=== PATIENT | male | born 1935 | race Caucasian/White ===

== ENCOUNTER → 2017-01-30 | Outpatient (CLI) | payer OTHER ==
[~2017-01-30] MED LIST: ADVIN50/60 INH; ALBUAER2 INH; AMLO-110 PO; ASPI-232 PO; ATOR-22 PO; CLOP1TAB15 PO; CRD200 PO; CYAN10005 PO; FLM4 PO; FLV1 PO; HYDR-4079 PO; IPRA1AER2 INH; ISOS60TA25 PO; ISR/30 PO; LEVA45AE NEB; MULT-506 PO; NTRGSL/4 SL; OMEP10CA2 PO; SPRIN/30 INH; THIA100T11 PO; THM100 PO; TPRSR/25 PO
--- NOTE | 2017-01-30 14:31 | DIAGNOSTIC IMAGING REPORT ---
CHEST CT WITHOUT CONTRAST CT DOSE: 248.24 mGycm HISTORY: R91.8 Lung nodule, [id number] TECHNIQUE: Multiaxial CT images of the chest were performed without contrast. COMPARISON: Chest CT 09/08/2016. FINDINGS: Severe emphysema. No pneumothorax. No pleural effusions. Stable peripheral consolidation within the right upper lobe with associated air bronchograms and traction bronchiectasis. This favors fibrotic change. There is also mild right mediastinal shift, unchanged due to the right upper lobe volume loss. Small irregular/nodular densities within the peripheral base of the right lower lobe demonstrating a waxing and waning appearance from the prior study. No change in the irregular/spiculated focal density within the left lower lobe on image 131. This measures 2.1 cm. This could also represent chronic consolidation or a neoplasm. Old, healed right-sided rib fractures. The visualized unenhanced liver and adrenal glands are unremarkable. Calcification within the spleen. No mediastinal or hilar lymphadenopathy. The heart is normal in size. IMPRESSION: 1. No change in the peripheral consolidation within the right upper lobe with associated traction bronchiectasis. There is volume loss within the right upper lobe with associated mild right mediastinal shift. Therefore, this favors fibrotic change. 2. Stable 2.1 cm irregular/spiculated density within the left lower lobe. This could represent chronic consolidation versus a neoplasm. Bronchoscopy is suggested for further evaluation. 3. Waxing and waning appearance within the small irregular/nodular densities within the peripheral base of the right lower lobe. Therefore, this favors an infectious process. Electronically signed by: Toribio Bo M.D. 01/30/2017 2:30 PM Dictated Date/Time: 01/30/2017 2:19 PM
== END | disposition home or self-care (01) ==
LOC: C.CTS 13:45
PROVIDERS: ATTEND Surgery
DX: R91.8 Other nonspecific abnormal finding of lung field (principal)

== ENCOUNTER 2017-04-08 02:12 | Observation (INO) | payer OTHER ==
[~2017-04-08] VITALS: Ht 165.1 cm; Wt 58.7 kg
[~2017-04-08 02:12] MED LIST changes: -ISOS60TA25 PO; -THIA100T11 PO
--- NOTE | 2017-04-08 02:26 | EMERGENCY ROOM VISIT NOTE ---
History Report prepared by Lexie: Diego Mclean Under the Supervision of: Dr. Alvarez Musa D.O. First contact with patient: 02:16 Stated Complaint: RESPIRATORY DIFFICULTY/CHEST TIGHTNESS History of Present Illness The patient is a 82 year old male who presents to the Emergency Room with complaints of shortness of breath that occurred 1 hour ago. His shortness of breath woke him up from sleep. At this time, he also had some chest tightness. His symptoms have lessened significantly after he received 1 Nitroglycerin, Combivent, Albuterol, DuoNeb, and Aspirin 324 mg PO en route. He denies any chest pain, cough, or fever. He is not on oxygen at home. He recently quit smoking cigarettes four months ago. Source of History: patient Onset: 1 hour ago Position: other (Respiratory System) Symptom Intensity: mild Quality: other (Shortness of breath) Timing: resolved Associated Symptoms: + SOB, No fevers, No cough, No chest pain Review of Systems See HPI for pertinent positives and negatives. A total of ten systems were reviewed and were otherwise negative. Past Medical & Surgical Medical Problems: (1) COPD (chronic obstructive pulmonary disease) (2) Coronary artery disease (3) History of atrial fibrillation (4) HLD (hyperlipidemia) (5) Hypertension (6) Tobacco abuse Surgical Problems: (1) S/P drug eluting coronary stent placement (2) Status post coronary artery stent placement Family History FH: heart disease FH: lung disease Social History Smoking Status: Former Smoker Alcohol Use: occasionally Drug Use: none Marital Status: Housing Status: lives with family Occupation Status: employed Current/Historical Medications Scheduled Amiodarone HCl (Amiodarone HCl), 100 MG PO Q2D Amlodipine (Norvasc), 5 MG PO QAM Aspirin (Aspir-81), 81 MG PO DAILY Atorvastatin (Lipitor), 20 MG PO QAM Clopidogrel (Plavix), 75 MG PO QAM Cyanocobalamin (Vitamin B-12), 1,500 MCG PO QAM Fluticasone Prop/Salmeterol (Advair Diskus 500/50 60 Dose), 1 PUFF INH BID Folic Acid (Folic Acid), 1 MG PO QAM Ipratropium-Albuterol (Combivent Respimat), 1 PUFFS INH QID Isosorbide Dinitrate (Isordil), 30 MG PO QAM Isosorbide Mononitrate Ext Rel (Imdur Ext Rel), 90 MG PO QAM Levalbuterol Tartrate (Levalbuterol Tartrate Hfa), 1.25 MG NEB q 8 hrs Metoprolol Succinate (Metoprolol Succinate ER), 25 MG PO QAM Multivitamin (Multivitamin), 1 TAB PO QAM Nitroglycerin (Nitrostat), 0.4 MG SL UD Omeprazole (Prilosec), 10 MG PO QAM Tamsulosin HCl (Tamsulosin HCl), 0.4 MG PO QAM Thiamine HCl (Vitamin B-1), 100 MG PO QAM Thiamine Hcl (Vitamin B-1), 100 MG PO QAM Tiotropium [place] (Spiriva Handihaler), 1 PUFF INH DAILY Scheduled PRN Albuterol (Ventolin), 2 PUFFS INH Q4H PRN for Shortness of Breath Hydrocodone/Acetaminophen 10MG/325MG ([place] 10MG/325MG), 1 TAB PO Q6H PRN for Pain Allergies Coded Allergies: Naproxen (Verified Allergy, Unknown, hives, 09/29/16) Physical Exam Vital Signs Date Time Temp Pulse Resp B/P (MAP) Pulse Ox O2 Delivery O2 Flow Rate FiO2 04/08/17 03:27 62 18 156/83 100 Room Air 04/08/17 03:12 65 17 100 Room Air 04/08/17 02:57 60 17 100 Room Air 04/08/17 02:42 62 17 100 04/08/17 02:27 62 18 100 04/08/17 02:20 100 Room Air 04/08/17 02:20 65 04/08/17 02:20 36.4 67 24 168/90 100 Room Air 04/08/17 02:17 168/90 04/08/17 02:15 100 Room Air Physical Exam GENERAL: Awake, alert, well-appearing, in no distress HENT: Normocephalic, atraumatic. Oropharynx unremarkable. EYES: Normal conjunctiva. Sclera non-icteric. NECK: Supple. No nuchal rigidity. FROM. No JVD. RESPIRATORY: Decreased breath sounds bilaterally. CARDIAC: Regular rate, normal rhythm. Extremities warm and well perfused. Pulses equal. ABDOMEN: Soft, non-distended. No tenderness to palpation. No rebound or guarding. No masses. RECTAL: Deferred. MUSCULOSKELETAL: Chest examination reveals no tenderness. The back is symmetrical on inspection without obvious abnormality. There is no CVA tenderness to palpation. No joint edema. LOWER EXTREMITIES: Calves are equal size bilaterally and non-tender. No edema. No discoloration. NEURO: Normal sensorium. No sensory or motor deficits noted. SKIN: No rash or jaundice noted. Medical Decision & Procedures ER Provider Diagnostic Interpretation: X-ray: Per my interpretation. CHEST 1 VIEW X-RAY: Scarring of the right upper lobe. COPD changes. Per me. Laboratory Results 04/08/17 01:46 Red Blood Count 3.97, Mean Corpuscular Volume 94.0, Mean Corpuscular Hemoglobin 33.2, Mean Corpuscular Hemoglobin Concent 35.4, Mean Platelet Volume 9.8, Neutrophils (%) (Auto) 51.9, Lymphocytes (%) (Auto) 35.9, Monocytes (%) (Auto) 8.9, Eosinophils (%) (Auto) 1.7, Basophils (%) (Auto) 0.5, Neutrophils # (Auto) 3.40, Lymphocytes # (Auto) 2.35, Monocytes # (Auto) 0.58, Eosinophils # (Auto) 0.11, Basophils # (Auto) 0.03 04/08/17 01:46 Test 04/08/17 01:46 04/08/17 04:21 White Blood Count 6.54 K/uL (4.8-10.8) Red Blood Count 3.97 M/uL (4.7-6.1) Hemoglobin 13.2 g/dL (14.0-18.0) Hematocrit 37.3 % (42-52) Mean Corpuscular Volume 94.0 fL (80-100) Mean Corpuscular Hemoglobin 33.2 pg (25-34) Mean Corpuscular Hemoglobin Concent 35.4 g/dl (32-36) Platelet Count 164 K/uL (130-400) Mean Platelet Volume 9.8 fL (7.4-10.4) Neutrophils (%) (Auto) 51.9 % Lymphocytes (%) (Auto) 35.9 % Monocytes (%) (Auto) 8.9 % Eosinophils (%) (Auto) 1.7 % Basophils (%) (Auto) 0.5 % Neutrophils # (Auto) 3.40 K/uL (1.4-6.5) Lymphocytes # (Auto) 2.35 K/uL (1.2-3.4) Monocytes # (Auto) 0.58 K/uL (0.11-0.59) Eosinophils # (Auto) 0.11 K/uL (0-0.5) Basophils # (Auto) 0.03 K/uL (0-0.2) RDW Standard Deviation 42.6 fL (36.4-46.3) RDW Coefficient of Variation 12.3 % (11.5-14.5) Immature Granulocyte % (Auto) 1.1 % Immature Granulocyte # (Auto) 0.07 K/uL (0.00-0.02) Anion Gap 6.0 mmol/L (3-11) Est Creatinine Clear Calc Drug Dose 100.8 ml/min Estimated GFR () 117.8 Estimated GFR (Non- 101.6 BUN/Creatinine Ratio 12.2 (10-20) Calcium Level 7.9 mg/dl (8.5-10.1) Total Bilirubin 0.6 mg/dl (0.2-1) Direct Bilirubin 0.2 mg/dl (0-0.2) Aspartate Amino Transf (AST/SGOT) 23 U/L (15-37) Alanine Aminotransferase (ALT/SGPT) 28 U/L (12-78) Alkaline Phosphatase 58 U/L (45-117) Total Protein 6.5 gm/dl (6.4-8.2) Albumin 3.4 gm/dl (3.4-5.0) Laboratory results reviewed by me Medications Administered Medications (Trade) Dose Ordered Sig/Emilee Route Start Time Stop Time Status Last Admin Dose Admin Methylprednisolone Sodium Succinate (Solu-Medrol IV) 125 mg NOW STAT IV 04/08/17 03:32 04/08/17 03:33 DC 04/08/17 03:43 125 MG ECG Indication: SOB/dyspnea Rate (beats per minute): 63 Rhythm: sinus rhythm Findings: left axis deviation, other (Right anterior deena Block) ED Course 0216: The patient was evaluated in room A10. A complete history and physical exam was performed. 0332: Ordered Solu-Medrol IV 125 mg IV, Aspirin 324 mg PO 0415: I reevaluated the patient. Discussed results and discharge instructions: He verbalized understanding and agreement. The patient is ready for discharge. Medical Decision Differential diagnoses include but are not limited to; COPD, CHF, pneumonia, and acute coronary syndrome. Medication Reconciliation: I attest that I have personally reviewed the patient' s current medication list. Blood pressure screening: Patient was found to have normal blood pressure on screening and does not require follow-up. Patient was given aspirin prior arrival, has taken nitroglycerin, has been given Solu-Medrol in the emergency department as well as nebulized treatments prior to arrival. Patient remained stable condition. The case was discussed with the hospitalist from [facility] for admission Consults Time Called: [phone] Consulting Physician: Dr. Emil[facility] Returned Call: [phone] They will be evaluating the patient for further management and care. Impression Primary Impression: COPD exacerbation Additional Impression: Chest pain, rule out acute myocardial infarction Scribe Attestation The scribe's documentation has been prepared under my direction and personally reviewed by me in its entirety. I confirm that the note above accurately reflects all work, treatment, procedures, and medical decision making performed by me. Departure Information Dispostion Being Evaluated By Hospitalist Referrals Reyes Pablo M.D. (PCP) Problem Qualifiers
[2017-04-08 02:34] LABS: BASO % 0.5 %; BASO ABS # 0.03 K/uL (0-0.2); COMPLETE YES; EOS % 1.7 %; HEMATOCRIT 37.3 % (42-52); IG% 1.1 %; LYMPH % 35.9 %; LYMPH ABS # 2.35 K/uL (1.2-3.4); MEAN CORPUSCULAR HEMOGLOBIN 33.2 pg (25-34); MEAN CORPUSCULAR HGB CONC 35.4 g/dl (32-36); MEAN PLATELET VOLUME 9.8 fL (7.4-10.4); MONO % 8.9 %; NEUT % 51.9 %; PLATELET COUNT 164 K/uL (130-400); RED BLOOD COUNT 3.97 M/uL (4.7-6.1); WHITE BLOOD COUNT 6.54 K/uL (4.8-10.8)
[2017-04-08 02:52] LABS: BUN/CREATININE RATIO 12.2 (10-20); CALCIUM 7.9 mg/dl (8.5-10.1); CREATININE 0.5 mg/dl (0.60-1.40); POTASSIUM 3.9 mmol/L (3.5-5.1)
[2017-04-08] MEDS ORDERED: THIA100T11 PO (03:11)
[2017-04-08] MEDS ORDERED: ASPIRIN 81 MG CHEW PO STA (03:32)
[2017-04-08] MEDS ORDERED: METHYLPREDNISOLONE 125 MG VIAL IV STA (03:32)
--- NOTE | 2017-04-08 04:21 | History and Physical ---
History & Physical Date & Time of Service: Apr 08, 2017 at 04:21 Chief Complaint: Respiratory Difficulty/Chest Tightness Primary Care Physician: Reyes Pablo M.D. History of Present Illness Source: patient this is a 82 yo Male with past medical hx of CAD , HTN /Afib presented to ED with with complain of SOB woke him up from sleep tole SL nitro with improvement of symptom at present chest pain free no complain of orthopnea , no cough no fever or chills pt was seen by Cardiology recently , Imdur dose was increased for AHMADI , anginal symptom with exertion pt has chronically occluded LAD , severely calcified coronary artery , not amenable for PTCA medical management was indicated in the ED pt was given Solu Medrol -for possible COPD exacerbation Past Medical/Surgical History Medical Problems: (1) COPD (chronic obstructive pulmonary disease) Status: Chronic (2) Coronary artery disease Status: Chronic (3) History of atrial fibrillation Status: Chronic (4) HLD (hyperlipidemia) Status: Chronic (5) Hypertension Status: Chronic (6) Tobacco abuse Status: Chronic Surgical Problems: (1) S/P drug eluting coronary stent placement Permanent Comment: 2005 Status: Chronic (2) Status post coronary artery stent placement Permanent Comment: PCI LAD Status: Chronic Family History FH: heart disease FH: lung disease Social History Smoking Status: Former Smoker Drug Use: none Marital Status: Occupational Status: employed Allergies Coded Allergies: Naproxen (Verified Allergy, Unknown, hives, 09/29/16) Home Medications Scheduled Amiodarone HCl (Amiodarone HCl), 100 MG PO Q2D Amlodipine (Norvasc), 5 MG PO QAM Aspirin (Aspir-81), 81 MG PO DAILY Atorvastatin (Lipitor), 20 MG PO QAM Clopidogrel (Plavix), 75 MG PO QAM Cyanocobalamin (Vitamin B-12), 1,500 MCG PO QAM Fluticasone Prop/Salmeterol (Advair Diskus 500/50 60 Dose), 1 PUFF INH BID Folic Acid (Folic Acid), 1 MG PO QAM Ipratropium-Albuterol (Combivent Respimat), 1 PUFFS INH QID Isosorbide Mononitrate Ext Rel (Imdur Ext Rel), 90 MG PO QAM Metoprolol Succinate (Metoprolol Succinate ER), 25 MG PO QAM Multivitamin (Multivitamin), 1 TAB PO QAM Nitroglycerin (Nitrostat), 0.4 MG SL UD Omeprazole (Prilosec), 10 MG PO QAM Tamsulosin HCl (Tamsulosin HCl), 0.4 MG PO QAM Thiamine Hcl (Vitamin B-1), 100 MG PO QAM Tiotropium [place] (Spiriva Handihaler), 1 PUFF INH DAILY Scheduled PRN Albuterol (Ventolin), 2 PUFFS INH Q4H PRN for Shortness of Breath Hydrocodone/Acetaminophen 10MG/325MG ([place] 10MG/325MG), 1 TAB PO Q6H PRN for Pain Levalbuterol Tartrate (Levalbuterol Tartrate Hfa), 1.25 MG NEB q 8 hrs PRN for SOB/Wheezing Review of Systems Constitutional: + weakness Respiratory: + shortness of breath, + dyspnea on exertion Cardiovascular: + chest pain Abdomen: No pain, No nausea, No vomiting, No diarrhea, No constipation, No GI bleeding, No problem reported Musculoskeletal: No joint pain, No muscle pain, No swelling, No calf pain, No problem reported Genitourinary - Male: No hematuria, No dysuria, No urinary frequency, No urinary urgency, No urinary hesitancy, No urinary retention, No urinary incontinence, No penile discharge, No lesions, No impotence, No problem reported Neurologic: No memory loss, No paralysis, No weakness, No numbness/tingling, No vertigo, No balance problems, No problem reported Physical Exam Vital Signs Date Time Temp Pulse Resp B/P (MAP) Pulse Ox O2 Delivery O2 Flow Rate FiO2 04/08/17 03:27 62 18 156/83 100 Room Air 04/08/17 03:12 65 17 100 Room Air 04/08/17 02:57 60 17 100 Room Air 04/08/17 02:42 62 17 100 04/08/17 02:27 62 18 100 04/08/17 02:20 100 Room Air 04/08/17 02:20 65 04/08/17 02:20 36.4 67 24 168/90 100 Room Air 04/08/17 02:17 168/90 04/08/17 02:15 100 Room Air General Appearance: no apparent distress Eyes: sclerae normal Respiratory/Chest: chest non-tender, lungs clear, normal breath sounds, no respiratory distress Cardiovascular: regular rate, rhythm, no edema, no JVD, normal peripheral pulses Abdomen/GI: non tender, soft Extremities/Musculoskelatal: normal capillary refill, no pedal edema Neurologic/Psych: alert, normal mood/affect, oriented x 3 Skin: normal color, warm/dry, no rash Diagnostics Laboratory Results Results Past 24 Hours Test 04/08/17 01:46 Range/Units White Blood Count 6.54 4.8-10.8 K/uL Red Blood Count 3.97 4.7-6.1 M/uL Hemoglobin 13.2 14.0-18.0 g/dL Hematocrit 37.3 42-52 % Mean Corpuscular Volume 94.0 80-100 fL Mean Corpuscular Hemoglobin 33.2 25-34 pg Mean Corpuscular Hemoglobin Concent 35.4 32-36 g/dl Platelet Count 164 130-400 K/uL Mean Platelet Volume 9.8 7.4-10.4 fL Neutrophils (%) (Auto) 51.9 % Lymphocytes (%) (Auto) 35.9 % Monocytes (%) (Auto) 8.9 % Eosinophils (%) (Auto) 1.7 % Basophils (%) (Auto) 0.5 % Neutrophils # (Auto) 3.40 1.4-6.5 K/uL Lymphocytes # (Auto) 2.35 1.2-3.4 K/uL Monocytes # (Auto) 0.58 0.11-0.59 K/uL Eosinophils # (Auto) 0.11 0-0.5 K/uL Basophils # (Auto) 0.03 0-0.2 K/uL RDW Standard Deviation 42.6 36.4-46.3 fL RDW Coefficient of Variation 12.3 11.5-14.5 % Immature Granulocyte % (Auto) 1.1 % Immature Granulocyte # (Auto) 0.07 0.00-0.02 K/uL Sodium Level 138 136-145 mmol/L Potassium Level 3.9 3.5-5.1 mmol/L Chloride Level 106 98-107 mmol/L Carbon Dioxide Level 26 21-32 mmol/L Anion Gap 6.0 3-11 mmol/L Blood Urea Nitrogen 6 7-18 mg/dl Creatinine 0.50 0.60-1.40 mg/dl Est Creatinine Clear Calc Drug Dose 100.8 ml/min Estimated GFR () 117.8 Estimated GFR (Non- 101.6 BUN/Creatinine Ratio 12.2 10-20 Random Glucose 65 70-99 mg/dl Calcium Level 7.9 8.5-10.1 mg/dl Total Bilirubin 0.6 0.2-1 mg/dl Direct Bilirubin 0.2 0-0.2 mg/dl Aspartate Amino Transf (AST/SGOT) 23 15-37 U/L Alanine Aminotransferase (ALT/SGPT) 28 12-78 U/L Alkaline Phosphatase 58 45-117 U/L Total Protein 6.5 6.4-8.2 gm/dl Albumin 3.4 3.4-5.0 gm/dl CXR normal Impression Assessment and Plan SOB /CHEST PAIN : need to rule out ACS monitor in Tele symptom resolved after takin SL nitro serial cardiac markers ordered ECHO in AM consider cardiac stress test if serial cardiac markers are negative and pt is symptom free HTN : BP stable cont out pt meds Hx of COPD EXACERBATION : hx of COPD with hx of tobacco use no evidence of exacerbation PRN neb tx cont INH last echo; shows severe pulm HTN repeat ECHO ordered HX OF PAROXYSMAL AFIB on Amiodarone on dual antiplatelet tx not on Coumadin HX OF CAD S/P PTCA cont out pt cardiac meds ECHO ordered chest pain /SOB could be possibly due to COPD exacerbation check serial Cardica markers HYPERLIPIDEMIA: Cont statin FULL CODE DVT PROPHYLAXIS: moderate risk Subq heparin DISPOSITION ; expected to return home when medically stable PT/OT eval prior to discharge Level of Care Telemetry Resuscitation Status FULL RESUSCITATION VTE Prophylaxis VTE Risk Assessment Done? Y/N: Yes Risk Level: Moderate Given or contraindicated: Unfractionated heparin SQ
[2017-04-08] MEDS ORDERED: ISOS60TA25 PO (04:22)
[2017-04-08] MEDS ORDERED: NITROGLYCERIN 0.4 MG SL PER TAB CHARGE SL PRN (04:30)
[2017-04-08] MEDS ORDERED: MAGNESIUM HYDROXIDE SUSP 30 ML UDC PO PRN (04:30)
[2017-04-08] MEDS ORDERED: ALBUT/IPRATROP 3MG/0.5MG NEB 3 ML VIAL INH PRN (04:30)
[2017-04-08] MEDS ORDERED: NITROGLYCERIN 0.4 MG SL PER TAB CHARGE SL SCH (04:30)
[2017-04-08] MEDS ORDERED: POLYETHYLENE (MIRALAX) 17 GM PACK PO PRN (04:30)
[2017-04-08] MEDS ORDERED: ONDANSETRON INJ 2 MG/ML 2 ML VIAL IV PRN (04:30)
[2017-04-08] MEDS ORDERED: ALUMINUM/MAGNESIUM/SIMETH (MAALOX MAX) 30 ML UDC PO PRN (04:30)
[2017-04-08] MEDS ORDERED: HYDROCODONE/ACETAMI 10/325 TAB PO PRN (04:30)
[2017-04-08] MEDS ORDERED: ALBUTEROL HFA 8 GM INHALER INH PRN (04:30)
[2017-04-08] MEDS ORDERED: ACETAMINOPHEN 325 MG TAB PO PRN (04:30)
[2017-04-08] MEDS ORDERED: ZOLPIDEM TARTRATE 5 MG TAB PO PRN (04:30)
[2017-04-08 05:15] VITALS: BP 185/86; PULSE 64; TEMP 36.5; O2SAT 94; Ht 165.1 cm; Wt 58.7 kg
[2017-04-08] MEDS ORDERED: IV FLUIDS COMPLETED PRN (05:30)
--- NOTE | 2017-04-08 06:54 | Progress Note ---
Progress Note Date of Service Apr 08, 2017. Progress Note Pt had runs of non sustained Vtch on monitor remains asymptomatic cont monitoring tech , follow electrolytes on Amiodarone already cardiology eval requested
[2017-04-08] MEDS ORDERED: PERFLUTREN LIPID MICROSPHERE (DEFINITY) IV ONE (07:35)
[2017-04-08 07:41] VITALS: BP 179/98; PULSE 82; TEMP 36.4; O2SAT 90
--- NOTE | 2017-04-08 08:20 | DIAGNOSTIC IMAGING REPORT ---
CHEST ONE VIEW PORTABLE CLINICAL HISTORY: Chest pain, shortness of breath. COMPARISON STUDY: Chest radiograph September 29, [address] January 30, 2017. FINDINGS: Peripheral consolidation within the right upper lobe with distortion and right hemithorax volume loss is unchanged. This is likely chronic. There is no pneumothorax or pleural effusion. There is no consolidation to suggest pneumonia. Cardiac size is normal. A few nodular opacities within the right lower lung are similar to prior chest CT. The left lower lobe nodule shown on that exam is not well visualized on this exam as it is partially obscured by an overlying lead. This appears unchanged. Multiple thoracic spine compression deformities are noted. IMPRESSION: 1. No significant change in appearance the chest since CT of January 30, 2017. 2. A few irregular bilateral pleural nodules which are indeterminate and a follow-up chest CT in 3 months is recommended. 3. Stable right upper lobe opacity with distortion which favors fibrotic change. Electronically signed by: Anton Andersen M.D. 04/08/2017 8:19 AM Dictated Date/Time: 04/08/2017 8:13 AM
[2017-04-08] MEDS: FLUTICASONE/SALMETEROL (ADVAIR) 500/50 INH 14 PUFF INH SCH ×2 (08:38→19:54)
[2017-04-08] MEDS: TIOTROPIUM BROMIDE 5 PUFF/90 MCG INH INH SCH (08:38)
[2017-04-08] MEDS: IPRATROPIUM BROMIDE/ALBUTEROL respimat INH INH SCH ×4 (08:39→19:56)
[2017-04-08] MEDS: TAMSULOSIN HCL 0.4 MG CAP PO SCH (08:40)
[2017-04-08] MEDS: ASPIRIN 81 MG ECTAB PO SCH (08:40)
[2017-04-08] MEDS: ISOSORBIDE MONONITRATE 30 MG TABCR PO SCH (08:41)
[2017-04-08] MEDS: ATORVASTATIN 20 MG TAB PO SCH (08:56)
[2017-04-08] MEDS: PANTOprazole SOD 40 MG TAB PO SCH (08:57)
[2017-04-08] MEDS: AMLODIPINE BESYLATE 5 MG TAB PO SCH (08:57)
[2017-04-08] MEDS: MULTIVITAMIN TAB PO SCH (08:58)
[2017-04-08] MEDS: THIAMINE HCL 100 MG TAB PO SCH (08:58)
[2017-04-08] MEDS: CLOPIDOGREL BISULFATE 75 MG TAB PO SCH (08:59)
[2017-04-08] MEDS: CYANOCOBALAMIN 500 MCG TAB (VIT B-12) PO SCH (08:59)
[2017-04-08] MEDS: METOPROLOL SUCC 25MG EXT REL TAB PO SCH (08:59)
[2017-04-08] MEDS ORDERED: AMIODARONE 200 MG TAB PO SCH (09:00)
[2017-04-08] MEDS ORDERED: ASPIRIN 81 MG ECTAB PO SCH (09:00)
--- NOTE | 2017-04-08 10:06 | Progress Note ---
Internal Med Progress Note Date of Service: Apr 08, 2017. Provider Documentation: SUBJECTIVE: Seen and examined at bedside. States chest pain resolved. Denies SOB, wheezing, cough, palpitations, dizziness. Offers no complaints. Poor historian. OBJECTIVE: Vital Signs-as noted below Physical Exam: General Appearance:Moderately built and nourished, no apparent distress Head: normocephalic, Atraumatic Eyes: normal inspection, EOMI, PERRL Neck: supple, Trachea midline Respiratory/Chest: Decreased breath sounds, CTA Cardiovascular: S1, S2, No murmur Abdomen/GI:Soft, Non tender, Bowel sounds present Extremities/Musculoskelatal:normal inspection, no edema Neurologic/Psych:AAOX3, grossly no focal neurological deficits Skin: normal color, warm Lab data as noted below. ASSESSMENT & PLAN: SOB/CHEST PAIN: R/O ACS H/O CAD S/P PTCA symptoms resolved after taking SL nitro Troponin pending Trend cardiac enzymes ECHO pending Cardiology consulted Possible stress test if elevated troponin Continue Aspirin, Plavix, Lipitor, Metoprolol, Imdur CXR:No acute changes HTN : continue home meds Monitor H/O COPD: No evidence of exacerbation PRN nebs continue home inhalers last ECHO: shows severe pulm HTN H/O P.Afib Continue Amiodarone, BB Not on Coumadin HYPERLIPIDEMIA: Continue statin Code Status: FULL CODE DVT PX: Heparin SQ DISPOSITION : Monitor in tele expected to return home when medically stable PT/OT eval Needs repeat CT chest in 3 months upon DC: to eval Pleural Nodules Vital Signs: Date Time Temp Pulse Resp B/P (MAP) Pulse Ox O2 Delivery O2 Flow Rate FiO2 04/08/17 07:41 36.4 82 20 179/98 (125) 90 04/08/17 05:15 36.5 64 18 185/86 94 Room Air 04/08/17 04:32 36.8 62 18 158/82 100 Room Air 04/08/17 04:02 71 20 158/82 97 Room Air 04/08/17 03:32 59 17 100 04/08/17 03:27 62 18 156/83 100 Room Air 04/08/17 03:12 65 17 100 Room Air 04/08/17 02:57 60 17 100 Room Air 04/08/17 02:42 62 17 100 04/08/17 02:27 62 18 100 04/08/17 02:20 100 Room Air 04/08/17 02:20 65 04/08/17 02:20 36.4 67 24 168/90 100 Room Air 04/08/17 02:17 168/90 04/08/17 02:15 100 Room Air Lab Results: Results Past 24 Hours Test 04/08/17 01:46 04/08/17 03:30 04/08/17 06:51 04/08/17 10:09 Range/Units White Blood Count 6.54 4.8-10.8 K/uL Red Blood Count 3.97 4.7-6.1 M/uL Hemoglobin 13.2 14.0-18.0 g/dL Hematocrit 37.3 42-52 % Mean Corpuscular Volume 94.0 80-100 fL Mean Corpuscular Hemoglobin 33.2 25-34 pg Mean Corpuscular Hemoglobin Concent 35.4 32-36 g/dl Platelet Count 164 130-400 K/uL Mean Platelet Volume 9.8 7.4-10.4 fL Neutrophils (%) (Auto) 51.9 % Lymphocytes (%) (Auto) 35.9 % Monocytes (%) (Auto) 8.9 % Eosinophils (%) (Auto) 1.7 % Basophils (%) (Auto) 0.5 % Neutrophils # (Auto) 3.40 1.4-6.5 K/uL Lymphocytes # (Auto) 2.35 1.2-3.4 K/uL Monocytes # (Auto) 0.58 0.11-0.59 K/uL Eosinophils # (Auto) 0.11 0-0.5 K/uL Basophils # (Auto) 0.03 0-0.2 K/uL RDW Standard Deviation 42.6 36.4-46.3 fL RDW Coefficient of Variation 12.3 11.5-14.5 % Immature Granulocyte % (Auto) 1.1 % Immature Granulocyte # (Auto) 0.07 0.00-0.02 K/uL Sodium Level 138 136-145 mmol/L Potassium Level 3.9 3.5-5.1 mmol/L Chloride Level 106 98-107 mmol/L Carbon Dioxide Level 26 21-32 mmol/L Anion Gap 6.0 3-11 mmol/L Blood Urea Nitrogen 6 7-18 mg/dl Creatinine 0.50 0.60-1.40 mg/dl Est Creatinine Clear Calc Drug Dose 100.8 ml/min Estimated GFR () 117.8 Estimated GFR (Non- 101.6 BUN/Creatinine Ratio 12.2 10-20 Random Glucose 65 70-99 mg/dl Calcium Level 7.9 8.5-10.1 mg/dl Total Bilirubin 0.6 0.2-1 mg/dl Direct Bilirubin 0.2 0-0.2 mg/dl Aspartate Amino Transf (AST/SGOT) 23 15-37 U/L Alanine Aminotransferase (ALT/SGPT) 28 12-78 U/L Alkaline Phosphatase 58 45-117 U/L Total Protein 6.5 6.4-8.2 gm/dl Albumin 3.4 3.4-5.0 gm/dl D-Dimer < 190 0-500 ug/L FEU Activated Partial Thromboplast Time 26.7 21.0-31.0 SECONDS Partial Thromboplastin Ratio 1.0
[2017-04-08 10:39] LABS: CKMB/CK RATIO 2.4 (0-3.0)
[2017-04-08 10:46] VITALS: BP 122/71; PULSE 83; TEMP 36.9; O2SAT 92
--- NOTE | 2017-04-08 11:10 | CARDIOLOGY CONSULTATION ---
DATE OF CONSULTATION: 04/08/2017 DATE OF CONSULTATION: 04/08/2017. REFERRING PHYSICIAN: Dr. Evy Cummings. REASON FOR CONSULTATION: Chest pain, nonsustained ventricular tachycardia. HISTORY OF PRESENT ILLNESS: Mr. Hedrick is an 82-year-old male with complex cardiovascular history noted below. He presented to the Emergency Department after awakening with an acute episode of shortness of breath last night. The patient states he could not breathe, denies wheezing. He took 1 sublingual nitroglycerin. He adamantly denies any associated chest discomfort. He carries a history of COPD, quit smoking 4 months ago. Notes some worsening respiratory insufficiency with hot weather. The patient was admitted through the Emergency Department with a diagnosis of COPD exacerbation. He received a dose of intravenous Solu-Medrol last night. This morning he is feeling much better. Denies cough or sputum production. The patient is followed closely by the cardiology clinic for chronic stable angina. He has a history of chronic CAD with an LAD stenosis and failed PCI in 2014. He also has a history of paroxysmal atrial fibrillation on chronic amiodarone therapy. There was concern regarding possible ventricular tachycardia. I have reviewed all telemetry overnight. There is a 4 beat atrial run, likely PAT. There is no evidence of nonsustained ventricular tachycardia. The patient appears comfortable. Imdur recently titrated to 90 mg daily by Nunu Hyatt during cardiology visit on 03/28/2017. The patient offers no other complaints at this time. REVIEW OF SYSTEMS: The pertinent positives are noted above. Comprehensive 10-system review is otherwise negative. PAST MEDICAL HISTORY: 1. Chronic coronary disease with history of PCI, CATALINO to the LAD and obtuse marginal branch vessel. 2. Failed PCI to heavily calcified LAD lesion distal to the stent in March 2015. 3. Paroxysmal atrial fibrillation on chronic amiodarone. 4. COPD. 5. Former tobacco abuse. 6. Hypertension. 7. Chronic pain. 8. Dyslipidemia. PAST SURGICAL HISTORY: As noted above. SOCIAL HISTORY: Former heavy tobacco use, quitting in November 2016. He is . Lives with family. ALLERGIES: NAPROXEN. OUTPATIENT MEDICATIONS: 1. Amiodarone 100 mg every other day. 2. Amlodipine 5 mg daily. 3. Aspirin 81 mg daily. 4. Atorvastatin 20 mg daily. 5. Plavix 75 mg daily. 6. Vitamin B 12 1500 mcg daily. 7. Advair Diskus 500/50 one puff twice daily. 8. Folic acid 1 mg daily. 9. Combivent 1 puff q.i.d. 11. Imdur 30 mg daily. 12. Toprol-XL 25 mg daily. 13. Prilosec 10 mg daily. 14. Spiriva 18 mcg daily 15. Aspirin 81 mg daily. 16. Flomax 0.4 mg daily. FAMILY HISTORY: Negative for premature CAD or sudden cardiac , however noncontributory given patient's advanced age. ECG ON ADMISSION: Sinus rhythm, right bundle branch block, left anterior vesicular block. CHEST X-RAY: Stable right upper lobe opacity with distortion which favors fibrotic change. No CHF or infiltrate. LABORATORY DATA: Troponin has not been drawn since admission. There is no point of care troponin available for reveal. Sodium 138, potassium 3.9, chloride 106, CO2 26, creatinine is 0.50. White blood cell count is 6.54, hemoglobin is 13.2, platelet count is 164. PTT 26.7. D-dimer less than 190. Telemetry demonstrates sinus rhythm, right bundle branch block. Four beat anne of paroxysmal atrial tachycardia. PHYSICAL EXAMINATION: VITAL SIGNS: Temperature is 36.4 degrees centigrade, pulse is 80 beats per minute and regular, respiratory rate 20 breaths per minute, blood pressure 179/98. SAO2 is 94% on room air. GENERAL: NAD, awake, alert and oriented x3. HEAD, EYES, EARS, NOSE, AND THROAT: His mucous membranes are moist. No scleral icterus. Conjunctivae pink. NECK: Veins are flat. No JVD or HJR. HEART: Regular with a normal S1 and S2, no significant murmur, rub or gallop. LUNGS: Demonstrate diminished breath sounds bilaterally. No rales, rhonchi or wheeze. ABDOMEN: Soft, nontender. No rebound or guarding. EXTREMITIES: Warm and dry without clubbing, cyanosis, or edema. 2+ DP pulses noted bilaterally. NEUROLOGIC EXAMINATION: Demonstrates no focal motor deficit. FINAL IMPRESSIONS: 1. An 82-year-old male admitted with acute shortness of breath. Suspect related to chronic obstructive pulmonary disease exacerbation, which has improved with intravenous Solu-Medrol. Will exclude acute coronary syndrome. 2. Chronic coronary disease, history of left anterior descending stenosis and a failed percutaneous coronary intervention 2014 and chronic stable angina managed conservatively. 3. Elevated blood pressure in part related to dose of intravenous corticosteroids. 4. Paroxysmal atrial fibrillation maintained in sinus rhythm with low dose amiodarone. 5. Bifascicular block. 6. Short anne of paroxysmal atrial tachycardia reviewed on telemetry last evening -- no evidence of nonsustained ventricular tachycardia. 7. Chronic obstructive pulmonary disease with former tobacco abuse. PLAN AND RECOMMENDATIONS: I have ordered a stat troponin. The patient has received a.m. blood pressure medications at approximately 9:00 p.m. We will monitor blood pressure this a.m. Consider addition of IMTIAZ inhibitor or ARB if necessary, however, outpatient blood pressure readings have been much lower. Continue corticosteroids, nebulizer treatments as per internal medicine. Overall, patient's exertional anginal pattern is unchanged. Will await review of resting 2D transthoracic echo and troponins. Will also follow telemetry during hospitalization. Other cardiovascular medications will be continued as previously ordered. Thank you for allowing me to take part in the care of your patient. ANNEMARIE
[2017-04-08] MEDS ORDERED: METHYLPREDNISOLONE IV 40 MG in SYRINGE 0 ML IV SCH (12:00)
[2017-04-08 12:18] LABS: INR 1.1 (0.9-1.1); PROTHROMBIN TIME (PATIENT) 11.4 SECONDS (9.0-12.0)
[2017-04-08 13:28] VITALS: PULSE 97; O2SAT 94
--- NOTE | 2017-04-08 13:41 | ECHOCARDIOGRAM REPORT ---
*NOTICE TO RECEIVING [employer] This information is strictly Confidential and protected under [place] law. [place] law prohibits you from making any further disclosure of this information unless further disclosure is expressly permitted by the written consent of the person to whom it pertains or is authorized by law. A general authorization for the release of medical or other information is not sufficient for this purpose. Hospital accepts no responsibility if the information is made available to any other person, INCLUDING THE PATIENT. Interpretation Summary * Name: ERIK STRATTON Study Date: 04/08/2017 07:11 AM BP: 185/86 mmHg * Patient Location: [facility]\S\N278\S\2 HR: 64 * : 1935 (M/d/yyyy) Gender: Male Height: 65 in * Age: 82 yrs Ethnicity: [place] Weight: 137 lb * Ordering Physician: Evy Cummings * Referring Physician: Self, Referred * Performed By: Nelda Temple RDCS * * Reason For Study: Chest pain * BSA: 1.7 m2 * The study was technically limited. * Compared to prior study, changes are noted. * -- Conclusions -- * Ejection Fraction = 60-65%. * There is mild concentric left ventricular hypertrophy. * Septal motion is consistent with conduction abnormality. * Otherwise normal wall motion. * Grade I diastolic dysfunction, (abnormal relaxation pattern). * There is mild mitral regurgitation. * Poorly visualized, moderately calcified, aortic valve with at least mild stenosis per 2D imaging. Procedure Details * A complete two-dimensional transthoracic echocardiogram was performed (2D, M-mode, Doppler and color flow Doppler). * The study was technically difficult. * The study was technically limited. * Limited views were obtained. * There were technical limitations due to patient'sbody habitus * A contrast injection of Definity was performed to improve assessment of LV function. * Contrast was injected into an intravenous site in the left arm. * One vial of Definity ultrasound contrast was diluted in normal saline to a total volume of 10 ml. A total of '2' ml of solution was administered during imaging. * Lot # [id number] of Definity utilized for procedure. * Expiration date APR 16. * The attending nurse who injected the contrast agent was John Blackwell RN. Left Ventricle * The left ventricle is normal in size. * There is mild concentric left ventricular hypertrophy. * Ejection Fraction = 60-65%. * Left ventricular systolic function is normal. * Septal motion is consistent with conduction abnormality. * Otherwise normal wall motion. Right Ventricle * The right ventricle is not well visualized. * The right ventricular systolic function is normal as assessed by tricuspid annular plane systolic excursion (TAPSE) (normal >1.5 cm). Atria * The left atrial size is normal. * Right atrial size is normal. * There is no evidence of atrial septal defect, but resolution does not allow assessment for a patent foramen ovale. Mitral Valve * The mitral valve is normal. * There is mild mitral annular calcification. * There is no mitral valve stenosis. * There is mild mitral regurgitation. * Significant mitral regurgitation is absent. Tricuspid Valve * The tricuspid valve is not well visualized. * There is no tricuspid stenosis. * Significant tricuspid regurgitation is absent. Aortic Valve * The aortic valve is moderately calcified. * The aortic valve is not well visualized. * Poorly visualized, moderately calcified, aortic valve with at least mild stenosis per 2D imaging. * There is no significant aortic regurgitation. Pulmonic Valve * The pulmonary valve is not well seen, but the Doppler examination is normal without significant regurgitation or stenosis. Great Vessels * The aortic root and proximal ascending aorta are normal sized. Pericardium/Pleural * There is no pericardial effusion. Great Vessels * Normal inferior vena cava diameter and respiratory variation suggests normal central venous pressure. Left Ventricular Diastolic Function * Grade I diastolic dysfunction, (abnormal relaxation pattern). MMode 2D Measurements and Calculations IVSd 0.91 cm LVIDd 4.6 cm LVIDs 2.9 cm LVPWd 0.92 cm IVS/LVPW 0.99 FS 36.6 % EDV(Teich) 95.5 ml ESV(Teich) 32.1 ml EF(Teich) 66.4 % EDV(cubed) 95.0 ml ESV(cubed) 24.3 ml EF(cubed) 74.5 % LV mass(C)d 138.8 grams LV mass(C)dI 82.4 grams/m\S\2 CO(Teich) 4.8 l/min CI(Teich) 2.9 l/min/m\S\2 SV(Teich) 63.4 ml SI(Teich) 37.7 ml/m\S\2 CO(cubed) 5.4 l/min CI(cubed) 3.2 l/min/m\S\2 SV(cubed) 70.8 ml SI(cubed) 42.0 ml/m\S\2 Ao root diam 3.1 cm Ao root area 7.8 cm\S\2 LA dimension 2.8 cm LA/Ao 0.87 LVOT diam 2.0 cm LVOT area 3.2 cm\S\2 LVAd ap4 21.7 cm\S\2 LVLd ap4 7.4 cm EDV(MOD-sp4) 53.7 ml LVAs ap4 10.4 cm\S\2 LVLs ap4 5.6 cm ESV(MOD-sp4) 15.8 ml EF(MOD-sp4) 70.6 % LVAd ap2 26.3 cm\S\2 LVLd ap2 7.0 cm EDV(MOD-sp2) 79.5 ml LVAs ap2 12.4 cm\S\2 LVLs ap2 6.0 cm ESV(MOD-sp2) 22.1 ml EF(MOD-sp2) 72.2 % CO(MOD-sp4) 2.9 l/min CI(MOD-sp4) 1.7 l/min/m\S\2 SV(MOD-sp4) 37.9 ml SI(MOD-sp4) 22.5 ml/m\S\2 CO(MOD-sp2) 4.4 l/min CI(MOD-sp2) 2.6 l/min/m\S\2 SV(MOD-sp2) 57.4 ml SI(MOD-sp2) 34.1 ml/m\S\2 Doppler Measurements and Calculations MV E max libia 78.1 cm/sec MV A max libia 89.2 cm/sec MV E/A 0.88 MV dec time 0.13 sec Ao V2 max 202.7 cm/sec Ao max PG 16.4 mmHg Ao max PG (full) 12.3 mmHg Ao V2 mean 132.3 cm/sec Ao mean PG 8.4 mmHg Ao V2 VTI 45.6 cm TOMEKA(V,A) 1.6 cm\S\2 TOMEKA(V,D) 1.6 cm\S\2 LV V1 max PG 4.2 mmHg LV V1 max 101.9 cm/sec SV(Ao) 355.1 ml SI(Ao) 210.8 ml/m\S\2 TR max libia 240.3 cm/sec
[2017-04-08] MEDS: HEPARIN SOD 5000 UNIT/0.5 ML CARP SQ SCH ×2 (14:51→19:56)
[2017-04-08 15:07] VITALS: BP 117/71; PULSE 85; TEMP 36.6; O2SAT 95
[2017-04-08 18:49] LABS: CKMB/CK RATIO 2.3 (0-3.0)
[2017-04-08 20:26] VITALS: BP 108/68; PULSE 78; TEMP 36.2; O2SAT 96
[2017-04-09 00:15] VITALS: BP 121/76; PULSE 66; TEMP 36.3; O2SAT 94
[2017-04-09 04:00] VITALS: BP 128/81; PULSE 64; TEMP 36.4; O2SAT 94
[2017-04-09] MEDS: HEPARIN SOD 5000 UNIT/0.5 ML CARP SQ SCH (05:49)
[2017-04-09 05:50] LABS: HEMATOCRIT 38.4 % (42-52); MEAN CORPUSCULAR HEMOGLOBIN 32.9 pg (25-34); MEAN CORPUSCULAR HGB CONC 34.6 g/dl (32-36); MEAN PLATELET VOLUME 10.1 fL (7.4-10.4); PLATELET COUNT 168 K/uL (130-400); RED BLOOD COUNT 4.04 M/uL (4.7-6.1); WHITE BLOOD COUNT 8.55 K/uL (4.8-10.8)
[2017-04-09 06:22] LABS: BUN/CREATININE RATIO 23.2 (10-20); CALCIUM 8.7 mg/dl (8.5-10.1); CREATININE 0.64 mg/dl (0.60-1.40)
[2017-04-09] MEDS: TIOTROPIUM BROMIDE 5 PUFF/90 MCG INH INH SCH (07:48)
[2017-04-09] MEDS: FLUTICASONE/SALMETEROL (ADVAIR) 500/50 INH 14 PUFF INH SCH (07:48)
[2017-04-09] MEDS: IPRATROPIUM BROMIDE/ALBUTEROL respimat INH INH SCH (07:48)
[2017-04-09] MEDS: TAMSULOSIN HCL 0.4 MG CAP PO SCH (07:49)
[2017-04-09] MEDS: PANTOprazole SOD 40 MG TAB PO SCH (07:49)
[2017-04-09] MEDS: MULTIVITAMIN TAB PO SCH (07:49)
[2017-04-09] MEDS: ASPIRIN 81 MG ECTAB PO SCH (07:50)
[2017-04-09] MEDS: AMLODIPINE BESYLATE 5 MG TAB PO SCH (07:50)
[2017-04-09] MEDS: CLOPIDOGREL BISULFATE 75 MG TAB PO SCH (07:50)
[2017-04-09] MEDS: THIAMINE HCL 100 MG TAB PO SCH (07:50)
[2017-04-09] MEDS: ISOSORBIDE MONONITRATE 30 MG TABCR PO SCH (07:50)
[2017-04-09] MEDS: ATORVASTATIN 20 MG TAB PO SCH (07:50)
[2017-04-09] MEDS: METOPROLOL SUCC 25MG EXT REL TAB PO SCH (07:50)
[2017-04-09] MEDS: CYANOCOBALAMIN 500 MCG TAB (VIT B-12) PO SCH (07:51)
[2017-04-09 08:13] VITALS: BP 155/85; PULSE 63; TEMP 36.5; O2SAT 96
--- NOTE | 2017-04-09 09:33 | Cardiology Follow-Up ---
Subjective General Date of Service: Apr 09, 2017. Pt evaluation today including: conversation w/ patient, physical exam, chart review, lab review, review of studies, review of inpatient medication list History of Present Illness The patient is a 82 year old male seen in follow up. No CP or SOB overnight. Feeling well this AM. Troponin undetectable. Echo stable. No sustained dysrhythmia on telemetry. Ambulating in halls without AHMADI or CP. 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) Hx Alcohol Use - Type And Amou: Yes (2 beers a day) Hx Substance Use - Type And Am: No Problem List Medical Problems: (1) Chest pain, rule out acute myocardial infarction Status: Acute (2) COPD exacerbation Status: Acute Review of Systems Respiratory: No cough, No sputum, No wheezing, No shortness of breath, No dyspnea at rest, No hemoptysis Cardiac: No chest pain, No orthopnea, No PND, No edema, No claudication, No palpitations Physical Exam Vital Signs Last Vital Signs Documentation Date Time Temp Pulse Resp B/P (MAP) Pulse Ox O2 Delivery O2 Flow Rate FiO2 04/09/17 08:13 36.5 63 18 155/85 (108) 96 04/09/17 04:00 Room Air Physical Exam Constitutional: General Apperance: well-nourished Level of Distress: NAD Head: normocephalic, atraumatic ENMT: normal ENT inspection Neck: supple, trachea midline Lungs: Auscultation: breath sounds normal, no wheezing, no rales/crackles, no rhonchi Cardiovascular: Heart Auscultation: RRR, normal S1, normal S2, no murmurs, no rubs Peripheral Pulses: Radial Pulse: normal on the right Abdomen: Inspection & Palpation: soft, non-distended, no tenderness, guarding & rebound Liver: non-tender Musculoskeletal: normal strength (5/5 throughout) Extremities: no cyanosis, no edema, no clubbing, no ulcers Neurologic: Gait & Station: pertinent finding (No focal motor deficit) Cranial Nerves: grossly intact Assessment and Plan Assessment and Plan IMPRESSION: 1. An 82-year-old male admitted with acute shortness of breath. - Troponin negative, no ischemic ECG changes, stable 2D echo - suspect secondary to chronic obstructive pulmonary disease exacerbation - No recurrent symptoms since admission 2. Chronic coronary disease, history of left anterior descending stenosis and a failed percutaneous coronary intervention 2014 and chronic stable angina managed conservatively. 3. Elevated blood pressure - improved - related to dose of intravenous corticosteroids. 4. Paroxysmal atrial fibrillation maintained in sinus rhythm with low dose amiodarone. 5. Bifascicular block. 6. Short anne of paroxysmal atrial tachycardia reviewed on telemetry -no evidence of nonsustained ventricular tachycardia. 7. Chronic obstructive pulmonary disease with former tobacco abuse. PLAN AND RECOMMENDATIONS: Continue conservative medical management of CAD and chronic stable angina. No further inpatient testing at this time. Will schedule outpatient cardiology hospital follow up in 1-2 weeks. Laboratory Results Last 24 Hours Test 04/08/17 10:09 04/08/17 18:16 04/09/17 05:25 Total Creatine Kinase 250 U/L 268 U/L Creatine Kinase MB 6.0 ng/ml 6.1 ng/ml Creatine Kinase MB Ratio 2.4 2.3 Troponin I < 0.015 ng/ml < 0.015 ng/ml White Blood Count 8.55 K/uL Red Blood Count 4.04 M/uL Hemoglobin 13.3 g/dL Hematocrit 38.4 % Mean Corpuscular Volume 95.0 fL Mean Corpuscular Hemoglobin 32.9 pg Mean Corpuscular Hemoglobin Concent 34.6 g/dl RDW Standard Deviation 44.7 fL RDW Coefficient of Variation 12.9 % Platelet Count 168 K/uL Mean Platelet Volume 10.1 fL Sodium Level 137 mmol/L Potassium Level 4.0 mmol/L Chloride Level 102 mmol/L Carbon Dioxide Level 26 mmol/L Anion Gap 9.0 mmol/L Blood Urea Nitrogen 15 mg/dl Creatinine 0.64 mg/dl Est Creatinine Clear Calc Drug Dose 78.7 ml/min Estimated GFR () 106.4 Estimated GFR (Non- 91.8 BUN/Creatinine Ratio 23.2 Random Glucose 100 mg/dl Calcium Level 8.7 mg/dl
--- NOTE | 2017-04-09 09:54 | Progress Note ---
Internal Med Progress Note Date of Service: Apr 09, 2017. Provider Documentation: SUBJECTIVE: Seen and examined at bedside. States doing well. Denies chest pain, SOB, wheezing, cough, palpitations, dizziness. Offers no complaints. OBJECTIVE: Vital Signs-as noted below Physical Exam: General Appearance:Moderately built and nourished, no apparent distress Head: normocephalic, Atraumatic Eyes: normal inspection, EOMI, PERRL Neck: supple, Trachea midline Respiratory/Chest: Decreased breath sounds, CTA Cardiovascular: S1, S2, No murmur Abdomen/GI:Soft, Non tender, Bowel sounds present Extremities/Musculoskelatal:normal inspection, no edema Neurologic/Psych:AAOX3, grossly no focal neurological deficits Skin: normal color, warm Lab data as noted below. ASSESSMENT & PLAN: SOB/CHEST PAIN: R/O ACS H/O CAD S/P PTCA symptoms resolved after taking SL nitro Troponin:wnl X 2 ECHO:Stable. As below Appreciate Cardiology input Continue Aspirin, Plavix, Lipitor, Metoprolol, Imdur CXR:No acute changes Continue conservative management for stable angina No plan for further cardiac testing HTN : continue home meds Monitor H/O COPD: No evidence of exacerbation PRN nebs continue home inhalers last ECHO: shows severe pulm HTN H/O P.Afib Continue Amiodarone, BB Not on Coumadin HYPERLIPIDEMIA: Continue statin Code Status: FULL CODE DVT PX: Heparin SQ DISPOSITION : Plan to discharge home today Follow up with in 1 week as advised. ('s office will call your to let you know the date of appointment) Follow up with your chief physical therapist, Nunu Hyatt on 04/13/17 at 2:30pm Get repeat CT chest in 3 months as advised to assess Pleural Nodules noted on chest x ray PROCEDURES: ECHO: * -- Conclusions -- * Ejection Fraction = 60-65%. * There is mild concentric left ventricular hypertrophy. * Septal motion is consistent with conduction abnormality. * Otherwise normal wall motion. * Grade I diastolic dysfunction, (abnormal relaxation pattern). * There is mild mitral regurgitation. * Poorly visualized, moderately calcified, aortic valve with at least mild stenosis per 2D imaging. Vital Signs: Date Time Temp Pulse Resp B/P (MAP) Pulse Ox O2 Delivery O2 Flow Rate FiO2 04/09/17 08:13 36.5 63 18 155/85 (108) 96 04/09/17 08:00 Room Air 04/09/17 04:00 Room Air 04/09/17 04:00 36.4 64 20 128/81 (97) 94 Room Air 04/09/17 00:15 36.3 66 20 121/76 (91) 94 Room Air 04/09/17 00:01 Room Air 04/08/17 20:26 36.2 78 20 108/68 (81) 96 Room Air 04/08/17 20:00 Room Air 04/08/17 16:00 Room Air 04/08/17 15:07 36.6 85 20 117/71 (86) 95 Room Air 04/08/17 13:28 97 16 94 Room Air 04/08/17 12:00 Room Air 04/08/17 10:46 36.9 83 18 122/71 (88) 92 Room Air Lab Results: Results Past 24 Hours Test 04/08/17 10:09 04/08/17 18:16 04/09/17 05:25 Range/Units Total Creatine Kinase 250 268 39-308 U/L Creatine Kinase MB 6.0 6.1 0.5-3.6 ng/ml Creatine Kinase MB Ratio 2.4 2.3 0-3.0 Troponin I < 0.015 < 0.015 0-0.045 ng/ml White Blood Count 8.55 4.8-10.8 K/uL Red Blood Count 4.04 4.7-6.1 M/uL Hemoglobin 13.3 14.0-18.0 g/dL Hematocrit 38.4 42-52 % Mean Corpuscular Volume 95.0 80-100 fL Mean Corpuscular Hemoglobin 32.9 25-34 pg Mean Corpuscular Hemoglobin Concent 34.6 32-36 g/dl RDW Standard Deviation 44.7 36.4-46.3 fL RDW Coefficient of Variation 12.9 11.5-14.5 % Platelet Count 168 130-400 K/uL Mean Platelet Volume 10.1 7.4-10.4 fL Sodium Level 137 136-145 mmol/L Potassium Level 4.0 3.5-5.1 mmol/L Chloride Level 102 98-107 mmol/L Carbon Dioxide Level 26 21-32 mmol/L Anion Gap 9.0 3-11 mmol/L Blood Urea Nitrogen 15 7-18 mg/dl Creatinine 0.64 0.60-1.40 mg/dl Est Creatinine Clear Calc Drug Dose 78.7 ml/min Estimated GFR () 106.4 Estimated GFR (Non- 91.8 BUN/Creatinine Ratio 23.2 10-20 Random Glucose 100 70-99 mg/dl Calcium Level 8.7 8.5-10.1 mg/dl
--- NOTE | 2017-04-09 10:11 | Discharge Summary ---
Discharge Summary Date of Service Apr 09, 2017. Discharge Summary Admission Date: Apr 08, 2017 at 04:18 Discharge Date: Apr 09, 2017 Discharge Disposition: Home Principal Diagnosis: Chest Pain, Likely Stable Angina Procedures: ECHO: * -- Conclusions -- * Ejection Fraction = 60-65%. * There is mild concentric left ventricular hypertrophy. * Septal motion is consistent with conduction abnormality. * Otherwise normal wall motion. * Grade I diastolic dysfunction, (abnormal relaxation pattern). * There is mild mitral regurgitation. * Poorly visualized, moderately calcified, aortic valve with at least mild stenosis per 2D imaging. CXR: 1. No significant change in appearance the chest since CT of January 30, 2017. 2. A few irregular bilateral pleural nodules which are indeterminate and a follow-up chest CT in 3 months is recommended. 3. Stable right upper lobe opacity with distortion which favors fibrotic change. Consultations: Cardiology Pending Studies/Follow-Up: Follow up with in 1 week as advised. ('s office will call your to let you know the date of appointment) Follow up with your evaporator operator, Nunu Hyatt on 04/13/17 at 2:30pm Get repeat CT chest in 3 months as advised to assess Pleural Nodules noted on chest x ray Seek immediate medical attention if your symptoms reoccur or worsen Medication Reconciliation Continued Medications: Albuterol (Ventolin) Inh 2 PUFFS INH Q4H PRN for Shortness of Breath, #18 INSTRUCTED TO USE NEEDED Amiodarone HCl (Amiodarone HCl) 200 Mg Tab 100 MG PO Q2D Amlodipine (Norvasc) 5 Mg Tab 5 MG PO QAM, TAB Aspirin (Aspir-81) 81 Mg Tab 81 MG PO DAILY Atorvastatin (Lipitor) 20 Mg Tab 20 MG PO QAM, TAB Clopidogrel (Plavix) 75 Mg Tab 75 MG PO QAM, TAB Cyanocobalamin (Vitamin B-12) 1,000 Mcg Tab 1500 MCG PO QAM, TAB Fluticasone Prop/Salmeterol (Advair Diskus 500/50 60 Dose) 1 Ea Aerp 1 PUFF INH BID, #60 Folic Acid (Folic Acid) 1 Mg Tab 1 MG PO QAM Hydrocodone/Acetaminophen 10MG/325MG ([place] 10MG/325MG) Tab 1 TAB PO Q6H PRN for Pain, #120 Ipratropium-Albuterol (Combivent Respimat) 1 Aer Aer 1 PUFFS INH QID, INH Isosorbide Mononitrate Ext Rel (Imdur Ext Rel) 60 Mg Ertab 90 MG PO QAM, TAB Levalbuterol Tartrate (Levalbuterol Tartrate Hfa) 45 Mcg/Act Aer 1.25 MG NEB q 8 hrs PRN for SOB/Wheezing Metoprolol Succinate (Metoprolol Succinate ER) 25 Mg Tabcr 25 MG PO QAM Multivitamin (Multivitamin) Tab 1 TAB PO QAM, TAB Nitroglycerin (Nitrostat) 0.4 Mg Tab 0.4 MG SL UD, #25 NEEDED FOR CHEST PAIN ; ONE TABLET UNDER THE TONGUE EVERY 5 MINUTES UP TO 3 DOSES. Omeprazole (Prilosec) 10 Mg Capcr 10 MG PO QAM, CAP Tamsulosin HCl (Tamsulosin HCl) 0.4 Mg Cap 0.4 MG PO QAM, #90 Thiamine Hcl (Vitamin B-1) 100 Mg Tab 100 MG PO QAM, TAB Tiotropium [place] (Spiriva Handihaler) 30 Puff/540 Mcg Aerp 1 PUFF INH DAILY, #30 TAKES IRREGULARLY Admission Information HPI (per Admitting provider): this is a 82 yo Male with past medical hx of CAD , HTN /Afib presented to ED with with complain of SOB woke him up from sleep tole SL nitro with improvement of symptom at present chest pain free no complain of orthopnea , no cough no fever or chills pt was seen by Cardiology recently , Imdur dose was increased for AHMADI , anginal symptom with exertion pt has chronically occluded LAD , severely calcified coronary artery , not amenable for PTCA medical management was indicated in the ED pt was given Solu Medrol -for possible COPD exacerbation Physical Exam (per Admitting): General Appearance: no apparent distress Eyes: sclerae normal Respiratory/Chest: chest non-tender, lungs clear, normal breath sounds, no respiratory distress Cardiovascular: regular rate, rhythm, no edema, no JVD, normal peripheral pulses Abdomen/GI: non tender, soft Extremities/Musculoskelatal: normal capillary refill, no pedal edema Neurologic/Psych: alert, normal mood/affect, oriented x 3 Skin: normal color, warm/dry, no rash Hospital Course SOB/CHEST PAIN: R/O ACS H/O CAD S/P PTCA symptoms resolved after taking SL nitro Troponin:wnl X 2 ECHO:Stable. As below Appreciate Cardiology input Continue Aspirin, Plavix, Lipitor, Metoprolol, Imdur CXR:No acute changes Continue conservative management for stable angina No plan for further cardiac testing HTN : continue home meds Monitor H/O COPD: No evidence of exacerbation PRN nebs continue home inhalers last ECHO: shows severe pulm HTN H/O P.Afib Continue Amiodarone, BB Not on Coumadin HYPERLIPIDEMIA: Continue statin Code Status: FULL CODE DVT PX: Heparin SQ DISPOSITION : Plan to discharge home today Follow up with in 1 week as advised. ('s office will call your to let you know the date of appointment) Follow up with your evaporator operator, Nunu Hyatt on 04/13/17 at 2:30pm Get repeat CT chest in 3 months as advised to assess Pleural Nodules noted on chest x ray PROCEDURES: ECHO: * -- Conclusions -- * Ejection Fraction = 60-65%. * There is mild concentric left ventricular hypertrophy. * Septal motion is consistent with conduction abnormality. * Otherwise normal wall motion. * Grade I diastolic dysfunction, (abnormal relaxation pattern). * There is mild mitral regurgitation. * Poorly visualized, moderately calcified, aortic valve with at least mild stenosis per 2D imaging. Total time spent on discharge = 33 MINUTES This includes examination of the patient, discharge planning, medication reconciliation, and communication with other providers. Discharge Instructions Discharge Instructions Date of Service Apr 09, 2017. Admission Reason for Admission: Chest Pain, Rule Out Acute Myocardial Infarction Discharge Discharge Diagnosis / Problem: Chest Pain, Likely Stable Angina Discharge Goals Goal(s): Decrease discomfort, Improve function Activity Recommendations Activity Limitations: resume your previous activity Exercise/Sports Limitations: as tolerated . Instructions / Follow-Up Instructions / Follow-Up Follow up with in 1 week as advised. ('s office will call your to let you know the date of appointment) Follow up with your evaporator operator, Nunu Hyatt on 04/13/17 at 2:30pm Get repeat CT chest in 3 months as advised to assess Pleural Nodules noted on chest x ray Seek immediate medical attention if your symptoms reoccur or worsen Current Hospital Diet Patient's current hospital diet: AHA Diet (Heart Healthy) Discharge Diet Recommended Diet: AHA Diet (Heart Healthy) Pending Studies Studies pending at discharge: no Medical Emergencies . Who to Call and When: Medical Emergencies: If at any time you feel your situation is an emergency, please call 911 immediately. . Non-Emergent Contact Non-Emergency issues call your: Primary Care Provider, Color Maker Formulator Call Non-Emergent contact if: you have a fever, your pain is not controlled, your pain is worsening, your pain is unusual for you, you have any medication questions . . "Provider Documentation" section prepared by Domingo Hopkins. . VTE Core Measure Inpt VTE Proph given/why not?: Unfractionated heparin SQ
[2017-04-09 10:17] VITALS: BP 155/85; PULSE 63; TEMP 36.5; O2SAT 96
[2017-04-10 11:05] LABS: POINT OF CARE PRO-BNP 262 pg/ml (0-1800); POINT OF CARE TROPONIN I < 0.030 ng/ml (0-0.045)
== END 2017-04-09 11:41 | disposition home or self-care (01) ==
LOC: EDBD 02:12 → C.EDA 02:16 → C.MED 04:18 → ENRESERV 04:34
PROVIDERS: ADMIT Hospitalist; ATTEND Internal Medicine
DX: R07.9 Chest pain, unspecified (principal); J44.9 Chronic obstructive pulmonary disease, unspecified; I25.10 Atherosclerotic heart disease of native coronary artery without angina pectoris; I48.91 Unspecified atrial fibrillation; E78.5 Hyperlipidemia, unspecified; I10 Essential (primary) hypertension; Z79.82 Long term (current) use of aspirin; Z79.02 Long term (current) use of antithrombotics/antiplatelets; Z79.899 Other long term (current) drug therapy; Z83.6 Family history of other diseases of the respiratory system; Z82.49 Family history of ischemic heart disease and other diseases of the circulatory system

== ENCOUNTER 2018-06-22 00:54 | Emergency (ER) | payer OTHER ==
[~2018-06-22] VITALS: Ht 165.1 cm; Wt 60.5 kg
[~2018-06-22 00:54] MED LIST changes: -AMLO-110 PO; +AMLO5TAB3 PO; +ISOS60TA25 PO; -ISR/30 PO; +THIA100T10 PO; -THM100 PO
[2018-06-22 01:00] VITALS: TEMP 36.9; Ht 165.1 cm; Wt 60.5 kg
[2018-06-22] MEDS ORDERED: SODIUM CHLORIDE 0.9% 1000ML 1,000 ML IV STA (01:45)
--- NOTE | 2018-06-22 01:47 | EMERGENCY ROOM VISIT NOTE ---
History Report prepared by Lexie: Sanjiv Love Under the Supervision of: Dr. Silvio Coburn M.D. First contact with patient: 01:24 Chief Complaint: SYNCOPE (NEAR SYNCOPE) Stated Complaint: NEAR SYNCOPE Nursing Triage Summary: Pt reports that he was sitting at the table eating and he felt like he was going to "pass out". Pt states, "I was eating and started hearing voices. 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 The patient states he thinks his symptoms have to do with his blood sugar level. He reports he has been drinking a large amount of sweet tea lately. The patient notes he was sitting down eating when he felt like he was going to pass out. He states he started to hear voices and faint noises. The patient reports he is no longer hearing voices, and he feels better. He notes he normally wears 2L of O2 at home. The patient denies being in any distress or having discomfort. 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 A total of 10 systems reviewed and were otherwise negative. Past Medical & Surgical Medical Problems: (1) COPD (chronic obstructive pulmonary disease) (2) Coronary artery disease (3) History of atrial fibrillation (4) HLD (hyperlipidemia) (5) Hypertension (6) Tobacco abuse Surgical Problems: (1) S/P drug eluting coronary stent placement (2) Status post coronary artery stent placement Family History FH: heart disease FH: lung disease Social History Smoking Status: Former Smoker Alcohol Use: occasionally Drug Use: none Marital Status: Housing Status: lives with family Occupation Status: employed Current/Historical Medications Scheduled Amiodarone HCl (Amiodarone HCl), 100 MG PO Q2D Aspirin (Aspir-81), 81 MG PO DAILY Atorvastatin (Lipitor), 20 MG PO QAM Clopidogrel (Plavix), 75 MG PO QAM Cyanocobalamin (Vitamin B12 100 Mcg), 100 MCG PO DAILY Folic Acid (Folic Acid), 1 MG PO QAM Ipratropium-Albuterol (Combivent Respimat), 1 PUFFS INH QID Isosorbide Mononitrate Ext Rel (Imdur Ext Rel), 60 MG PO BID Metoprolol Succinate (Metoprolol Succinate ER), 25 MG PO QAM Multivitamin (Multivitamin), 1 TAB PO QAM Nitroglycerin (Nitrostat), 0.4 MG SL UD Omeprazole (Prilosec), 10 MG PO QAM Tamsulosin HCl (Tamsulosin HCl), 0.4 MG PO QAM Tiotropium [place] (Spiriva Handihaler), 1 PUFF INH DAILY Scheduled PRN Albuterol (Ventolin), 2 PUFFS INH Q4H PRN for Shortness of Breath Hydrocodone/Acetaminophen 10MG/325MG ([place] 10MG/325MG), 1 TAB PO Q6H PRN for Pain Levalbuterol Tartrate (Levalbuterol Tartrate Hfa), 1.25 MG NEB q 8 hrs PRN for SOB/Wheezing Allergies Coded Allergies: Naproxen (Verified Allergy, Unknown, hives, 09/29/16) Physical Exam Vital Signs Date Time Temp Pulse Resp B/P (MAP) Pulse Ox O2 Delivery O2 Flow Rate FiO2 06/22/18 08:51 86 22 182/85 97 06/22/18 07:20 66 16 142/91 96 Room Air 06/22/18 05:41 78 20 156/92 94 Nasal Cannula 2.0 06/22/18 05:09 77 06/22/18 03:00 56 14 149/83 100 Nasal Cannula 2.0 06/22/18 02:38 58 18 134/66 100 Room Air 55 148/75 06/22/18 02:03 53 15 127/58 100 Nasal Cannula 2.0 06/22/18 01:10 52 06/22/18 01:00 Room Air 06/22/18 01:00 36.9 54 17 162/81 99 Nasal Cannula 2.0 Physical Exam GENERAL: Awake, alert, well-appearing, in no acute distress HENT: Normocephalic, atraumatic. Oropharynx unremarkable. EYES: Normal conjunctiva. Sclera non-icteric. NECK: Supple. No nuchal rigidity. FROM. No JVD. RESPIRATORY: Clear to auscultation. CARDIAC: Regular rate, normal rhythm. Extremities warm and well perfused. Pulses equal. ABDOMEN: Soft, non-distended. No tenderness to palpation. No rebound or guarding. No masses. RECTAL: Deferred. MUSCULOSKELETAL: Chest examination reveals no tenderness. The back is symmetrical on inspection without obvious abnormality. There is no CVA tenderness to palpation. No joint edema. LOWER EXTREMITIES: Calves are equal size bilaterally and non-tender. No edema. No discoloration. NEURO: Normal sensorium. No sensory or motor deficits noted. SKIN: No rash or jaundice noted. Medical Decision & Procedures ER Provider Diagnostic Interpretation: X-ray results as stated below per interpretation by me: Chest one view: No pneumothorax, congestion, or pneumonia. Radiology results as stated below per my review and [facility] radiologist interpretation: CT HEAD: Comparison: CT head 02/07/16. No ICH, mass effect, or edema. Involutional and chronic small vessel ischemic changes. Posterior left parietal lobe encephalomalacia suggesting chronic cortical infarct. No skull fracture. Visualized sinuses and mastoid air cells are clear. Radiologist: Jonh Martinez M.D. Study ready at 02:30 and initial results transmitted at 02:33 Laboratory Results 06/22/18 00:43 Red Blood Count 3.81, Mean Corpuscular Volume 93.2, Mean Corpuscular Hemoglobin 32.8, Mean Corpuscular Hemoglobin Concent 35.2, Mean Platelet Volume 10.2, Neutrophils (%) (Auto) 49.7, Lymphocytes (%) (Auto) 36.8, Monocytes (%) (Auto) 11.0, Eosinophils (%) (Auto) 1.2, Basophils (%) (Auto) 0.4, Neutrophils # (Auto ) 2.80, Lymphocytes # (Auto) 2.07, Monocytes # (Auto) 0.62, Eosinophils # (Auto ) 0.07, Basophils # (Auto) 0.02 06/22/18 00:43 Test 06/22/18 00:00 06/22/18 00:43 06/22/18 01:51 Urine Color YELLOW Urine Appearance CLEAR (CLEAR) Urine pH 6.5 (4.5-7.5) Urine Specific [place] 1.004 (1.000-1.030) Urine Protein NEG (NEG) Urine Glucose (UA) NEG (NEG) Urine Ketones NEG (NEG) Urine Occult Blood NEG (NEG) Urine Nitrite NEG (NEG) Urine Bilirubin NEG (NEG) Urine Urobilinogen NEG (NEG) Urine Leukocyte Esterase NEG (NEG) White Blood Count 5.63 K/uL (4.8-10.8) Red Blood Count 3.81 M/uL (4.7-6.1) Hemoglobin 12.5 g/dL (14.0-18.0) Hematocrit 35.5 % (42-52) Mean Corpuscular Volume 93.2 fL (80-100) Mean Corpuscular Hemoglobin 32.8 pg (25-34) Mean Corpuscular Hemoglobin Concent 35.2 g/dl (32-36) Platelet Count 161 K/uL (130-400) Mean Platelet Volume 10.2 fL (7.4-10.4) Neutrophils (%) (Auto) 49.7 % Lymphocytes (%) (Auto) 36.8 % Monocytes (%) (Auto) 11.0 % Eosinophils (%) (Auto) 1.2 % Basophils (%) (Auto) 0.4 % Neutrophils # (Auto) 2.80 K/uL (1.4-6.5) Lymphocytes # (Auto) 2.07 K/uL (1.2-3.4) Monocytes # (Auto) 0.62 K/uL (0.11-0.59) Eosinophils # (Auto) 0.07 K/uL (0-0.5) Basophils # (Auto) 0.02 K/uL (0-0.2) RDW Standard Deviation 42.1 fL (36.4-46.3) RDW Coefficient of Variation 12.5 % (11.5-14.5) Immature Granulocyte % (Auto) 0.9 % Immature Granulocyte # (Auto) 0.05 K/uL (0.00-0.02) Anion Gap 7.0 mmol/L (3-11) Est Creatinine Clear Calc Drug Dose 93.7 ml/min Estimated GFR () 115.1 Estimated GFR (Non- 99.3 BUN/Creatinine Ratio 7.6 (10-20) Calcium Level 8.1 mg/dl (8.5-10.1) Total Bilirubin 0.7 mg/dl (0.2-1) Direct Bilirubin 0.3 mg/dl (0-0.2) Aspartate Amino Transf (AST/SGOT) 19 U/L (15-37) Alanine Aminotransferase (ALT/SGPT) 21 U/L (12-78) Alkaline Phosphatase 62 U/L (45-117) Total Creatine Kinase 141 U/L (39-308) Creatine Kinase MB 5.6 ng/ml (0.5-3.6) Creatine Kinase MB Ratio 4.0 (0-3.0) Troponin I < 0.015 ng/ml (0-0.045) Total Protein 6.0 gm/dl (6.4-8.2) Albumin 3.2 gm/dl (3.4-5.0) Thyroid Stimulating Hormone (TSH) 1.280 uIu/ml (0.300-4.500) Bedside Glucose 88 mg/dl (70-99) Labs reviewed by ED physician. Medications Administered Medications (Trade) Dose Ordered Sig/Emilee Route Start Time Stop Time Status Last Admin Dose Admin Sodium Chloride 1,000 ml @ 999 mls/hr Q1H1M STAT IV 06/22/18 01:45 06/22/18 02:45 DC 06/22/18 02:03 999 MLS/HR ECG Per My Interpretation Indication: syncope Rate (beats per minute): 53 Rhythm: sinus bradycardia Findings: RBBB, other (Old septal infarct. No ST elevation or depression.) ED Course 0137: Past medical records reviewed. The patient was evaluated in room C06. A complete history and physical examination was performed. 0145: Ordered Sodium Chloride 1000 ml @ 999 mls/hr 0443: Upon reexamination the patient is resting. I discussed results and treatment plan with the patient. He verbalizes agreement and understanding. The patient is ready for discharge. Medical Decision Differential diagnosis: Etiologies such as metabolic, infection, hypo/hyperglycemia, electrolyte abnormalities, cardiac sources, intracerebral event, toxicologic, neurologic, as well as others were entertained. This is an 83-year-old male that presents during a period of high volume and high acuity during single provider coverage complaining of passing out while eating. In listening to the patient's story I suspect he had a vasovagal episode. He was given a normal saline bolus here. I will note the patient's EKG CBC renal profile liver profile are all normal. I gave the patient several options including being admitted to the hospital however he would wish to decline and wants to go home as he is feeling better. The patient was given food here in the emergency department. He is going to get a ride home in the morning. The patient has demonstrated no significant defect in the decision-making capacity to make choices. The encounter had a good level of communication with language the patient can easily understand. I feel trust was present and conveyed that our action/intentions were the best interest of the patient. The patient was given all relevant information and reiterated the explained risks and benefits. The patient explained the reasoning for refusing treatment clearly. The patient possesses and expresses a set of values and goals, the ability to communicate and understand, and an ability to reason and deliberate. Despite acting emphatically, attentively and with the utmost patient's the patient declined further treatment. I offered options, negotiated, and explored every reasonable choice. I must respect the patient's autonomy and that they feel that their choices are best for them despite the associated risks of leaving without completing the evaluation. The patient was informed about the findings as listed above. All questions were answered and he was pleased with the treatment. Return instructions were outlined and the patient was discharged in stable condition. Medication Reconcilliation Current Medication List: was personally reviewed by me Blood Pressure Screening Patient's blood pressure: Elevated blood pressure Blood pressure disposition: Referred to PCP Impression Primary Impression: Vasovagal episode Scribe Attestation The scribe's documentation has been prepared under my direction and personally reviewed by me in its entirety. I confirm that the note above accurately reflects all work, treatment, procedures, and medical decision making performed by me. Departure Information Dispostion Home / Self-Care Referrals Reyes Pablo M.D. (PCP) Forms HOME CARE DOCUMENTATION FORM, IMPORTANT VISIT INFORMATION Patient Instructions ED Near Syncope Vasovagal, My [facility] Additional Instructions Increase fluids next 48 hours You have been examined and treated today on an emergency basis only. This is not a substitute for, or an effort to provide, complete comprehensive medical care. It is impossible to recognize and treat all injuries or illnesses in a single emergency department visit. It is therefore important that you follow up closely with Dr Montaño. Call as soon as possible for an appointment. Thank you for your time and consideration. I look forward to speaking with you again soon. Please don't hesitate to call us if you have any questions.
[2018-06-22 01:53] LABS: BASO % 0.4 %; BASO ABS # 0.02 K/uL (0-0.2); EOS % 1.2 %; EOS ABS # 0.07 K/uL (0-0.5); HEMATOCRIT 35.5 % (42-52); HEMOGLOBIN 12.5 g/dL (14.0-18.0); IG# 0.05 K/uL (0.00-0.02); LYMPH % 36.8 %; LYMPH ABS # 2.07 K/uL (1.2-3.4); MEAN CELL VOLUME 93.2 fL (80-100); MEAN CORPUSCULAR HEMOGLOBIN 32.8 pg (25-34); MEAN CORPUSCULAR HGB CONC 35.2 g/dl (32-36); MEAN PLATELET VOLUME 10.2 fL (7.4-10.4); MONO ABS # 0.62 K/uL (0.11-0.59); NEUT % 49.7 %; PLATELET COUNT 161 K/uL (130-400); RED CELL DISTRIBUTION WIDTH CV 12.5 % (11.5-14.5); RED CELL DISTRIBUTION WIDTH SD 42.1 fL (36.4-46.3); WHITE BLOOD COUNT 5.63 K/uL (4.8-10.8)
[2018-06-22] MEDS ORDERED: CYAN100T6 PO (04:02)
[2018-06-22 04:14] LABS: ALBUMIN 3.2 gm/dl (3.4-5.0); ALKALINE PHOSPHATASE 62 U/L (45-117); ALT/SGPT 21 U/L (12-78); AST/SGOT 19 U/L (15-37); BLOOD UREA NITROGEN 4 mg/dl (7-18); CALCIUM 8.1 mg/dl (8.5-10.1); CARBON DIOXIDE 28 mmol/L (21-32); CKMB 5.6 ng/ml (0.5-3.6); CREATININE 0.52 mg/dl (0.60-1.40); GLUCOSE 85 mg/dl (70-99); POTASSIUM 4.1 mmol/L (3.5-5.1); SODIUM 127 mmol/L (136-145)
--- NOTE | 2018-06-22 07:32 | DIAGNOSTIC IMAGING REPORT ---
SINGLE VIEW CHEST CLINICAL HISTORY: Syncope. FINDINGS: An AP, portable, upright chest radiograph is compared to study dated 04/08/2017 and correlated with chest CT dated 04/05/2018.. The cardiomediastinal silhouette is unremarkable noting atherosclerotic calcification of the thoracic aorta. Enlargement of the central pulmonary arteries suggests pulmonary artery hypertension. Advanced emphysema and chronic interstitial thickening are similar to previous. Fibrotic change at the right apex is somewhat a previous. Additional foci of scarring/atelectasis are present throughout both lungs. There is no evidence of superimposed airspace consolidation or pleural effusion. Small opacities in the left lower lobe likely corresponds to groundglass lesions seen on the 04/05/[address] No pneumothorax is seen. The skeletal structures are osteopenic. The bony thorax is grossly intact. IMPRESSION: 1. Advanced emphysema and chronic parenchymal changes as above. 2. There is evidence of superimposed airspace consolidation typical for pneumonia or large pleural effusion. 3. Subtle rounded opacities at the left lung base likely corresponds to groundglass lesions seen in the 04/05/[address] These were better characterized by CT. Electronically signed by: Mike Romero M.D. 06/22/2018 7:31 AM Dictated Date/Time: 06/22/2018 7:29 AM
--- NOTE | 2018-06-22 08:35 | DIAGNOSTIC IMAGING REPORT ---
HEAD WITHOUT CONTRAST (CT) CLINICAL HISTORY: 83 years-old Male presenting with Pt c/o AMS. TECHNIQUE: Multidetector CT imaging of the head was performed without the use of intravenous contrast. IV contrast: None. A dose lowering technique was used consistent with the principles of ALARA (as low as reasonably achievable). COMPARISON: 02/07/2016. CT DOSE (mGy.cm): The estimated cumulative dose is 537.48 mGy.cm. FINDINGS: Veneer Marker topogram: Unremarkable. Proportional ventricular and sulcal prominence, likely age-related parenchymal volume loss. Periventricular and subcortical white matter hypoattenuation, nonspecific but likely indicative of chronic small vessel ischemic change. 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 No mass effect or midline shift. No hemorrhage or acute territorial infarct. No extra-axial fluid collection. Paranasal sinuses and mastoid air cells clear. Calvarium intact. IMPRESSION: 1. 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 No acute intracranial abnormality. Electronically signed by: Feliz Corey M.D. 06/22/2018 8:34 AM Dictated Date/Time: 06/22/2018 7:39 AM
[2018-06-22 08:51] VITALS: BP 182/85; PULSE 86; O2SAT 97
== END 2018-06-22 08:53 | disposition home or self-care (01) ==
LOC: C.EDC 00:54 → EDBD 00:54 → C.EDB 08:53
DX: R55 Syncope and collapse (principal); J44.9 Chronic obstructive pulmonary disease, unspecified; I25.10 Atherosclerotic heart disease of native coronary artery without angina pectoris; I10 Essential (primary) hypertension; E78.5 Hyperlipidemia, unspecified; I48.91 Unspecified atrial fibrillation; Z87.891 Personal history of nicotine dependence; Z88.6 Allergy status to analgesic agent; Z79.82 Long term (current) use of aspirin; Z79.899 Other long term (current) drug therapy

== ENCOUNTER 2018-10-20 10:22 | Observation (INO) ==
--- NOTE | 2018-10-20 10:55 | XRay Report ---
XR chest 1V portable CLINICAL HISTORY: 83 years-old Male presenting with Chest Pain. TECHNIQUE: Portable upright AP view of the chest was obtained. COMPARISON: 08/28/2018. FINDINGS: Atherosclerosis of the aortic arch. Cardiac silhouette normal in size. Architectural distortion of th e right upper lung as on prior exam. Overlying pleural thickening with multiple linear, irregular opa cities in the right upper lung periphery. This is unchanged from prior. Lungs are hyperinflated. No n ew focal opacity. No pleural effusion or pneumothorax. Degenerative changes of the thoracic spine. Up per abdomen normal. IMPRESSION: 1. 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 2. Findings suggest underlying emphysema. No superimposed infiltrate to suggest pneumonia. Electronically signed by: Feliz Corey M.D. 10/20/2018 10:54 AM
[2018-10-20 11:09] LABS: Basophils # (auto) 0.02 K/uL (0-0.2); Basophils % (auto) 0.3 %; Eosinophils # (auto) 0.08 K/uL (0-0.5); Eosinophils % (auto) 1.3 %; Hematocrit (blood only) 42.4 % (42-52); Hemoglobin 14.5 g/dL (14.0-18.0); Immature Granulocytes # (auto) 0.03 K/uL (0.00-0.02); Immature Granulocytes % (auto) 0.5 %; Lymphocytes # (auto) 1.85 K/uL (1.2-3.4); Lymphocytes % (auto) 29.4 %; Mean Corpuscular Hgb Conc 34.2 g/dL (32-36); Mean Corpuscular Volume 95.3 fL (80-100); Mean Platelet Volume 9.7 fL (7.4-10.4); Monocytes # (auto) 0.57 K/uL (0.11-0.59); Monocytes % (auto) 9.1 %; Neutrophils # (auto) 3.74 K/uL (1.4-6.5); Neutrophils % (auto) 59.4 %; Platelet Count 197 K/uL (130-400); RDW Coefficient of Variation 12.4 % (11.5-14.5); Red Blood Count 4.45 M/uL (4.7-6.1); White Blood Count 6.29 K/uL (4.8-10.8)
[2018-10-20 11:25] LABS: Alanine Aminotransferase 23 U/L (12-78); Albumin Level 3.2 gm/dl (3.4-5.0); Aspartate Aminotransferase 25 U/L (15-37); BUN Creatinine Ratio 5.5 (10-20); Blood Urea Nitrogen 3 mg/dl (7-18); Calcium 8.7 mg/dl (8.5-10.1); Carbon Dioxide 30 mmol/L (21-32); Chloride 102 mmol/L (98-107); Est GFR (Non-African American) 100.1; Glucose 78 mg/dl (70-99); Potassium 3.6 mmol/L (3.5-5.1); Sodium 138 mmol/L (136-145)
[2018-10-20 11:30] LABS: Alkaline Phosphatase 76 U/L (45-117); Bilirubin,Total 0.6 mg/dl (0.1-1); Creatine Kinase 86 U/L (39-308); Creatine Kinase MB 3.2 ng/ml (0.5-3.6); Globulin 3.1 gm/dl (2.5-4.0); Total Protein 6.4 gm/dl (6.4-8.2); Troponin I < 0.015 ng/ml (0-0.045)
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
[2018-10-20] MEDS ORDERED: LEVALBUTEROL 1.25MG/0.5ML NEB NEB PRN (16:42)
[2018-10-20] MEDS ORDERED: ACETAMINOPHEN 325 MG TAB PO PRN (16:42)
[2018-10-20] MEDS ORDERED: NITROGLYCERIN SL 0.4 MG/TAB TAB SL PRN (16:42)
[2018-10-20] MEDS ORDERED: HYDROCODONE/ACETAMINOPHEN 10/325 TAB PO PRN (16:42)
[2018-10-20] MEDS ORDERED: POLYETHYLENE (MIRALAX) 17 GM PACK PO PRN (16:42)
[2018-10-20] MEDS ORDERED: ONDANSETRON INJ 2 MG/ML 2 ML VIAL IV PRN (16:42)
[2018-10-20] MEDS ORDERED: METOPROLOL TARTRATE 1 MG/ML VIAL IV PRN (17:16)
[2018-10-20 18:17] LABS: INR 1.2 (0.9-1.1); Partial Thromboplastin Time 25.6 Seconds (21.0-31.0); Prothrombin Time 11.7 Seconds (9.0-12.0)
[2018-10-20] MEDS: IPRATROPIUM BROMIDE/ALBUTEROL respimat INH INH SCH ×2 (18:20→21:16)
[2018-10-20] MEDS ORDERED: SODIUM CHLORIDE 0.9% 1000ML 1,000 ML IV ONE (18:27)
[2018-10-20] MEDS ORDERED: METOPROLOL SUCC 25MG EXT REL TAB PO SCH (21:00)
[2018-10-20] MEDS: FLUTICASONE/SALMETEROL 250/50 (ADVAIR) 14 PUFF/1 INHALER INH SCH (21:16)
[2018-10-20] MEDS: ISOSORBIDE MONONITRATE 20 MG TAB PO SCH (21:18)
[2018-10-21 06:01] LABS: Hemoglobin 12.2 g/dL (14.0-18.0); Mean Corpuscular Hgb Conc 33.9 g/dL (32-36); Mean Corpuscular Volume 95.5 fL (80-100); Mean Platelet Volume 9.8 fL (7.4-10.4); Platelet Count 184 K/uL (130-400); RDW Coefficient of Variation 12.8 % (11.5-14.5); RDW Standard Deviation 44.2 fL (36.4-46.3); Red Blood Count 3.77 M/uL (4.7-6.1); White Blood Count 7.76 K/uL (4.8-10.8)
[2018-10-21 06:26] LABS: Calcium 8.9 mg/dl (8.5-10.1); Creatinine Clr Calc Pharmacy 78.6 ml/min; Est GFR (African American) 110.8; Est GFR (Non-African American) 95.6; Magnesium 1.7 mg/dl (1.8-2.4); Potassium 3.8 mmol/L (3.5-5.1)
[2018-10-21] MEDS: FLUTICASONE/SALMETEROL 250/50 (ADVAIR) 14 PUFF/1 INHALER INH SCH (08:30)
[2018-10-21] MEDS: IPRATROPIUM BROMIDE/ALBUTEROL respimat INH INH SCH ×2 (08:30→12:53)
[2018-10-21] MEDS: ISOSORBIDE MONONITRATE 20 MG TAB PO SCH (08:32)
[2018-10-21] MEDS ORDERED: PANTOprazole 40 MG TAB PO SCH (09:00)
[2018-10-21] MEDS ORDERED: CYANOCOBALAMIN 500 MCG TABLET (VITAMIN B-12) PO SCH (09:00)
[2018-10-21] MEDS ORDERED: ENOXAPARIN INJ 30 MG/0.3 ML SYR SQ SCH (09:00)
[2018-10-21] MEDS ORDERED: TAMSULOSIN HCL 0.4 MG CAP PO SCH (09:00)
[2018-10-21] MEDS ORDERED: ASPIRIN 81 MG ECTAB PO SCH (09:00)
[2018-10-21] MEDS ORDERED: ATORVASTATIN 20 MG TAB PO SCH (09:00)
[2018-10-21] MEDS ORDERED: MAGNESIUM SULFATE / D5W 1 GM/100 ML BAG IV ONE (09:00)
[2018-10-21] MEDS ORDERED: CLOPIDOGREL BISULFATE 75 MG TAB PO SCH (09:00)
[2018-10-21] MEDS ORDERED: METOPROLOL SUCC 25MG EXT REL TAB PO SCH (09:00)
--- NOTE | 2018-10-21 11:41 | Hospitalist Progress Note ---
Date of Service October 21, 2018 Assessment & Plan (1) Altered mental status: Syncope Likely secondary to Carbon Monoxide exposure Monitor in Telemetry for arrhythmia Carboxyhemoglobin level is 0.0 Continue Oxygen EKG: no acute changes Fall precautions PT/OT : eval done Ambulates with walker at baseline Neuro checks (2) COPD (chronic obstructive pulmonary disease): Chronic respiratory failure with Hypoxia On 2 liters of Oxygen at baseline No signs of COPD Exacerbation Continue home inhalers (3) Coronary artery disease: CAD S/P PCI to LAD & CATALINO to OM Failed PCI due to heavily calcified LAD in 2014 Follow with [facility] as outpatient Continue Aspirin, plavix, statins, Metoprolol, Imdur Denies any chest pain (4) Hypertension: Stable continue home medications (5) History of atrial fibrillation: P.afib Not on chronic anticoagulation Previously on amiodarone which was discontinued Continue Metoprolol Rate controlled Hypomagnesemia: Replaced magnesium monitor electrolytes (6) HLD (hyperlipidemia): Continue statin BPH: Continue flomax DVT Px: Lovenox SQ Disposition: Plan to discharge home today Subjective Patient is seen and examined at bedside States feeling well Offers no complaints Denies chest pain, SOB, dizziness, abd pain, nausea Evaluated by PT today Eager to get discharged Physical Exam 2 Vital Signs (Past 24 Hours): Last Vital Signs Temp 36.6 C 10/21/18 11:28 Pulse 76 10/21/18 11:28 Resp 20 10/21/18 11:28 BP 139/79 10/21/18 11:28 Pulse Ox 98 10/21/18 11:28 Physical Exam: hysical Exam: Vitals signs as noted above General Appearance:Thin, no apparent distress Head: normocephalic, Atraumatic Eyes: normal inspection, EOMI Neck: supple, Trachea midline Respiratory/Chest: Decreased breath sounds, CTA Cardiovascular: S1, S2, No murmur Abdomen/GI:Soft, Non tender, Bowel sounds present Extremities/Musculoskelatal:normal inspection, no edema Neurologic/Psych:AAOX3, grossly no focal neurological deficits Skin: normal color, warm, Dry flaky skin Results & Data Laboratory Results Short CBC 10/21/18 Range/Units 05:28 WBC 7.76 (4.8-10.8) K/uL Hgb 12.2 L (14.0-18.0) g/dL Hct 36.0 L (42-52) % Plt Count 184 (130-400) K/uL [facility] 10/21/18 05:28 Sodium 139 Potassium 3.8 Chloride 104 Carbon Dioxide 29 BUN 6 L Creatinine 0.57 L Glucose 83 Calcium 8.9 _ (1) Altered mental status Altered mental status type: unspecified Coma depth: Coma timing: Qualified Code(s): R41.82 - Altered mental status, unspecified
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
== END 2018-10-21 14:57 | disposition home or self-care (01) ==
LOC: ED 10:22 → 2N 10:22

== ENCOUNTER 2019-10-10 07:52 | Observation (INO) ==
[2019-10-10] MEDS ORDERED: ALBUT/IPRATROP 3MG/0.5MG NEB 3 ML VIAL NEB STA (08:15)
[2019-10-10] MEDS ORDERED: SODIUM CHLORIDE 0.9% 1000ML 1,000 ML IV SCH (08:15)
[2019-10-10 08:35] LABS: Basophils # (auto) 0.02 K/uL (0-0.2); Basophils % (auto) 0.3 %; Eosinophils # (auto) 0.14 K/uL (0-0.5); Eosinophils % (auto) 2.2 %; Hematocrit (blood only) 35.6 % (42-52); Hemoglobin 12.1 g/dL (14.0-18.0); Immature Granulocytes # (auto) 0.03 K/uL (0.00-0.02); Immature Granulocytes % (auto) 0.5 %; Lymphocytes # (auto) 1.39 K/uL (1.2-3.4); Lymphocytes % (auto) 22.1 %; Mean Corpuscular Hemoglobin 31.9 pg (25-34); Mean Corpuscular Volume 93.9 fL (80-100); Mean Platelet Volume 10.1 fL (7.4-10.4); Monocytes # (auto) 0.66 K/uL (0.11-0.59); Monocytes % (auto) 10.5 %; Neutrophils # (auto) 4.05 K/uL (1.4-6.5); Neutrophils % (auto) 64.4 %; Platelet Count 169 K/uL (130-400); RDW Standard Deviation 44.3 fL (36.4-46.3); Red Blood Count 3.79 M/uL (4.7-6.1); White Blood Count 6.29 K/uL (4.8-10.8)
--- NOTE | 2019-10-10 08:48 | XRay Report ---
XR chest 1V portable CLINICAL HISTORY: 84 years-old Male presenting with chest pain. TECHNIQUE: Portable upright AP view of the chest was obtained. COMPARISON: 07/02/2019. Since FINDINGS: Atherosclerosis of the aortic arch. Cardiac silhouette normal in size. Heterogeneous radiolucency of the lungs with architectural distortion and irregular bandlike opacities in the upper lungs. There is subpleural or pleural thickening at the periphery of the right upper lung with associated architectu ral distortion. Lungs are hyperinflated. No pleural effusion or pneumothorax. Osteopenia may be prese nt. Upper abdomen normal. IMPRESSION: 1. Findings suggest emphysema. No focal infiltrate to suggest pneumonia. 2. Upper lobe scarring greater on the right with persistent right pleural thickening or subpleural c onsolidation. This is on a chronic basis and corresponds to scarring/fibrosis in the upper lobes grea ter on the right. Electronically signed by: Feliz Corey M.D. 10/10/2019 8:47 AM
[2019-10-10 08:52] LABS: Alanine Aminotransferase 20 U/L (12-78); Aspartate Aminotransferase 21 U/L (15-37); BUN Creatinine Ratio 5.3 (10-20); Blood Urea Nitrogen 2 mg/dl (7-18); Calcium 9.1 mg/dl (8.5-10.1); Carbon Dioxide 32 mmol/L (21-32); Chloride 94 mmol/L (98-107); Est GFR (African American) 122.4; Est GFR (Non-African American) 105.6; Glucose 85 mg/dl (70-99); Lipase 53 U/L (73-393); Magnesium 1.1 mg/dl (1.8-2.4); Potassium 3.9 mmol/L (3.5-5.1); Sodium 132 mmol/L (136-145)
[2019-10-10 08:57] LABS: Alkaline Phosphatase 80 U/L (45-117); Bilirubin,Total 0.8 mg/dl (0.2-1); Globulin 2.9 gm/dl (2.5-4.0); NT Pro B Type Natriuretic Pept 654 pg/ml (0-1800); Total Protein 5.9 gm/dl (6.4-8.2); Troponin I < 0.015 ng/ml (0-0.045)
[2019-10-10 09:20] LABS: Influenza A virus by PCR Neg for Influ A (Neg); Influenza B virus by PCR Neg for Influ B (Neg)
[2019-10-10] MEDS: MAGNESIUM SULFATE / D5W 1 GM/100 ML BAG IV SCH ×2 (09:28→11:51)
[2019-10-10] MEDS ORDERED: ASPIRIN CHEW 324 MG PO STA (09:39)
[2019-10-10] MEDS ORDERED: NITROGLYCERIN 2% OINTMENT 30GM TUBE EXT ONE (09:39)
[2019-10-10] MEDS ORDERED: POLYETHYLENE (MIRALAX) 17 GM PACK PO PRN (11:22)
[2019-10-10] MEDS ORDERED: HYDROCODONE/ACETAMINOPHEN 7.5/325MG TAB PO PRN (11:22)
[2019-10-10] MEDS ORDERED: NITROGLYCERIN SL 0.4 MG/TAB TAB SL PRN (11:22)
[2019-10-10] MEDS ORDERED: ACETAMINOPHEN 325 MG TAB PO PRN (11:22)
--- NOTE | 2019-10-10 11:39 | History & Physical Report ---
Date of Service October 10, 2019 Assessment & Plan (1) Chest pain: (2) Coronary artery disease: -Admit to telemetry -Patient presenting from home with reports of chest pain -Seems to be atypical however history of CAD with an LAD lesion that is not amendable to intervention -Initial troponin negative, EKG without acute ST changes -Currently chest pain-free after topical nitroglycerin applied in ED -Continue cycle cardiac enzymes, check resting echo -Continue aspirin, statin, beta-jan, nitrate -Per outpatient cardiology note, nitrates have not been able to be uptitrated secondary to hypotension; noted that BP is elevated today however patient did not take morning medications -Cardiology consult, input appreciated (3) Paroxysmal atrial fibrillation: -Rate controlled on metoprolol -Not anticoagulated secondary to need for aspirin and Plavix per outpatient cardiology note (4) Hypertension: -BP elevated, likely secondary to missed doses of morning medications -Continue metoprolol and isosorbide, making adjustments as needed (5) COPD (chronic obstructive pulmonary disease): -No signs of acute exacerbation -Saturating well on chronic 2 L of oxygen -Continue home inhalers (6) DVT prophylaxis: -SQ heparin History of Present Illness Chief Complaint: Chest pain Primary Care Provider: Reyes Pablo MD 84-year-old male who presents to the ED for evaluation of chest pain. Patient reports that throughout the night, he developed a stabbing left-sided chest pain with also some right-sided soreness. Patient reports he took a sublingual nitroglycerin with some improvement in the pain however not resolution. He was unable to fall back to sleep however later in the night he got back up to go to the bathroom and the discomfort returned. Patient reports he also had associated shortness of breath and nausea. He did not take any further nitroglycerin. He came to the ED for further evaluation. Patient has history of CAD s/p stenting and failed PCI to a heavily calcified LAD in 2015. Also history of stable angina, nitrates have not been able to be uptitrated in the past secondary to hypotension. Patient reports he otherwise been feeling well recently. He denies productive cough. No fevers or chills. Reports chronic constipation and diarrhea which is unchanged from baseline. No abdominal pain, nausea, vomiting. He denies any urinary symptoms. In the ED, initial troponin is negative and EKG is unchanged. Patient received topical nitroglycerin and a full dose aspirin with resolution of pain. Magnesium is found to be 1.1 and he received IV replacement. He was also given a nebulizer treatment. Allergies Allergy/AdvReac Type Severity Reaction Status Date / Time naproxen Allergy Unknown hives Verified 07/02/19 11:31 Home Medications Home Medications Medication Instructions Recorded Confirmed Type Combivent Respimat 1 puff INHALATION QID 08/28/18 10/10/19 History albuterol sulfate [Ventolin HFA] 2 puff INHALATION Q6 PRN 08/28/18 10/10/19 History atorvastatin 20 mg PO QAM 08/28/18 10/10/19 History clopidogrel [Plavix] 75 mg PO QAM 08/28/18 10/10/19 History fluticasone propion-salmeterol 1 puff INHALATION BID 08/28/18 10/10/19 History [Advair Diskus] metoprolol succinate [Toprol XL] 25 mg PO DAILY 08/28/18 10/10/19 History multivitamin 1 tab PO QAM 08/28/18 10/10/19 History nitroglycerin [Nitrostat] 0.4 mg SUBLINGUAL UD PRN 08/28/18 10/10/19 History polyethylene glycol 3350 [Miralax] 17 g PO DAILY PRN 08/28/18 10/10/19 History tamsulosin [Flomax] 0.4 mg PO QAM 08/28/18 10/10/19 History aspirin [Aspir-81] 81 mg PO QAM 10/20/18 10/10/19 History isosorbide mononitrate 60 mg PO BID 10/20/18 10/10/19 History levalbuterol HCl 3 ml INHALATION QID PRN 10/20/18 10/10/19 History omeprazole 20 mg PO QAM 10/20/18 10/10/19 History hydrocodone-acetaminophen 1 tab PO Q6H PRN 10/10/19 10/10/19 History lubiprostone 8 mcg PO BID 10/10/19 10/10/19 History metoprolol succinate 12.5 mg PO HS 10/10/19 10/10/19 History Past Med/Surg History Medical History Bifascicular block BPH (benign prostatic hyperplasia) CAD (coronary artery disease) PCI to LAD, CATALINO to OM 2015-failed PCI to heavily calcified LAD COPD (chronic obstructive pulmonary disease) Hyperlipidemia Paroxysmal atrial fibrillation Renal artery stenosis Tobacco abuse (Inactive) Surgical History History of cholecystectomy History of coronary artery stent placement Family History Mother Diabetes Social History Preferred Language: German 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 Hopkins's addendum for physical exam Results & Data Vital Signs (Past 12 Hours) Vital Signs Pulse Pulse Resp BP Pulse Ox 10/10/19 10:40 63 22 10/10/19 10:31 74 21 161/98 H 10/10/19 10:30 66 22 10/10/19 10:20 66 22 10/10/19 10:10 68 15 10/10/19 10:00 75 21 117/105 H 10/10/19 09:50 62 20 10/10/19 09:40 72 20 10/10/19 09:31 154/82 H 10/10/19 09:30 68 21 10/10/19 09:20 62 20 10/10/19 09:10 85 22 10/10/19 09:01 72 15 99 10/10/19 09:00 70 14 150/88 H 98 10/10/19 08:50 83 19 100 10/10/19 08:40 88 88 21 97 10/10/19 08:31 86 16 99 10/10/19 08:30 79 13 148/98 H 98 10/10/19 08:24 79 17 140/94 98 10/10/19 08:20 81 17 97 10/10/19 08:10 81 22 99 10/10/19 08:03 76 19 164/103 H 99 10/10/19 07:56 82 18 164/103 H 99 Laboratory Results Short CBC 10/10/19 Range/Units 08:24 WBC 6.29 (4.8-10.8) K/uL Hgb 12.1 L (14.0-18.0) g/dL Hct 35.6 L (42-52) % Plt Count 169 (130-400) K/uL BMP 10/10/19 08:24 Sodium 132 L Potassium 3.9 Chloride 94 L Carbon Dioxide 32 BUN 2 L Creatinine 0.44 L Glucose 85 Calcium 9.1 Cardiac Enzymes 10/10/19 Range/Units 08:24 Troponin I < 0.015 (0-0.045) ng/ml Liver Function 10/10/19 Range/Units 08:24 Total Bilirubin 0.8 (0.2-1) mg/dl AST 21 (15-37) U/L ALT 20 (12-78) U/L Alkaline Phosphatase 80 (45-117) U/L Albumin 3.0 L (3.4-5.0) gm/dl Diagnostic Findings CXR IMPRESSION: 1. Findings suggest emphysema. No focal infiltrate to suggest pneumonia. 2. Upper lobe scarring greater on the right with persistent right pleural thickening or subpleural consolidation. This is on a chronic basis and c orresponds to scarring/fibrosis in the upper lobes greater on the right. Code Status & VTE Plan Code Status Patient is a full code as per my discussion with him. VTE Prophylaxis Plan VTE Prophylaxis will be ordered: Yes Supervising Physician Co-Signing Physician Notes Patient is a 89-year-old male with history of CAD S/P stent, COPD on chronic oxygen dependency, paroxysmal atrial fibrillation, hypertension and other problems presents with history of left-sided stabbing chest pain, also associated with right-sided chest soreness, nonradiating, associated with nausea, shortness of breath. Patient chest pain transiently improved with nitroglycerin. He admits to increasing his home oxygen from 2 to 3 L for control of his symptoms. He denies any cough, fever chills, pleuritic pain. Patient had known heavily calcified LAD and has failed PCI in the past. Patient's symptoms completely resolved while in ED with nitroglycerin patch. His initial troponin is negative. EKG showed normal sinus rhythm with PVCs, RBBB, left anterior fascicular block. His blood pressure is elevated while in ED. Physical Exam: Vitals signs as noted above General Appearance:Thin, no apparent distress, Elderly Head: normocephalic, Atraumatic , dry oral mucosa Eyes: normal inspection, EOMI, PERRL Neck: supple, Trachea midline Respiratory/Chest: Decreased breath sounds, CTA, No accessory muscle use Cardiovascular: S1, S2, + murmur Abdomen/GI:Soft, Non tender, Bowel sounds present Extremities/Musculoskelatal:normal inspection, no edema Neurologic/Psych:AAOX3, grossly no focal neurological deficits Skin: normal color, warm Chest Pain H/O CAD CXR: No acute changes Trend cardiac enzymes, update echo Continue aspirin, Plavix, nitrate, metoprolol, statin Consider Ranexa for angina Cardiology consulted Control blood pressure if remains elevated Supplemental oxygen as needed Hyponatremia Hypochloremia Hypomagnesemia Gentle IV fluids Received magnesium sulfate in ED I personally reviewed the record. Patient is interviewed and examined at bedside. Patient's care is coordinated with Sayra Frederick DIRECTOR OF EMAIL MARKETING. Please refer to the documentation above for details of patient's presentation and for discussion of other issues.
[2019-10-10] MEDS: TAMSULOSIN HCL 0.4 MG CAP PO SCH (12:58)
[2019-10-10] MEDS: ATORVASTATIN 20 MG TAB PO SCH (12:58)
[2019-10-10] MEDS: METOPROLOL SUCC 25MG EXT REL TAB PO SCH ×2 (12:58→20:20)
[2019-10-10] MEDS: CLOPIDOGREL BISULFATE 75 MG TAB PO SCH (12:58)
[2019-10-10] MEDS: HEPARIN SOD 5,000 UNIT/0.5 ML VIAL SQ SCH ×2 (12:58→22:11)
--- NOTE | 2019-10-10 18:18 | Cardiology Consultation ---
Date of Consultation October 10, 2019 History of Present Illness Reason for Consultation: Chest pain, coronary artery disease Requesting Physician: Dr. Hopkins Attending Physician: Domingo Hopkins MD History of Present Illness Patient is an 84-year-old male with ongoing issues which include 1. Coronary artery disease status post PCI to the LAD and CATALINO to the OM; Failed PCI to a heavily calcified LAD lesion, March 2015. Preserved LV function per last echo 03/2017 2. Chronic chest pain/dyspnea - patient poor historian, difficult to decipher true angina vs COPD/pulm etiology, vs musculoskeletal in nature by past multiple exacerbation 3. Hypertension - controlled 4. Tobacco abuse, quit in Nov 2016 5. Paroxysmal atrial fibrillation without recent exacerbation, previously on amiodarone but discontinue dued to worsening SOB. Not on anticoagulation therapy due to need for ongoing ASA/Plavix. 6. COPD, likely severe. on chronic supplemental 02 7. Right renal artery stenosis - avoid IMTIAZ/ARB 8. RBBB/Bifascicular block without symptoms of higher degree AV block Patient presents this admit having developed sharp jabbing pain in his left subcostal area and right shoulder pain. Symptoms were associated with mild nausea, no diaphoresis. Patient used nitroglycerin as in the past with minimal improvement. Symptoms gradually resolved in the ER with topical nitrates placed initial EKGs unchanged though with underlying bifascicular block. Troponins so far been negative He notes chronic pain using nitroglycerin on a as needed basis. Appetite's been only fair. Respiratory status is "okay " notes no increased sputum sputum. Has chronic dyspnea with exertion. Has been wearing oxygen as prescribed Denies fevers chills or sweats. No bleeding difficulties melena hematochezia dysuria hematuria. He lives independently with low level activities only at home Blood pressures have been elevated at times and were significantly elevated on presentation. Allergies Allergy/AdvReac Type Severity Reaction Status Date / Time naproxen Allergy Unknown hives Verified 07/02/19 11:31 Home Medications Home Medications Medication Instructions Recorded Confirmed Type Combivent Respimat 1 puff INHALATION QID 08/28/18 10/10/19 History albuterol sulfate [Ventolin HFA] 2 puff INHALATION Q6 PRN 08/28/18 10/10/19 History atorvastatin 20 mg PO QAM 08/28/18 10/10/19 History clopidogrel [Plavix] 75 mg PO QAM 08/28/18 10/10/19 History fluticasone propion-salmeterol 1 puff INHALATION BID 08/28/18 10/10/19 History [Advair Diskus] metoprolol succinate [Toprol XL] 25 mg PO DAILY 08/28/18 10/10/19 History multivitamin 1 tab PO QAM 08/28/18 10/10/19 History nitroglycerin [Nitrostat] 0.4 mg SUBLINGUAL UD PRN 08/28/18 10/10/19 History polyethylene glycol 3350 [Miralax] 17 g PO DAILY PRN 08/28/18 10/10/19 History tamsulosin [Flomax] 0.4 mg PO QAM 08/28/18 10/10/19 History aspirin [Aspir-81] 81 mg PO QAM 10/20/18 10/10/19 History isosorbide mononitrate 60 mg PO BID 10/20/18 10/10/19 History levalbuterol HCl 3 ml INHALATION QID PRN 10/20/18 10/10/19 History omeprazole 20 mg PO QAM 10/20/18 10/10/19 History hydrocodone-acetaminophen 1 tab PO Q6H PRN 10/10/19 10/10/19 History lubiprostone 8 mcg PO BID 10/10/19 10/10/19 History metoprolol succinate 12.5 mg PO HS 10/10/19 10/10/19 History Patient History Medical History Bifascicular block BPH (benign prostatic hyperplasia) CAD (coronary artery disease) PCI to LAD, CATALINO to OM 2014-failed PCI to heavily calcified LAD COPD (chronic obstructive pulmonary disease) Hyperlipidemia Paroxysmal atrial fibrillation Renal artery stenosis Tobacco abuse (Inactive) Surgical History History of cholecystectomy History of coronary artery stent placement Family History Mother Diabetes Social History Preferred Language: Irish Communication Ability: Effective 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 Beliefs That Will Affect Care: None Current Living Situation: Alone Other Information That Helps Us Care for You: No Feels Safe at Home: Yes Safety Concerns: Feels Safe At This Time Smoking Status: Former smoker Cigarettes Per Day: 30 ; Second Hand Exposure: No ; Hx Alcohol Use: Yes Alcohol type: beer Hx Substance Use: No Physical Exam Constitutional: WD/WN, vitals as above Wearing supplemental oxygen Eyes: PERRL, conjunctivae normal, anicteric sclerae ENMT: external ear and nose normal, oropharynx normal Neck: trachea midline, no thyromegaly Respiratory: no respiratory distress Auscultation: + diminished lung sounds Cardiovascular: Rate/Rhythm: regular rate and regular rhythm Heart Sounds: normal S1 and normal S2; no gallop and no murmur Palpation: normal PMI Vessels: normal carotid upstroke and radial pulses present; no JVD and no carotid bruit Extremities: no edema Gastrointestinal (Abdomen): normal bowel sounds, soft, nontender, no hepatospl enomegaly Musculoskeletal: no cyanosis or clubbing, extremities motor strength 5/5 Skin: no rashes, warm and dry Neurologic: PERRL, EOMI, accommodation nl, no face palsy, no dysarthria Psychiatric: A+Ox3, euthymic affect Results & Data Vital Signs (Past 12 Hours) Vital Signs Temp Pulse Pulse Pulse Resp BP BP 10/10/19 15:56 36.4 C L 65 18 138/69 10/10/19 11:52 36.4 C L 62 18 10/10/19 10:40 63 22 10/10/19 10:31 74 21 161/98 H 10/10/19 10:30 66 22 10/10/19 10:20 66 22 10/10/19 10:10 68 15 10/10/19 10:00 75 21 117/105 H 10/10/19 09:50 62 20 10/10/19 09:40 72 20 10/10/19 09:31 154/82 H 10/10/19 09:30 68 21 10/10/19 09:20 62 20 10/10/19 09:10 85 22 10/10/19 09:01 72 15 10/10/19 09:00 70 14 150/88 H 10/10/19 08:50 83 19 10/10/19 08:40 88 88 21 10/10/19 08:31 86 16 10/10/19 08:30 79 13 148/98 H 10/10/19 08:24 79 17 140/94 10/10/19 08:20 81 17 10/10/19 08:10 81 22 10/10/19 08:03 76 19 164/103 H 10/10/19 07:56 82 18 164/103 H BP Pulse Ox 10/10/19 15:56 99 10/10/19 11:52 166/83 H 99 10/10/19 10:40 10/10/19 10:31 10/10/19 10:30 10/10/19 10:20 10/10/19 10:10 10/10/19 10:00 10/10/19 09:50 10/10/19 09:40 10/10/19 09:31 10/10/19 09:30 10/10/19 09:20 10/10/19 09:10 10/10/19 09:01 99 10/10/19 09:00 98 10/10/19 08:50 100 10/10/19 08:40 97 10/10/19 08:31 99 10/10/19 08:30 98 10/10/19 08:24 98 10/10/19 08:20 97 10/10/19 08:10 99 10/10/19 08:03 99 10/10/19 07:56 99
[2019-10-10] MEDS ORDERED: AMLODIPINE BESYLATE 5 MG TAB PO STA (18:56)
[2019-10-10] MEDS: LEVALBUTEROL HCL 1.25 MG/3 ML NEB INH PRN (19:31)
[2019-10-10] MEDS: FLUTICASONE/SALMETEROL 250/50 (ADVAIR) 14 PUFF/1 INHALER INH SCH (20:19)
[2019-10-10] MEDS: ISOSORBIDE MONO EXTENDED REL 60 MG TABCR PO SCH (20:19)
[2019-10-10] MEDS ORDERED: LUBIPROSTONE 8 MCG PO SCH (21:00)
[2019-10-11] MEDS: HEPARIN SOD 5,000 UNIT/0.5 ML VIAL SQ SCH ×3 (05:45→21:15)
[2019-10-11] MEDS: LEVALBUTEROL HCL 1.25 MG/3 ML NEB INH PRN (06:28)
[2019-10-11 06:52] LABS: Hematocrit (blood only) 35.1 % (42-52); Hemoglobin 11.8 g/dL (14.0-18.0); Mean Corpuscular Hemoglobin 32.2 pg (25-34); Mean Corpuscular Hgb Conc 33.6 g/dL (32-36); Mean Corpuscular Volume 95.6 fL (80-100); Mean Platelet Volume 10.2 fL (7.4-10.4); Platelet Count 177 K/uL (130-400); RDW Coefficient of Variation 13.3 % (11.5-14.5); RDW Standard Deviation 46.4 fL (36.4-46.3); Red Blood Count 3.67 M/uL (4.7-6.1); White Blood Count 6.62 K/uL (4.8-10.8)
[2019-10-11 07:28] LABS: BUN Creatinine Ratio 9.6 (10-20); Calcium 8.9 mg/dl (8.5-10.1); Creatinine Clr Calc Pharmacy 100.2 ml/min; Est GFR (African American) 120.2; Est GFR (Non-African American) 103.7; Magnesium 1.9 mg/dl (1.8-2.4); Potassium 3.8 mmol/L (3.5-5.1)
[2019-10-11] MEDS: FLUTICASONE/SALMETEROL 250/50 (ADVAIR) 14 PUFF/1 INHALER INH SCH ×2 (08:30→20:00)
[2019-10-11] MEDS: ATORVASTATIN 20 MG TAB PO SCH (08:31)
[2019-10-11] MEDS: ISOSORBIDE MONO EXTENDED REL 60 MG TABCR PO SCH ×2 (08:31→20:01)
[2019-10-11] MEDS: TAMSULOSIN HCL 0.4 MG CAP PO SCH (08:31)
[2019-10-11] MEDS: MULTIVITAMIN TAB PO SCH (08:31)
[2019-10-11] MEDS: CLOPIDOGREL BISULFATE 75 MG TAB PO SCH (08:31)
[2019-10-11] MEDS: METOPROLOL SUCC 25MG EXT REL TAB PO SCH ×2 (08:31→20:01)
[2019-10-11] MEDS: AMLODIPINE BESYLATE 5 MG TAB PO SCH (08:32)
[2019-10-11] MEDS: PANTOprazole 40 MG TAB PO SCH (08:32)
[2019-10-11] MEDS: ASPIRIN 81 MG ECTAB PO SCH (08:32)
[2019-10-11] MEDS: IPRATROPIUM BROMIDE/ALBUTEROL respimat INH INH SCH ×4 (10:09→20:00)
--- NOTE | 2019-10-11 16:05 | Hospitalist Progress Note ---
Date of Service October 11, 2019 Assessment & Plan (1) Chest pain: (2) Coronary artery disease: -as per cardiology evaluation on 10/10/19: Chest pain atypical features in the setting of hypertension hypertensive urgency known underlying coronary disease. Initial enzymes not suggestive of acute injury or ischemia -Patient had right sided chest pain reported to nurse overnight. No further chest pressure noted by patient on 10/11/19 -will continue to monitor in the hospital to see if further symptoms while on telemetry, appreciate further cardiology recommendations Moderate to Severe Pulmonary Hypertension Moderate Mitral Regurgitation, Moderate Tricuspid Regurgitation Aortic Stenosis -Echocardiogram from 10/10/19 reviewed -Ejection Fraction of 60 to 65% diastolic dysfunction grade 2 with Moderate to Severe Pulmonary Hypertension; Moderate Mitral Regurgitation, Moderate Tricuspid Regurgitation; Aortic Stenosis -appreciate further cardiology recommendations (3) Paroxysmal atrial fibrillation: -Rate controlled on metoprolol -Not anticoagulated with anticoagulation medication secondary to need for aspirin and Plavix per outpatient cardiology note (4) Hypertension: -Continue metoprolol and isosorbide, making adjustments as needed -continue amlodipine 2.5 mg as newly started on this hospital admission (5) COPD (chronic obstructive pulmonary disease): -No signs of acute exacerbation -Continue home inhalers -on supplementary nasal cannula oxygen (6) DVT prophylaxis: -SQ heparin Subjective Patient had right sided chest pain reported to nurse overnight. No further chest pressure noted by patient today. on nasal cannula oxygen. no abdomen pain. no vomiting. patient is encouraged to do more ambulation as tolerated Review of Systems Review of Systems: All systems reviewed & are unremarkable except as noted in HPI & below Physical Exam Constitutional: comfortable Eyes: PERRL, conjunctivae normal, anicteric sclerae EOM intact bilaterally ENMT: external ear and nose normal, oropharynx normal Neck: normal visual inspection Respiratory: normal respiratory effort Cardiovascular: Rate/Rhythm: + bradycardic Gastrointestinal (Abdomen): normal bowel sounds, soft, nontender, no hepatosplenomegaly Musculoskeletal: Head/Neck/Chest: normocephalic and head atraumatic Neurologic: PERRL, EOMI, accommodation nl, no face palsy, no dysarthria Psychiatric: A+Ox3, euthymic affect Results & Data Vital Signs (Past 12 Hours) Vital Signs Temp Pulse Resp BP BP Pulse Ox 10/11/19 15:50 36.6 C 66 18 133/81 100 12/13/19 12:02 36.6 C 71 18 124/58 L 100 10/11/19 07:52 36.6 C 89 18 121/71 100 10/11/19 06:28 80 18 98
--- NOTE | 2019-10-11 17:38 | Cardiology Progress Note ---
Date of Service October 11, 2019 Assessment & Plan (1) Chest pain: Symptoms atypical for angina without acute evolution of enzymes to suggest ischemia. EKG is unhelpful due to underlying conduction abnormalities. Suspect hypertension contributing complaints Amlodipine added for both anginal and hypertensive control. Blood pressures well controlled patient symptoms minimized. Would not titrate beta-jan further given bifascicular borderline trifascicular heart block, underlying structural lung disease We will gradually increase activities (2) COPD exacerbation: (3) Hypertension: Subjective Patient is only vague right-sided chest discomfort. No further chest pain or stabbing pain. No dizziness or lightheadedness. Blood pressure coming under better control on current therapies. Physical Exam Constitutional: WD/WN, vitals as above Eyes: PERRL, conjunctivae normal, anicteric sclerae ENMT: external ear and nose normal, oropharynx normal Neck: trachea midline, no thyromegaly Respiratory: no respiratory distress Auscultation: + diminished lung sounds Cardiovascular: Rate/Rhythm: regular rate and regular rhythm Heart Sounds: normal S1 and normal S2; no gallop and no murmur Palpation: normal PMI Vessels: normal carotid upstroke and radial pulses present; no JVD and no carotid bruit Extremities: no edema Gastrointestinal (Abdomen): normal bowel sounds, soft, nontender, no hep atosplenomegaly Musculoskeletal: no cyanosis or clubbing, extremities motor strength 5/5 Skin: no rashes, warm and dry Neurologic: PERRL, EOMI, accommodation nl, no face palsy, no dysarthria Psychiatric: A+Ox3, euthymic affect Results & Data Vital Signs (Past 12 Hours) Vital Signs Temp Pulse Resp BP BP Pulse Ox 10/11/19 15:50 36.6 C 66 18 133/81 100 10/11/19 12:02 36.6 C 71 18 124/58 L 100 10/11/19 07:52 36.6 C 89 18 121/71 100 10/11/19 06:28 80 18 98 Laboratory Results Laboratory Results - last 24 hr 10/10/19 10/11/19 10/11/19 19:48 06:15 06:15 WBC 6.62 RBC 3.67 L Hgb 11.8 L Hct 35.1 L MCV 95.6 MCH 32.2 MCHC 33.6 RDW Std Deviation 46.4 H RDW Coeff of Barry 13.3 Plt Count 177 MPV 10.2 Sodium 137 Potassium 3.8 Chloride 100 Carbon Dioxide 32 Anion Gap 5.0 BUN 4 L Creatinine 0.46 L Est Cr Clr Drug Dosing 100.2 Est GFR ( Amer) 120.2 Est GFR (Non-Af Amer) 103.7 BUN/Creatinine Ratio 9.6 L Glucose 66 L Calcium 8.9 Magnesium 1.9 Troponin I < 0.015 (1) Chest pain Chest pain type: unspecified Qualified Code(s): R07.9 - Chest pain, unspecified
[2019-10-11] MEDS ORDERED: COUGH DROP (SUGAR FREE) LOZ 24 LOZ/1 BOX BUCCAL PRN (23:45)
[2019-10-12] MEDS: HEPARIN SOD 5,000 UNIT/0.5 ML VIAL SQ SCH (06:29)
[2019-10-12] MEDS: METOPROLOL SUCC 25MG EXT REL TAB PO SCH (07:58)
[2019-10-12] MEDS: FLUTICASONE/SALMETEROL 250/50 (ADVAIR) 14 PUFF/1 INHALER INH SCH (07:58)
[2019-10-12] MEDS: MULTIVITAMIN TAB PO SCH (07:58)
[2019-10-12] MEDS: PANTOprazole 40 MG TAB PO SCH (07:58)
[2019-10-12] MEDS: AMLODIPINE BESYLATE 5 MG TAB PO SCH (07:59)
[2019-10-12] MEDS: IPRATROPIUM BROMIDE/ALBUTEROL respimat INH INH SCH (07:59)
[2019-10-12] MEDS: ATORVASTATIN 20 MG TAB PO SCH (07:59)
[2019-10-12] MEDS: CLOPIDOGREL BISULFATE 75 MG TAB PO SCH (07:59)
[2019-10-12] MEDS: TAMSULOSIN HCL 0.4 MG CAP PO SCH (07:59)
[2019-10-12] MEDS: ASPIRIN 81 MG ECTAB PO SCH (07:59)
[2019-10-12] MEDS: ISOSORBIDE MONO EXTENDED REL 60 MG TABCR PO SCH (07:59)
--- NOTE | 2019-10-12 10:37 | Hospitalist Progress Note ---
Date of Service October 12, 2019 Assessment & Plan (1) Chest pain: -presents on 10/10/19 with history of left-sided stabbing chest pain, also associated with right-sided chest soreness, nonradiating, associated with nausea, shortness of breath. Patient chest pain transiently improved with nitroglycerin. He admits to increasing his home oxygen from 2 to 3 L for control of his symptoms. He denies any cough, fever chills, pleuritic pain. Patient had known heavily calcified LAD and has failed PCI in the past. Patient's symptoms completely resolved while in ED with nitroglycerin patch. His initial troponin is negative. EKG showed normal sinus rhythm with PVCs, RBBB, left anterior fascicular block. His blood pressure is elevated while in ED. -Chest pain atypical features in the setting of hypertension, hypertensive urgency known underlying coronary disease as per 10/11/19 cardiology evaluation; cardiology started amlodipine 2.5 mg daily -Patient had right sided chest pain reported to nurse overnight. No further chest pressure noted by patient on 10/11/19 -no further chest pains since, blood pressure better controlled by 10/12/19 and ready for hospital discharge Moderate to Severe Pulmonary Hypertension Moderate Mitral Regurgitation, Moderate Tricuspid Regurgitation Aortic Stenosis -Echocardiogram from 10/10/19 reviewed -Ejection Fraction of 60 to 65% diastolic dysfunction grade 2 with Moderate to Severe Pulmonary Hypertension; Moderate Mitral Regurgitation, Moderate Tricuspid Regurgitation; Aortic Stenosis -no acute surgical interventions as per cardiology Dr. Martin, continue medical mamagement (2) Hypertension: Hypertensive urgency on admission -Continue metoprolol and isosorbide, making adjustments as needed -continue amlodipine 2.5 mg as newly started on this hospital admission Discharge medication of amlodipine 2.5 mg daily electronically sent to [facility] [address] [place] [address] Patient should follow up with family medical doctor 10/16/2019 1:00 PM Provider Reyes Pablo MD Department Internal Medicine [facility] Patient should have blood pressure medications titrated up by family doctor as needed cardiology appointment 10/31/2019 3:00 PM Provider Nunu Hyatt PA-C Department Cardiology, [facility] (3) Coronary artery disease: -management as above (4) Paroxysmal atrial fibrillation: -Rate controlled on metoprolol -Not anticoagulated with anticoagulation medication secondary to need for aspirin and Plavix per outpatient cardiology note (5) COPD (chronic obstructive pulmonary disease): COPD (chronic obstructive pulmonary disease) without exacerbation and has dependence on chronic supplementary oxygen -No signs of acute exacerbation -Continue home inhalers -on supplementary nasal cannula oxygen (6) DVT prophylaxis: -SQ heparin Main Discharge Diagnosis: Chest pain atypical features in the setting of hypertension, hypertensive urgency known underlying coronary disease; Moderate to Severe Pulmonary Hypertension, Moderate Mitral Regurgitation, Moderate Tricuspid Regurgitation, Aortic Stenosis, COPD (chronic obstructive pulmonary disease) without exacerbation and has dependence on chronic supplementary oxygen Subjective Patient seen and examined at bedside. Patient denies chest overnight or today. Patient on chronic nasal cannula oxygen. denies acute shortness of breath. no abdominal pain. no vomiting. no dizziness. no headache Review of Systems Review of Systems: All systems reviewed & are unremarkable except as noted in HPI & below Physical Exam Constitutional: comfortable Eyes: PERRL, conjunctivae normal, anicteric sclerae EOM intact bilaterally ENMT: external ear and nose normal, oropharynx normal Neck: normal visual inspection Respiratory: normal respiratory effort Cardiovascular: Rate/Rhythm: + bradycardic Gastrointestinal (Abdomen): normal bowel sounds, soft, nontender, no hepatosplenomegaly Musculoskeletal: Head/Neck/Chest: normocephalic and head atraumatic Neurologic: PERRL, EOMI, accommodation nl, no face palsy, no dysarthria Psychiatric: A+Ox3, euthymic affect Results & Data Vital Signs (Past 12 Hours) Vital Signs Temp Pulse Resp BP BP Pulse Ox 10/12/19 07:48 36.5 C 88 22 158/67 H 97 10/12/19 03:58 36.9 C 71 20 131/69 100 10/11/19 23:21 36.5 C 75 20 143/73 H 100
--- NOTE | 2019-10-12 10:42 | Cardiology Progress Note ---
Date of Service October 12, 2019 Assessment & Plan (1) Chest pain: Symptoms atypical for angina without acute evolution of enzymes to suggest ischemia. EKG is unhelpful due to underlying conduction abnormalities. Suspect hypertension contributing complaints Amlodipine added for both anginal and hypertensive control. Blood pressures well controlled patient symptoms minimized. Would not titrate beta-jan further given bifascicular borderline trifascicular heart block, underlying structural lung disease We will gradually increase activities Patient clinically stable agree with plans for discharge to home would continue amlodipine on discharge (2) COPD exacerbation: (3) Hypertension: Subjective Patient seen and examined. Denies any complaints "feels well" No chest pains or discomfort. Blood pressure trending towards better control. Ambulatory in room without difficulty Physical Exam Constitutional: WD/WN, vitals as above Eyes: PERRL, conjunctivae normal, anicteric sclerae ENMT: external ear and nose normal, oropharynx normal Neck: trachea midline, no thyromegaly Respiratory: no respiratory distress Auscultation: + diminished lung sounds Cardiovascular: Rate/Rhythm: regular rate and regular rhythm Heart Sounds: normal S1 and normal S2; no gallop and no murmur Palpation: normal PMI Vessels: normal carotid upstroke and radial pulses present; no JVD and no carotid bruit Extremities: no edema Gastrointestinal (Abdomen): normal bowel sounds, soft, nontender, no hepatosplenomegaly Musculoskeletal: no cyanosis or clubbing, extremities motor strength 5/5 Skin: no rashes, warm and dry Neurologic: PERRL, EOMI, accommodation nl, no face palsy, no dysarthria Psychiatric: A+Ox3, euthymic affect Results & Data Vital Signs (Past 12 Hours) Vital Signs Temp Pulse Pulse Resp BP BP Pulse Ox 10/12/19 10:36 36.5 C 88 88 22 158/67 H 143/73 H 97 10/12/19 07:48 36.5 C 88 22 158/67 H 97 10/12/19 03:58 36.9 C 71 20 131/69 100 10/11/19 23:21 36.5 C 75 20 143/73 H 100 (1) Chest pain Chest pain type: unspecified Qualified Code(s): R07.9 - Chest pain, unspecified
--- NOTE | 2019-10-12 10:46 | Discharge Summary ---
Date of Service October 12, 2019 Admission HPI Per Admitting Provider 84-year-old male who presents to the ED for evaluation of chest pain. Patient reports that throughout the night, he developed a stabbing left-sided chest pain with also some right-sided soreness. Patient reports he took a sublingual nitroglycerin with some improvement in the pain however not resolution. He was unable to fall back to sleep however later in the night he got back up to go to the bathroom and the discomfort returned. Patient reports he also had associated shortness of breath and nausea. He did not take any further nitroglycerin. He came to the ED for further evaluation. Patient has history of CAD s/p stenting and failed PCI to a heavily calcified LAD in 2015. Also history of stable angina, nitrates have not been able to be uptitrated in the past secondary to hypotension. Patient reports he otherwise been feeling well recently. He denies productive cough. No fevers or chills. Reports chronic constipation and diarrhea which is unchanged from baseline. No abdominal pain, nausea, vomiting. He denies any urinary symptoms. In the ED, initial troponin is negative and EKG is unchanged. Patient received topical nitroglycerin and a full dose aspirin with resolution of pain. Magnesium is found to be 1.1 and he received IV replacement. He was also given a nebulizer treatment. Admission Exam Per Admitting Provider General Appearance:Thin, no apparent distress, Elderly Head: normocephalic, Atraumatic , dry oral mucosa Eyes: normal inspection, EOMI, PERRL Neck: supple, Trachea midline Respiratory/Chest: Decreased breath sounds, CTA, No accessory muscle use Cardiovascular: S1, S2, + murmur Abdomen/GI:Soft, Non tender, Bowel sounds present Extremities/Musculoskelatal:normal inspection, no edema Neurologic/Psych:AAOX3, grossly no focal neurological deficits Skin: normal color, warm Principal Diagnosis Chest pain atypical features in the setting of hypertension, hypertensive urgency known underlying coronary disease; Moderate to Severe Pulmonary Hypertension, Moderate Mitral Regurgitation, Moderate Tricuspid Regurgitation, Aortic Stenosis, COPD (chronic obstructive pulmonary disease) without exacerbation and has dependence on chronic supplementary oxygen Discharge Data Allergies Allergy/AdvReac Type Severity Reaction Status Date / Time naproxen Allergy Unknown hives Verified 07/02/19 11:31 Consultations 10/10/19 11:22 Consult Cardiology Routine Consult Case Management - Discharge Planning Routine Hospital Course (1) Chest pain: -presents on 10/10/19 with history of left-sided stabbing chest pain, also associated with right-sided chest soreness, nonradiating, associated with nausea, shortness of breath. Patient chest pain transiently improved with nitroglycerin. He admits to increasing his home oxygen from 2 to 3 L for control of his symptoms. He denies any cough, fever chills, pleuritic pain. Juliocesar bonds had known heavily calcified LAD and has failed PCI in the past. Patient's symptoms completely resolved while in ED with nitroglycerin patch. His initial troponin is negative. EKG showed normal sinus rhythm with PVCs, RBBB, left anterior fascicular block. His blood pressure is elevated while in ED. -Chest pain atypical features in the setting of hypertension, hypertensive urgency known underlying coronary disease as per 10/11/19 cardiology evaluation; cardiology started amlodipine 2.5 mg daily -Patient had right sided chest pain reported to nurse overnight. No further chest pressure noted by patient on 10/11/19 -no further chest pains since, blood pressure better controlled by 10/12/19 and ready for hospital discharge Moderate to Severe Pulmonary Hypertension Moderate Mitral Regurgitation, Moderate Tricuspid Regurgitation Aortic Stenosis -Echocardiogram from 10/10/19 reviewed -Ejection Fraction of 60 to 65% diastolic dysfunction grade 2 with Moderate to Severe Pulmonary Hypertension; Moderate Mitral Regurgitation, Moderate Tricuspid Regurgitation; Aortic Stenosis -no acute surgical interventions as per cardiology Dr. Martin, continue medical mamagement (2) Hypertension: Hypertensive urgency on admission -Continue metoprolol and isosorbide, making adjustments as needed -continue amlodipine 2.5 mg as newly started on this hospital admission Discharge medication of amlodipine 2.5 mg daily electronically sent to [facility] [address] [place] [address] Patient should follow up with family medical doctor 10/16/2019 1:00 PM Provider Reyes Pablo MD Department Internal Medicine [facility] Patient should have blood pressure medications titrated up by family doctor as needed cardiology appointment 10/31/2019 3:00 PM Provider Nunu Hyatt PA-C Department Cardiology, [facility] (3) Coronary artery disease: -management as above (4) Paroxysmal atrial fibrillation: -Rate controlled on metoprolol -Not anticoagulated with anticoagulation medication secondary to need for a spirin and Plavix per outpatient cardiology note (5) COPD (chronic obstructive pulmonary disease): COPD (chronic obstructive pulmonary disease) without exacerbation and has dependence on chronic supplementary oxygen -No signs of acute exacerbation -Continue home inhalers -on supplementary nasal cannula oxygen (6) DVT prophylaxis: -SQ heparin Main Discharge Diagnosis: Chest pain atypical features in the setting of hypertension, hypertensive urgency known underlying coronary disease; Moderate to Severe Pulmonary Hypertension, Moderate Mitral Regurgitation, Moderate Tricuspid Regurgitation, Aortic Stenosis, COPD (chronic obstructive pulmonary disease) without exacerbation and has dependence on chronic supplementary oxygen Total Time Total Time Spent Total Time Spent (In Minutes): 40 minutes Total Time Includes: Examination of the Patient, Discharge Planning, Medication Reconciliation and Communication With Other Providers Discharge Plan Discharge Items Patient Disposition: Home - Self-Care Reason For Visit: CHEST PAIN Discharge Diagnosis: Chest pain atypical features in the setting of hypertension, hypertensive urgency known underlying coronary disease; Moderate to Severe Pulmonary Hypertension, Moderate Mitral Regurgitation, Moderate Tricuspid Regurgitation, Aortic Stenosis, COPD (chronic obstructive pulmonary disease) without exacerbation and has dependence on chronic supplementary oxygen Condition on Discharge: Good Activity: Resume your previous activity Weightbearing: Full weightbearing Non-emergency contact: Primary Care Provider Call non-emergency contact if: you have any medication questions Follow-up/Referrals: Reyes Pablo MD [Primary Care Provider] - Diet: Heart Healthy and Low Sodium (2gm) Addtl Attending Provider Instructions: Discharge medication of amlodipine 2.5 mg daily electronically sent to [facility] [address] [place] [address] Patient should follow up with family medical doctor 10/16/2019 1:00 PM Provider Reyes Pablo MD Department Internal Medicine [facility] Patient should have blood pressure medications titrated up by family doctor as needed cardiology appointment 10/31/2019 3:00 PM Provider Nunu Hyatt PA-C Department Cardiology, [facility] Pending Studies at Discharge: No Stand-Alone Forms: [employer], Smoking Cessation Medications and DC Order Prescriptions: New amlodipine [Norvasc] 5 mg Tablet 2.5 mg PO QAM 30 Days Qty: 15 RF: 0 Continued lubiprostone 8 mcg Capsule 8 mcg PO BID RF: 0 hydrocodone-acetaminophen 7.5-325 mg tablet 1 tab PO Q6H PRN (Reason: Pain) RF: 0 metoprolol succinate 25 mg tablet extended release 24 hr 12.5 mg PO HS RF: 0 multivitamin Tablet 1 tab PO QAM RF: 0 fluticasone propion-salmeterol [Advair Diskus] 250-50 mcg/dose blister with device 1 puff Inhalation BID RF: 0 atorvastatin 20 mg tablet 20 mg PO QAM RF: 0 clopidogrel [Plavix] 75 mg tablet 75 mg PO QAM RF: 0 tamsulosin [Flomax] 0.4 mg capsule 0.4 mg PO QAM RF: 0 nitroglycerin [Nitrostat] 0.4 mg tablet, sublingual 0.4 mg Sublingual UD PRN (Reason: Chest Pain) RF: 0 metoprolol succinate [Toprol XL] 25 mg tablet extended release 24 hr 25 mg PO DAILY RF: 0 polyethylene glycol 3350 [Miralax] 17 gram/dose powder 17 g PO DAILY PRN (Reason: Constipation) RF: 0 albuterol sulfate [Ventolin HFA] 90 mcg/actuation HFA aerosol inhaler 2 puff Inhalation Q6 PRN (Reason: Shortness Of Breath Or Wheezing) RF: 0 Combivent Respimat 20-100 mcg/actuation Mist 1 puff INHALATION QID RF: 0 aspirin [Aspir-81] 81 mg Tablet,Delayed Release (Dr/Ec) 81 mg PO QAM RF: 0 omeprazole 20 mg Capsule,Delayed Release(Dr/Ec) 20 mg PO QAM RF: 0 levalbuterol HCl 1.25 mg/3 mL solution for nebulization 3 ml Inhalation QID PRN (Reason: Shortness Of Breath) RF: 0 isosorbide mononitrate 20 mg Tablet 60 mg PO BID RF: 0 Discharge Orders: Discharge Order (Routine); Ordered 10/12/19 Ordered By: Julio Burris Admission Data Admit Date/Time: 10/10/19 10:03 Attending Provider: Julio Burris Admit Provider: Domingo Hopkins Primary Care Provider: Reyes Pablo Other Providers: Jay Jacobo
--- NOTE | 2019-10-12 22:16 | Emergency Department Note ---
Entered by Salomón Olivares acting as a scribe for History of Present Illness General Chief complaint: Chest Pain Stated complaint: chest discomfort Time Seen by Provider: 10/10/19 08:01 Source: patient History of Present Illness Provider complaint: Chest pain Onset (ago): hour(s) 8 Location: chest Radiation: non-radiation Pain Consistency: + intermittent Quality: + sharp Associated symptoms: + shortness of breath; no nausea/vomiting The patient is an 84 year old male who presents to the Emergency Room with complaints of intermittent left sided chest pain that started last night around 8 hours ago. The patient states he had two episodes this morning that were short, sharp and did not radiate anywhere. After the first episode, the patient took 5 Nitro which did allow him to fall back to sleep for some time before waking up around 05:00 with another episode of pain. At this time the patient reports taking 2 Nitro. The patient adds that his blood pressure was elevated this morning. The patient also mentioned that he has right sided chest soreness that has been present for some time before the episodes he experienced this morning. The patient adds that he has a history of pneumonia on the right side. The patient also has a history of COPD so he notes that he is short of breath and has a cough at baseline and it has not changed. However the patient does have some nasal congestion and intermittent rhinorrhea. The patient also has an extensive cardiac history including 2 coronary stents and Afib. The patient reports that he had his first stent placed in [place] and the second was done here by Dr. Ingram. The patient mentioned that he has an occlusion that is currently being treated with medication. The patient adds that he wears 2L at baseline and has gotten his flu shot this year. He is unsure if he received his pneumonia shot. The patient states he has been using all of his medications as prescribed. He denies any nausea. Home Medications Home Medications Medication Instructions Recorded Confirmed Type Combivent Respimat 1 puff INHALATION QID 08/28/18 10/10/19 History albuterol sulfate [Ventolin HFA] 2 puff INHALATION Q6 PRN 08/28/18 10/10/19 History atorvastatin 20 mg PO QAM 08/28/18 10/10/19 History clopidogrel [Plavix] 75 mg PO QAM 08/28/18 10/10/19 History fluticasone propion-salmeterol 1 puff INHALATION BID 08/28/18 10/10/19 History [Advair Diskus] metoprolol succinate [Toprol XL] 25 mg PO DAILY 08/28/18 10/10/19 History multivitamin 1 tab PO QAM 08/28/18 10/10/19 History nitroglycerin [Nitrostat] 0.4 mg SUBLINGUAL UD PRN 08/28/18 10/10/19 History polyethylene glycol 3350 [Miralax] 17 g PO DAILY PRN 08/28/18 10/10/19 History tamsulosin [Flomax] 0.4 mg PO QAM 08/28/18 10/10/19 History aspirin [Aspir-81] 81 mg PO QAM 10/20/18 10/10/19 History isosorbide mononitrate 60 mg PO BID 10/20/18 10/10/19 History levalbuterol HCl 3 ml INHALATION QID PRN 10/20/18 10/10/19 History omeprazole 20 mg PO QAM 10/20/18 10/10/19 History hydrocodone-acetaminophen 1 tab PO Q6H PRN 10/10/19 10/10/19 History lubiprostone 8 mcg PO BID 10/10/19 10/10/19 History metoprolol succinate 12.5 mg PO HS 10/10/19 10/10/19 History amlodipine [Norvasc] 2.5 mg PO QAM 30 Days #15 tab 10/12/19 Rx Allergies Allergy/AdvReac Type Severity Reaction Status Date / Time naproxen Allergy Unknown hives Verified 07/02/19 11:31 Past Med/Surg History Medical History Bifascicular block BPH (benign prostatic hyperplasia) CAD (coronary artery disease) PCI to LAD, CATALINO to OM 2014-failed PCI to heavily calcified LAD COPD (chronic obstructive pulmonary disease) Hyperlipidemia Paroxysmal atrial fibrillation Renal artery stenosis Tobacco abuse (Inactive) Surgical History History of cholecystectomy History of coronary artery stent placement Family History Mother Diabetes Social History Preferred Language: Chinese Communication Ability: Effective Store Stock Associate Required: No Beliefs That Will Affect Care: None marital status: Single Current Living Situation: Alone Other Information That Helps Us Care for You: No Feels Safe at Home: Yes Safety Concerns: Feels Safe At This Time Smoking Status: Former smoker Cigarettes Per Day: 30 ; Second Hand Exposure: No ; Hx Alcohol Use: Yes Alcohol type: beer Hx Substance Use: No Review of Systems See HPI for pertinent positives & negatives. and A total of 10 systems reviewed and were otherwise negative Physical Exam Vital Signs Vital Signs - 24 hr 10/10/19 07:56 10/10/19 08:03 10/10/19 08:10 Pulse Rate 82 76 81 Pulse Rate [Apical] Pulse Rate from SpO2 Sensor 79 80 80 Pulse Rhythm Regular Pulse Strength Normal Respiratory Rate 18 19 22 Respiratory Effort / Characteristics Non-Labored Spontaneous Respiratory Depth Normal Respiratory Pattern Regular Blood Pressure 164/103 H 164/103 H Blood Pressure Mean 107 123 Blood Pressure Position Sitting Pulse Oximetry 99 99 99 Oxygen Delivery Method Nasal Cannula Oxygen Flow Rate 2 Sepsis Recent Fever Within 48 Hours No Sepsis New/Unexplained Change in Mental Status No Sepsis Action Taken by Nursing No Action Required 10/10/19 08:20 10/10/19 08:24 10/10/19 08:30 Pulse Rate 81 79 79 Pulse Rate [Apical] Pulse Rate from SpO2 Sensor 81 78 75 Pulse Rhythm Pulse Strength Respiratory Rate 17 17 13 Respiratory Effort / Characteristics Respiratory Depth Respiratory Pattern Blood Pressure 140/94 148/98 H Blood Pressure Mean 109 108 Blood Pressure Position Pulse Oximetry 97 98 98 Oxygen Delivery Method Oxygen Flow Rate Sepsis Recent Fever Within 48 Hours Sepsis New/Unexplained Change in Mental Status Sepsis Action Taken by Nursing 10/10/19 08:31 10/10/19 08:40 10/10/19 08:50 Pulse Rate 86 88 83 Pulse Rate [Apical] 88 Pulse Rate from SpO2 Sensor 84 77 81 Pulse Rhythm Pulse Strength Respiratory Rate 16 21 19 Respiratory Effort / Characteristics Spontaneous Respiratory Depth Respiratory Pattern Blood Pressure Blood Pressure Mean Blood Pressure Position Pulse Oximetry 99 97 100 Oxygen Delivery Method Nasal Cannula Oxygen Flow Rate 2 Sepsis Recent Fever Within 48 Hours Sepsis New/Unexplained Change in Mental Status Sepsis Action Taken by Nursing 10/10/19 09:00 10/10/19 09:01 10/10/19 09:10 Pulse Rate 70 72 85 Pulse Rate [Apical] Pulse Rate from SpO2 Sensor 70 65 Pulse Rhythm Pulse Strength Respiratory Rate 14 15 22 Respiratory Effort / Characteristics Respiratory Depth Respiratory Pattern Blood Pressure 150/88 H Blood Pressure Mean 99 Blood Pressure Position Pulse Oximetry 98 99 Oxygen Delivery Method Oxygen Flow Rate Sepsis Recent Fever Within 48 Hours Sepsis New/Unexplained Change in Mental Status Sepsis Action Taken by Nursing 10/10/19 09:20 10/10/19 09:30 10/10/19 09:31 Pulse Rate 62 68 Pulse Rate [Apical] Pulse Rate from SpO2 Sensor Pulse Rhythm Pulse Strength Respiratory Rate 20 21 Respiratory Effort / Characteristics Respiratory Depth Respiratory Pattern Blood Pressure 154/82 H Blood Pressure Mean 99 Blood Pressure Position Pulse Oximetry Oxygen Delivery Method Oxygen Flow Rate Sepsis Recent Fever Within 48 Hours Sepsis New/Unexplained Change in Mental Status Sepsis Action Taken by Nursing 10/10/19 09:40 10/10/19 09:50 10/10/19 10:00 Pulse Rate 72 62 75 Pulse Rate [Apical] Pulse Rate from SpO2 Sensor Pulse Rhythm Pulse Strength Respiratory Rate 20 20 21 Respiratory Effort / Characteristics Respiratory Depth Respiratory Pattern Blood Pressure 117/105 H Blood Pressure Mean 111 Blood Pressure Position Pulse Oximetry Oxygen Delivery Method Oxygen Flow Rate Sepsis Recent Fever Within 48 Hours Sepsis New/Unexplained Change in Mental Status Sepsis Action Taken by Nursing GENERAL: alert, well nourished, no distress, non-toxic but ill appearing with NC in place. EYE EXAM: normal conjunctiva, PERRL and EOM's grossly intact OROPHARYNX: no exudate, no erythema, lips, buccal mucosa, and tongue normal and mucous membranes are dry NECK: supple, no nuchal rigidity, no adenopathy, non-tender LUNGS: Decreased breath sounds bilaterally with no wheezes, rhonchi, or rales. Normal chest wall mechanics HEART: no murmurs, S1 normal and S2 normal CHEST: No reproducible chest wall tenderness. ABDOMEN: abdomen soft, non-tender, normo-active bowel sounds, no masses, no rebound or guarding. BACK: Back is symmetrical on inspection and there is no deformity, no midline tenderness, no CVA tenderness. SKIN: no rashes and no bruising UPPER EXTREMITIES: upper extremities are grossly normal. FROM, nml pulses b/l. LOWER EXTREMITIES: No pitting edema. FROM, nml pulses b/l. NEURO EXAM: Normal sensorium, cranial nerves II-XII grossly intact, normal speech, no gross weakness of arms, no gross weakness of legs. Course Course 808: Past medical records reviewed. The patient was evaluated in room B09, and a complete history and physical examination were performed. 0926: I reevaluated the patient and he has some right sided chest pain but denies any left sided pain. I also updated the patient on results and the treatment plan. He is agreeable with the plan. 0953: I spoke to Dr. Sandeep Fel[facility] about the patient's case and he agreed to accept him for further evaluation. Consultations Consultation #1: I spoke to Dr. Sandeep Cortes about the patient's case and he agreed to accept him for further evaluation. Time: 09:53 Administered Medications Discontinued Medications Albuterol (Duoneb) 3 ml NEB NOW STA Stop: 10/10/19 08:16 Last Admin: 10/10/19 08:39 Dose: 3 ml Documented by: [id number] Albuterol (Combivent Respimat) 1 puffs INH QID [facility] Stop: 11/10/19 08:59 Last Admin: 10/12/19 07:59 Dose: 1 puffs Documented by: [id number] Admin: 10/11/19 20:00 Dose: 1 puffs Documented by: [id number] Admin: 10/11/19 17:11 Dose: 1 puffs Documented by: [id number] Admin: 10/11/19 15:08 Dose: 1 puffs Documented by: [id number] Admin: 10/11/19 10:09 Dose: 1 puffs Documented by: [id number] Amlodipine Besylate (Norvasc) 2.5 mg PO [facility] Stop: 11/10/19 08:59 Last Admin: 10/12/19 07:59 Dose: 2.5 mg Documented by: [id number] Admin: 10/11/19 08:32 Dose: 2.5 mg Documented by: [id number] Amlodipine Besylate (Norvasc) 2.5 mg PO NOW STA Stop: 10/10/19 18:57 Last Admin: 10/10/19 19:15 Dose: 2.5 mg Documented by: [id number] Aspirin (Aspirin) 324 mg PO NOW STA Stop: 10/10/19 09:40 Last Admin: 10/10/19 10:26 Dose: 324 mg Documented by: [id number] Aspirin ([facility]cotrin [facility]ctab) [facility] [place] Stop: 01/12/20 08:59 Last Admin: 10/12/19 07:59 Dose: 81 mg Documented by: [id number] Admin: 10/11/19 08:32 Dose: 81 mg Documented by: [id number] Atorvastatin Calcium (Lipitor) 20 [facility] [place] Stop: 11/09/19 11:59 Last Admin: 10/12/19 07:59 Dose: 20 mg Documented by: [id number] Admin: 10/11/19 08:31 Dose: 20 mg Documented by: [id number] Admin: 10/10/19 12:58 Dose: 20 mg Documented by: [id number] Clopidogrel Bisulfate (Plavix) 75 mg PO [facility] Stop: 11/09/19 11:59 Last Admin: 10/12/19 07:59 Dose: 75 mg Documented by: [id number] Admin: 10/11/19 08:31 Dose: 75 mg Documented by: [id number] Admin: 10/10/19 12:58 Dose: 75 mg Documented by: [id number] Heparin Sodium (Porcine) (Heparin Sodium (Porcine)) 5,000 units SQ Q8 [facility] Stop: 11/09/19 13:59 Last Admin: 10/12/19 06:29 Dose: 5,000 units Documented by: [id number] Cosigned by: [id number] Admin: 10/11/19 21:15 Dose: 5,000 units Documented by: [id number] Cosigned by: [id number] Admin: 10/11/19 15:08 Dose: 5,000 units Documented by: [id number] Cosigned by: [id number] Admin: 10/11/19 05:45 Dose: 5,000 units Documented by: [id number] Cosigned by: [id number] Admin: 10/10/19 22:11 Dose: 5,000 units Documented by: [id number] Cosigned by: [id number] Admin: 10/10/19 12:58 Dose: 5,000 units Documented by: [id number] Cosigned by: [id number] Sodium Chloride (Nss 1000ml) 1,000 mls @ 125 mls/hr IV .Q8H [facility] Stop: 10/10/19 16:14 Last Infusion: 10/10/19 16:27 Dose: 0 mls/hr Documented by: [id number] Admin: 10/10/19 08:27 Dose: 125 mls/hr Documented by: [id number] Magnesium Sulfate/Dextrose (Magnesium Sulfate / D5w) 1 gm in 100 mls @ 100 mls/hr IV Q1H [facility] Stop: 10/10/19 11:14 Last Infusion: 10/10/19 13:43 Dose: 0 mls/hr Documented by: [id number] Admin: 10/10/19 11:51 Dose: 100 mls/hr Documented by: [id number] Infusion: 10/10/19 11:44 Dose: 0 mls/hr Documented by: [id number] Admin: 10/10/19 09:28 Dose: 100 mls/hr Documented by: [id number] Isosorbide Mononitrate (Imdur Extended Rel) 60 mg PO BID [facility] Stop: 11/09/19 20:59 Last Admin: 10/12/19 07:59 Dose: 60 mg Documented by: [id number] Admin: 10/11/19 20:01 Dose: 60 mg Documented by: [id number] Admin: 10/11/19 08:31 Dose: 60 mg Documented by: [id number] Admin: 10/10/19 20:19 Dose: 60 mg Documented by: [id number] Levalbuterol HCl (Xopenex 1.25mg/3ml Neb) 1.25 mg INH QIDR PRN PRN Reason: Shortness Of Breath Stop: 11/09/19 11:21 Last Admin: 10/11/19 06:28 Dose: 1.25 mg Documented by: [id number] Admin: 10/10/19 19:31 Dose: 1.25 mg Documented by: [id number] Metoprolol Succinate (Toprol Xl) 12.5 mg PO HS [facility] Stop: 11/09/19 20:59 Last Admin: 10/11/19 20:01 Dose: 12.5 mg Documented by: [id number] Admin: 10/10/19 20:20 Dose: 12.5 mg Documented by: [id number] Metoprolol Succinate (Toprol Xl) 25 mg PO DAILY [facility] Stop: 11/09/19 11:59 Last Admin: 10/12/19 07:58 Dose: 25 mg Documented by: [id number] Admin: 10/11/19 08:31 Dose: 25 mg Documented by: [id number] Admin: 10/10/19 12:58 Dose: 25 mg Documented by: [id number] Miscellaneous (Order Awaiting Action) 1 ea N/A QS [facility] Stop: 11/09/19 15:59 Last Admin: 10/12/19 08:18 Dose: Not Given Documented by: [id number] Admin: 10/11/19 23:32 Dose: Not Given Documented by: [id number] Admin: 10/11/19 17:10 Dose: Not Given Documented by: [id number] Admin: 10/11/19 08:29 Dose: Not Given Documented by: [id number] Admin: 10/10/19 23:34 Dose: Not Given Documented by: [id number] Admin: 10/10/19 15:41 Dose: Not Given Documented by: [id number] Multivitamins (Multivitamin Tab) 1 tab PO QAM [facility] Stop: 11/10/19 08:59 Last Admin: 10/12/19 07:58 Dose: 1 tab Documented by: [id number] Admin: 10/11/19 08:31 Dose: 1 tab Documented by: [id number] Nitroglycerin (Nitro-Bid 2%) 1 inch EXT NOW ONE Stop: 10/10/19 09:40 Last Admin: 10/10/19 10:25 Dose: 1 inch Documented by: [id number] Pantoprazole Sodium (Protonix) [facility] [place] Stop: 11/10/19 08:59 Last Admin: 10/12/19 07:58 Dose: 40 mg Documented by: [id number] Admin: 10/11/19 08:32 Dose: 40 mg Documented by: [id number] Fluticasone/Salmeterol (Advair Diskus 250/50) 1 puffs INH BID [facility] Stop: 11/09/19 20:59 Last Admin: 10/12/19 07:58 Dose: 1 puffs Documented by: [id number] Admin: 10/11/19 20:00 Dose: 1 puffs Documented by: [id number] Admin: 10/11/19 08:30 Dose: 1 puffs Documented by: [id number] Admin: 10/10/19 20:19 Dose: 1 puffs Documented by: [id number] Tamsulosin HCl (Flomax) 0.4 mg PO [facility] [place] Stop: 11/09/19 11:59 Last Admin: 10/12/19 07:59 Dose: 0.4 mg Documented by: [id number] Admin: 10/11/19 08:31 Dose: 0.4 mg Documented by: [id number] Admin: 10/10/19 12:58 Dose: 0.4 mg Documented by: [id number] Medical Decision Making Differential Diagnosis Differential diagnoses includes but is not limited to acute coronary syndrome, myocardial infarction, pericarditis, pulmonary embolus, aortic dissection, pneumonia, pneumothorax, musculoskeletal, shingles, esophageal. Medical Records Attestation: I reviewed the patient's medical records. Home Medications Current Medication List: was personally reviewed by me Laboratory Data Attestation: I reviewed the patient's lab results. Result diagrams: 10/11/19 06:15 10/11/19 06:15 Lab Results 10/10/19 10/10/19 10/10/19 Range/Units 08:24 08:24 08:24 WBC 6.29 (4.8-10.8) K/uL RBC 3.79 L (4.7-6.1) M/uL Hgb 12.1 L (14.0-18.0) g/dL Hct 35.6 L (42-52) % MCV 93.9 (80-100) fL MCH 31.9 (25-34) pg MCHC 34.0 (32-36) g/dL RDW Std Deviation 44.3 (36.4-46.3) fL RDW Coeff of Barry 13.0 (11.5-14.5) % Plt Count 169 (130-400) K/uL MPV 10.1 (7.4-10.4) fL Immature Gran % (Auto) 0.5 % Neut % (Auto) 64.4 % Lymph % (Auto) 22.1 % [place] % (Auto) 10.5 % Eos % (Auto) 2.2 % Baso % (Auto) 0.3 % Immature Gran # (Auto) 0.03 H (0.00-0.02) K/uL Neut # (Auto) 4.05 (1.4-6.5) K/uL Lymph # (Auto) 1.39 (1.2-3.4) K/uL [place] # (Auto) 0.66 H (0.11-0.59) K/uL Eos # (Auto) 0.14 (0-0.5) K/uL Baso # (Auto) 0.02 (0-0.2) K/uL Sodium 132 L (136-145) mmol/L Potassium 3.9 (3.5-5.1) mmol/L Chloride 94 L (98-107) mmol/L Carbon Dioxide 32 (21-32) mmol/L Anion Gap 5.0 (3-11) BUN 2 L (7-18) mg/dl Creatinine 0.44 L (0.6-1.4) mg/dl Est Cr Clr Drug Dosing Not Reportable Est GFR ( Amer) 122.4 Est GFR (Non-Af Amer) 105.6 BUN/Creatinine Ratio 5.3 L (10-20) Glucose 85 (70-99) mg/dl Calcium 9.1 (8.5-10.1) mg/dl Magnesium 1.1 L (1.8-2.4) mg/dl Total Bilirubin 0.8 (0.2-1) mg/dl AST 21 (15-37) U/L ALT 20 (12-78) U/L Alkaline Phosphatase 80 (45-117) U/L Troponin I < 0.015 (0-0.045) ng/ml NT-Pro-B Natriuret Pep 654 (0-1800) pg/ml Total Protein 5.9 L (6.4-8.2) gm/dl Albumin 3.0 L (3.4-5.0) gm/dl Globulin 2.9 (2.5-4.0) gm/dl Albumin/Globulin Ratio 1.0 (0.9-2) Lipase 53 L (73-393) U/L Influenza Type A (PCR) Neg for Influ A (Neg) Influenza Type B (PCR) Neg for Influ B (Neg) Imaging Data Radiologist's Impression: Radiology results as stated below per my review and the radiologist's interpretation: XR chest 1V portable CLINICAL HISTORY: 84 years-old Male presenting with chest pain. TECHNIQUE: Portable upright AP view of the chest was obtained. COMPARISON: 07/02/2019. Since FINDINGS: Atherosclerosis of the aortic arch. Cardiac silhouette normal in size. Heterogeneous radiolucency of the lungs with architectural distortion and irregular bandlike opacities in the upper lungs. There is subpleural or pleural thickening at the periphery of the right upper lung with associated architectural distortion. Lungs are hyperinflated. No pleural effusion or pneumothorax. Osteopenia may be present. Upper abdomen normal. IMPRESSION: 1. Findings suggest emphysema. No focal infiltrate to suggest pneumonia. 2. Upper lobe scarring greater on the right with persistent right pleural thickening or subpleural consolidation. This is on a chronic basis and corresponds to scarring/fibrosis in the upper lobes greater on the right. Electronically signed by: Feliz Corey M.D. 10/10/2019 8:47 AM ECG Data Attestation: I personally reviewed and interpreted this ECG as follows: Indication: + chest pain Rate (beats per minute): 78 Rhythm: + sinus rhythm ECG Intervals/blocks: + Normal QT and + Normal QT-c ECG [place]: + Left axis deviation ECG Findings: + PVCs and + Other (Bifascicular block) Comparison ECG Date: from (07/02/19) Change: the following changes noted (PVCs are now present) Blood Pressure Blood Pressure Findings: Elevated blood pressure Blood Pressure Disposition: further management by hospitalist MDM Narrative Pt ill appearing with prior CAD s/p stenting and known severe COPD on home oxygen. Pt's complaints are of chest pain and he feels SOB and cough and oxygen requirements are at baseline. Pt's pain improved here. I do not suspect PE. Pt given asa and upon recheck when some discomfort returned, nitro paste added EKG with changes and trop negative. Case discussed with hospitalist for evaluation. I do not suspect other occult vascular process. No evidence of acute infectious etiology. Impression & Plan Chest pain, Dependence on supplemental oxygen, Hypomagnesemia, COPD (chronic obstructive pulmonary disease) Discharge Plan Visit Data *Final* Discharge Date/Time: 10/10/19 10:50 Chief Complaint: Chest Pain Stated Complaint: chest discomfort ED Provider: Tracee Chen Discharge Problem: Chest pain, Dependence on supplemental oxygen, Hypomagnesemia, COPD (chronic obstructive pulmonary disease) Patient Disposition: Admitted As Inpatient Condition: Good Discharge Instructions Interventions: ED Discharge Assessment Last Done: 10/10/19 10:50 Discharge Problem: Chest pain Qualifiers: Chest pain type: unspecified Qualified Code(s): R07.9 - Chest pain, unspecified COPD (chronic obstructive pulmonary disease) Qualifiers: COPD type: unspecified COPD Qualified Code(s): J44.9 - Chronic obstructive pulmonary disease, unspecified The scribe's documentation has been prepared under my direction and personally reviewed by me in its entirety. I confirm that the note above accurately reflects all work, treatment, procedures, and medical decision making performed by me.
== END 2019-10-12 12:56 | disposition home or self-care (01) ==
LOC: ED 07:52 → 2S 07:52 → SUATTDRO 10:03 → 2S 10:50

== ENCOUNTER 2019-10-31 18:22 | Inpatient (IN) ==
[2019-10-31] MEDS ORDERED: SODIUM CHLORIDE 0.9% 1000ML 500 ML IV ONE (18:46)
[2019-10-31 18:54] LABS: Basophils # (auto) 0.02 K/uL (0-0.2); Basophils % (auto) 0.3 %; Eosinophils # (auto) 0.14 K/uL (0-0.5); Eosinophils % (auto) 2.1 %; Hematocrit (blood only) 34.3 % (42-52); Hemoglobin 11.9 g/dL (14.0-18.0); Immature Granulocytes # (auto) 0.07 K/uL (0.00-0.02); Lymphocytes # (auto) 1.37 K/uL (1.2-3.4); Lymphocytes % (auto) 20.3 %; Mean Corpuscular Hemoglobin 32.3 pg (25-34); Mean Corpuscular Hgb Conc 34.7 g/dL (32-36); Mean Corpuscular Volume 93.2 fL (80-100); Mean Platelet Volume 10.1 fL (7.4-10.4); Monocytes # (auto) 0.54 K/uL (0.11-0.59); Neutrophils # (auto) 4.62 K/uL (1.4-6.5); Neutrophils % (auto) 68.3 %; Platelet Count 175 K/uL (130-400); RDW Coefficient of Variation 12.9 % (11.5-14.5); RDW Standard Deviation 43.9 fL (36.4-46.3); Red Blood Count 3.68 M/uL (4.7-6.1); White Blood Count 6.76 K/uL (4.8-10.8)
[2019-10-31 19:06] LABS: INR 1.2 (0.9-1.1); Prothrombin Time 11.8 Seconds (9.0-12.0)
--- NOTE | 2019-10-31 19:11 | XRay Report ---
XR chest 1V portable CLINICAL HISTORY: weakness dyspnea COMPARISON STUDY: 10/10/2019 FINDINGS: Stable emphysematous change. Stable pleural thickening lateral aspect right pulmonary apex. No acute infiltrate. Diaphragms are smooth. IMPRESSION: Chronic change. No acute process. ACT 112: Negative or not required by law. The above report was generated using voice recognition software. It may contain grammatical, syntax or spelling errors. Electronically signed by: Silvio Pace M.D. 10/31/2019 7:09 PM
[2019-10-31 19:12] LABS: Alanine Aminotransferase 21 U/L (12-78); Aspartate Aminotransferase 25 U/L (15-37); BUN Creatinine Ratio 7.3 (10-20); Blood Urea Nitrogen 3 mg/dl (7-18); Calcium 8.7 mg/dl (8.5-10.1); Carbon Dioxide 30 mmol/L (21-32); Chloride 91 mmol/L (98-107); Creatinine Clr Calc Pharmacy 111.6 ml/min; Est GFR (African American) 124.8; Est GFR (Non-African American) 107.7; Glucose 84 mg/dl (70-99); Magnesium 1.1 mg/dl (1.8-2.4); Potassium 3.9 mmol/L (3.5-5.1); Sodium 127 mmol/L (136-145)
[2019-10-31 19:22] LABS: Albumin Globulin Ratio 0.9 (0.9-2); Alkaline Phosphatase 77 U/L (45-117); Bilirubin,Total 0.6 mg/dl (0.2-1); Globulin 3.2 gm/dl (2.5-4.0); Total Protein 6.2 gm/dl (6.4-8.2); Troponin I < 0.015 ng/ml (0-0.045)
[2019-10-31 19:42] LABS: Influenza A virus by PCR Neg for Influ A (Neg); Influenza B virus by PCR Neg for Influ B (Neg)
[2019-10-31] MEDS ORDERED: MAGNESIUM SULFATE / D5W 1 GM/100 ML BAG IV ONE (19:50)
--- NOTE | 2019-10-31 21:12 | History & Physical Report ---
Date of Service October 31, 2019 Assessment & Plan (1) Hyponatremia: Secondary to poor p.o. intake possibly from viral illness chronic respiratory failure secondary COPD/pulmonary hypertension on home O2, pulmonary status at baseline CAD status post stenting PAF as per records, patient currently NSR hypertension, currently stable Hypomagnesemia past tobacco abuse chronic anemia, hemoglobin at baseline Medical telemetry Careful correction of sodium Replace electrolytes PT OT eval DVT prophylaxis. Lovenox subcu Full code History of Present Illness Chief Complaint: High BP, generalized weakness , cough Primary Care Provider: Reyes Pablo MD Medical history significant for chronic respiratory failure secondary COPD/pulmonary hypertension on home O2, CAD status post stenting, PAFib as per records, valvular heart disease (moderate MR/TR/aortic stenosis), hypertension, hyperlipidemia, past tobacco abuse, chronic anemia (baseline hemoglobin of 11 ). Recent confinement September 2019 for chest pain attributed to uncontrolled hypertension. 3 days history of dry cough symptoms, poor appetite, generalized weakness. No chest pain, no S OB. Today, patient noted home BP was high in the 160s. Patient compliant with home meds. Patient took 1 nitro at home. Brought to ER by EMS for further evaluation. MEDICAL HISTORY: As above. SURGICAL HISTORY: Cholecystectomy. FAMILY HISTORY: Heart disease. PERSONAL AND SOCIAL HISTORY: Past tobacco abuse, admits to intake of alcoholic beverages, although denies abuse. Allergies Allergy/AdvReac Type Severity Reaction Status Date / Time naproxen Allergy Unknown hives Verified 10/31/19 20:49 Home Medications Home Medications Medication Instructions Recorded Confirmed Type Combivent Respimat 1 puff INHALATION QID 08/28/18 10/31/19 History albuterol sulfate [Ventolin HFA] 2 puff INHALATION Q6 PRN 08/28/18 10/31/19 History atorvastatin 20 mg PO QAM 08/28/18 10/31/19 History clopidogrel [Plavix] 75 mg PO QAM 08/28/18 10/31/19 History fluticasone propion-salmeterol 1 puff INHALATION BID 08/28/18 10/31/19 History [Advair Diskus] metoprolol succinate [Toprol XL] 25 mg PO QAM 08/28/18 10/31/19 History multivitamin 1 tab PO QAM 08/28/18 10/31/19 History nitroglycerin [Nitrostat] 0.4 mg SUBLINGUAL UD PRN 08/28/18 10/31/19 History polyethylene glycol 3350 [Miralax] 17 g PO DAILY PRN 08/28/18 10/31/19 History tamsulosin [Flomax] 0.4 mg PO QAM 08/28/18 10/31/19 History aspirin [Aspir-81] 81 mg PO QAM 10/20/18 10/31/19 History isosorbide mononitrate 60 mg PO BID 10/20/18 10/31/19 History levalbuterol HCl 3 ml INHALATION QID PRN 10/20/18 10/31/19 History omeprazole 20 mg PO QAM 10/20/18 10/31/19 History hydrocodone-acetaminophen 1 tab PO Q6H PRN 10/10/19 10/31/19 History lubiprostone 8 mcg PO BID 10/10/19 10/31/19 History metoprolol succinate 12.5 mg PO HS 10/10/19 10/31/19 History amlodipine [Norvasc] 2.5 mg PO QAM 30 Days #15 tab 10/12/19 10/31/19 Rx Allergy Medications 2 tab PO UD 10/31/19 History acetaminophen 1,000 mg PO UD PRN 10/31/19 10/31/19 History fluticasone propionate [Flonase 1 spray INTRANASAL QAM 10/31/19 10/31/19 History Allergy Relief] Past Med/Surg History Medical History Bifascicular block BPH (benign prostatic hyperplasia) CAD (coronary artery disease) PCI to LAD, CATALINO to OM 2014-failed PCI to heavily calcified LAD COPD (chronic obstructive pulmonary disease) (Acute) Hyperlipidemia Paroxysmal atrial fibrillation Renal artery stenosis Tobacco abuse (Inactive) Surgical History History of cholecystectomy History of coronary artery stent placement Family History Mother Diabetes Social History Preferred Language: Bruneian Communication Ability: Effective 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 Beliefs That Will Affect Care: None marital status: Single Current Living Situation: Alone Feels Safe at Home: Yes Safety Concerns: Feels Safe At This Time Smoking Status: Former smoker Cigarettes Per Day: 30 ; Second Hand Exposure: No ; Hx Alcohol Use: No Hx Substance Use: No Review of Systems Review of Systems: As per HPI, all 10 systems reviewed, all other ROS negative Physical Exam Physical Exam: GENERAL: Wane, chronically ill, slightly hard of hearing, no respiratory distress SKIN: Pallor , warm HEENT: Pale palpebral conjunctivae, no ptosis, dry buccal mucosa, nasal cannula in place NECK : Supple, no tenderness CHEST : Decreased breath sounds, no tenderness HEART : RRR, systolic murmur ABDOMEN: Soft, nontender EXTREMITIES : Minimal LE swelling, no LE tenderness, no other conspicuous deformities noted NEUROLOGIC : Coherent, slightly hard of hearing, no facial asymmetry, no other gross focality Results & Data Vital Signs (Past 12 Hours) Vital Signs Temp Pulse Resp BP Pulse Ox 10/31/19 18:44 70 20 100 10/31/19 18:42 36.5 C 71 20 139/83 97 Laboratory Results Laboratory Results WBC 6.76 K/uL (4.8-10.8) 10/31/19 18:00 RBC 3.68 M/uL (4.7-6.1) L 10/31/19 18:00 Hgb 11.9 g/dL (14.0-18.0) L 10/31/19 18:00 Hct 34.3 % (42-52) L 10/31/19 18:00 MCV 93.2 fL (80-100) 10/31/19 18:00 MCH 32.3 pg (25-34) 10/31/19 18:00 MCHC 34.7 g/dL (32-36) 10/31/19 18:00 RDW Std Deviation 43.9 fL (36.4-46.3) 10/31/19 18:00 RDW Coeff of Barry 12.9 % (11.5-14.5) 10/31/19 18:00 Plt Count 175 K/uL (130-400) 10/31/19 18:00 MPV 10.1 fL (7.4-10.4) 10/31/19 18:00 Immature Gran % (Auto) 1.0 % 10/31/19 18:00 Neut % (Auto) 68.3 % 10/31/19 18:00 Lymph % (Auto) 20.3 % 10/31/19 18:00 [place] % (Auto) 8.0 % 10/31/19 18:00 Eos % (Auto) 2.1 % 10/31/19 18:00 Baso % (Auto) 0.3 % 10/31/19 18:00 Immature Gran # (Auto) 0.07 K/uL (0.00-0.02) H 10/31/19 18:00 Neut # (Auto) 4.62 K/uL (1.4-6.5) 10/31/19 18:00 Lymph # (Auto) 1.37 K/uL (1.2-3.4) 10/31/19 18:00 [place] # (Auto) 0.54 K/uL (0.11-0.59) 10/31/19 18:00 Eos # (Auto) 0.14 K/uL (0-0.5) 10/31/19 18:00 Baso # (Auto) 0.02 K/uL (0-0.2) 10/31/19 18:00 PT 11.8 Seconds (9.0-12.0) 10/31/19 18:00 INR 1.2 (0.9-1.1) H 10/31/19 18:00 Sodium 127 mmol/L (136-145) L 10/31/19 18:00 Potassium 3.9 mmol/L (3.5-5.1) 10/31/19 18:00 Chloride 91 mmol/L (98-107) L 10/31/19 18:00 Carbon Dioxide 30 mmol/L (21-32) 10/31/19 18:00 Anion Gap 6.0 (3-11) 10/31/19 18:00 BUN 3 mg/dl (7-18) L 10/31/19 18:00 Creatinine 0.42 mg/dl (0.6-1.4) L 10/31/19 18:00 Est Cr Clr Drug Dosing 111.6 ml/min 10/31/19 18:00 Est GFR ( Amer) 124.8 10/31/19 18:00 Est GFR (Non-Af Amer) 107.7 10/31/19 18:00 BUN/Creatinine Ratio 7.3 (10-20) L 10/31/19 18:00 Glucose 84 mg/dl (70-99) 10/31/19 18:00 Osmolality 262 mOsm/kg (280-300) L 10/31/19 18:00 Calcium 8.7 mg/dl (8.5-10.1) 10/31/19 18:00 Magnesium 1.1 mg/dl (1.8-2.4) L 10/31/19 18:00 Total Bilirubin 0.6 mg/dl (0.2-1) 10/31/19 18:00 AST 25 U/L (15-37) 10/31/19 18:00 ALT 21 U/L (12-78) 10/31/19 18:00 Alkaline Phosphatase 77 U/L (45-117) 10/31/19 18:00 Troponin I < 0.015 ng/ml (0-0.045) 10/31/19 18:00 Total Protein 6.2 gm/dl (6.4-8.2) L 10/31/19 18:00 Albumin 3.0 gm/dl (3.4-5.0) L 10/31/19 18:00 Globulin 3.2 gm/dl (2.5-4.0) 10/31/19 18:00 Albumin/Globulin Ratio 0.9 (0.9-2) 10/31/19 18:00 TSH 1.490 uIu/ml (0.300-4.500) 10/31/19 18:00 Influenza Type A (PCR) Neg for Influ A (Neg) 10/31/19 19:00 Influenza Type B (PCR) Neg for Influ B (Neg) 10/31/19 19:00 Diagnostic Findings Chest x-ray : Chronic change EKG as per my interpretation :Rate 70, NSR, LAD, LAFB, RBBB, PVCs
[2019-10-31 21:50] LABS: Appearance Urine Clear (Clear); Bilirubin Urine Negative (Negative); Blood Urine Negative (Negative); Color Urine Yellow; Glucose Urine UA Negative (Negative); Ketones Urine Negative (Negative); Leukocyte Esterase Urine Negative (Negative); Nitrite Urine Negative (Negative); Protein Urine Negative (Negative); Specific Gravity Urine 1.011 (1.000-1.030); Urobilinogen Urine Negative (Negative); pH Urine 7.5 (4.5-7.5)
[2019-10-31] MEDS ORDERED: POLYETHYLENE (MIRALAX) 17 GM PACK PO PRN (22:29)
[2019-10-31] MEDS ORDERED: ALBUT/IPRATROP 3MG/0.5MG NEB 3 ML VIAL NEB PRN (22:29)
[2019-10-31] MEDS ORDERED: NITROGLYCERIN SL 0.4 MG/TAB TAB SL PRN (22:29)
[2019-10-31] MEDS ORDERED: PROMETHAZINE HCL 12.5 MG in SODIUM CHLORIDE 0.9% 50 ML IV PRN (22:29)
[2019-10-31] MEDS ORDERED: ACETAMINOPHEN 325 MG TAB PO PRN (22:29)
--- NOTE | 2019-10-31 22:35 | Emergency Department Note ---
Entered by Kerry Hogan acting as a scribe for History of Present Illness General Chief complaint: Hypertension Stated complaint: weakness Time Seen by Provider: 10/31/19 18:32 Source: patient History of Present Illness Provider complaint: Weakness Onset (ago): day(s) 1 Location: upper extremity and lower extremity Relieved By: + none Exacerbated By: + none Associated symptoms: + denies other symptoms (Loss of consciousness ), + loss of appetite and + other (Difficulty sleeping, lightheaded, rhinorrhea) The patient is a 84 year old male who presents to the Emergency Room with complaints of weakness that began yesterday. The patient states that his symptoms are not relieved nor exacerbated by anything specific. The patient reports experiencing difficulty sleeping and loss of appetite. Additionally, the patient reports experiencing rhinorrhea and feeling lightheaded and faint. The p atient denies any loss of consciousness or recent falls. The patient mentioned that his systolic blood pressure was 160 at home so he took a nitroglycerin. The patient notes that he has had similar symptoms before but they usually go away and this time they got worse. Home Medications Home Medications Medication Instructions Recorded Confirmed Type Combivent Respimat 1 puff INHALATION QID 08/28/18 10/31/19 History albuterol sulfate [Ventolin HFA] 2 puff INHALATION Q6 PRN 08/28/18 10/31/19 History atorvastatin 20 mg PO QAM 08/28/18 10/31/19 History clopidogrel [Plavix] 75 mg PO QAM 08/28/18 10/31/19 History fluticasone propion-salmeterol 1 puff INHALATION BID 08/28/18 10/31/19 History [Advair Diskus] metoprolol succinate [Toprol XL] 25 mg PO QAM 08/28/18 10/31/19 History multivitamin 1 tab PO QAM 08/28/18 10/31/19 History nitroglycerin [Nitrostat] 0.4 mg SUBLINGUAL UD PRN 08/28/18 10/31/19 History polyethylene glycol 3350 [Miralax] 17 g PO DAILY PRN 08/28/18 10/31/19 History tamsulosin [Flomax] 0.4 mg PO QAM 08/28/18 10/31/19 History aspirin [Aspir-81] 81 mg PO QAM 10/20/18 10/31/19 History isosorbide mononitrate 60 mg PO BID 10/20/18 10/31/19 History levalbuterol HCl 3 ml INHALATION QID PRN 10/20/18 10/31/19 History omeprazole 20 mg PO QAM 10/20/18 10/31/19 History hydrocodone-acetaminophen 1 tab PO Q6H PRN 10/10/19 10/31/19 History lubiprostone 8 mcg PO BID 10/10/19 10/31/19 History metoprolol succinate 12.5 mg PO HS 10/10/19 10/31/19 History amlodipine [Norvasc] 2.5 mg PO QAM 30 Days #15 tab 10/12/19 10/31/19 Rx Allergy Medications 2 tab PO UD 10/31/19 History acetaminophen 1,000 mg PO UD PRN 10/31/19 10/31/19 History fluticasone propionate [Flonase 1 spray INTRANASAL QAM 10/31/19 10/31/19 History Allergy Relief] Allergies Allergy/AdvReac Type Severity Reaction Status Date / Time naproxen Allergy Unknown hives Verified 10/31/19 20:49 Past Med/Surg History Medical History Bifascicular block BPH (benign prostatic hyperplasia) CAD (coronary artery disease) PCI to LAD, CATALINO to OM 2014-failed PCI to heavily calcified LAD COPD (chronic obstructive pulmonary disease) (Acute) Hyperlipidemia Paroxysmal atrial fibrillation Renal artery stenosis Tobacco abuse (Inactive) Surgical History History of cholecystectomy History of coronary artery stent placement Family History Mother Diabetes Social History Preferred Language: Taiwanese Communication Ability: Effective 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 and A total of 10 systems reviewed and were otherwise negative Physical Exam Vital Signs Vital Signs - 24 hr 10/31/19 18:30 10/31/19 18:42 10/31/19 18:44 Temperature 36.5 C Temperature Source Oral Pulse Rate 73 71 70 Pulse Rate [Apical] Pulse Rate from SpO2 Sensor 72 66 Respiratory Rate 17 22 20 Respiratory Effort / Characteristics Non-Labored Spontaneous Respiratory Depth Normal Blood Pressure 139/83 139/83 Blood Pressure [Right Arm] Blood Pressure Mean 93 101 Blood Pressure Mean [Right Arm] Pulse Oximetry 99 98 100 Oxygen Delivery Method Nasal Cannula Nasal Cannula Nasal Cannula Oxygen Flow Rate 3 2 3 Sepsis Recent Fever Within 48 Hours No Sepsis Action Taken by Nursing No Action Required 10/31/19 19:01 10/31/19 20:01 10/31/19 20:16 Temperature Temperature Source Pulse Rate 78 67 71 Pulse Rate [Apical] Pulse Rate from SpO2 Sensor 77 68 Respiratory Rate 17 19 23 Respiratory Effort / Characteristics Respiratory Depth Blood Pressure 140/80 136/76 117/76 Blood Pressure [Right Arm] Blood Pressure Mean 100 96 86 Blood Pressure Mean [Right Arm] Pulse Oximetry 97 100 Oxygen Delivery Method Nasal Cannula Nasal Cannula Oxygen Flow Rate 3 3 Sepsis Recent Fever Within 48 Hours Sepsis Action Taken by Nursing 10/31/19 20:42 10/31/19 21:00 10/31/19 21:01 Temperature Temperature Source Pulse Rate 58 L 58 L Pulse Rate [Apical] 70 Pulse Rate from SpO2 Sensor 62 54 L Respiratory Rate 26 H 20 20 Respiratory Effort / Characteristics Non-Labored Spontaneous Respiratory Depth Normal Blood Pressure 131/76 Blood Pressure [Right Arm] 131/76 Blood Pressure Mean 88 Blood Pressure Mean [Right Arm] 94 Pulse Oximetry 92 100 100 Oxygen Delivery Method Nasal Cannula Oxygen Flow Rate 3 Sepsis Recent Fever Within 48 Hours Sepsis Action Taken by Nursing GENERAL: Awake, alert, in no distress, fatigued on nasal cannula oxygen. HENT: Normocephalic, atraumatic. EYES: Normal conjunctiva. Sclera non-icteric. NECK: Supple. No nuchal rigidity. RESPIRATORY: Slight expiratory wheeze. Normal respiratory effort. CARDIAC: Normal rate. Irregular rhythm. Extremities warm and well perfused. GI: Soft, non-distended. No tenderness to palpation. No rebound or guarding. RECTAL: Deferred. MUSCULOSKELETAL: Atraumatic. Chest examination reveals no tenderness. LOWER EXTREMITIES: Calves are equal size bilaterally and non-tender NEURO: No sensory or motor deficits noted. No facial droop. No slurred speech. SKIN: Warm and dry. No jaundice noted. Small contusion on left forearm. Course Course 1838: Past medical records reviewed. The patient was evaluated in room C12B. A complete history and physical exam was performed. 1953: I reevaluated and discussed test results with the patient. The patient is agreeable to the plan of admission. 2034: I spoke with Dr. Quintero- Hospitalist about the patient's case and he will accept the patient for further evaluation. Administered Medications Discontinued Medications Sodium Chloride (Nss 1000ml) 500 mls @ 999 mls/hr IV .Q31M ONE Stop: 10/31/19 19:16 Last Infusion: 10/31/19 19:36 Dose: 0 mls/hr Documented by: [id number] Admin: 10/31/19 18:49 Dose: 999 mls/hr Documented by: [id number] Magnesium Sulfate/Dextrose (Magnesium Sulfate / D5w) 1 gm in 100 mls @ 100 mls/hr IV ONE ONE Stop: 10/31/19 20:49 Last Infusion: 10/31/19 21:15 Dose: 0 mls/hr Documented by: [id number] Admin: 10/31/19 20:15 Dose: 100 mls/hr Documented by: [id number] Medical Decision Making Differential Diagnosis Differential Diagnosis includes but is not limited to dehydration, stroke, anemia, hypoglycemia, hyponatremia, hypernatremia, urinary tract infection, pn eumonia, bronchitis, sepsis, gastroenteritis, additional abdominal pathology, metabolic abnormalities and infections. Medical Records Attestation: I reviewed the patient's medical records. Home Medications Current Medication List: was personally reviewed by me Laboratory Data Attestation: I reviewed the patient's lab results. Result diagrams: 10/31/19 18:00 10/31/19 18:00 Lab Results 10/31/19 10/31/19 10/31/19 Range/Units 18:00 18:00 18:00 WBC 6.76 (4.8-10.8) K/uL RBC 3.68 L (4.7-6.1) M/uL Hgb 11.9 L (14.0-18.0) g/dL Hct 34.3 L (42-52) % MCV 93.2 (80-100) fL MCH 32.3 (25-34) pg MCHC 34.7 (32-36) g/dL RDW Std Deviation 43.9 (36.4-46.3) fL RDW Coeff of Barry 12.9 (11.5-14.5) % Plt Count 175 (130-400) K/uL MPV 10.1 (7.4-10.4) fL Immature Gran % (Auto) 1.0 % Neut % (Auto) 68.3 % Lymph % (Auto) 20.3 % [place] % (Auto) 8.0 % Eos % (Auto) 2.1 % Baso % (Auto) 0.3 % Immature Gran # (Auto) 0.07 H (0.00-0.02) K/uL Neut # (Auto) 4.62 (1.4-6.5) K/uL Lymph # (Auto) 1.37 (1.2-3.4) K/uL [place] # (Auto) 0.54 (0.11-0.59) K/uL Eos # (Auto) 0.14 (0-0.5) K/uL Baso # (Auto) 0.02 (0-0.2) K/uL PT 11.8 (9.0-12.0) Seconds INR 1.2 H (0.9-1.1) Sodium 127 L (136-145) mmol/L Potassium 3.9 (3.5-5.1) mmol/L Chloride 91 L (98-107) mmol/L Carbon Dioxide 30 (21-32) mmol/L Anion Gap 6.0 (3-11) BUN 3 L (7-18) mg/dl Creatinine 0.42 L (0.6-1.4) mg/dl Est Cr Clr Drug Dosing 111.6 ml/min Est GFR ( Amer) 124.8 Est GFR (Non-Af Amer) 107.7 BUN/Creatinine Ratio 7.3 L (10-20) Glucose 84 (70-99) mg/dl Osmolality (280-300) mOsm/kg Calcium 8.7 (8.5-10.1) mg/dl Magnesium 1.1 L (1.8-2.4) mg/dl Total Bilirubin 0.6 (0.2-1) mg/dl AST 25 (15-37) U/L ALT 21 (12-78) U/L Alkaline Phosphatase 77 (45-117) U/L Troponin I < 0.015 (0-0.045) ng/ml Total Protein 6.2 L (6.4-8.2) gm/dl Albumin 3.0 L (3.4-5.0) gm/dl Globulin 3.2 (2.5-4.0) gm/dl Albumin/Globulin Ratio 0.9 (0.9-2) TSH 1.490 (0.300-4.500) uIu/ml Influenza Type A (PCR) (Neg) Influenza Type B (PCR) (Neg) 10/31/19 10/31/19 Range/Units 18:00 19:00 WBC (4.8-10.8) K/uL RBC (4.7-6.1) M/uL Hgb (14.0-18.0) g/dL Hct (42-52) % MCV (80-100) fL MCH (25-34) pg MCHC (32-36) g/dL RDW Std Deviation (36.4-46.3) fL RDW Coeff of Barry (11.5-14.5) % Plt Count (130-400) K/uL MPV (7.4-10.4) fL Immature Gran % (Auto) % Neut % (Auto) % Lymph % (Auto) % [place] % (Auto) % Eos % (Auto) % Baso % (Auto) % Immature Gran # (Auto) (0.00-0.02) K/uL Neut # (Auto) (1.4-6.5) K/uL Lymph # (Auto) (1.2-3.4) K/uL [place] # (Auto) (0.11-0.59) K/uL Eos # (Auto) (0-0.5) K/uL Baso # (Auto) (0-0.2) K/uL PT (9.0-12.0) Seconds INR (0.9-1.1) Sodium (136-145) mmol/L Potassium (3.5-5.1) mmol/L Chloride (98-107) mmol/L Carbon Dioxide (21-32) mmol/L Anion Gap (3-11) BUN (7-18) mg/dl Creatinine (0.6-1.4) mg/dl Est Cr Clr Drug Dosing ml/min Est GFR ( Amer) Est GFR (Non-Af Amer) BUN/Creatinine Ratio (10-20) Glucose (70-99) mg/dl Osmolality 262 L (280-300) mOsm/kg Calcium (8.5-10.1) mg/dl Magnesium (1.8-2.4) mg/dl Total Bilirubin (0.2-1) mg/dl AST (15-37) U/L ALT (12-78) U/L Alkaline Phosphatase (45-117) U/L Troponin I (0-0.045) ng/ml Total Protein (6.4-8.2) gm/dl Albumin (3.4-5.0) gm/dl Globulin (2.5-4.0) gm/dl Albumin/Globulin Ratio (0.9-2) TSH (0.300-4.500) uIu/ml Influenza Type A (PCR) Neg for Influ A (Neg) Influenza Type B (PCR) Neg for Influ B (Neg) Imaging Data Radiologist's Impression: Radiology results as stated below per my review and the radiologist's interpretation: XR chest 1V portable CLINICAL HISTORY: weakness dyspnea COMPARISON STUDY: 10/10/2019 FINDINGS: Stable emphysematous change. Stable pleural thickening lateral aspect right pulmonary apex. No acute infiltrate. Diaphragms are smooth. IMPRESSION: Chronic change. No acute process. ACT 112: Negative or not required by law. The above report was generated using voice recognition software. It may contain grammatical, syntax or spelling errors. Electronically signed by: Silvio Pace M.D. 10/31/2019 7:09 PM ECG Data Attestation: I personally reviewed and interpreted this ECG as follows: Indication: + weakness Rate (beats per minute): 72 Rhythm: + sinus rhythm ECG Intervals/blocks: + Right Bundle branch block ECG ST segments: no ST elevation ECG Findings: + PVCs Comparison ECG Date: from (10/12/19) Change: no significant change Blood Pressure Blood Pressure Findings: Elevated blood pressure Blood Pressure Disposition: further management by hospitalist IRAJ Narrative Patient is an 84-year-old gentleman with a past medical history including CAD, COPD, paroxysmal atrial fibrillation, HTN and hyperlipidemia presenting to the emergency department via ambulance today complaining of generalized weakness and stating that over the last several days is not been able to eat and has been having difficulty sleeping. States his blood pressure is 160 systolic earlier and took nitroglycerin for this. No symptoms of chest pain. States he feels diffusely weak and does not have an appetite. States he has not had a bowel movement in a while. Denies fever. States his breathing is at baseline. Again just nonspecific generalized weakness. Recent admission several weeks ago for chest pain but states no recurrence of this. Currently out of his amlodipine Rx at home. Patient afebrile upon arrival. Chest x-ray per radiology report with out evidence of pneumonia or pneumothorax and and reviewed with the images myself agree; some chronic emphysema changes. EKG without significant changes from previous. Basic labs are sent including troponin and electrolytes and flu swab to look for possible explanation for his generalized weakness. Benign abdomen here. No evidence of hepatitis or pancreatitis. No significant leukocytosis and stable anemia. Kidney function appears at baseline although some new mild hyponatremia is noted. Flu testing is negative. Low magnesium noted. Given his decreased intake and weakness unsure if the hypomagnesemia and hyponatremia are component of this too. Received some fluid hydration and IV ma gnesium therapy. Discussed with the patient and he felt more comfortable being monitored overnight in the hospital for further evaluation. [facility] hospitalist was contacted. Impression & Plan Weakness, Hypomagnesemia, Acute hyponatremia Discharge Plan Visit Data Chief Complaint: Hypertension Stated Complaint: weakness ED Provider: Travis Johnson Discharge Problem: Weakness, Hypomagnesemia, Acute hyponatremia Discharge Instructions Interventions: ED Discharge Assessment Last Done: 10/31/19 22:18 The poibe's documentation has been prepared under my direction and personally reviewed by me in its entirety. I confirm that the note above accurately reflects all work, treatment, procedures, and medical decision making performed by me.
[2019-11-01] MEDS: MAGNESIUM SULFATE / D5W 1 GM/100 ML BAG IV SCH ×3 (00:46→03:19)
[2019-11-01] MEDS: IPRATROPIUM BROMIDE/ALBUTEROL respimat INH INH SCH ×5 (00:51→20:31)
[2019-11-01] MEDS: METOPROLOL SUCC 25MG EXT REL TAB PO SCH ×3 (00:52→20:32)
[2019-11-01] MEDS: HYDROCODONE/ACETAMINOPHEN 7.5/325MG TAB PO PRN (00:55)
[2019-11-01] MEDS ORDERED: NSS + 20MEQ KCL 20 MEQ/1,000 ML BAG IV ONE (01:06)
[2019-11-01 07:21] LABS: Basophils # (auto) 0.02 K/uL (0-0.2); Basophils % (auto) 0.3 %; Eosinophils # (auto) 0.18 K/uL (0-0.5); Eosinophils % (auto) 2.6 %; Hematocrit (blood only) 33.4 % (42-52); Hemoglobin 11.5 g/dL (14.0-18.0); Immature Granulocytes # (auto) 0.07 K/uL (0.00-0.02); Lymphocytes # (auto) 1.32 K/uL (1.2-3.4); Lymphocytes % (auto) 19.1 %; Mean Corpuscular Hemoglobin 32.4 pg (25-34); Mean Corpuscular Hgb Conc 34.4 g/dL (32-36); Mean Corpuscular Volume 94.1 fL (80-100); Mean Platelet Volume 10.1 fL (7.4-10.4); Monocytes # (auto) 0.75 K/uL (0.11-0.59); Monocytes % (auto) 10.8 %; Neutrophils # (auto) 4.58 K/uL (1.4-6.5); Neutrophils % (auto) 66.2 %; Platelet Count 178 K/uL (130-400); RDW Coefficient of Variation 13.1 % (11.5-14.5); Red Blood Count 3.55 M/uL (4.7-6.1); White Blood Count 6.92 K/uL (4.8-10.8)
--- NOTE | 2019-11-01 07:41 | Hospitalist Progress Note ---
Date of Service November 01, 2019 Assessment & Plan (1) Hyponatremia: Improving, received 1 L of normal saline in the ED, sodium level from 127 went up to 128 -Current sodium 131 -Likely secondary to poor oral intake possibly from viral illness -We will continue to closely monitor (2) Hypomagnesemia: Magnesium level on admission 1.1 -History of hypomagnesemia during previous admission as well -Replete and monitor (3) Weakness: -Likely secondary to above -We will repeat electrolytes and will consult PT/ OT (4) COPD (chronic obstructive pulmonary disease): (5) Dependence on supplemental oxygen: Chronic respiratory failure secondary to COPD/pulmonary hypertension, on home O2 -At home uses O2 2 L/min continuously, currently seems to be at baseline -History of past tobacco use HTN -Current BP at goal -At home however patient noted systolic blood pressure to be 160, and he took 1 nitro at home -We will continue to monitor pAfib -Per records -EKG on admission, shows sinus rhythm with occasional PVCs, right bundle branch block, left anterior fascicular block, when compared to ECG from October 12, PVCs are now present and PACs are no longer present -We will continue to monitor on telemetry Anemia -Appears chronic, likely secondary to chronic disease -Hemoglobin at baseline, will continue to monitor CodeL Full code Subjective Patient is lying in bed, in no acute distress, using supplemental oxygen. Says he uses supplemental oxygen at home as well. Feels weak which was the main reason that he came to the hospital. Also reports poor appetite. Denies fevers, chills, chest pain, abdominal pain, nausea or vomiting. Review of Systems Review of Systems: All systems reviewed & are unremarkable except as noted in HPI & below Constitutional: + fatigue; no fever and no chills Respiratory: no cough and no pain on inspiration Cardiovascular: no chest pain, no dyspnea on exertion and no palpitations Gastrointestinal: no abdominal pain, no nausea and no vomiting Physical Exam Physical Exam: GENERAL: Elderly man, lying in bed, appears chronically ill, slightly hard of hearing, in no respiratory distress HEENT: Normocephalic, atraumatic, EOMI, PERRL, dry buccal mucosa, nasal cannula in place NECK : Supple, no tenderness CHEST : Decreased breath sounds, no tenderness, no wheezing or rhonchi noted HEART : RRR, systolic murmur ABDOMEN: Positive bowel sounds, soft, nontender, obese, no guarding EXTREMITIES : Minimal LE swelling, no LE tenderness SKIN: Pallor , warm NEUROLOGIC : Alert and oriented, slightly hard of hearing, no facial asymmetry, no other gross focality Results & Data Vital Signs (Past 12 Hours) Vital Signs Temp Pulse Pulse Pulse Resp BP BP 11/01/19 07:35 36.5 C 68 20 127/78 11/01/19 04:13 36.3 C L 73 73 H 144/77 H 11/01/19 00:00 69 10/31/19 23:49 36.4 C L 79 20 154/87 H 10/31/19 22:39 36.3 C L 74 16 150/83 H 10/31/19 22:18 76 20 134/76 10/31/19 22:01 71 19 135/79 10/31/19 22:00 69 19 10/31/19 21:01 58 L 20 10/31/19 21:00 58 L 20 131/76 10/31/19 20:42 70 26 H 131/76 10/31/19 20:16 71 23 117/76 10/31/19 20:01 67 19 136/76 Pulse Ox 11/01/19 07:35 100 11/01/19 04:13 97 11/01/19 00:00 10/31/19 23:49 100 10/31/19 22:39 99 10/31/19 22:18 96 10/31/19 22:01 99 10/31/19 22:00 99 10/31/19 21:01 100 10/31/19 21:00 100 10/31/19 20:42 92 10/31/19 20:16 10/31/19 20:01 100 Laboratory Results 11/01/19 11/01/19 11/01/19 Range/Units 06:48 06:48 00:29 WBC 6.92 (4.8-10.8) K/uL RBC 3.55 L (4.7-6.1) M/uL Hgb 11.5 L (14.0-18.0) g/dL Hct 33.4 L (42-52) % MCV 94.1 (80-100) fL MCH 32.4 (25-34) pg MCHC 34.4 (32-36) g/dL RDW Std Deviation 45.0 (36.4-46.3) fL RDW Coeff of Barry 13.1 (11.5-14.5) % Plt Count 178 (130-400) K/uL MPV 10.1 (7.4-10.4) fL Immature Gran % (Auto) 1.0 % Neut % (Auto) 66.2 % Lymph % (Auto) 19.1 % [place] % (Auto) 10.8 % Eos % (Auto) 2.6 % Baso % (Auto) 0.3 % Immature Gran # (Auto) 0.07 H (0.00-0.02) K/uL Neut # (Auto) 4.58 (1.4-6.5) K/uL Lymph # (Auto) 1.32 (1.2-3.4) K/uL [place] # (Auto) 0.75 H (0.11-0.59) K/uL Eos # (Auto) 0.18 (0-0.5) K/uL Baso # (Auto) 0.02 (0-0.2) K/uL PT (9.0-12.0) Seconds INR (0.9-1.1) Sodium 131 L 128 L (136-145) mmol/L Potassium 4.0 (3.5-5.1) mmol/L Chloride 94 L (98-107) mmol/L Carbon Dioxide 32 (21-32) mmol/L Anion Gap 5.0 (3-11) BUN 3 L (7-18) mg/dl Creatinine 0.40 L (0.6-1.4) mg/dl Est Cr Clr Drug Dosing 112.6 ml/min Est GFR ( Amer) 127.3 Est GFR (Non-Af Amer) 109.8 BUN/Creatinine Ratio 7.2 L (10-20) Glucose 77 (70-99) mg/dl Osmolality (280-300) mOsm/kg Calcium 8.6 (8.5-10.1) mg/dl Magnesium 2.5 H (1.8-2.4) mg/dl Total Bilirubin (0.2-1) mg/dl AST (15-37) U/L ALT (12-78) U/L Alkaline Phosphatase (45-117) U/L Troponin I (0-0.045) ng/ml Total Protein (6.4-8.2) gm/dl Albumin (3.4-5.0) gm/dl Globulin (2.5-4.0) gm/dl Albumin/Globulin Ratio (0.9-2) TSH (0.300-4.500) uIu/ml Urine Color Urine Appearance (Clear) Urine pH (4.5-7.5) Ur Specific [place] (1.000-1.030) Urine Protein (Negative) Urine Glucose (UA) (Negative) Urine Ketones (Negative) Urine Blood (Negative) Urine Nitrite (Negative) Urine Bilirubin (Negative) Urine Urobilinogen (Negative) Ur Leukocyte Esterase (Negative) Urine Osmolality (500-800) mOsm/kg Ur Random Sodium mmol/L Influenza Type A (PCR) (Neg) Influenza Type B (PCR) (Neg) 10/31/19 10/31/19 10/31/19 Range/Units 21:30 21:30 21:30 WBC (4.8-10.8) K/uL RBC (4.7-6.1) M/uL Hgb (14.0-18.0) g/dL Hct (42-52) % MCV (80-100) fL MCH (25-34) pg MCHC (32-36) g/dL RDW Std Deviation (36.4-46.3) fL RDW Coeff of Barry (11.5-14.5) % Plt Count (130-400) K/uL MPV (7.4-10.4) fL Immature Gran % (Auto) % Neut % (Auto) % Lymph % (Auto) % [place] % (Auto) % Eos % (Auto) % Baso % (Auto) % Immature Gran # (Auto) (0.00-0.02) K/uL Neut # (Auto) (1.4-6.5) K/uL Lymph # (Auto) (1.2-3.4) K/uL [place] # (Auto) (0.11-0.59) K/uL Eos # (Auto) (0-0.5) K/uL Baso # (Auto) (0-0.2) K/uL PT (9.0-12.0) Seconds INR (0.9-1.1) Sodium (136-145) mmol/L Potassium (3.5-5.1) mmol/L Chloride (98-107) mmol/L Carbon Dioxide (21-32) mmol/L Anion Gap (3-11) BUN (7-18) mg/dl Creatinine (0.6-1.4) mg/dl Est Cr Clr Drug Dosing ml/min Est GFR ( Amer) Est GFR (Non-Af Amer) BUN/Creatinine Ratio (10-20) Glucose (70-99) mg/dl Osmolality (280-300) mOsm/kg Calcium (8.5-10.1) mg/dl Magnesium (1.8-2.4) mg/dl Total Bilirubin (0.2-1) mg/dl AST (15-37) U/L ALT (12-78) U/L Alkaline Phosphatase (45-117) U/L Troponin I (0-0.045) ng/ml Total Protein (6.4-8.2) gm/dl Albumin (3.4-5.0) gm/dl Globulin (2.5-4.0) gm/dl Albumin/Globulin Ratio (0.9-2) TSH (0.300-4.500) uIu/ml Urine Color Yellow Urine Appearance Clear (Clear) Urine pH 7.5 (4.5-7.5) Ur Specific [place] 1.011 (1.000-1.030) Urine Protein Negative (Negative) Urine Glucose (UA) Negative (Negative) Urine Ketones Negative (Negative) Urine Blood Negative (Negative) Urine Nitrite Negative (Negative) Urine Bilirubin Negative (Negative) Urine Urobilinogen Negative (Negative) Ur Leukocyte Esterase Negative (Negative) Urine Osmolality 291 L (500-800) mOsm/kg Ur Random Sodium 70 mmol/L Influenza Type A (PCR) (Neg) Influenza Type B (PCR) (Neg) 10/31/19 10/31/19 10/31/19 Range/Units 19:00 18:00 18:00 WBC (4.8-10.8) K/uL RBC (4.7-6.1) M/uL Hgb (14.0-18.0) g/dL Hct (42-52) % MCV (80-100) fL MCH (25-34) pg MCHC (32-36) g/dL RDW Std Deviation (36.4-46.3) fL RDW Coeff of Barry (11.5-14.5) % Plt Count (130-400) K/uL MPV (7.4-10.4) fL Immature Gran % (Auto) % Neut % (Auto) % Lymph % (Auto) % [place] % (Auto) % Eos % (Auto) % Baso % (Auto) % Immature Gran # (Auto) (0.00-0.02) K/uL Neut # (Auto) (1.4-6.5) K/uL Lymph # (Auto) (1.2-3.4) K/uL [place] # (Auto) (0.11-0.59) K/uL Eos # (Auto) (0-0.5) K/uL Baso # (Auto) (0-0.2) K/uL PT (9.0-12.0) Seconds INR (0.9-1.1) Sodium 127 L (136-145) mmol/L Potassium 3.9 (3.5-5.1) mmol/L Chloride 91 L (98-107) mmol/L Carbon Dioxide 30 (21-32) mmol/L Anion Gap 6.0 (3-11) BUN 3 L (7-18) mg/dl Creatinine 0.42 L (0.6-1.4) mg/dl Est Cr Clr Drug Dosing 111.6 ml/min Est GFR ( Amer) 124.8 Est GFR (Non-Af Amer) 107.7 BUN/Creatinine Ratio 7.3 L (10-20) Glucose 84 (70-99) mg/dl Osmolality 262 L (280-300) mOsm/kg Calcium 8.7 (8.5-10.1) mg/dl Magnesium 1.1 L (1.8-2.4) mg/dl Total Bilirubin 0.6 (0.2-1) mg/dl AST 25 (15-37) U/L ALT 21 (12-78) U/L Alkaline Phosphatase 77 (45-117) U/L Troponin I < 0.015 (0-0.045) ng/ml Total Protein 6.2 L (6.4-8.2) gm/dl Albumin 3.0 L (3.4-5.0) gm/dl Globulin 3.2 (2.5-4.0) gm/dl Albumin/Globulin Ratio 0.9 (0.9-2) TSH 1.490 (0.300-4.500) uIu/ml Urine Color Urine Appearance (Clear) Urine pH (4.5-7.5) Ur Specific [place] (1.000-1.030) Urine Protein (Negative) Urine Glucose (UA) (Negative) Urine Ketones (Negative) Urine Blood (Negative) Urine Nitrite (Negative) Urine Bilirubin (Negative) Urine Urobilinogen (Negative) Ur Leukocyte Esterase (Negative) Urine Osmolality (500-800) mOsm/kg Ur Random Sodium mmol/L Influenza Type A (PCR) Neg for Influ A (Neg) Influenza Type B (PCR) Neg for Influ B (Neg) 10/31/19 10/31/19 Range/Units 18:00 18:00 WBC 6.76 (4.8-10.8) K/uL RBC 3.68 L (4.7-6.1) M/uL Hgb 11.9 L (14.0-18.0) g/dL Hct 34.3 L (42-52) % MCV 93.2 (80-100) fL MCH 32.3 (25-34) pg MCHC 34.7 (32-36) g/dL RDW Std Deviation 43.9 (36.4-46.3) fL RDW Coeff of Barry 12.9 (11.5-14.5) % Plt Count 175 (130-400) K/uL MPV 10.1 (7.4-10.4) fL Immature Gran % (Auto) 1.0 % Neut % (Auto) 68.3 % Lymph % (Auto) 20.3 % [place] % (Auto) 8.0 % Eos % (Auto) 2.1 % Baso % (Auto) 0.3 % Immature Gran # (Auto) 0.07 H (0.00-0.02) K/uL Neut # (Auto) 4.62 (1.4-6.5) K/uL Lymph # (Auto) 1.37 (1.2-3.4) K/uL [place] # (Auto) 0.54 (0.11-0.59) K/uL Eos # (Auto) 0.14 (0-0.5) K/uL Baso # (Auto) 0.02 (0-0.2) K/uL PT 11.8 (9.0-12.0) Seconds INR 1.2 H (0.9-1.1) Sodium (136-145) mmol/L Potassium (3.5-5.1) mmol/L Chloride (98-107) mmol/L Carbon Dioxide (21-32) mmol/L Anion Gap (3-11) BUN (7-18) mg/dl Creatinine (0.6-1.4) mg/dl Est Cr Clr Drug Dosing ml/min Est GFR ( Amer) Est GFR (Non-Af Amer) BUN/Creatinine Ratio (10-20) Glucose (70-99) mg/dl Osmolality (280-300) mOsm/kg Calcium (8.5-10.1) mg/dl Magnesium (1.8-2.4) mg/dl Total Bilirubin (0.2-1) mg/dl AST (15-37) U/L ALT (12-78) U/L Alkaline Phosphatase (45-117) U/L Troponin I (0-0.045) ng/ml Total Protein (6.4-8.2) gm/dl Albumin (3.4-5.0) gm/dl Globulin (2.5-4.0) gm/dl Albumin/Globulin Ratio (0.9-2) TSH (0.300-4.500) uIu/ml Urine Color Urine Appearance (Clear) Urine pH (4.5-7.5) Ur Specific [place] (1.000-1.030) Urine Protein (Negative) Urine Glucose (UA) (Negative) Urine Ketones (Negative) Urine Blood (Negative) Urine Nitrite (Negative) Urine Bilirubin (Negative) Urine Urobilinogen (Negative) Ur Leukocyte Esterase (Negative) Urine Osmolality (500-800) mOsm/kg Ur Random Sodium mmol/L Influenza Type A (PCR) (Neg) Influenza Type B (PCR) (Neg) Medications Administered Current Inpatient Medications Acetaminophen (Tylenol) 650 mg PO Q4H PRN PRN Reason: Pain or Fever Stop: 11/30/19 22:28 Hydrocodone Bitart/Acetaminophen ([place] 7.5/325mg) 1 tab PO Q6H PRN PRN Reason: Pain Stop: 11/14/19 22:28 Last Admin: 11/01/19 00:55 Dose: 1 tab Documented by: Albuterol (Combivent Respimat) 1 puffs INH QID ESAU Stop: 11/30/19 22:28 Last Admin: 11/01/19 07:55 Dose: 1 puffs Documented by: Albuterol (Duoneb) 3 ml NEB Q2H PRN PRN Reason: Wheezing Stop: 11/30/19 22:28 Amlodipine Besylate (Norvasc) 2.5 mg PO [facility] Stop: 12/01/19 08:59 Last Admin: 11/01/19 07:52 Dose: 2.5 mg Documented by: Aspirin (Ecotrin Ectab) 81 mg PO [facility] Stop: 12/01/19 08:59 Last Admin: 11/01/19 07:51 Dose: 81 mg Documented by: Atorvastatin Calcium (Lipitor) 20 mg PO [facility] Stop: 12/01/19 08:59 Last Admin: 11/01/19 07:54 Dose: 20 mg Documented by: Clopidogrel Bisulfate (Plavix) 75 mg PO [facility] Stop: 12/01/19 08:59 Last Admin: 11/01/19 07:52 Dose: 75 mg Documented by: Enoxaparin Sodium (Lovenox) 30 mg SQ [facility] Stop: 12/01/19 08:59 Last Admin: 11/01/19 07:55 Dose: 30 mg Documented by: Promethazine HCl 12.5 mg/ (Sodium Chloride) 50.5 mls @ 202 mls/hr IV Q6H PRN PRN Reason: Nausea And Vomiting Stop: 11/30/19 22:28 Potassium Chloride/Sodium Chloride (Normal Saline W/20 Meq Kcl) 20 meq in 1,000 mls @ 40 mls/hr IV .Q24H ONE Stop: 11/02/19 01:05 Last Admin: 11/01/19 02:08 Dose: 40 mls/hr Documented by: Isosorbide Mononitrate (Imdur Extended Rel) 60 mg PO BID [facility] Stop: 12/01/19 08:59 Last Admin: 11/01/19 07:54 Dose: 60 mg Documented by: Lubiprostone (Amitiza) 8 mcg PO BID [facility] Stop: 12/01/19 08:59 Last Admin: 11/01/19 07:54 Dose: 8 mcg Documented by: Metoprolol Succinate (Toprol Xl) 12.5 mg PO [facility] Stop: 11/30/19 22:28 Last Admin: 11/01/19 00:52 Dose: 12.5 mg Documented by: Metoprolol [facility]ccinate ([facility] Xl) [facility] Stop: 12/01/19 08:59 Last Admin: 11/01/19 07:51 Dose: 25 mg Documented by: Multivitamins (Multivitamin Tab) 1 [facility] Stop: 12/01/19 08:59 Last Admin: 11/01/19 07:51 Dose: 1 tab Documented by: Nitroglycerin (Nitrostat) 0.4 mg SL UD PRN PRN Reason: Chest Pain Stop: 11/30/19 22:28 Pantoprazole Sodium (Protonix) [facility] Stop: 12/01/19 08:59 Last Admin: 11/01/19 07:54 Dose: 40 mg Documented by: Polyethylene Glycol (Miralax Powder Packet) 17 gm PO DAILY PRN PRN Reason: Constipation Stop: 11/30/19 22:28 Fluticasone/Salmeterol (Advair Diskus 250/50) 1 puffs INH BID [facility] Stop: 12/01/19 08:59 Last Admin: 11/01/19 07:55 Dose: 1 puffs Documented by: Tamsulosin HCl (Flomax) 0.4 mg PO QAM [facility] Stop: 12/01/19 08:59 Last Admin: 11/01/19 07:51 Dose: 0.4 mg Documented by: (1) COPD (chronic obstructive pulmonary disease) COPD type: unspecified COPD Qualified Code(s): J44.9 - Chronic obstructive pulmonary disease, unspecified
[2019-11-01] MEDS: MULTIVITAMIN TAB PO SCH (07:51)
[2019-11-01] MEDS: TAMSULOSIN HCL 0.4 MG CAP PO SCH (07:51)
[2019-11-01] MEDS: ASPIRIN 81 MG ECTAB PO SCH (07:51)
[2019-11-01] MEDS: AMLODIPINE BESYLATE 5 MG TAB PO SCH (07:52)
[2019-11-01] MEDS: CLOPIDOGREL BISULFATE 75 MG TAB PO SCH (07:52)
[2019-11-01] MEDS: ATORVASTATIN 20 MG TAB PO SCH (07:54)
[2019-11-01] MEDS: LUBIPROSTONE 8 MCG CAP PO SCH ×3 (07:54→20:38)
[2019-11-01] MEDS: PANTOprazole 40 MG TAB PO SCH (07:54)
[2019-11-01] MEDS: ISOSORBIDE MONO EXTENDED REL 60 MG TABCR PO SCH ×2 (07:54→20:32)
[2019-11-01] MEDS: FLUTICASONE/SALMETEROL 250/50 (ADVAIR) 14 PUFF/1 INHALER INH SCH ×2 (07:55→20:30)
[2019-11-01 07:59] LABS: BUN Creatinine Ratio 7.2 (10-20); Calcium 8.6 mg/dl (8.5-10.1); Creatinine Clr Calc Pharmacy 112.6 ml/min; Est GFR (African American) 127.3; Est GFR (Non-African American) 109.8; Magnesium 2.5 mg/dl (1.8-2.4)
[2019-11-01] MEDS ORDERED: ENOXAPARIN INJ 30 MG/0.3 ML SYR SQ SCH (09:00)
[2019-11-01 14:27] LABS: BUN Creatinine Ratio 8.6 (10-20); Calcium 8.4 mg/dl (8.5-10.1); Creatinine Clr Calc Pharmacy 102.4 ml/min; Est GFR (African American) 122.4; Est GFR (Non-African American) 105.6; Potassium 3.9 mmol/L (3.5-5.1)
[2019-11-02] MEDS: HYDROCODONE/ACETAMINOPHEN 7.5/325MG TAB PO PRN ×2 (01:11→14:43)
[2019-11-02 05:54] LABS: Hematocrit (blood only) 32.9 % (42-52); Hemoglobin 10.8 g/dL (14.0-18.0); Mean Corpuscular Hemoglobin 31.8 pg (25-34); Mean Corpuscular Hgb Conc 32.8 g/dL (32-36); Mean Corpuscular Volume 96.8 fL (80-100); Mean Platelet Volume 9.9 fL (7.4-10.4); Platelet Count 169 K/uL (130-400); RDW Coefficient of Variation 13.4 % (11.5-14.5); RDW Standard Deviation 47.2 fL (36.4-46.3); White Blood Count 6.23 K/uL (4.8-10.8)
[2019-11-02 06:29] LABS: BUN Creatinine Ratio 17.5 (10-20); Calcium 8.3 mg/dl (8.5-10.1); Creatinine Clr Calc Pharmacy 102.4 ml/min; Est GFR (African American) 122.4; Est GFR (Non-African American) 105.6; Potassium 4.1 mmol/L (3.5-5.1)
--- NOTE | 2019-11-02 07:25 | Electrocardiogram Report ---
Test Reason : Blood Pressure : / mmHG Vent. Rate : 072 BPM Atrial Rate : 072 BPM P-R Int : 160 ms QRS Dur : 138 ms QT Int : 428 ms P-R-T Axes : 080 -78 055 degrees QTc Int : 468 ms Sinus rhythm with occasional Premature ventricular complexes Right bundle branch block Left anterior fascicular block Bifascicular block Abnormal ECG When compared with ECG of 12-OCT-2019 06:49, Premature ventricular complexes are now Present Premature supraventricular complexes are no longer Present Confirmed by Delgado Thurman ([id number]) on 11/02/2019 7:25:08 AM Referred By: REFERRED SELF Confirmed By:Carlos Thurman
--- NOTE | 2019-11-02 08:02 | Hospitalist Progress Note ---
Date of Service November 02, 2019 Results & Data Vital Signs (Past 12 Hours) Vital Signs Temp Pulse Pulse Resp BP Pulse Ox 11/02/19 07:23 74 11/02/19 03:26 36.3 C L 75 19 129/73 99 11/01/19 23:31 79 11/01/19 23:18 36.8 C 68 20 131/74 100 Laboratory Results 11/02/19 11/02/19 11/01/19 Range/Units 05:27 05:27 13:54 WBC 6.23 (4.8-10.8) K/uL RBC 3.40 L (4.7-6.1) M/uL Hgb 10.8 L (14.0-18.0) g/dL Hct 32.9 L (42-52) % MCV 96.8 (80-100) fL MCH 31.8 (25-34) pg MCHC 32.8 (32-36) g/dL RDW Std Deviation 47.2 H (36.4-46.3) fL RDW Coeff of Barry 13.4 (11.5-14.5) % Plt Count 169 (130-400) K/uL MPV 9.9 (7.4-10.4) fL Sodium 133 L 132 L (136-145) mmol/L Potassium 4.1 3.9 (3.5-5.1) mmol/L Chloride 97 L 97 L (98-107) mmol/L Carbon Dioxide 33 H 31 (21-32) mmol/L Anion Gap 3.0 4.0 (3-11) BUN 8 4 L (7-18) mg/dl Creatinine 0.44 L 0.44 L (0.6-1.4) mg/dl Est Cr Clr Drug Dosing 102.4 102.4 ml/min Est GFR ( Amer) 122.4 122.4 Est GFR (Non-Af Amer) 105.6 105.6 BUN/Creatinine Ratio 17.5 8.6 L (10-20) Glucose 69 L 112 H (70-99) mg/dl Calcium 8.3 L 8.4 L (8.5-10.1) mg/dl Magnesium (1.8-2.4) mg/dl 11/01/19 Range/Units 06:48 WBC (4.8-10.8) K/uL RBC (4.7-6.1) M/uL Hgb (14.0-18.0) g/dL Hct (42-52) % MCV (80-100) fL MCH (25-34) pg MCHC (32-36) g/dL RDW Std Deviation (36.4-46.3) fL RDW Coeff of [place] (11.5-14.5) % Plt Count (130-400) K/uL MPV (7.4-10.4) fL Sodium 131 L (136-145) mmol/L Potassium 4.0 (3.5-5.1) mmol/L Chloride 94 L (98-107) mmol/L Carbon Dioxide 32 (21-32) mmol/L Anion Gap 5.0 (3-11) BUN 3 L (7-18) mg/dl Creatinine 0.40 L (0.6-1.4) mg/dl Est Cr Clr Drug Dosing 112.6 ml/min Est GFR ( Amer) 127.3 Est GFR (Non-Af Amer) 109.8 BUN/Creatinine Ratio 7.2 L (10-20) Glucose 77 (70-99) mg/dl Calcium 8.6 (8.5-10.1) mg/dl Magnesium 2.5 H (1.8-2.4) mg/dl Diagnostic Findings CXR 10/31/2019 FINDINGS: Stable emphysematous change. Stable pleural thickening lateral aspect right pulmonary apex. No acute infiltrate. Diaphragms are smooth. IMPRESSION: Chronic change. No acute process. Medications Administered Current Inpatient Medications Acetaminophen (Tylenol) 650 mg PO Q4H PRN PRN Reason: Pain or Fever Stop: 11/30/19 22:28 Hydrocodone Bitart/Acetaminophen ([place] 7.5/325mg) 1 tab PO Q6H PRN PRN Reason: Pain Stop: 11/14/19 22:28 Last Admin: 11/02/19 01:11 Dose: 1 tab Documented by: Albuterol (Combivent Respimat) 1 puffs INH QID [facility] Stop: 11/30/19 22:28 Last Admin: 11/01/19 20:31 Dose: 1 puffs Documented by: Albuterol (Duoneb) 3 ml NEB Q2H PRN PRN Reason: Wheezing Stop: 11/30/19 22:28 Amlodipine Besylate (Norvasc) 2.5 mg PO [facility] Stop: 12/01/19 08:59 Last Admin: 11/01/19 07:52 Dose: 2.5 mg Documented by: Aspirin (Ecotrin Ectab) 81 mg PO [facility] Stop: 12/01/19 08:59 Last Admin: 11/01/19 07:51 Dose: 81 mg Documented by: Atorvastatin Calcium (Lipitor) 20 mg PO [facility] Stop: 12/01/19 08:59 Last Admin: 11/01/19 07:54 Dose: 20 mg Documented by: Clopidogrel Bisulfate (Plavix) 75 mg PO [facility] Stop: 12/01/19 08:59 Last Admin: 11/01/19 07:52 Dose: 75 mg Documented by: Enoxaparin Sodium (Lovenox) 40 mg SQ DAILY [facility] Stop: 12/02/19 08:59 Promethazine HCl 12.5 mg/ (Sodium Chloride) 50.5 mls @ 202 mls/hr IV Q6H PRN PRN Reason: Nausea And Vomiting Stop: 11/30/19 22:28 Isosorbide Mononitrate (Imdur Extended Rel) 60 mg PO BID [facility] Stop: 12/01/19 08:59 Last Admin: 11/01/19 20:32 Dose: 60 mg Documented by: Lubiprostone (Amitiza) 8 mcg PO BID [facility] Stop: 12/01/19 08:59 Last Admin: 11/01/19 20:38 Dose: Not Given Documented by: Metoprolol Succinate (Toprol Xl) 12.5 mg PO [facility] Stop: 11/30/19 22:28 Last Admin: 11/01/19 20:32 Dose: 12.5 mg Documented by: Metoprolol Succinate (Toprol Xl) 25 mg PO [facility] Stop: 12/01/19 08:59 Last Admin: 11/01/19 07:51 Dose: 25 mg Documented by: Multivitamins (Multivitamin Tab) 1 tab PO [facility] Stop: 12/01/19 08:59 Last Admin: 11/01/19 07:51 Dose: 1 tab Documented by: Nitroglycerin (Nitrostat) 0.4 mg SL UD PRN PRN Reason: Chest Pain Stop: 11/30/19 22:28 Pantoprazole Sodium (Protonix) 40 mg PO [facility] Stop: 12/01/19 08:59 Last Admin: 11/01/19 07:54 Dose: 40 mg Documented by: Polyethylene Glycol (Miralax Powder Packet) 17 gm PO DAILY PRN PRN Reason: Constipation Stop: 11/30/19 22:28 Fluticasone/Salmeterol (Advair Diskus 250/50) 1 puffs INH BID [facility] Stop: 12/01/19 08:59 Last Admin: 11/01/19 20:30 Dose: 1 puffs Documented by: Tamsulosin HCl (Flomax) 0.4 mg PO QAM [facility] Stop: 12/01/19 08:59 Last Admin: 11/01/19 07:51 Dose: 0.4 mg Documented by:
[2019-11-02] MEDS: MULTIVITAMIN TAB PO SCH (08:32)
[2019-11-02] MEDS: PANTOprazole 40 MG TAB PO SCH (08:32)
[2019-11-02] MEDS: FLUTICASONE/SALMETEROL 250/50 (ADVAIR) 14 PUFF/1 INHALER INH SCH (08:32)
[2019-11-02] MEDS: IPRATROPIUM BROMIDE/ALBUTEROL respimat INH INH SCH ×3 (08:32→17:19)
[2019-11-02] MEDS: LUBIPROSTONE 8 MCG CAP PO SCH ×2 (08:32→08:42)
[2019-11-02] MEDS: ASPIRIN 81 MG ECTAB PO SCH (08:33)
[2019-11-02] MEDS: TAMSULOSIN HCL 0.4 MG CAP PO SCH (08:33)
[2019-11-02] MEDS: AMLODIPINE BESYLATE 5 MG TAB PO SCH (08:33)
[2019-11-02] MEDS: CLOPIDOGREL BISULFATE 75 MG TAB PO SCH (08:33)
[2019-11-02] MEDS: ATORVASTATIN 20 MG TAB PO SCH (08:33)
[2019-11-02] MEDS: ISOSORBIDE MONO EXTENDED REL 60 MG TABCR PO SCH (08:34)
[2019-11-02] MEDS: METOPROLOL SUCC 25MG EXT REL TAB PO SCH (08:34)
[2019-11-02] MEDS ORDERED: ENOXAPARIN INJ 40 MG/0.4 ML SYR SQ SCH (09:00)
--- NOTE | 2019-11-02 16:29 | Discharge Summary ---
Date of Service November 02, 2019 Admission HPI Per Admitting Provider Medical history significant for chronic respiratory failure secondary COPD/pulmonary hypertension on home O2, CAD status post stenting, PAFib as per records, valvular heart disease (moderate MR/TR/aortic stenosis), hypertension, hyperlipidemia, past tobacco abuse, chronic anemia (baseline hemoglobin of 11 ). Recent confinement September 2019 for chest pain attributed to uncontrolled hypertension. 3 days history of dry cough symptoms, poor appetite, generalized weakness. No chest pain, no S OB. Today, patient noted home BP was high in the 160s. Patient compliant with home meds. Patient took 1 nitro at home. Brought to ER by EMS for further evaluation. MEDICAL HISTORY: As above. SURGICAL HISTORY: Cholecystectomy. FAMILY HISTORY: Heart disease. PERSONAL AND SOCIAL HISTORY: Past tobacco abuse, admits to intake of alcoholic beverages, although denies abuse. Discharge Data Allergies Allergy/AdvReac Type Severity Reaction Status Date / Time naproxen Allergy Unknown hives Verified 10/31/19 20:49 Consultations 10/31/19 19:52 ED Decision to Admit Stat 10/31/19 22:29 Consult Case Management - Discharge Planning Routine Discharge Plan Discharge Items Patient Disposition: Home - Home Health Services Reason For Visit: HYPONATREMIA Discharge Diagnosis: Hyponatremia, hypomagnesemia, dehydration Activity: Resume your previous activity Activity Comment: as tolerated, pace yourself, ask for help as needed Non-emergency contact: Primary Care Provider Call non-emergency contact if: you have any medication questions and your symptoms worsen Follow-up/Referrals: Reyes Pablo MD [Primary Care Provider] - Diet: Heart Healthy Addtl Attending Provider Instructions: Follow-up with your primary care provider within 1 week. You should have your blood work checked for electrolytes. Also make sure to follow-up with your tail board man as already scheduled. Discuss your blood pressure medications with your tail board man. Make sure to continue to drink plenty of fluids and have a good heart-healthy diet. Recommend to continue to work with physical therapist through your home health agency. Pending Studies at Discharge: No Stand-Alone Forms: My [employer], Smoking Cessation Medications and DC Order Prescriptions: Continued lubiprostone 8 mcg Capsule 8 mcg PO BID RF: 0 hydrocodone-acetaminophen 7.5-325 mg tablet 1 tab PO Q6H PRN (Reason: Pain) RF: 0 metoprolol succinate 25 mg tablet extended release 24 hr 12.5 mg PO HS RF: 0 amlodipine [Norvasc] 5 mg Tablet 2.5 mg PO QAM 30 Days Qty: 15 RF: 0 multivitamin Tablet 1 tab PO QAM RF: 0 fluticasone propion-salmeterol [Advair Diskus] 250-50 mcg/dose blister with device 1 puff Inhalation BID RF: 0 atorvastatin 20 mg tablet 20 mg PO QAM RF: 0 clopidogrel [Plavix] 75 mg tablet 75 mg PO QAM RF: 0 tamsulosin [Flomax] 0.4 mg capsule 0.4 mg PO QAM RF: 0 nitroglycerin [Nitrostat] 0.4 mg tablet, sublingual 0.4 mg Sublingual UD PRN (Reason: Chest Pain) RF: 0 metoprolol succinate [Toprol XL] 25 mg tablet extended release 24 hr 25 mg PO QAM RF: 0 polyethylene glycol 3350 [Miralax] 17 gram/dose powder 17 g PO DAILY PRN (Reason: Constipation) RF: 0 albuterol sulfate [Ventolin HFA] 90 mcg/actuation HFA aerosol inhaler 2 puff Inhalation Q6 PRN (Reason: Shortness Of Breath Or Wheezing) RF: 0 Combivent Respimat 20-100 mcg/actuation Mist 1 puff INHALATION QID RF: 0 aspirin [Aspir-81] 81 mg Tablet,Delayed Release (Dr/Ec) 81 mg PO QAM RF: 0 omeprazole 20 mg Capsule,Delayed Release(Dr/Ec) 20 mg PO QAM RF: 0 levalbuterol HCl 1.25 mg/3 mL solution for nebulization 3 ml Inhalation QID PRN (Reason: Shortness Of Breath) RF: 0 isosorbide mononitrate 20 mg Tablet 60 mg PO BID RF: 0 Allergy Medications 2 tab PO UD RF: 0 acetaminophen 500 mg Tablet 1,000 mg PO UD PRN (Reason: Pain) RF: 0 fluticasone propionate [Flonase Allergy Relief] 50 mcg/actuation [place],Suspension 1 spray INTRANASAL QAM RF: 0 Discharge Orders: Discharge Order (Routine); Ordered 11/02/19 Ordered By: Ubaldo Capone Admission Data Admit Date/Time: 10/31/19 21:18 Attending Provider: Ubaldo Capone Admit Provider: Jem Quintero Care Provider: Reyes Pablo Other Providers: Jem Quintero
== END 2019-11-02 18:00 | disposition home health service (06) | DRG 641 ==
LOC: ED 18:22 → 2N 21:18

== ENCOUNTER 2019-12-02 02:07 | Inpatient (IN) ==
[2019-12-02] MEDS ORDERED: ALBUT/IPRATROP 3MG/0.5MG NEB 3 ML VIAL NEB STA (02:22)
[2019-12-02] MEDS ORDERED: MAGNESIUM SULFATE / D5W 1 GM/100 ML BAG IV ONE ×2 (02:24→03:43)
[2019-12-02 02:35] LABS: Basophils # (auto) 0.02 K/uL (0-0.2); Basophils % (auto) 0.2 %; Eosinophils # (auto) 0.23 K/uL (0-0.5); Eosinophils % (auto) 2.8 %; Hematocrit (blood only) 34.4 % (42-52); Hemoglobin 11.7 g/dL (14.0-18.0); Immature Granulocytes # (auto) 0.07 K/uL (0.00-0.02); Immature Granulocytes % (auto) 0.9 %; Lymphocytes # (auto) 1.37 K/uL (1.2-3.4); Lymphocytes % (auto) 16.7 %; Mean Corpuscular Hemoglobin 32.1 pg (25-34); Mean Corpuscular Volume 94.5 fL (80-100); Mean Platelet Volume 9.7 fL (7.4-10.4); Monocytes # (auto) 0.63 K/uL (0.11-0.59); Monocytes % (auto) 7.7 %; Neutrophils # (auto) 5.86 K/uL (1.4-6.5); Neutrophils % (auto) 71.7 %; Platelet Count 179 K/uL (130-400); RDW Coefficient of Variation 12.5 % (11.5-14.5); Red Blood Count 3.64 M/uL (4.7-6.1); White Blood Count 8.18 K/uL (4.8-10.8)
--- NOTE | 2019-12-02 02:37 | Emergency Department Note ---
History of Present Illness General Chief complaint: Shortness of Breath/Dyspnea Stated complaint: Breathing difficulty Time Seen by Provider: 12/02/19 02:09 Source: patient and EMS Mode of arrival: EMS Limitations: no limitations History of Present Illness Provider complaint: Shortness of breath Onset (ago): day(s) 2 Location: chest Radiation: non-radiation Severity: moderate and similar to prior episodes Current Pain Intensity: 0 Exacerbated By: + movement Associated symptoms: + shortness of breath and + weakness Treatments prior to arrival: other (Inhaler) This is an 84-year-old male with a history of COPD and coronary artery disease brought in by EMS after worsening shortness of breath this evening. Patient wears 3 L via nasal cannula at home chronically, and has home inhalers and nebulizer treatments. Patient states no history of congestive heart failure, he does see cardiology locally due to a known "blocked vessel". Patient denies any recent fevers or chills, no worsening cough or change in sputum. Denies nausea, vomiting, change in bowel movements. Patient states he is intermittently constipated, however when he uses a laxative he develops overt diarrhea. Patient denies any lower extremity edema. Patient denies any recent change in his medications or recent sick contacts. Home Medications Home Medications Medication Instructions Recorded Confirmed Type Combivent Respimat 1 puff INHALATION QID 08/28/18 12/02/19 History albuterol sulfate [Ventolin HFA] 2 puff INHALATION Q6 PRN 08/28/18 12/02/19 History atorvastatin 20 mg PO QAM 08/28/18 12/02/19 History clopidogrel [Plavix] 75 mg PO QAM 08/28/18 12/02/19 History fluticasone propion-salmeterol 1 puff INHALATION BID 08/28/18 12/02/19 History [Advair Diskus] metoprolol succinate [Toprol XL] 25 mg PO QAM 08/28/18 12/02/19 History multivitamin 1 tab PO QAM 08/28/18 12/02/19 History nitroglycerin [Nitrostat] 0.4 mg SUBLINGUAL UD PRN 08/28/18 12/02/19 History polyethylene glycol 3350 [Miralax] 17 g PO DAILY PRN 08/28/18 12/02/19 History tamsulosin [Flomax] 0.4 mg PO QAM 08/28/18 12/02/19 History aspirin [Aspir-81] 81 mg PO QAM 10/20/18 12/02/19 History isosorbide mononitrate 60 mg PO BID 10/20/18 12/02/19 History levalbuterol HCl 3 ml INHALATION QID PRN 10/20/18 12/02/19 History omeprazole 20 mg PO QAM 10/20/18 12/02/19 History hydrocodone-acetaminophen 1 tab PO Q6H PRN 10/10/19 12/02/19 History lubiprostone 8 mcg PO BID 10/10/19 12/02/19 History metoprolol succinate 12.5 mg PO HS 10/10/19 12/02/19 History Allergy Medications 2 tab PO UD 10/31/19 12/02/19 History acetaminophen 1,000 mg PO UD PRN 10/31/19 12/02/19 History fluticasone propionate [Flonase 1 spray INTRANASAL QAM 10/31/19 12/02/19 History Allergy Relief] Allergies Allergy/AdvReac Type Severity Reaction Status Date / Time naproxen Allergy Unknown hives Verified 12/02/19 02:22 Past Med/Surg History Medical History Bifascicular block BPH (benign prostatic hyperplasia) CAD (coronary artery disease) PCI to LAD, CATALINO to OM 2014-failed PCI to heavily calcified LAD COPD (chronic obstructive pulmonary disease) (Acute) Hyperlipidemia Paroxysmal atrial fibrillation Renal artery stenosis Tobacco abuse (Inactive) Surgical History History of cholecystectomy History of coronary artery stent placement Social History Preferred Language: Azeri Communication Ability: 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 and A total of 10 systems reviewed and were otherwise negative Physical Exam Vital Signs Vital Signs - 24 hr 12/02/19 02:12 12/02/19 02:19 12/02/19 02:44 Temperature 36.5 C Temperature Source Oral Pulse Rate 86 79 Pulse Rate [Finger] 78 Pulse Rhythm Regular Regular Pulse Rhythm [Finger] Regular Pulse Strength Normal Pulse Strength [Finger] Normal Respiratory Rate 21 18 19 Respiratory Effort / Characteristics Non-Labored Spontaneous Non-Labored Spontaneous Respiratory Depth Normal Normal Respiratory Pattern Regular Regular Blood Pressure 126/75 Blood Pressure [Right Arm] 116/68 Blood Pressure Mean 92 Blood Pressure Mean [Right Arm] 84 Blood Pressure Position Lying Blood Pressure Position [Right Arm] Lying Pulse Oximetry 100 100 100 Oxygen Delivery Method Nasal Cannula Nasal Cannula Nasal Cannula Oxygen Flow Rate 3 3 3.5 Sepsis Recent Fever Within 48 Hours No Sepsis New/Unexplained Change in Mental Status No Sepsis Action Taken by Nursing No Action Required 12/02/19 02:54 12/02/19 03:41 12/02/19 04:15 Temperature Temperature Source Pulse Rate Pulse Rate [Finger] 72 75 71 Pulse Rhythm Pulse Rhythm [Finger] Irregular Regular Pulse Strength Pulse Strength [Finger] Normal Normal Respiratory Rate 20 22 20 Respiratory Effort / Characteristics Non-Labored Non-Labored Spontaneous Non-Labored Spontaneous Respiratory Depth Normal Normal Respiratory Pattern Regular Regular Blood Pressure Blood Pressure [Right Arm] 133/68 134/78 Blood Pressure Mean Blood Pressure Mean [Right Arm] 89 96 Blood Pressure Position Blood Pressure Position [Right Arm] Lying Lying Pulse Oximetry 100 100 100 Oxygen Delivery Method Nasal Cannula Room Air Nasal Cannula Oxygen Flow Rate 3 3 Sepsis Recent Fever Within 48 Hours Sepsis New/Unexplained Change in Mental Status Sepsis Action Taken by Nursing 12/02/19 05:02 Temperature Temperature Source Pulse Rate Pulse Rate [Finger] 69 Pulse Rhythm Pulse Rhythm [Finger] Irregular Pulse Strength Pulse Strength [Finger] Normal Respiratory Rate 20 Respiratory Effort / Characteristics Non-Labored Spontaneous Respiratory Depth Normal Respiratory Pattern Regular Blood Pressure Blood Pressure [Right Arm] 140/77 Blood Pressure Mean Blood Pressure Mean [Right Arm] 98 Blood Pressure Position Blood Pressure Position [Right Arm] Lying Pulse Oximetry 100 Oxygen Delivery Method Nasal Cannula Oxygen Flow Rate 3 Sepsis Recent Fever Within 48 Hours Sepsis New/Unexplained Change in Mental Status Sepsis Action Taken by Nursing GENERAL: alert, uncomfortable appearing, well nourished, no distress, non-toxic EYE EXAM: normal conjunctiva, PERRL and EOM's grossly intact OROPHARYNX: no exudate, no erythema, lips, buccal mucosa, and tongue normal and mucous membranes are moist NECK: supple, no nuchal rigidity, no adenopathy, non-tender LUNGS: Clear to auscultation. Normal chest wall mechanics, no rales or rhonchi, scattered expiratory wheezing noted, decreased breath sounds. No retractions, mild pursed lip breathing, slightly increased work of breathing. HEART: no murmurs, S1 normal and S2 normal ABDOMEN: abdomen soft, non-tender, normo-active bowel sounds, no masses, no rebound or guarding. BACK: Back is symmetrical on inspection and there is no deformity, no midline tenderness, no CVA tenderness. SKIN: no rashes and no bruising UPPER EXTREMITIES: upper extremities are grossly normal. FROM, nml pulses b/l. LOWER EXTREMITIES: No pitting edema. FROM, nml pulses b/l. NEURO EXAM: Normal sensorium, cranial nerves II-XII grossly intact, normal speech, no gross weakness of arms, no gross weakness of legs. Gross sensation intact. Course Course 0345: Patient updated on results. States his breathing does seem slightly improved after additional nebulizer treatment. 0411: [facility] when they called back I was in with a critical patient and could not receive the call. They did come down and evaluate the patient in the emergency room. Administered Medications Hydrocodone Bitart/Acetaminophen (Beaver 7.5/325mg) 1 tab PO Q6H PRN PRN Reason: Pain Stop: 12/16/19 05:28 Last Admin: 12/02/19 20:40 Dose: 1 tab Documented by: [id number] Admin: 12/02/19 05:57 Dose: 1 tab Documented by: [id number] Albuterol (Combivent Respimat) 1 puffs INH QID ESAU Stop: 01/01/20 08:59 Last Admin: 12/03/19 20:02 Dose: 1 puffs Documented by: [id number] Admin: 12/03/19 17:24 Dose: 1 puffs Documented by: [id number] Admin: 12/03/19 13:08 Dose: 1 puffs Documented by: [id number] Admin: 12/03/19 09:22 Dose: 1 puffs Documented by: [id number] Admin: 12/02/19 20:35 Dose: 1 puffs Documented by: [id number] Admin: 12/02/19 17:53 Dose: 1 puffs Documented by: [id number] Admin: 12/02/19 13:26 Dose: 1 puffs Documented by: [id number] Admin: 12/02/19 08:33 Dose: 1 puffs Documented by: [id number] Aspirin (Ecotrin Ectab) 81 mg PO [facility] Stop: 01/01/20 08:59 Last Admin: 12/03/19 09:22 Dose: 81 mg Documented by: [id number] Admin: 12/02/19 08:33 Dose: 81 mg Documented by: [id number] Atorvastatin Calcium (Lipitor) 20 mg PO [facility] Stop: 01/01/20 08:59 Last Admin: 12/03/19 09:22 Dose: 20 mg Documented by: [id number] Admin: 12/02/19 08:34 Dose: 20 mg Documented by: [id number] Clopidogrel Bisulfate (Plavix) 75 mg PO [facility] Stop: 01/01/20 08:59 Last Admin: 12/03/19 09:23 Dose: 75 mg Documented by: [id number] Admin: 12/02/19 08:34 Dose: 75 mg Documented by: [id number] Enoxaparin Sodium (Lovenox) 30 mg SQ [facility] Stop: 01/01/20 08:59 Last Admin: 12/03/19 09:22 Dose: 30 mg Documented by: [id number] Admin: 12/02/19 10:33 Dose: 30 mg Documented by: [id number] Fluticasone Propionate (Flonase) 1 sprays NA [facility] Stop: 01/01/20 08:59 Last Admin: 12/03/19 09:22 Dose: 1 sprays Documented by: [id number] Admin: 12/02/19 08:33 Dose: 1 sprays Documented by: [id number] Fluticasone/Vilanterol (Breo Ellipta 200/25 Mcg Inh) 1 puffs INH DAILY ON LICENSE OF [facility] Stop: 01/01/20 08:59 Last Admin: 12/03/19 09:22 Dose: 1 puffs Documented by: [id number] Admin: 12/02/19 08:29 Dose: 1 puffs Documented by: [id number] Ipratropium [place] (Atrovent 0.02% 0.5mg/2.5ml) 0.5 mg INH Q6R ESAU Stop: 01/01/20 06:59 Last Admin: 12/03/19 19:05 Dose: 0.5 mg Documented by: [id number] Admin: 12/03/19 13:15 Dose: 0.5 mg Documented by: [id number] Admin: 12/03/19 06:59 Dose: 0.5 mg Documented by: [id number] Admin: 12/03/19 01:01 Dose: 0.5 mg Documented by: [id number] Admin: 12/02/19 19:25 Dose: 0.5 mg Documented by: [id number] Admin: 12/02/19 13:18 Dose: 0.5 mg Documented by: [id number] Admin: 12/02/19 07:15 Dose: 0.5 mg Documented by: [id number] Isosorbide Mononitrate (Imdur Extended Rel) 60 mg PO BID ESAU Stop: 01/01/20 08:59 Last Admin: 12/03/19 20:00 Dose: 60 mg Documented by: [id number] Admin: 12/03/19 09:22 Dose: 60 mg Documented by: [id number] Admin: 12/02/19 20:36 Dose: 60 mg Documented by: [id number] Admin: 12/02/19 08:34 Dose: 60 mg Documented by: [id number] Levalbuterol HCl (Xopenex 1.25mg/0.5ml Neb) 1.25 mg INH Q6R ON LICENSE OF [facility] Stop: 01/01/20 06:59 Last Admin: 12/03/19 19:05 Dose: 1.25 mg Documented by: [id number] Admin: 12/03/19 13:15 Dose: 1.25 mg Documented by: [id number] Admin: 12/03/19 06:59 Dose: 1.25 mg Documented by: [id number] Admin: 12/03/19 01:01 Dose: 1.25 mg Documented by: [id number] Admin: 12/02/19 19:25 Dose: 1.25 mg Documented by: [id number] Admin: 12/02/19 13:17 Dose: 1.25 mg Documented by: [id number] Admin: 12/02/19 07:15 Dose: 1.25 mg Documented by: [id number] Menthol (Nice) 1 jai BUCCAL PRN PRN PRN Reason: Sore Throat Stop: 01/01/20 11:34 Last Admin: 12/02/19 13:04 Dose: 1 jai Documented by: [id number] Metoprolol Succinate (Toprol Xl) 12.5 mg PO [facility] Stop: 01/01/20 20:59 Last Admin: 12/03/19 20:01 Dose: 12.5 mg Documented by: [id number] Admin: 12/02/19 20:36 Dose: 12.5 mg Documented by: [id number] Metoprolol Succinate (Toprol Xl) 25 mg PO [facility] Stop: 01/01/20 08:59 Last Admin: 12/03/19 09:23 Dose: 25 mg Documented by: [id number] Admin: 12/02/19 08:34 Dose: 25 mg Documented by: [id number] Multivitamins (Multivitamin Tab) 1 tab PO [facility] Stop: 01/01/20 08:59 Last Admin: 12/03/19 09:23 Dose: 1 tab Documented by: [id number] Admin: 12/02/19 08:34 Dose: 1 tab Documented by: [id number] Pantoprazole Sodium (Protonix) 40 mg PO [facility] Stop: 01/01/20 08:59 Last Admin: 12/03/19 09:23 Dose: 40 mg Documented by: [id number] Admin: 12/02/19 08:34 Dose: 40 mg Documented by: [id number] Tamsulosin HCl (Flomax) 0.4 mg PO [facility] Stop: 01/01/20 08:59 Last Admin: 12/03/19 09:22 Dose: 0.4 mg Documented by: [id number] Admin: 12/02/19 08:33 Dose: 0.4 mg Documented by: [id number] Discontinued Medications Albuterol (Duoneb) 3 ml NEB NOW STA Stop: 12/02/19 02:23 Last Admin: 12/02/19 02:53 Dose: 3 ml Documented by: [id number] Magnesium Sulfate/Dextrose (Magnesium Sulfate / D5w) 1 gm in 100 mls @ 100 mls/hr IV ONE ONE Stop: 12/02/19 03:23 Last Infusion: 12/02/19 03:43 Dose: 0 mls/hr Documented by: [id number] Admin: 12/02/19 02:41 Dose: 100 mls/hr Documented by: [id number] Magnesium Sulfate/Dextrose (Magnesium Sulfate / D5w) 1 gm in 100 mls @ 100 mls/hr IV ONE ONE Stop: 12/02/19 04:42 Last Infusion: 12/02/19 05:03 Dose: 0 mls/hr Documented by: [id number] Admin: 12/02/19 03:47 Dose: 100 mls/hr Documented by: [id number] Sodium Chloride (Nss) 500 mls @ 500 mls/hr IV .Q1H ONE Stop: 12/02/19 05:07 Last Infusion: 12/02/19 05:56 Dose: 0 mls/hr Documented by: [id number] Admin: 12/02/19 04:39 Dose: 500 mls/hr Documented by: [id number] Magnesium Sulfate/Dextrose (Magnesium Sulfate / D5w) 1 gm in 100 mls @ 100 mls/hr IV Q1H ESAU Stop: 12/02/19 08:28 Last Infusion: 12/02/19 10:29 Dose: 0 mls/hr Documented by: [id number] Admin: 12/02/19 08:27 Dose: 100 mls/hr Documented by: [id number] Infusion: 12/02/19 08:12 Dose: 100 mls/hr Documented by: [id number] Admin: 12/02/19 07:12 Dose: 100 mls/hr Documented by: [id number] Infusion: 12/02/19 07:12 Dose: 100 mls/hr Documented by: [id number] Admin: 12/02/19 06:19 Dose: 100 mls/hr Documented by: [id number] Sodium Chloride (Nss) 500 mls @ 80 mls/hr IV .[id number] ONE Stop: 12/02/19 19:29 Last Infusion: 12/02/19 20:03 Dose: 0 mls/hr Documented by: [id number] Admin: 12/02/19 13:23 Dose: 80 mls/hr Documented by: [id number] Sodium Chloride (Nss 1000ml) 1,000 mls @ 80 mls/hr IV .[id number] ONE Stop: 12/03/19 14:55 Last Infusion: 12/03/19 18:48 Dose: 0 mls/hr Documented by: [id number] Infusion: 12/03/19 11:00 Dose: 80 mls/hr Documented by: [id number] Admin: 12/03/19 02:43 Dose: 50 mls/hr Documented by: [id number] Methylprednisolone (Solumedrol) 60 mg IV NOW STA Stop: 12/02/19 03:54 Last Admin: 12/02/19 04:14 Dose: 60 mg Documented by: [id number] Miscellaneous (Order Awaiting Action) 1 ea N/A QS ESAU Stop: 01/01/20 07:59 Last Admin: 12/02/19 08:29 Dose: Not Given Documented by: [id number] Medical Decision Making Differential Diagnosis Differential diagnoses includes but is not limited to pneumonia, bronchitis, COPD/Asthma exacerbation, pneumothorax, pulmonary embolism, congestive heart failure, acute coronary syndrome Medical Records Attestation: I reviewed the patient's medical records. Home Medications Current Medication List: was personally reviewed by me Laboratory Data Attestation: I reviewed the patient's lab results. Result diagrams: 12/03/19 05:28 12/03/19 15:06 Lab Results 12/02/19 12/02/19 12/02/19 Range/Units 02:25 02:25 02:25 WBC 8.18 (4.8-10.8) K/uL RBC 3.64 L (4.7-6.1) M/uL Hgb 11.7 L (14.0-18.0) g/dL POC Hgb (14.0-18.0) g/dl Hct 34.4 L (42-52) % POC Hct (42-52) % MCV 94.5 (80-100) fL MCH 32.1 (25-34) pg MCHC 34.0 (32-36) g/dL RDW Std Deviation 43.0 (36.4-46.3) fL RDW Coeff of Barry 12.5 (11.5-14.5) % Plt Count 179 (130-400) K/uL MPV 9.7 (7.4-10.4) fL Immature Gran % (Auto) 0.9 % Neut % (Auto) 71.7 % Lymph % (Auto) 16.7 % Garden % (Auto) 7.7 % Eos % (Auto) 2.8 % Baso % (Auto) 0.2 % Immature Gran # (Auto) 0.07 H (0.00-0.02) K/uL Neut # (Auto) 5.86 (1.4-6.5) K/uL Lymph # (Auto) 1.37 (1.2-3.4) K/uL Garden # (Auto) 0.63 H (0.11-0.59) K/uL Eos # (Auto) 0.23 (0-0.5) K/uL Baso # (Auto) 0.02 (0-0.2) K/uL APTT 25.8 (21.0-31.0) Seconds PTT Ratio 1.0 D-Dimer 290 (0-500) ug/L FEU Specimen Type POC pH (7.35-7.45) POC pCO2 (35-46) mmHg POC pO2 (80-95) mmHg POC HCO3 (19-24) camron/L POC Total CO2 (24-31) mmol/L POC Base Excess (-9-1.8) camron/L POC O2 Saturation POC Sodium (135-144) mmol/L Sodium 128 L (136-145) mmol/L POC Potassium (3.3-5.0) mmol/L Potassium 4.5 (3.5-5.1) mmol/L Chloride 86 L (98-107) mmol/L Carbon Dioxide 37 H (21-32) mmol/L Anion Gap 5.0 (3-11) BUN 4 L (7-18) mg/dl Creatinine 0.38 L (0.6-1.4) mg/dl Est Cr Clr Drug Dosing 123.5 ml/min Est GFR ( Amer) 130.0 Est GFR (Non-Af Amer) 112.2 BUN/Creatinine Ratio 10.1 (10-20) Glucose 88 (70-99) mg/dl Osmolality (280-300) mOsm/kg Calcium 8.6 (8.5-10.1) mg/dl Magnesium 1.0 L (1.8-2.4) mg/dl Total Bilirubin 0.5 (0.2-1) mg/dl AST 34 (15-37) U/L ALT 26 (12-78) U/L Alkaline Phosphatase 88 (45-117) U/L Troponin I < 0.015 (0-0.045) ng/ml NT-Pro-B Natriuret Pep 234 (0-1800) pg/ml Total Protein 6.0 L (6.4-8.2) gm/dl Albumin 2.8 L (3.4-5.0) gm/dl Globulin 3.2 (2.5-4.0) gm/dl Albumin/Globulin Ratio 0.9 (0.9-2) Lipase 84 (73-393) U/L Urine Color Urine Appearance (Clear) Urine pH (4.5-7.5) Ur Specific [place] (1.000-1.030) Urine Protein (Negative) Urine Glucose (UA) (Negative) Urine Ketones (Negative) Urine Blood (Negative) Urine Nitrite (Negative) Urine Bilirubin (Negative) Urine Urobilinogen (Negative) Ur Leukocyte Esterase (Negative) 12/02/19 12/02/19 12/02/19 Range/Units 02:25 02:45 04:20 WBC (4.8-10.8) K/uL RBC (4.7-6.1) M/uL Hgb (14.0-18.0) g/dL POC Hgb 11.9 L (14.0-18.0) g/dl Hct (42-52) % POC Hct 35 L (42-52) % MCV (80-100) fL MCH (25-34) pg MCHC (32-36) g/dL RDW Std Deviation (36.4-46.3) fL RDW Coeff of Barry (11.5-14.5) % Plt Count (130-400) K/uL MPV (7.4-10.4) fL Immature Gran % (Auto) % Neut % (Auto) % Lymph % (Auto) % Garden % (Auto) % Eos % (Auto) % Baso % (Auto) % Immature Gran # (Auto) (0.00-0.02) K/uL Neut # (Auto) (1.4-6.5) K/uL Lymph # (Auto) (1.2-3.4) K/uL Garden # (Auto) (0.11-0.59) K/uL Eos # (Auto) (0-0.5) K/uL Baso # (Auto) (0-0.2) K/uL APTT (21.0-31.0) Seconds PTT Ratio D-Dimer (0-500) ug/L FEU Specimen Type Arterial POC pH 7.37 (7.35-7.45) POC pCO2 66 H (35-46) mmHg POC pO2 119 H (80-95) mmHg POC HCO3 38 H (19-24) camron/L POC Total CO2 40 H (24-31) mmol/L POC Base Excess 12.0 H (-9-1.8) camron/L POC O2 Saturation 98 POC Sodium 125 L (135-144) mmol/L Sodium (136-145) mmol/L POC Potassium 4.2 (3.3-5.0) mmol/L Potassium (3.5-5.1) mmol/L Chloride (98-107) mmol/L Carbon Dioxide (21-32) mmol/L Anion Gap (3-11) BUN (7-18) mg/dl Creatinine (0.6-1.4) mg/dl Est Cr Clr Drug Dosing ml/min Est GFR ( Amer) Est GFR (Non-Af Amer) BUN/Creatinine Ratio (10-20) Glucose (70-99) mg/dl Osmolality 262 L (280-300) mOsm/kg Calcium (8.5-10.1) mg/dl Magnesium (1.8-2.4) mg/dl Total Bilirubin (0.2-1) mg/dl AST (15-37) U/L ALT (12-78) U/L Alkaline Phosphatase (45-117) U/L Troponin I (0-0.045) ng/ml NT-Pro-B Natriuret Pep (0-1800) pg/ml Total Protein (6.4-8.2) gm/dl Albumin (3.4-5.0) gm/dl Globulin (2.5-4.0) gm/dl Albumin/Globulin Ratio (0.9-2) Lipase (73-393) U/L Urine Color Yellow Urine Appearance Clear (Clear) Urine pH 7.5 (4.5-7.5) Ur Specific [place] 1.009 (1.000-1.030) Urine Protein Negative (Negative) Urine Glucose (UA) Negative (Negative) Urine Ketones Negative (Negative) Urine Blood Negative (Negative) Urine Nitrite Negative (Negative) Urine Bilirubin Negative (Negative) Urine Urobilinogen Negative (Negative) Ur Leukocyte Esterase Negative (Negative) Imaging Data Attestation: I personally reviewed and interpreted this imaging study as follows: My Impression: X-ray: I interpreted the following studies. Chest: A single view study of the chest was reviewed and was negative for cardiomegaly, focal infiltrate, effusion, pulmonary edema, or wide mediastinum. ECG Data Attestation: I personally reviewed and interpreted this ECG as follows: Indication: + SOB/dyspnea Rate (beats per minute): 76 Rhythm: + normal sinus ECG Intervals/blocks: + Right Bundle branch block ECG [place]: + Left axis deviation ECG Findings: + Other (changes related to BBB) Blood Pressure Blood Pressure Findings: Elevated blood pressure Blood Pressure Disposition: further management by hospitalist MDM Narrative Pt here with dyspnea and hx of copd and CAD. Pt already on home oxygen and nebs. Pt reported no improvement with nebs at home and need to increased oxygen. Pt with increased WOB on arrival, this did improve with additional nebs. CXR didn't show acute pulm edema, effusion or infiltrate. VS otw stable. Afebrile. Pt given solumedrol and IV magnesium. Pt found to be severely hypomagnesemic. Given hx of CAD and COPD, and low Mag, case discussed with the hospitalist for additional inpatient mgmt. Given lack of fever and leukocytosis, deferred antibiotics to admitting team as I felt occult bacterial infection contributing to COPD less likely. Pt made aware of all results and was in agreement with plan. Elevated CO2 noted, however normal pH, likely chronically elevated in COPD patient. I do not suspect PE, tamponade, ACS, dissection, pneumothorax. Impression & Plan Acute dyspnea, Hypomagnesemia, Asthma exacerbation in COPD Discharge Plan Visit Data *Final* Discharge Date/Time: 12/02/19 04:57 Chief Complaint: Shortness of Breath/Dyspnea Stated Complaint: Breathing difficulty ED Provider: Tracee Chen Discharge Problem: Acute dyspnea, Hypomagnesemia, Asthma exacerbation in COPD Patient Disposition: Admitted As Inpatient Discharge Instructions Interventions: ED Discharge Assessment Last Done: 12/02/19 04:57
[2019-12-02 03:02] LABS: Alanine Aminotransferase 26 U/L (12-78); Albumin Globulin Ratio 0.9 (0.9-2); Albumin Level 2.8 gm/dl (3.4-5.0); Alkaline Phosphatase 88 U/L (45-117); Aspartate Aminotransferase 34 U/L (15-37); BUN Creatinine Ratio 10.1 (10-20); Bilirubin,Total 0.5 mg/dl (0.2-1); Blood Urea Nitrogen 4 mg/dl (7-18); Calcium 8.6 mg/dl (8.5-10.1); Carbon Dioxide 37 mmol/L (21-32); Chloride 86 mmol/L (98-107); Creatinine Clr Calc Pharmacy 123.5 ml/min; Est GFR (Non-African American) 112.2; Globulin 3.2 gm/dl (2.5-4.0); Glucose 88 mg/dl (70-99); Lipase 84 U/L (73-393); NT Pro B Type Natriuretic Pept 234 pg/ml (0-1800); Potassium 4.5 mmol/L (3.5-5.1); Sodium 128 mmol/L (136-145); Troponin I < 0.015 ng/ml (0-0.045)
[2019-12-02] MEDS ORDERED: methylPREDNISolone 125 MG/2 ML VIAL IV STA (03:53)
[2019-12-02] MEDS ORDERED: SODIUM CHLORIDE 0.9% 500 ML IV ONE ×2 (04:08→13:15)
--- NOTE | 2019-12-02 04:35 | History & Physical Report ---
Date of Service December 02, 2019 Assessment & Plan (1) Hyponatremia: Recurrent episode Details leading to ER visit similar to last month Secondary to poor p.o. intake secondary to malaise from possibly viral illness rule out flu chronic respiratory failure secondary COPD/pulmonary hypertension on home O2, pulmonary status at baseline No exacerbation of lung disease as per patient account. Patient denies unusual cough, S OB symptoms. CAD status post stenting PAF as per records, patient currently NSR hypertension, currently stable Hypomagnesemia chronic anemia, hemoglobin at baseline Past tobacco abuse ? Functional disability Medical telemetry Careful correction of sodium Flu swab Replace electrolytes PT OT eval DVT prophylaxis. Lovenox subcu Full code History of Present Illness Chief Complaint: Weakness, S OB Primary Care Provider: Reyes Pablo MD History obtained from patient and records. Medical history significant for chronic respiratory failure secondary COPD/pulmonary hypertension on home O2, CAD status post stenting, PAFib as per records, valvular heart disease (moderate MR/TR/aortic stenosis), hypertension, hyperlipidemia, past tobacco abuse, chronic anemia (baseline hemoglobin of 11 ). Recent confinement last month for hyponatremia, dehydration. Patient had generalized weakness the last 3 days, shortness of breath somewhat worse than usual. Transient right-sided chest pain. No unusual cough symptoms. No known sick contacts. Poor appetite. Patient brought to the ER. Patient given Solu-Medrol and neb treatment for possible COPD exacerbation. MEDICAL HISTORY: As above. SURGICAL HISTORY: Cholecystectomy. FAMILY HISTORY: Heart disease. PERSONAL AND SOCIAL HISTORY: Past tobacco abuse, admits to intake of alcoholic beverages, although denies abuse. Allergies Allergy/AdvReac Type Severity Reaction Status Date / Time naproxen Allergy Unknown hives Verified 12/02/19 02:22 Home Medications Home Medications Medication Instructions Recorded Confirmed Type Combivent Respimat 1 puff INHALATION QID 08/28/18 12/02/19 History albuterol sulfate [Ventolin HFA] 2 puff INHALATION Q6 PRN 08/28/18 12/02/19 History atorvastatin 20 mg PO QAM 08/28/18 12/02/19 History clopidogrel [Plavix] 75 mg PO QAM 08/28/18 12/02/19 History fluticasone propion-salmeterol 1 puff INHALATION BID 08/28/18 12/02/19 History [Advair Diskus] metoprolol succinate [Toprol XL] 25 mg PO QAM 08/28/18 12/02/19 History multivitamin 1 tab PO QAM 08/28/18 12/02/19 History nitroglycerin [Nitrostat] 0.4 mg SUBLINGUAL UD PRN 08/28/18 12/02/19 History polyethylene glycol 3350 [Miralax] 17 g PO DAILY PRN 08/28/18 12/02/19 History tamsulosin [Flomax] 0.4 mg PO QAM 08/28/18 12/02/19 History aspirin [Aspir-81] 81 mg PO QAM 10/20/18 12/02/19 History isosorbide mononitrate 60 mg PO BID 10/20/18 12/02/19 History levalbuterol HCl 3 ml INHALATION QID PRN 10/20/18 12/02/19 History omeprazole 20 mg PO QAM 10/20/18 12/02/19 History hydrocodone-acetaminophen 1 tab PO Q6H PRN 10/10/19 12/02/19 History lubiprostone 8 mcg PO BID 10/10/19 12/02/19 History metoprolol succinate 12.5 mg PO HS 10/10/19 12/02/19 History Allergy Medications 2 tab PO UD 10/31/19 12/02/19 History acetaminophen 1,000 mg PO UD PRN 10/31/19 12/02/19 History fluticasone propionate [Flonase 1 spray INTRANASAL QAM 10/31/19 12/02/19 History Allergy Relief] Past Med/Surg History Medical History Bifascicular block BPH (benign prostatic hyperplasia) CAD (coronary artery disease) PCI to LAD, CATALINO to OM 2014-failed PCI to heavily calcified LAD COPD (chronic obstructive pulmonary disease) (Acute) Hyperlipidemia Paroxysmal atrial fibrillation Renal artery stenosis Tobacco abuse (Inactive) Surgical History History of cholecystectomy History of coronary artery stent placement Social History Preferred Language: Guatemalan Communication Ability: Effective 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 Machine Required: No Beliefs That Will Affect Care: None marital status: Single Current Living Situation: Alone Other Information That Helps Us Care for You: No Feels Safe at Home: Yes Safety Concerns: Feels Safe At This Time Smoking Status: Former smoker Tobacco Type: cigarettes ; Cigarettes Per Day: 30 ; Do You Dip or Chew Tobacco: No ; Second Hand Exposure: No ; Tobacco Cessation Education Requested by Patient: No Hx Alcohol Use: No Hx Substance Use: No Review of Systems Review of Systems: As per HPI, all 10 systems reviewed, all other ROS negative Physical Exam Physical Exam: GENERAL: Wane, chronically ill, slightly hard of hearing, covered in blankets, no respiratory distress, unkempt SKIN: Pallor , warm HEENT: Pale palpebral conjunctivae, no ptosis, dry buccal mucosa, nasal cannula in place NECK : Supple, no tenderness CHEST : Decreased breath sounds, no tenderness HEART : RRR, systolic murmur ABDOMEN: Soft, nontender EXTREMITIES : Minimal LE swelling, no LE tenderness, no other conspicuous deformities noted NEUROLOGIC : Coherent, slightly hard of hearing, no facial asymmetry, no other gross focality Results & Data Vital Signs (Past 12 Hours) Vital Signs Temp Pulse Pulse Resp BP BP Pulse Ox 12/02/19 04:15 71 20 134/78 100 12/02/19 03:41 75 22 133/68 100 12/02/19 02:54 72 20 100 12/02/19 02:44 78 19 116/68 100 12/02/19 02:19 79 18 100 12/02/19 02:12 36.5 C 86 21 126/75 100 Laboratory Results Laboratory Results WBC 8.18 K/uL (4.8-10.8) 12/02/19 02:25 RBC 3.64 M/uL (4.7-6.1) L 12/02/19 02:25 Hgb 11.7 g/dL (14.0-18.0) L 12/02/19 02:25 Hct 34.4 % (42-52) L 12/02/19 02:25 MCV 94.5 fL (80-100) 12/02/19 02:25 MCH 32.1 pg (25-34) 12/02/19 02:25 MCHC 34.0 g/dL (32-36) 12/02/19 02:25 RDW Std Deviation 43.0 fL (36.4-46.3) 12/02/19 02:25 RDW Coeff of Barry 12.5 % (11.5-14.5) 12/02/19 02:25 Plt Count 179 K/uL (130-400) 12/02/19 02:25 MPV 9.7 fL (7.4-10.4) 12/02/19 02:25 Immature Gran % (Auto) 0.9 % 12/02/19 02:25 Neut % (Auto) 71.7 % 12/02/19 02:25 Lymph % (Auto) 16.7 % 12/02/19 02:25 [place] % (Auto) 7.7 % 12/02/19 02:25 Eos % (Auto) 2.8 % 12/02/19 02:25 Baso % (Auto) 0.2 % 12/02/19 02:25 Immature Gran # (Auto) 0.07 K/uL (0.00-0.02) H 12/02/19 02:25 Neut # (Auto) 5.86 K/uL (1.4-6.5) 12/02/19 02:25 Lymph # (Auto) 1.37 K/uL (1.2-3.4) 12/02/19 02:25 [place] # (Auto) 0.63 K/uL (0.11-0.59) H 12/02/19 02:25 Eos # (Auto) 0.23 K/uL (0-0.5) 12/02/19 02:25 Baso # (Auto) 0.02 K/uL (0-0.2) 12/02/19 02:25 Sodium 128 mmol/L (136-145) L 12/02/19 02:25 Potassium 4.5 mmol/L (3.5-5.1) 12/02/19 02:25 Chloride 86 mmol/L (98-107) L 12/02/19 02:25 Carbon Dioxide 37 mmol/L (21-32) H 12/02/19 02:25 Anion Gap 5.0 (3-11) 12/02/19 02:25 BUN 4 mg/dl (7-18) L 12/02/19 02:25 Creatinine 0.38 mg/dl (0.6-1.4) L 12/02/19 02:25 Est Cr Clr Drug Dosing 123.5 ml/min 12/02/19 02:25 Est GFR ( Amer) 130.0 12/02/19 02:25 Est GFR (Non-Af Amer) 112.2 12/02/19 02:25 BUN/Creatinine Ratio 10.1 (10-20) 12/02/19 02:25 Glucose 88 mg/dl (70-99) 12/02/19 02:25 Calcium 8.6 mg/dl (8.5-10.1) 12/02/19 02:25 Magnesium 1.0 mg/dl (1.8-2.4) L 12/02/19 02:25 Total Bilirubin 0.5 mg/dl (0.2-1) 12/02/19 02:25 AST 34 U/L (15-37) 12/02/19 02:25 ALT 26 U/L (12-78) 12/02/19 02:25 Alkaline Phosphatase 88 U/L (45-117) 12/02/19 02:25 Troponin I < 0.015 ng/ml (0-0.045) 12/02/19 02:25 NT-Pro-B Natriuret Pep 234 pg/ml (0-1800) 12/02/19 02:25 Total Protein 6.0 gm/dl (6.4-8.2) L 12/02/19 02:25 Albumin 2.8 gm/dl (3.4-5.0) L 12/02/19 02:25 Globulin 3.2 gm/dl (2.5-4.0) 12/02/19 02:25 Albumin/Globulin Ratio 0.9 (0.9-2) 12/02/19 02:25 Lipase 84 U/L (73-393) 12/02/19 02:25 Diagnostic Findings Chest x-ray as per my interpretation COPD EKG as per my interpretation : Rate 75, NSR, LAD, LAFB, RBBB, PVCs
[2019-12-02] MEDS ORDERED: ACETAMINOPHEN 325 MG TAB PO PRN (05:29)
[2019-12-02] MEDS ORDERED: POLYETHYLENE (MIRALAX) 17 GM PACK PO PRN (05:29)
[2019-12-02] MEDS ORDERED: PROMETHAZINE HCL 12.5 MG in SODIUM CHLORIDE 0.9% 50 ML IV PRN (05:29)
[2019-12-02] MEDS ORDERED: ALBUT/IPRATROP 3MG/0.5MG NEB 3 ML VIAL NEB PRN (05:29)
[2019-12-02 05:45] LABS: D Dimer 290 ug/L FEU (0-500); Partial Thromboplastin Time 25.8 Seconds (21.0-31.0)
[2019-12-02 05:51] LABS: Influenza A virus by PCR Neg for Influ A (Neg); Influenza B virus by PCR Neg for Influ B (Neg)
[2019-12-02] MEDS: HYDROCODONE/ACETAMINOPHEN 7.5/325MG TAB PO PRN ×2 (05:57→20:40)
[2019-12-02] MEDS ORDERED: PNEUMOCOCCAL POLYSACCHARIDES 25 MCG/0.5 ML VIAL/SYR IM ONE (06:09)
[2019-12-02] MEDS ORDERED: PNEUMOCOCCAL ADMINISTRATION CHARGE ONE (06:09)
[2019-12-02] MEDS: MAGNESIUM SULFATE / D5W 1 GM/100 ML BAG IV SCH ×3 (06:19→08:27)
[2019-12-02 06:44] LABS: Appearance Urine Clear (Clear); Bilirubin Urine Negative (Negative); Blood Urine Negative (Negative); Color Urine Yellow; Glucose Urine UA Negative (Negative); Ketones Urine Negative (Negative); Leukocyte Esterase Urine Negative (Negative); Nitrite Urine Negative (Negative); Protein Urine Negative (Negative); Specific Gravity Urine 1.009 (1.000-1.030); Urobilinogen Urine Negative (Negative); pH Urine 7.5 (4.5-7.5)
[2019-12-02] MEDS ORDERED: XOPENEX/ATROVENT 1.25mg/0.5MG NEB COMBO NEB SCH (07:00)
--- NOTE | 2019-12-02 07:12 | XRay Report ---
SINGLE VIEW CHEST CLINICAL HISTORY: Dyspnea. FINDINGS: An AP, portable, upright chest radiograph is compared to study dated 10/31/2019 and correlate d with chest CT dated 05/08/2019. The examination is degraded by portable technique and patient rotati on. The cardiomediastinal silhouette is unremarkable noting atherosclerotic calcification and uncoi ling of the thoracic aorta. Advanced emphysema and fibrotic change in the right upper lobe are simila r to previous. Volume loss in the right lung is unchanged. There is no evidence of superimposed airsp tahira consolidation or large pleural effusion. No pneumothorax is seen. The skeletal structures are ost eopenic. The bony thorax is grossly intact. IMPRESSION: Advanced emphysema and chronic parenchymal changes as above. No acute cardiopulmonary abn ormality is identified. ACT 112: Negative or not required by law. Electronically signed by: Mike Romero M.D. 12/02/2019 7:11 AM
[2019-12-02] MEDS ORDERED: INFLUENZA Vaccine HIGH DOSE 65+yrs 0.5 mL Syr IM ONE (07:15)
[2019-12-02] MEDS: IPRATROPIUM BROMIDE NEB SOLN 0.02% 2.5 ML VIAL INH SCH ×3 (07:15→19:25)
[2019-12-02] MEDS: LEVALBUTEROL 1.25MG/0.5ML NEB INH SCH ×3 (07:15→19:25)
[2019-12-02] MEDS: FLUTICASONE/VILANTEROL 200/25MCG 14 PUFFS/INHALER INH SCH (08:29)
[2019-12-02] MEDS: FLUTICASONE PROPIONATE NA SPR 16 GM BTL SCH (08:33)
[2019-12-02] MEDS: IPRATROPIUM BROMIDE/ALBUTEROL respimat INH INH SCH ×4 (08:33→20:35)
[2019-12-02] MEDS: ASPIRIN 81 MG ECTAB PO SCH (08:33)
[2019-12-02] MEDS: TAMSULOSIN HCL 0.4 MG CAP PO SCH (08:33)
[2019-12-02] MEDS: ATORVASTATIN 20 MG TAB PO SCH (08:34)
[2019-12-02] MEDS: ISOSORBIDE MONO EXTENDED REL 60 MG TABCR PO SCH ×2 (08:34→20:36)
[2019-12-02] MEDS: MULTIVITAMIN TAB PO SCH (08:34)
[2019-12-02] MEDS: METOPROLOL SUCC 25MG EXT REL TAB PO SCH ×2 (08:34→20:36)
[2019-12-02] MEDS: CLOPIDOGREL BISULFATE 75 MG TAB PO SCH (08:34)
[2019-12-02] MEDS: PANTOprazole 40 MG TAB PO SCH (08:34)
[2019-12-02] MEDS ORDERED: IPRATROPIUM BROMIDE/ALBUTEROL respimat INH INH SCH (09:00)
[2019-12-02] MEDS: ENOXAPARIN INJ 30 MG/0.3 ML SYR SQ SCH (10:33)
[2019-12-02 11:17] LABS: iSTAT Arterial Blood Gas pH 7.37 (7.35-7.45); iSTAT Hematocrit 35 % (42-52); iSTAT Hemoglobin 11.9 g/dl (14.0-18.0); iSTAT Potassium 4.2 mmol/L (3.3-5.0); iSTAT Sodium 125 mmol/L (135-144)
[2019-12-02 11:19] LABS: iSTAT Arterial Blood Gas HCO3 38 meg/L (19-24); iSTAT Arterial Blood Gas pCO2 66 mmHg (35-46); iSTAT Arterial Blood Gas pO2 119 mmHg (80-95); iSTAT Carbon Dioxide 40 mmol/L (24-31)
[2019-12-02 11:20] LABS: iSTAT Sample Type Arterial
[2019-12-02] MEDS ORDERED: COUGH DROP (SUGAR FREE) LOZ 24 LOZ/1 BOX BUCCAL PRN (11:35)
--- NOTE | 2019-12-02 12:45 | Electrocardiogram Report ---
Test Reason : Blood Pressure : / mmHG Vent. Rate : 076 BPM Atrial Rate : 076 BPM P-R Int : 158 ms QRS Dur : 130 ms QT Int : 382 ms P-R-T Axes : 092 -83 053 degrees QTc Int : 429 ms Poor data quality, interpretation may be adversely affected Sinus rhythm with Premature atrial complexes Right bundle branch block Left anterior fascicular block Bifascicular block Abnormal ECG When compared with ECG of 31-OCT-2019 18:36, Premature ventricular complexes are no longer Present Premature atrial complexes are now Present Confirmed by Malik Abdalla ([id number]) on 12/02/2019 12:45:01 PM Referred By: REFERRED SELF Confirmed By:Malik Abdalla
[2019-12-02 22:23] LABS: Calcium 8.4 mg/dl (8.5-10.1); Creatinine Clr Calc Pharmacy 86.6 ml/min; Est GFR (African American) 112.5; Est GFR (Non-African American) 97.1; Potassium 4.2 mmol/L (3.5-5.1)
[2019-12-03] MEDS: IPRATROPIUM BROMIDE NEB SOLN 0.02% 2.5 ML VIAL INH SCH ×4 (01:01→19:05)
[2019-12-03] MEDS: LEVALBUTEROL 1.25MG/0.5ML NEB INH SCH ×4 (01:01→19:05)
[2019-12-03] MEDS ORDERED: SODIUM CHLORIDE 0.9% 1000ML 1,000 ML IV ONE (02:26)
[2019-12-03 06:27] LABS: Eosinophils # (auto) 0.01 K/uL (0-0.5); Eosinophils % (auto) 0.2 %; Hematocrit (blood only) 32.9 % (42-52); Hemoglobin 10.9 g/dL (14.0-18.0); Immature Granulocytes # (auto) 0.03 K/uL (0.00-0.02); Immature Granulocytes % (auto) 0.5 %; Lymphocytes # (auto) 0.88 K/uL (1.2-3.4); Lymphocytes % (auto) 13.2 %; Mean Corpuscular Hgb Conc 33.1 g/dL (32-36); Mean Corpuscular Volume 96.5 fL (80-100); Mean Platelet Volume 10.1 fL (7.4-10.4); Monocytes # (auto) 0.76 K/uL (0.11-0.59); Monocytes % (auto) 11.4 %; Neutrophils # (auto) 4.98 K/uL (1.4-6.5); Neutrophils % (auto) 74.7 %; Nucleated RBC # (auto) 0.08 K/uL (0-0); Nucleated RBC % (auto) 1.2 %; Platelet Count 201 K/uL (130-400); RDW Coefficient of Variation 12.9 % (11.5-14.5); Red Blood Count 3.41 M/uL (4.7-6.1); White Blood Count 6.66 K/uL (4.8-10.8)
[2019-12-03 06:55] LABS: BUN Creatinine Ratio 14.4 (10-20); Calcium 8.6 mg/dl (8.5-10.1); Creatinine Clr Calc Pharmacy 121.2 ml/min; Est GFR (African American) 128.6; Magnesium 2.1 mg/dl (1.8-2.4); Potassium 4.5 mmol/L (3.5-5.1)
--- NOTE | 2019-12-03 07:17 | Hospitalist Progress Note ---
Date of Service December 03, 2019 Assessment & Plan (1) Hyponatremia: Recurrent episode Details leading to ER visit similar to last month - likely hypovolemic secondary to poor p.o. intake secondary to malaise from possibly viral illness/ rule out flu (Flu swab) - serum osm 262 (hypo-osmolar), urine osm 131 and urine sodium 22 - received 500 cc of NS in the ED w/ mild improvement of Na level, repeated another 500 cc of NS yesterday w/ mild improvement of Na level, will provide additional NS (gentle hydration), encourage PO intake - monitor Na level closely, q6 hrs Hypomagnesemia - severe hypomagnesemia, on admission Mg level of 1.0 - recurrent problem, likely secondary to above (poor PO intake) -replete and monitor -consider dietitian eval -consider Mag supplement on discharge Chronic respiratory failure secondary COPD/pulmonary hypertension on home O2, pulmonary status at baseline No exacerbation of lung disease as per patient account. Patient denies unusual cough, S OB symptoms. CAD status post stenting, cont. home medications PAF as per records, patient currently NSR -telemetry Hypertension, currently stable BP at goal, cont. to monitor Chronic anemia, hemoglobin at baseline PT OT eval DVT prophylaxis. Lovenox subcu Full code Subjective Pt is sitting up in the bed. Says he has an appointment with PCP this and he really wants to make it. Says he feels better and that he is trying to eat better. Pt presented w/ recurrent severe hypomagnesemia and hyponatremia. Discussed nutrition consult. Denies fever, chills, chest pain, abd. pain, nausea or vomiting. Review of Systems Review of Systems: All systems reviewed & are unremarkable except as noted in HPI & below Constitutional: + fatigue; no fever and no chills Respiratory: + dyspnea (improved); no cough and no pain on inspiration Cardiovascular: no chest pain and no palpitations Gastrointestinal: no abdominal pain, no nausea and no vomiting Physical Exam Physical Exam: GENERAL: elderly male chronically ill, slightly hard of hearing, in NAD, on NC HEENT: NC/AT, EOMI, PERRL NECK : Supple, no tenderness CHEST : barrel chest, mild expiratory wheezes appreciated on auscultation anteriorly, Decreased breath sounds HEART : RRR, systolic murmur ABDOMEN: + bowel sounds,abdomen soft, nontender, mildly distended SKIN: warm, dry, well perfused EXTREMITIES : Minimal LE swelling, no LE tenderness,moves extremities spontaneously NEUROLOGIC : alert and oriented, slightly hard of hearing, no facial asymmetry,speech fluent, moves extremities spontaneously Results & Data ([facility]) Vital Signs (Past 12 Hours) Vital Signs Temp Pulse Pulse Resp BP BP Pulse Ox 12/03/19 07:12 67 12/03/19 07:00 51 L 17 95 12/03/19 04:50 75 12/03/19 04:28 36.7 C 70 16 128/70 100 12/03/19 01:02 77 18 98 12/02/19 23:17 36.7 C 76 18 132/78 99 12/02/19 20:06 36.4 C L 75 20 113/68 98 12/02/19 19:25 76 18 98 Laboratory Results 12/03/19 12/03/19 12/02/19 Range/Units 05:28 05:28 Unknown WBC 6.66 (4.8-10.8) K/uL RBC 3.41 L (4.7-6.1) M/uL Hgb 10.9 L (14.0-18.0) g/dL POC Hgb (14.0-18.0) g/dl Hct 32.9 L (42-52) % POC Hct (42-52) % MCV 96.5 (80-100) fL MCH 32.0 (25-34) pg MCHC 33.1 (32-36) g/dL RDW Std Deviation 45.0 (36.4-46.3) fL RDW Coeff of Barry 12.9 (11.5-14.5) % Plt Count 201 (130-400) K/uL MPV 10.1 (7.4-10.4) fL Immature Gran % (Auto) 0.5 % Neut % (Auto) 74.7 % Lymph % (Auto) 13.2 % [place] % (Auto) 11.4 % Eos % (Auto) 0.2 % Baso % (Auto) 0.0 % Immature Gran # (Auto) 0.03 H (0.00-0.02) K/uL Neut # (Auto) 4.98 (1.4-6.5) K/uL Lymph # (Auto) 0.88 L (1.2-3.4) K/uL [place] # (Auto) 0.76 H (0.11-0.59) K/uL Eos # (Auto) 0.01 (0-0.5) K/uL Baso # (Auto) 0.00 (0-0.2) K/uL Absolute Nucleated RBC 0.08 H (0-0) K/uL Nucleated RBC % (auto) 1.2 % Specimen Type POC pH (7.35-7.45) POC pCO2 (35-46) mmHg POC pO2 (80-95) mmHg POC HCO3 (19-24) camron/L POC Total CO2 (24-31) mmol/L POC Base Excess (-9-1.8) camron/L POC O2 Saturation POC Sodium (135-144) mmol/L Sodium 129 L (136-145) mmol/L POC Potassium (3.3-5.0) mmol/L Potassium 4.5 (3.5-5.1) mmol/L Chloride 91 L (98-107) mmol/L Carbon Dioxide 37 H (21-32) mmol/L Anion Gap 1.0 L (3-11) BUN 6 L (7-18) mg/dl Creatinine 0.39 L (0.6-1.4) mg/dl Est Cr Clr Drug Dosing 121.2 ml/min Est GFR ( Amer) 128.6 Est GFR (Non-Af Amer) 111.0 BUN/Creatinine Ratio 14.4 (10-20) Glucose 90 (70-99) mg/dl Fasting Glucose (70-99) mg/dl Osmolality (280-300) mOsm/kg Calcium 8.6 (8.5-10.1) mg/dl Magnesium 2.1 (1.8-2.4) mg/dl Urine Osmolality (500-800) mOsm/kg Ur Random Sodium 22 mmol/L 12/02/19 12/02/19 12/02/19 Range/Units Unknown 21:43 16:03 WBC (4.8-10.8) K/uL RBC (4.7-6.1) M/uL Hgb (14.0-18.0) g/dL POC Hgb (14.0-18.0) g/dl Hct (42-52) % POC Hct (42-52) % MCV (80-100) fL MCH (25-34) pg MCHC (32-36) g/dL RDW Std Deviation (36.4-46.3) fL RDW Coeff of Barry (11.5-14.5) % Plt Count (130-400) K/uL MPV (7.4-10.4) fL Immature Gran % (Auto) % Neut % (Auto) % Lymph % (Auto) % [place] % (Auto) % Eos % (Auto) % Baso % (Auto) % Immature Gran # (Auto) (0.00-0.02) K/uL Neut # (Auto) (1.4-6.5) K/uL Lymph # (Auto) (1.2-3.4) K/uL [place] # (Auto) (0.11-0.59) K/uL Eos # (Auto) (0-0.5) K/uL Baso # (Auto) (0-0.2) K/uL Absolute Nucleated RBC (0-0) K/uL Nucleated RBC % (auto) % Specimen Type POC pH (7.35-7.45) POC pCO2 (35-46) mmHg POC pO2 (80-95) mmHg POC HCO3 (19-24) camron/L POC Total CO2 (24-31) mmol/L POC Base Excess (-9-1.8) camron/L POC O2 Saturation POC Sodium (135-144) mmol/L Sodium 128 L 129 L (136-145) mmol/L POC Potassium (3.3-5.0) mmol/L Potassium 4.2 (3.5-5.1) mmol/L Chloride 91 L (98-107) mmol/L Carbon Dioxide 34 H (21-32) mmol/L Anion Gap 3.0 (3-11) BUN 5 L (7-18) mg/dl Creatinine 0.54 L (0.6-1.4) mg/dl Est Cr Clr Drug Dosing 86.6 ml/min Est GFR ( Amer) 112.5 Est GFR (Non-Af Amer) 97.1 BUN/Creatinine Ratio (10-20) Glucose (70-99) mg/dl Fasting Glucose 134 H (70-99) mg/dl Osmolality (280-300) mOsm/kg Calcium 8.4 L (8.5-10.1) mg/dl Magnesium 2.0 (1.8-2.4) mg/dl Urine Osmolality 131 L (500-800) mOsm/kg Ur Random Sodium mmol/L 12/02/19 12/02/19 12/02/19 Range/Units 10:02 02:45 02:25 WBC (4.8-10.8) K/uL RBC (4.7-6.1) M/uL Hgb (14.0-18.0) g/dL POC Hgb 11.9 L (14.0-18.0) g/dl Hct (42-52) % POC Hct 35 L (42-52) % MCV (80-100) fL MCH (25-34) pg MCHC (32-36) g/dL RDW Std Deviation (36.4-46.3) fL RDW Coeff of Barry (11.5-14.5) % Plt Count (130-400) K/uL MPV (7.4-10.4) fL Immature Gran % (Auto) % Neut % (Auto) % Lymph % (Auto) % [place] % (Auto) % Eos % (Auto) % Baso % (Auto) % Immature Gran # (Auto) (0.00-0.02) K/uL Neut # (Auto) (1.4-6.5) K/uL Lymph # (Auto) (1.2-3.4) K/uL [place] # (Auto) (0.11-0.59) K/uL Eos # (Auto) (0-0.5) K/uL Baso # (Auto) (0-0.2) K/uL Absolute Nucleated RBC (0-0) K/uL Nucleated RBC % (auto) % Specimen Type Arterial POC pH 7.37 (7.35-7.45) POC pCO2 66 H (35-46) mmHg POC pO2 119 H (80-95) mmHg POC HCO3 38 H (19-24) camron/L POC Total CO2 40 H (24-31) mmol/L POC Base Excess 12.0 H (-9-1.8) camron/L POC O2 Saturation 98 POC Sodium 125 L (135-144) mmol/L Sodium 127 L (136-145) mmol/L POC Potassium 4.2 (3.3-5.0) mmol/L Potassium (3.5-5.1) mmol/L Chloride (98-107) mmol/L Carbon Dioxide (21-32) mmol/L Anion Gap (3-11) BUN (7-18) mg/dl Creatinine (0.6-1.4) mg/dl Est Cr Clr Drug Dosing ml/min Est GFR ( Amer) Est GFR (Non-Af Amer) BUN/Creatinine Ratio (10-20) Glucose (70-99) mg/dl Fasting Glucose (70-99) mg/dl Osmolality 262 L (280-300) mOsm/kg Calcium (8.5-10.1) mg/dl Magnesium (1.8-2.4) mg/dl Urine Osmolality (500-800) mOsm/kg Ur Random Sodium mmol/L Medications Administered Current Inpatient Medications Acetaminophen (Tylenol) 650 mg PO Q4H PRN PRN Reason: Pain or Fever Stop: 01/01/20 05:28 Hydrocodone Bitart/Acetaminophen ([place] 7.5/325mg) 1 tab PO Q6H PRN PRN Reason: Pain Stop: 12/16/19 05:28 Last Admin: 12/02/19 20:40 Dose: 1 tab Documented by: Albuterol (Combivent Respimat) 1 puffs INH QID [facility] Stop: 01/01/20 08:59 Last Admin: 12/02/19 20:35 Dose: 1 puffs Documented by: Albuterol (Duoneb) 3 ml NEB Q2H PRN PRN Reason: Wheezing Stop: 01/01/20 05:28 Aspirin (Ecotrin Ectab) 81 mg PO [facility] Stop: 01/01/20 08:59 Last Admin: 12/02/19 08:33 Dose: 81 mg Documented by: Atorvastatin Calcium (Lipitor) 20 mg PO [facility] Stop: 01/01/20 08:59 Last Admin: 12/02/19 08:34 Dose: 20 mg Documented by: Clopidogrel Bisulfate (Plavix) 75 mg PO [facility] Stop: 01/01/20 08:59 Last Admin: 12/02/19 08:34 Dose: 75 mg Documented by: Enoxaparin Sodium (Lovenox) 30 mg SQ [facility] Stop: 01/01/20 08:59 Last Admin: 12/02/19 10:33 Dose: 30 mg Documented by: Fluticasone Propionate (Flonase) 1 sprays NA [facility] Stop: 01/01/20 08:59 Last Admin: 12/02/19 08:33 Dose: 1 sprays Documented by: Fluticasone/Vilanterol (Breo Ellipta 200/25 Mcg Inh) 1 puffs INH DAILY [facility] Stop: 01/01/20 08:59 Last Admin: 12/02/19 08:29 Dose: 1 puffs Documented by: Promethazine HCl 12.5 mg/ (Sodium Chloride) 50.5 mls @ 202 mls/hr IV Q6H PRN PRN Reason: Nausea And Vomiting Stop: 01/01/20 05:28 Sodium Chloride (Nss 1000ml) 1,000 mls @ 50 mls/hr IV .Q20H ONE Stop: 12/03/19 22:25 Last Admin: 12/03/19 02:43 Dose: 50 mls/hr Documented by: Ipratropium [place] (Atrovent 0.02% 0.5mg/2.5ml) 0.5 mg INH Q6R [facility] Stop: 01/01/20 06:59 Last Admin: 12/03/19 06:59 Dose: 0.5 mg Documented by: Isosorbide Mononitrate (Imdur Extended Rel) 60 mg PO BID [facility] Stop: 01/01/20 08:59 Last Admin: 12/02/19 20:36 Dose: 60 mg Documented by: Levalbuterol HCl (Xopenex 1.25mg/0.5ml Neb) 1.25 mg INH Q6R [facility] Stop: 01/01/20 06:59 Last Admin: 12/03/19 06:59 Dose: 1.25 mg Documented by: Menthol (Nice) 1 jai BUCCAL PRN PRN PRN Reason: Sore Throat Stop: 01/01/20 11:34 Last Admin: 12/02/19 13:04 Dose: 1 jai Documented by: Metoprolol Succinate (Toprol Xl) 12.5 mg PO HS [facility] Stop: 01/01/20 20:59 Last Admin: 12/02/19 20:36 Dose: 12.5 mg Documented by: Metoprolol Succinate (Toprol Xl) 25 mg PO QAM [facility] Stop: 01/01/20 08:59 Last Admin: 12/02/19 08:34 Dose: 25 mg Documented by: Multivitamins (Multivitamin Tab) 1 tab PO QAM [facility] Stop: 01/01/20 08:59 Last Admin: 12/02/19 08:34 Dose: 1 tab Documented by: Pantoprazole Sodium (Protonix) [facility] [place] [place] Stop: 01/01/20 08:59 Last Admin: 12/02/19 08:34 Dose: 40 mg Documented by: Polyethylene Glycol (Miralax Powder Packet) 17 gm PO DAILY PRN PRN Reason: Constipation Stop: 01/01/20 05:28 Tamsulosin HCl (Flomax) 0.4 mg PO [facility] Stop: 01/01/20 08:59 Last Admin: 12/02/19 08:33 Dose: 0.4 mg Documented by:
[2019-12-03] MEDS: FLUTICASONE PROPIONATE NA SPR 16 GM BTL SCH (09:22)
[2019-12-03] MEDS: ASPIRIN 81 MG ECTAB PO SCH (09:22)
[2019-12-03] MEDS: ATORVASTATIN 20 MG TAB PO SCH (09:22)
[2019-12-03] MEDS: FLUTICASONE/VILANTEROL 200/25MCG 14 PUFFS/INHALER INH SCH (09:22)
[2019-12-03] MEDS: TAMSULOSIN HCL 0.4 MG CAP PO SCH (09:22)
[2019-12-03] MEDS: ISOSORBIDE MONO EXTENDED REL 60 MG TABCR PO SCH ×2 (09:22→20:00)
[2019-12-03] MEDS: IPRATROPIUM BROMIDE/ALBUTEROL respimat INH INH SCH ×4 (09:22→20:02)
[2019-12-03] MEDS: ENOXAPARIN INJ 30 MG/0.3 ML SYR SQ SCH (09:22)
[2019-12-03] MEDS: MULTIVITAMIN TAB PO SCH (09:23)
[2019-12-03] MEDS: PANTOprazole 40 MG TAB PO SCH (09:23)
[2019-12-03] MEDS: METOPROLOL SUCC 25MG EXT REL TAB PO SCH ×2 (09:23→20:01)
[2019-12-03] MEDS: CLOPIDOGREL BISULFATE 75 MG TAB PO SCH (09:23)
[2019-12-03 15:39] LABS: Calcium 8.3 mg/dl (8.5-10.1); Creatinine Clr Calc Pharmacy 96.5 ml/min; Est GFR (African American) 117.1; Est GFR (Non-African American) 101.1; Potassium 4.1 mmol/L (3.5-5.1)
[2019-12-04] MEDS: IPRATROPIUM BROMIDE NEB SOLN 0.02% 2.5 ML VIAL INH SCH ×4 (01:16→19:15)
[2019-12-04] MEDS: LEVALBUTEROL 1.25MG/0.5ML NEB INH SCH ×4 (01:16→19:15)
[2019-12-04 05:40] LABS: Basophils # (auto) 0.02 K/uL (0-0.2); Basophils % (auto) 0.2 %; Eosinophils # (auto) 0.28 K/uL (0-0.5); Eosinophils % (auto) 3.5 %; Hematocrit (blood only) 30.9 % (42-52); Hemoglobin 10.4 g/dL (14.0-18.0); Immature Granulocytes # (auto) 0.06 K/uL (0.00-0.02); Immature Granulocytes % (auto) 0.7 %; Lymphocytes # (auto) 1.17 K/uL (1.2-3.4); Lymphocytes % (auto) 14.4 %; Mean Corpuscular Hemoglobin 32.6 pg (25-34); Mean Corpuscular Hgb Conc 33.7 g/dL (32-36); Mean Corpuscular Volume 96.9 fL (80-100); Mean Platelet Volume 9.4 fL (7.4-10.4); Monocytes # (auto) 0.81 K/uL (0.11-0.59); Neutrophils # (auto) 5.76 K/uL (1.4-6.5); Neutrophils % (auto) 71.2 %; Platelet Count 185 K/uL (130-400); RDW Standard Deviation 45.9 fL (36.4-46.3); Red Blood Count 3.19 M/uL (4.7-6.1)
[2019-12-04 06:19] LABS: Calcium 8.5 mg/dl (8.5-10.1); Creatinine Clr Calc Pharmacy 121.2 ml/min; Est GFR (African American) 128.6; Magnesium 1.7 mg/dl (1.8-2.4); Potassium 4.2 mmol/L (3.5-5.1)
--- NOTE | 2019-12-04 10:00 | Hospitalist Progress Note ---
Date of Service December 04, 2019 Assessment & Plan (1) Hyponatremia: Recurrent episode Details leading to ER visit similar to last month - likely hypovolemic secondary to poor p.o. intake secondary to malaise from possibly viral illness/flu swab negative - serum osm 262 (hypo-osmolar), urine osm 131 and urine sodium 22 - received 1000 cc of NS - monitor Na level closely, q6 hrs Low Anion Gap - SPEP, UPEP, r/o Multiple Myeloma Hypomagnesemia - severe hypomagnesemia, on admission Mg level of 1.0 - recurrent problem, likely secondary to above (poor PO intake) -replete and monitor -consider Mag supplement on discharge Chronic respiratory failure secondary COPD/pulmonary hypertension on home O2, pulmonary status at baseline No exacerbation of lung disease as per patient account. Patient denies unusual cough, S OB symptoms. CAD status post stenting, cont. home medications PAF as per records, patient currently NSR -telemetry Hypertension, currently stable BP at goal, cont. to monitor Chronic anemia, hemoglobin at baseline PT OT eval DVT prophylaxis. Lovenox subcu Full code Labs checked ROS-No Headache, No Visual Changes, No Nausea, No Vomiting, No Fever, No Chills, No Neck Pain or Stiffness, No Chest Pain, No Palpitations, No SOB, No AHMADI, No Cough, No Sputum, No Wheezing, No Abdominal Pain, No Diarrhea, No Hematemesis, No Hemoptysis, No Unexpected Weight Loss, No Flank pain, No Melena, No Hematochezia, No Frequency, No Urgency, No Burning, No Hematuria, No Rashes, No Diaphoresis. Appetite is Normal Physical Exam Gen-AAO x 3, NAD, Afebrile, Weak Head-NCAT, EOMI, PERRLA, Anicteric Sclera, No Posterior Pharyngeal Erythema Neck-Supple, No JVD, No Thyromegaly, No Masses, No LAD, No Bruits Lungs-No Rales, No Rhonchi, + Wheezing, No Crepitus Chest-No S4, +S1, +S2, No S3, No Murmurs, No Rubs, No Gallops, No Ectopy Abdomen-Soft, Bowel Sounds Present, Non Tender, Non Distended, No Hepatomegaly, No Splenomegaly, No Palpable Masses, No Rebound, No Rigidity, No Guarding Musculoskeletal-Full Range of Motion Bilaterally, No CVAT Extremities-No Cyanosis, No Clubbing, No Edema Nuero-Cranial Nerves II-XII grossly intact, Motor WNL, DTRs WNL, Strength WNL, Non Focal Psych-Normal Mood Results & Data ([facility]) Vital Signs (Past 12 Hours) Vital Signs Temp Pulse Pulse Resp BP BP Pulse Ox 12/04/19 07:19 36.8 C 70 20 159/88 H 92 12/04/19 07:01 78 16 99 12/04/19 03:11 36.7 C 81 18 144/83 H 100 12/04/19 01:18 77 18 96 12/03/19 23:59 36.5 C 82 18 134/78 96 12/03/19 22:20 83
[2019-12-04] MEDS: ISOSORBIDE MONO EXTENDED REL 60 MG TABCR PO SCH ×2 (10:33→20:12)
[2019-12-04] MEDS: ENOXAPARIN INJ 30 MG/0.3 ML SYR SQ SCH (10:33)
[2019-12-04] MEDS: IPRATROPIUM BROMIDE/ALBUTEROL respimat INH INH SCH ×4 (10:33→20:12)
[2019-12-04] MEDS: FLUTICASONE PROPIONATE NA SPR 16 GM BTL SCH (10:34)
[2019-12-04] MEDS: ATORVASTATIN 20 MG TAB PO SCH (10:35)
[2019-12-04] MEDS: FLUTICASONE/VILANTEROL 200/25MCG 14 PUFFS/INHALER INH SCH (10:35)
[2019-12-04] MEDS: METOPROLOL SUCC 25MG EXT REL TAB PO SCH ×2 (10:36→20:11)
[2019-12-04] MEDS: CLOPIDOGREL BISULFATE 75 MG TAB PO SCH (10:36)
[2019-12-04] MEDS: MULTIVITAMIN TAB PO SCH (10:36)
[2019-12-04] MEDS: TAMSULOSIN HCL 0.4 MG CAP PO SCH (10:37)
[2019-12-04] MEDS: PANTOprazole 40 MG TAB PO SCH (10:37)
[2019-12-04] MEDS: ASPIRIN 81 MG ECTAB PO SCH (10:38)
[2019-12-04] MEDS: HYDROCODONE/ACETAMINOPHEN 7.5/325MG TAB PO PRN (19:25)
[2019-12-05] MEDS: LEVALBUTEROL 1.25MG/0.5ML NEB INH SCH ×4 (00:51→19:35)
[2019-12-05] MEDS: IPRATROPIUM BROMIDE NEB SOLN 0.02% 2.5 ML VIAL INH SCH ×4 (00:51→19:35)
[2019-12-05 06:55] LABS: Hematocrit (blood only) 33.5 % (42-52); Mean Corpuscular Hemoglobin 32.5 pg (25-34); Mean Corpuscular Hgb Conc 32.8 g/dL (32-36); Mean Corpuscular Volume 99.1 fL (80-100); Mean Platelet Volume 9.7 fL (7.4-10.4); Platelet Count 172 K/uL (130-400); RDW Coefficient of Variation 13.2 % (11.5-14.5); RDW Standard Deviation 47.5 fL (36.4-46.3); Red Blood Count 3.38 M/uL (4.7-6.1)
[2019-12-05 07:33] LABS: BUN Creatinine Ratio 20.6 (10-20); Creatinine Clr Calc Pharmacy 141.1 ml/min; Est GFR (African American) 136.1; Est GFR (Non-African American) 117.4
[2019-12-05] MEDS: ENOXAPARIN INJ 30 MG/0.3 ML SYR SQ SCH (08:13)
[2019-12-05] MEDS: FLUTICASONE/VILANTEROL 200/25MCG 14 PUFFS/INHALER INH SCH (08:15)
[2019-12-05] MEDS: FLUTICASONE PROPIONATE NA SPR 16 GM BTL SCH (08:15)
[2019-12-05] MEDS: MULTIVITAMIN TAB PO SCH (08:16)
[2019-12-05] MEDS: IPRATROPIUM BROMIDE/ALBUTEROL respimat INH INH SCH (08:16)
[2019-12-05] MEDS: METOPROLOL SUCC 25MG EXT REL TAB PO SCH ×2 (08:16→21:27)
[2019-12-05] MEDS: ATORVASTATIN 20 MG TAB PO SCH (08:16)
[2019-12-05] MEDS: CLOPIDOGREL BISULFATE 75 MG TAB PO SCH (08:16)
[2019-12-05] MEDS: ISOSORBIDE MONO EXTENDED REL 60 MG TABCR PO SCH ×2 (08:17→21:27)
[2019-12-05] MEDS: ASPIRIN 81 MG ECTAB PO SCH (08:17)
[2019-12-05] MEDS: PANTOprazole 40 MG TAB PO SCH (08:17)
[2019-12-05] MEDS: TAMSULOSIN HCL 0.4 MG CAP PO SCH (08:17)
[2019-12-05] MEDS ORDERED: LORazepam 0.25 MG/0.5 ML VIAL IV PRN (11:59)
--- NOTE | 2019-12-05 14:36 | Hospitalist Progress Note ---
Date of Service December 05, 2019 Assessment & Plan (1) Hyponatremia: Recurrent episode Details leading to ER visit similar to last month - likely hypovolemic secondary to poor p.o. intake secondary to malaise from possibly viral illness/flu swab negative - serum osm 262 (hypo-osmolar), urine osm 131 and urine sodium 22 - received 1000 cc of NS - monitor Na - Renal eval Low Anion Gap - SPEP, UPEP, r/o Multiple Myeloma-Pending, Fluid restriction, Renal eval Hypomagnesemia - severe hypomagnesemia, on admission Mg level of 1.0 - recurrent problem, likely secondary to above (poor PO intake) - replete and monitor - consider Mag supplement on discharge Chronic respiratory failure secondary COPD/pulmonary hypertension on home O2, pulmonary status at baseline No exacerbation of lung disease as per patient account. Patient denies unusual cough, SOB symptoms. CAD status post stenting, cont. home medications PAF as per records, patient currently NSR -telemetry Hypertension, currently stable BP at goal, cont. to monitor Chronic anemia PT/OT DVT prophylaxis. Lovenox subcu Full code Labs checked DC home c Family when cleared ROS-No Headache, No Visual Changes, No Nausea, No Vomiting, No Fever, No Chills, No Neck Pain or Stiffness, No Chest Pain, No Palpitations, No SOB, No AHMADI, No Cough, No Sputum, No Wheezing, No Abdominal Pain, No Diarrhea, No Hematemesis, No Hemoptysis, No Unexpected Weight Loss, No Flank pain, No Melena, No Hematochezia, No Frequency, No Urgency, No Burning, No Hematuria, No Rashes, No Diaphoresis. Appetite is Normal Physical Exam Gen-AAO x 3, NAD, Afebrile, Weak Head-NCAT, EOMI, PERRLA, Anicteric Sclera, No Posterior Pharyngeal Erythema Neck-Supple, No JVD, No Thyromegaly, No Masses, No LAD, No Bruits Lungs-No Rales, No Rhonchi, + Wheezing, No Crepitus Chest-No S4, +S1, +S2, No S3, No Murmurs, No Rubs, No Gallops, No Ectopy Abdomen-Soft, Bowel Sounds Present, Non Tender, Non Distended, No Hepatomegaly, No Splenomegaly, No Palpable Masses, No Rebound, No Rigidity, No Guarding Musculoskeletal-Full Range of Motion Bilaterally, No CVAT Extremities-No Cyanosis, No Clubbing, No Edema Nuero-Cranial Nerves II-XII grossly intact, Motor WNL, DTRs WNL, Strength WNL, Non Focal Psych-Normal Mood Results & Data ([facility]) Vital Signs (Past 12 Hours) Vital Signs Temp Pulse Pulse Resp BP BP Pulse Ox 12/05/19 13:01 78 18 97 12/05/19 11:16 36.4 C L 82 18 137/76 98 12/05/19 07:49 36.5 C 73 18 120/76 98 12/05/19 07:10 73 18 98 12/05/19 07:03 73 12/05/19 04:20 73 18 98 12/05/19 03:50 36.4 C L 82 28 H 171/82 H 97 12/05/19 03:39 86 26 H 97
[2019-12-05] MEDS ORDERED: bisacodyL 5 MG TABEC PO ONE ×2 (14:42→15:51)
[2019-12-05] MEDS: HYDROCODONE/ACETAMINOPHEN 7.5/325MG TAB PO PRN (16:53)
--- NOTE | 2019-12-05 17:36 | Nephrology Consultation ---
Date of Consultation December 05, 2019 Assessment & Plan (1) Chronic hyponatremia: Difficult to interpret urine studies retrospectively since I do not know the clinical context in which they were drawn. Presenting urine studies at least this admission not particularly consistent with volume depletion. Chronic hyponatremia which can be from chronic structural lung disease: That may be the likeliest cause here. Given his chronic hyponatremia, do not believe that a sodium of 127, his lowest value of this admission, would cause generalized weakness severe enough to cause hospital admission. It certainly could complicate weakness however from other causes. -With a.m. labs will repeat serum osmolality, bASIC metabolic panel. Will obtain urine studies this evening Maintain eukalemia -Would for now observe and try to avoid salt tablets, Lasix, fluid restriction if possible; when he is not receiving IV fluids, fluid intake generally less than 750 mL recorded. -he is taking boost q meal since admission - this should continue at d/c Present on Admission?: Yes History of Present Illness Reason for Consultation: Recurrent hyponatremia Requesting Physician: Dr. Law Attending Physician: Julio Law, History of Present Illness 84-year-old male whom I am asked to evaluate for above after he was admitted here on December 02 for recurrent hyponatremia w/ presenting serum sodium 128. Since admission, serum sodium has ranged from 1 28-1 33, in the 1 33-1 32 range since December 03. No current IV fluid resuscitation. No Lasix, fluid restriction, salt tabs. Past medical history remarkable for chronic respiratory failure secondary to COPD and pulmonary hypertension on home O2 chronically, coronary artery disease status post stenting, valvular heart disease, hypertension, hyperlipidemia, former tobacco abuse, chronic anemia, chronic hypomagnesemia. Magnesium 1.7-2.1 range since arrival. On presentation, hyponatremia attributed again to presumptive dehydration in the setting of flulike illness and poor p.o. intake. patient was admitted here last month for hypovolemic hyponatremia: Presenting sodium 132, improved to 137 by next day with hydration. No nephrology consult during that admission. Last outpatient labs are from September 2018 normal sodium here however May and July same year with sodium in the 1 27-1 31 range. Allergies Allergy/AdvReac Type Severity Reaction Status Date / Time naproxen Allergy Unknown hives Verified 12/02/19 02:22 Home Medications Home Medications Medication Instructions Recorded Confirmed Type Combivent Respimat 1 puff INHALATION QID 08/28/18 12/02/19 History albuterol sulfate [Ventolin HFA] 2 puff INHALATION Q6 PRN 08/28/18 12/02/19 History atorvastatin 20 mg PO QAM 08/28/18 12/02/19 History clopidogrel [Plavix] 75 mg PO QAM 08/28/18 12/02/19 History fluticasone propion-salmeterol 1 puff INHALATION BID 08/28/18 12/02/19 History [Advair Diskus] metoprolol succinate [Toprol XL] 25 mg PO QAM 08/28/18 12/02/19 History multivitamin 1 tab PO QAM 08/28/18 12/02/19 History nitroglycerin [Nitrostat] 0.4 mg SUBLINGUAL UD PRN 08/28/18 12/02/19 History polyethylene glycol 3350 [Miralax] 17 g PO DAILY PRN 08/28/18 12/02/19 History tamsulosin [Flomax] 0.4 mg PO QAM 08/28/18 12/02/19 History aspirin [Aspir-81] 81 mg PO QAM 10/20/18 12/02/19 History isosorbide mononitrate 60 mg PO BID 10/20/18 12/02/19 History levalbuterol HCl 3 ml INHALATION QID PRN 10/20/18 12/02/19 History omeprazole 20 mg PO QAM 10/20/18 12/02/19 History hydrocodone-acetaminophen 1 tab PO Q6H PRN 10/10/19 12/02/19 History lubiprostone 8 mcg PO BID 10/10/19 12/02/19 History metoprolol succinate 12.5 mg PO HS 10/10/19 12/02/19 History Allergy Medications 2 tab PO UD 10/31/19 12/02/19 History acetaminophen 1,000 mg PO UD PRN 10/31/19 12/02/19 History fluticasone propionate [Flonase 1 spray INTRANASAL QAM 10/31/19 12/02/19 History Allergy Relief] Patient History Medical History (Updated 12/05/19 @ 17:43 by Ileana Marquez MD, PhD) Bifascicular block BPH (benign prostatic hyperplasia) CAD (coronary artery disease) PCI to LAD, CATALINO to OM 2015-failed PCI to heavily calcified LAD Chronic hyponatremia COPD (chronic obstructive pulmonary disease) (Acute) Hyperlipidemia Paroxysmal atrial fibrillation Renal artery stenosis Tobacco abuse (Inactive) Surgical History History of cholecystectomy History of coronary artery stent placement Family History Mother Diabetes Social History Preferred Language: Kazakh Communication Ability: Effective Comber Tender Required: No Beliefs That Will Affect Care: None marital status: Single Current Living Situation: Alone Other Information That Helps Us Care for You: No Feels Safe at Home: Yes Safety Concerns: Feels Safe At This Time Smoking Status: Former smoker Tobacco Type: cigarettes ; Cigarettes Per Day: 30 ; Do You Dip or Chew Tobacco: No ; Second Hand Exposure: No ; Tobacco Cessation Education Requested by Patient: No Hx Alcohol Use: No Hx Substance Use: No Review of Systems 2 Review of Systems: All systems reviewed & are unremarkable except as noted in HPI & below Constitutional: + fatigue, + weakness and + anorexia Respiratory: thinks his breathing is a bit worse than baseline Cardiovascular: no chest pain and no edema Genitourinary: no dysuria and no difficulty urinating Physical Exam Constitutional: well developed, well nourished, + cachectic and + frail a ppearing; no acute distress (on 02nc) Eyes: EOM intact bilaterally ENMT: Ears: no external ear abnormality Nose: no external nose abnormality Mouth: + dry oral mucous membranes [place] Neck: no nuchal rigidity Respiratory: + labored breathing and + paradoxical thoraco-abdominal movement; + not able to speak in complete sentence Auscultation: lungs clear to auscultation bilaterally and + diminished lung sounds Cardiovascular: RRR, no murmur, no edema (heart sounds distant) Gastrointestinal (Abdomen): Inspection/Auscultation: normal bowel sounds Percussion/Palpation: abdomen soft; abdomen nontender Musculoskeletal: Extremities: strength 5/5 throughout Skin: no rashes, warm and dry Neurologic: galvez, fluent though limited speech, no tremor Psychiatric: Orientation: alert, oriented to person and oriented to place Affect: + flat affect Results & Data Vital Signs (Past 12 Hours) Vital Signs Temp Pulse Pulse Resp BP Pulse Ox 12/05/19 15:29 36.3 C L 74 18 131/70 99 12/05/19 15:00 78 12/05/19 13:01 78 18 97 12/05/19 11:16 36.4 C L 82 18 137/76 98 12/05/19 07:49 36.5 C 73 18 120/76 98 12/05/19 07:10 73 18 98 12/05/19 07:03 73 Laboratory Results 12/05/19 06:41 12/05/19 06:41 Urine osmolality October 31 291 urine sodium 70, serum Osmo 262 Urine osmolality December 02 131 and urine sodium 22, serum osmolality is 262 Diagnostic Findings Chest x-ray December 02: Advanced emphysema and chronic parenchymal changes. No acute cardiopulmonary abnormality. CT chest April 2019 Thyroid: Imaged portions of the thyroid gland are normal in size and attenuation. Thoracic aorta: There is atherosclerotic calcification of the thoracic aorta, which is normal in caliber and demonstrates standard 3-vessel arch anatomy. Heart: The heart is normal in size and without pericardial effusion. The coronary arteries are densely calcified. Lungs and pleural spaces: Advanced exam is change is similar to previous. Scarring/fibrosis and volume loss in the right upper lobe is unchanged in the back to 2015. There is mild elevation of the right hemidiaphragm. Mild diffuse peribronchial thickening is observed. No airspace consolidation is seen typical for pneumonia and there is no pleural effusion. The trachea is clear. Scarlike densities in the left lower lobe and lingula are similar to prior studies and measure 2.1 cm and 0.8 cm as seen on image #120. Left lower lobe nodular densities seen on 04/05/2018 have resolved and were likely on an inflammatory basis. No new pulmonary lesion is seen. Mediastinum: There is moderate shift of mediastinum. There are scattered subcentimeter mediastinal lymph nodes. These are not pathologically enlarged by size criteria. Alia: Not well assessed without IV contrast. Axillae: There is no axillary lymphadenopathy. Upper abdomen: A 1.4 cm cyst is seen in the upper pole of the right kidney. Capsular calcification of the spleen is similar to previous. Skeletal structures: The skeletal structures are osteopenic. Numerous compression deformities are seen throughout the thoracic spine. No lytic or blastic bony lesions are seen. IMPRESSION: 1. Advanced emphysema. 2. Scarring/fibrosis in the right upper lobe and scarlike densities in the left lung are similar in appearance to prior studies. 3. New left lower lobe opacities identified on 04/05/2018 have resolved and were likely on an infectious/inflammatory basis. 4. No airspace consolidation or pleural effusion is identified. 5. Given advanced emphysema and history of pulmonary lesions this patient may be a candidate for low-dose CT lung cancer screening. 6. Additional findings as above.
[2019-12-06] MEDS: IPRATROPIUM BROMIDE NEB SOLN 0.02% 2.5 ML VIAL INH SCH ×3 (00:40→13:33)
[2019-12-06] MEDS: LEVALBUTEROL 1.25MG/0.5ML NEB INH SCH ×3 (00:40→13:33)
[2019-12-06 05:53] LABS: Hematocrit (blood only) 31.9 % (42-52); Hemoglobin 10.5 g/dL (14.0-18.0); Mean Corpuscular Hemoglobin 32.3 pg (25-34); Mean Corpuscular Hgb Conc 32.9 g/dL (32-36); Mean Corpuscular Volume 98.2 fL (80-100); Mean Platelet Volume 9.6 fL (7.4-10.4); Platelet Count 190 K/uL (130-400); RDW Standard Deviation 46.3 fL (36.4-46.3); Red Blood Count 3.25 M/uL (4.7-6.1); White Blood Count 7.36 K/uL (4.8-10.8)
[2019-12-06] MEDS ORDERED: ALBUTEROL HFA 8 GM INHALER INH PRN (06:15)
[2019-12-06 06:31] LABS: BUN Creatinine Ratio 28.5 (10-20); Creatinine Clr Calc Pharmacy 171.3 ml/min; Est GFR (African American) 147.4; Est GFR (Non-African American) 127.2; Potassium 3.8 mmol/L (3.5-5.1)
[2019-12-06] MEDS: FLUTICASONE/VILANTEROL 200/25MCG 14 PUFFS/INHALER INH SCH (08:26)
[2019-12-06] MEDS: ASPIRIN 81 MG ECTAB PO SCH (08:29)
[2019-12-06] MEDS: MULTIVITAMIN TAB PO SCH (08:30)
[2019-12-06] MEDS: TAMSULOSIN HCL 0.4 MG CAP PO SCH (08:30)
[2019-12-06] MEDS: PANTOprazole 40 MG TAB PO SCH (08:30)
[2019-12-06] MEDS: FLUTICASONE PROPIONATE NA SPR 16 GM BTL SCH (08:30)
[2019-12-06] MEDS: ENOXAPARIN INJ 30 MG/0.3 ML SYR SQ SCH (08:31)
[2019-12-06] MEDS: METOPROLOL SUCC 25MG EXT REL TAB PO SCH (08:31)
[2019-12-06] MEDS: CLOPIDOGREL BISULFATE 75 MG TAB PO SCH (08:31)
[2019-12-06] MEDS: ATORVASTATIN 20 MG TAB PO SCH (08:31)
[2019-12-06] MEDS: ISOSORBIDE MONO EXTENDED REL 60 MG TABCR PO SCH (08:32)
--- NOTE | 2019-12-06 09:38 | Hospitalist Progress Note ---
Date of Service December 06, 2019 Assessment & Plan (1) Hyponatremia: Recurrent episode Details leading to ER visit similar to last month - Na 135 today - Renal eval done, COPD component of Low Na, Nutrition Low Anion Gap - SPEP, UPEP, r/o Multiple Myeloma-Pending, Fluid restriction, Renal on case Hypomagnesemia - severe hypomagnesemia, on admission Mg level of 1.0 - recurrent problem, likely secondary to above (poor PO intake) - replete and monitor - Mag supplement on discharge Chronic respiratory failure secondary COPD/pulmonary hypertension on home O2, pulmonary status at baseline No exacerbation of lung disease as per patient account. Patient denies unusual cough, SOB symptoms. CAD status post stenting, cont. home medications PAF as per records, patient currently NSR Hypertension, currently stable Chronic anemia PT/OT DVT prophylaxis. Lovenox subcu Full code Labs checked DC home c Family when cleared, Mon or Thursday 12/07 or 12/08 ROS-No Headache, No Visual Changes, No Nausea, No Vomiting, No Fever, No Chills, No Neck Pain or Stiffness, No Chest Pain, No Palpitations, No SOB, No AHMADI, No Cough, No Sputum, No Wheezing, No Abdominal Pain, No Diarrhea, No Hematemesis, No Hemoptysis, No Unexpected Weight Loss, No Flank pain, No Melena, No Hematochezia, No Frequency, No Urgency, No Burning, No Hematuria, No Rashes, No Diaphoresis. Appetite is Normal Physical Exam Gen-AAO x 3, NAD, Afebrile, Weak Head-NCAT, EOMI, PERRLA, Anicteric Sclera, No Posterior Pharyngeal Erythema Neck-Supple, No JVD, No Thyromegaly, No Masses, No LAD, No Bruits Lungs-No Rales, No Rhonchi, + Wheezing, No Crepitus Chest-No S4, +S1, +S2, No S3, No Murmurs, No Rubs, No Gallops, No Ectopy Abdomen-Soft, Bowel Sounds Present, Non Tender, Non Distended, No Hepatomegaly, No Splenomegaly, No Palpable Masses, No Rebound, No Rigidity, No Guarding Musculoskeletal-Full Range of Motion Bilaterally, No CVAT Extremities-No Cyanosis, No Clubbing, No Edema Nuero-Cranial Nerves II-XII grossly intact, Motor WNL, DTRs WNL, Strength WNL, Non Focal Psych-Normal Mood Results & Data ([facility]) Vital Signs (Past 12 Hours) Vital Signs Temp Pulse Pulse Resp BP BP Pulse Ox 12/06/19 07:15 36.4 C L 78 20 150/86 H 97 12/06/19 05:40 79 16 99 12/06/19 02:40 36.5 C 81 22 136/82 100 12/06/19 00:40 76 20 97 12/06/19 00:11 80 12/05/19 22:24 36.4 C L 79 18 111/64 99
[2019-12-06 11:24] LABS: Creatinine Ur 63 mg/dL (20-320); Protein, Urine Random 8 mg/dL (5-25); Ur Protein/Creat Ratio mg/g 127 mg/g creat (22-128); Urine Abnormal Protein Band 1 DNR mg/dL (NONE DETECTED); Urine Abnormal Protein Band 2 DNR mg/dL (NONE DETECTED); Urine Abnormal Protein Band 3 DNR mg/dL (NONE DETECTED); Urine Protein/Creatinine Ratio 0.127 (0.022-0.128)
--- NOTE | 2019-12-06 13:37 | Nephrology Progress Note ---
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 Given his chronic hyponatremia, do not believe that a sodium of 127, his lowest value of this admission, would cause generalized weakness severe enough to cause hospital admission. It certainly could complicate weakness however from other causes. While in-house commend daily basic metabolic panel and maintaining potassium at about 4 -Would for now observe and try to avoid salt tablets, Lasix, fluid restriction if possible; when he is not receiving IV fluids, fluid intake generally less than 750 mL recorded; he does not need IV fluids to treat hyponatremia in the setting; they will in fact complicate matters -Discharge recommendations which I have updated in the discharge summary: Recommend Boost Breeze or Ensure Clear or similar dietary supplement bid w/ meals at discharge; recommend monthly basic metabolic panel x3 months which nephrology will order; if sodium consistently less than 130 on said labs, recommend evaluation in CKD clinic We will sign off; please call if questions Subjective No events overnight. Linsey with poor appetite but tolerating protein shakes to a degree. Denies worsening of chronic dyspnea; denies uncontrolled pain; denies nausea vomiting. No edema Review of Systems Review of Systems: All systems reviewed & are unremarkable except as noted in HPI & below Physical Exam Constitutional: well developed, well nourished, + cachectic and + frail appearing; no acute distress (on 02nc; tired) Eyes: EOM intact bilaterally ENMT: Ears: no external ear abnormality Nose: no external nose abnormality Mouth: + dry oral mucous membranes Neck: no nuchal rigidity Respiratory: + labored breathing and + paradoxical thoraco-abdominal movement; + not able to speak in complete sentence Auscultation: lungs clear to auscultation bilaterally and + diminished lung sounds Cardiovascular: RRR, no murmur, no edema (heart sounds distant) Gastrointestinal (Abdomen): Inspection/Auscultation: normal bowel sounds Percussion/Palpation: abdomen soft; abdomen nontender Musculoskeletal: Extremities: strength 5/5 throughout Skin: no rashes, warm and dry Neurologic: Moves all extremities, no tremor, hoarse speech which can be challenging to understand at times, unchanged from prior Psychiatric: Orientation: alert, oriented to person and oriented to place Affect: + flat affect Results & Data Vital Signs (Past 12 Hours) Vital Signs Temp Pulse Resp BP BP Pulse Ox 12/06/19 12:09 36.6 C 83 18 134/70 100 12/06/19 07:15 36.4 C L 78 20 150/86 H 97 12/06/19 05:40 79 16 99 12/06/19 02:40 36.5 C 81 22 136/82 100 Laboratory Results 12/06/19 05:29 12/06/19 05:29
[2019-12-06 13:39] LABS: Albumin 2.8 g/dL (3.8-4.8); Alpha 1 Globulin 0.3 g/dL (0.2-0.3); Alpha 2 Globulin 0.7 g/dL (0.5-0.9); Beta-1-Globulin 0.2 g/dL (0.4-0.6); Beta-2-Globulin 0.2 g/dL (0.2-0.5); Gamma Globulin 0.8 g/dL (0.8-1.7); Monoclonal Protein Band 1 0.5 g/dL (NONE DETECTED); Monoclonal Protein Band 2 DNR g/dL (NONE DETECTED); Monoclonal Protein Band 3 DNR g/dL (NONE DETECTED)
--- NOTE | 2019-12-06 13:40 | Discharge Summary ---
Date of Service December 06, 2019 Admission HPI Per Admitting Provider History obtained from patient and records. Medical history significant for chronic respiratory failure secondary COPD/pulmonary hypertension on home O2, CAD status post stenting, PAFib as per records, valvular heart disease (moderate MR/TR/aortic stenosis), hypertension, hyperlipidemia, past tobacco abuse, chronic anemia (baseline hemoglobin of 11 ). Recent confinement last month for hyponatremia, dehydration. Patient had generalized weakness 3 days [employer], shortness of breath somewhat worse than usual. Transient right-sided chest pain. No unusual cough symptoms. No known sick contacts. Poor appetite. Patient brought to the ER. Patient given Solu-Medrol and neb treatment for possible COPD exacerbation. MEDICAL HISTORY: As above. SURGICAL HISTORY: Cholecystectomy. FAMILY HISTORY: Heart disease. PERSONAL AND SOCIAL HISTORY: Past tobacco abuse, admits to intake of alcoholic beverages, although denies abuse. Admission Exam Per Admitting Provider GENERAL: Wane, chronically ill, slightly hard of hearing, covered in blankets, no respiratory distress, unkempt SKIN: Pallor , warm HEENT: Pale palpebral conjunctivae, no ptosis, dry buccal mucosa, nasal cannula in place NECK : Supple, no tenderness CHEST : Decreased breath sounds, no tenderness HEART : RRR, systolic murmur ABDOMEN: Soft, nontender EXTREMITIES : Minimal LE swelling, no LE tenderness, no other conspicuous deformities noted NEUROLOGIC : Coherent, slightly hard of hearing, no facial asymmetry, no other gross focality Principal Diagnosis Hyponatremia: Low Anion Gap Hypomagnesemia Chronic respiratory failure secondary COPD/pulmonary hypertension on home O2, pulmonary status at baseline CAD status post stenting, cont. home medications PAF as per records, patient currently NSR Hypertension, currently stable Chronic anemia Discharge Exam Physical Exam Gen-AAO x 3, NAD, Afebrile, weak, but maximized Head-NCAT, EOMI, PERRLA, Anicteric Sclera, No Posterior Pharyngeal Erythema Neck-Supple, No JVD, No Thyromegaly, No Masses, No LAD, No Bruits Lungs-Clear to Auscultation Bilaterally, No Rales, No Rhonchi, No Wheezing, No Crepitus Chest-No S4, +S1, +S2, No S3, No Murmurs, No Rubs, No Gallops, No Ectopy Abdomen-Soft, Bowel Sounds Present, Non Tender, Non Distended, No Hepatomegaly, No Splenomegaly, No Palpable Masses, No Rebound, No Rigidity, No Guarding Musculoskeletal-Full Range of Motion Bilaterally, No CVAT Extremities-No Cyanosis, No Clubbing, No Edema Nuero-Cranial Nerves II-XII grossly intact, Motor WNL, DTRs WNL, Strength WNL, Non Focal Psych-Normal Mood Discharge Data Allergies Allergy/AdvReac Type Severity Reaction Status Date / Time naproxen Allergy Unknown hives Verified 12/02/19 02:22 Consultations 12/02/19 05:29 Consult Case Management - Discharge Planning Routine 12/05/19 14:42 Consult Nephrology Routine Current Diagnoses Hypo-osmolality and hyponatremia (12/02/19) Allergies naproxen Allergy (Unknown, Verified 12/02/19 02:22) hives Height/Weight/Isolation Height 5 ft 9 in Weight 60 kg Chemistry 12/05/19 12/06/19 06:41 05:29 Sodium 133 L 135 L Potassium 4.0 3.8 Chloride 94 L 94 L Carbon Dioxide 37 H 39 H Anion Gap 2.0 L 2.0 L BUN 7 8 Creatinine 0.34 L 0.28 L Glucose 78 90 Hospital Course (1) Hyponatremia: Recurrent episode Details leading to ER visit similar to last month - Na 135 today - Renal eval done, COPD component of Low Na, Nutrition Low Anion Gap - SPEP, UPEP, r/o Multiple Myeloma-Pending, Fluid restriction, Renal on case, f/u in the office c Dr Marquez Hypomagnesemia - severe hypomagnesemia, on admission Mg level of 1.0 - recurrent problem, likely secondary to above (poor PO intake) - replete and monitor - Mag supplement on discharge Chronic respiratory failure secondary COPD/pulmonary hypertension on home O2, pulmonary status at baseline No exacerbation of lung disease as per patient account. Patient denies unusual cough, SOB symptoms. CAD status post stenting, cont. home medications PAF as per records, patient currently NSR Hypertension, currently stable Chronic anemia DC home c Family today Total Time Total Time Spent Total Time Spent (In Minutes): 45 mins Total Time Includes: Examination of the Patient, Discharge Planning, Medication Reconciliation and Communication With Other Providers Discharge Plan Discharge Items Patient Disposition: Home - Self-Care Reason For Visit: HYPONATREMIA Discharge Diagnosis: Hyponatremia: Low Anion Gap Hypomagnesemia Chronic respiratory failure secondary COPD/pulmonary hypertension on home O2, pulmonary status at baseline CAD status post stenting, cont. home medications PAF as per records, patient currently NSR Hypertension, currently stable Chronic anemia Condition on Discharge: Fair Activity: Resume your previous activity Lifting: None Bathing: No limitations Exercise/Sports: None Exercise Comment: ad bebe Driving/Machine Use: None Weightbearing: Full weightbearing Non-emergency contact: Primary Care Provider and Research Environmental Engineer Call non-emergency contact if: you have any medication questions Follow-up/Referrals: Reyes Pablo MD [Primary Care Provider] - 12/11/19 3:00 pm (made appt with Jeniffer at call center on 12/05/2019 @ 1723. jr) Ileana Marquez MD, PhD [Physician] - (2-3 weeks) Dietitian Info: Boost or Ensure 3 times per day between meals Diet: Low Sodium (2gm) Fluids: 1200ml (5 cups) Addtl Attending Provider Instructions: Meat Chicken Fish and vegetables Addtl Senior Mechanical Estimator Provider Instructions: -Recommend Boost Breeze or Ensure Clear twice daily with meals at discharge -recommend monthly basic metabolic panel x 3 months which nephrology will order -If serum sodium consistently less than 130 on said labs, recommend evaluation in nephrology clinic Pending Studies at Discharge: No Stand-Alone Forms: My [id number], Smoking Cessation Medications and DC Order Prescriptions: Continued lubiprostone 8 mcg Capsule 8 mcg PO BID RF: 0 hydrocodone-acetaminophen 7.5-325 mg tablet 1 tab PO Q6H PRN (Reason: Pain) RF: 0 metoprolol succinate 25 mg tablet extended release 24 hr 12.5 mg PO HS RF: 0 multivitamin Tablet 1 tab PO QAM RF: 0 fluticasone propion-salmeterol [Advair Diskus] 250-50 mcg/dose blister with device 1 puff Inhalation BID RF: 0 atorvastatin 20 mg tablet 20 mg PO QAM RF: 0 clopidogrel [Plavix] 75 mg tablet 75 mg PO QAM RF: 0 tamsulosin [Flomax] 0.4 mg capsule 0.4 mg PO QAM RF: 0 nitroglycerin [Nitrostat] 0.4 mg tablet, sublingual 0.4 mg Sublingual UD PRN (Reason: Chest Pain) RF: 0 metoprolol succinate [Toprol XL] 25 mg tablet extended release 24 hr 25 mg PO QAM RF: 0 polyethylene glycol 3350 [Miralax] 17 gram/dose powder 17 g PO DAILY PRN (Reason: Constipation) RF: 0 albuterol sulfate [Ventolin HFA] 90 mcg/actuation HFA aerosol inhaler 2 puff Inhalation Q6 PRN (Reason: Shortness Of Breath Or Wheezing) RF: 0 Combivent Respimat 20-100 mcg/actuation Mist 1 puff INHALATION QID RF: 0 aspirin [Aspir-81] 81 mg Tablet,Delayed Release (Dr/Ec) 81 mg PO QAM RF: 0 omeprazole 20 mg Capsule,Delayed Release(Dr/Ec) 20 mg PO QAM RF: 0 levalbuterol HCl 1.25 mg/3 mL solution for nebulization 3 ml Inhalation QID PRN (Reason: Shortness Of Breath) RF: 0 isosorbide mononitrate 20 mg Tablet 60 mg PO BID RF: 0 acetaminophen 500 mg Tablet 1,000 mg PO UD PRN (Reason: Pain) RF: 0 fluticasone propionate [Flonase Allergy Relief] 50 mcg/actuation [place],Suspension 1 spray INTRANASAL QAM RF: 0 Discontinued Allergy Medications 2 tab PO UD RF: 0 Discharge Orders: Discharge Order (Routine); Ordered 12/06/19 Ordered By: Julio Law Admission Data Admit Date/Time: 12/02/19 04:38 Attending Provider: Julio Law Admit Provider: Jem Quintero Primary Care Provider: Reyes Pablo Other Providers: Ileana Marquez
[2019-12-09 06:54] LABS: Albumin 2.7 g/dL (3.8-4.8); Alpha 1 Globulin 0.3 g/dL (0.2-0.3); Alpha 2 Globulin 0.7 g/dL (0.5-0.9); Beta-1-Globulin 0.2 g/dL (0.4-0.6); Beta-2-Globulin 0.2 g/dL (0.2-0.5); Gamma Globulin 0.8 g/dL (0.8-1.7); Monoclonal Protein Band 1 0.5 g/dL (NONE DETECTED); Monoclonal Protein Band 2 DNR g/dL (NONE DETECTED); Monoclonal Protein Band 3 DNR g/dL (NONE DETECTED)
== END 2019-12-06 17:31 | disposition home or self-care (01) | DRG 641 ==
LOC: ED 02:07 → SUATTDRO 04:38 → 2N 04:38

== ENCOUNTER 2020-01-07 10:36 | Inpatient (IN) ==
[2020-01-07] MEDS ORDERED: ALBUT/IPRATROP 3MG/0.5MG NEB 3 ML VIAL INH STA (10:55)
[2020-01-07] MEDS ORDERED: methylPREDNISolone 125 MG/2 ML VIAL IV STA (10:55)
[2020-01-07] MEDS ORDERED: MAGNESIUM SULFATE / D5W 1 GM/100 ML BAG IV ONE ×2 (10:55→15:45)
[2020-01-07 11:12] LABS: Basophils # (auto) 0.02 K/uL (0-0.2); Basophils % (auto) 0.3 %; Eosinophils % (auto) 1.5 %; Hematocrit (blood only) 33.6 % (42-52); Hemoglobin 10.6 g/dL (14.0-18.0); Immature Granulocytes % (auto) 1.5 %; Lymphocytes # (auto) 1.48 K/uL (1.2-3.4); Lymphocytes % (auto) 21.8 %; Mean Corpuscular Hgb Conc 31.5 g/dL (32-36); Mean Corpuscular Volume 101.5 fL (80-100); Mean Platelet Volume 10.9 fL (7.4-10.4); Monocytes % (auto) 7.4 %; Neutrophils # (auto) 4.58 K/uL (1.4-6.5); Neutrophils % (auto) 67.5 %; Platelet Count 178 K/uL (130-400); RDW Coefficient of Variation 13.8 % (11.5-14.5); RDW Standard Deviation 50.6 fL (36.4-46.3); Red Blood Count 3.31 M/uL (4.7-6.1); White Blood Count 6.78 K/uL (4.8-10.8)
--- NOTE | 2020-01-07 11:21 | XRay Report ---
XR chest 1V portable CLINICAL HISTORY: Dyspnea dyspnea COMPARISON STUDY: 12/02/2019 FINDINGS: Unchanged pleural thickening and parenchymal scarring of the right upper lung. Components o f emphysematous change persists. There is slight increase in parenchymal markings of the right lung base. Left lung remains clear. IMPRESSION: 1. Potential early infiltrative process right lung base. 2. Chronic emphysematous/pleural and parenchymal scarring right apex. ACT 112: Negative or not required by law. The above report was generated using voice recognition software. It may contain grammatical, syntax or spelling errors. Electronically signed by: Silvio Pace M.D. 01/07/2020 11:20 AM
[2020-01-07 11:25] LABS: INR 1.2 (0.9-1.1); Partial Thromboplastin Ratio 0.9; Partial Thromboplastin Time 26.1 Seconds (21.0-31.0); Prothrombin Time 12.6 Seconds (9.0-12.0)
[2020-01-07 11:26] LABS: Base Excess VBG 9.5 mEq/L; HCO3 VBG 37 mmol/L; PCO2 VBG 64 mmHg (38-50); PO2 VBG 33 mmHg; pH VBG 7.37 (7.36-7.41)
[2020-01-07 11:28] LABS: Alanine Aminotransferase 30 U/L (12-78); Albumin Level 2.8 gm/dl (3.4-5.0); Aspartate Aminotransferase 28 U/L (15-37); BUN Creatinine Ratio 20.7 (10-20); Blood Urea Nitrogen 11 mg/dl (7-18); Carbon Dioxide 34 mmol/L (21-32); Chloride 100 mmol/L (98-107); Est GFR (African American) 114.3; Est GFR (Non-African American) 98.6; Glucose 82 mg/dl (70-99); Potassium 3.5 mmol/L (3.5-5.1); Sodium 139 mmol/L (136-145)
[2020-01-07 11:57] LABS: Oxygen Saturation VBG < 60.0 %
[2020-01-07 12:00] LABS: Alkaline Phosphatase 69 U/L (45-117); Bilirubin,Total 0.5 mg/dl (0.2-1); Globulin 2.8 gm/dl (2.5-4.0); NT Pro B Type Natriuretic Pept 1635 pg/ml (0-1800); Total Protein 5.6 gm/dl (6.4-8.2); Troponin I < 0.015 ng/ml (0-0.045)
[2020-01-07 12:06] LABS: Influenza A virus by PCR Neg for Influ A (Neg); Influenza B virus by PCR Neg for Influ B (Neg)
[2020-01-07] MEDS ORDERED: CALCIUM CARBONATE 500 MG CHEWABLE TAB PO STA (12:10)
[2020-01-07] MEDS ORDERED: SODIUM CHLORIDE 0.9% 1000ML 500 ML IV ONE (12:17)
[2020-01-07] MEDS ORDERED: METOPROLOL TARTRATE 1 MG/ML VIAL IV STA (13:00)
--- NOTE | 2020-01-07 13:07 | Emergency Department Note ---
Entered by Bryan Verdugo acting as a scribe for History of Present Illness General Chief complaint: Respiratory Distress Stated complaint: breathing diff. Time Seen by Provider: 01/07/20 10:42 Source: patient Limitations: no limitations History of Present Illness Onset (ago): hour(s) (last night) Location: chest Pain Consistency: + constant Relieved By: + none Exacerbated By: + none Associated symptoms: + cough The patient is a 84 year-old white male w/ PMHx chronic hyponatremia, hypomagnesemia, CAD, COPD, HTN who presents to the ED w/ CC of SOB beginning last night. The patient states nothing makes his SOB better or worse. He states he has an intermittent cough. He notes he does not smoke. EMS states the patient wears 2 L oxygen at all times. Home Medications Home Medications Medication Instructions Recorded Confirmed Type Combivent Respimat 1 puff INHALATION QID 08/28/18 01/07/20 History albuterol sulfate [Ventolin HFA] 2 puff INHALATION Q6 PRN 08/28/18 01/07/20 History atorvastatin 20 mg PO QAM 08/28/18 01/07/20 History clopidogrel [Plavix] 75 mg PO QAM 08/28/18 01/07/20 History fluticasone propion-salmeterol 1 puff INHALATION BID 08/28/18 01/07/20 History [Advair Diskus] metoprolol succinate [Toprol XL] 25 mg PO QAM 08/28/18 01/07/20 History multivitamin 1 tab PO QAM 08/28/18 01/07/20 History nitroglycerin [Nitrostat] 0.4 mg SUBLINGUAL UD PRN 08/28/18 01/07/20 History polyethylene glycol 3350 [Miralax] 17 g PO DAILY PRN 08/28/18 01/07/20 History tamsulosin [Flomax] 0.4 mg PO QAM 08/28/18 01/07/20 History aspirin [Aspir-81] 81 mg PO QAM 10/20/18 01/07/20 History isosorbide mononitrate 60 mg PO BID 10/20/18 01/07/20 History omeprazole 20 mg PO QAM 10/20/18 01/07/20 History hydrocodone-acetaminophen 1 tab PO Q6H PRN 10/10/19 01/07/20 History metoprolol succinate 12.5 mg PO HS 10/10/19 01/07/20 History fluticasone propionate [Flonase 1 spray INTRANASAL QAM 10/31/19 01/07/20 History Allergy Relief] amlodipine 2.5 mg PO QAM 01/07/20 01/07/20 History trazodone 50 mg PO HS 01/07/20 01/07/20 History Allergies Allergy/AdvReac Type Severity Reaction Status Date / Time naproxen Allergy Unknown hives Verified 01/07/20 11:16 Past Med/Surg History Medical History Bifascicular block BPH (benign prostatic hyperplasia) CAD (coronary artery disease) PCI to LAD, CATALINO to OM 2014-failed PCI to heavily calcified LAD Chronic hyponatremia COPD (chronic obstructive pulmonary disease) (Acute) Hyperlipidemia Paroxysmal atrial fibrillation Renal artery stenosis Tobacco abuse (Inactive) Surgical History History of cholecystectomy History of coronary artery stent placement Family History Mother Diabetes Social History Preferred Language: Malawian Communication Ability: Effective Information Security Risk Analyst Required: No Beliefs That Will Affect Care: None marital status: Single Current Living Situation: Alone Other Information That Helps Us Care for You: No Feels Safe at Home: Yes Safety Concerns: Feels Safe At This Time Smoking Status: Never smoker Tobacco Type: cigarettes ; Cigarettes Per Day: 30 ; Second Hand Exposure: No ; Hx Alcohol Use: No Hx Substance Use: No Review of Systems See HPI for pertinent positives & negatives. and A total of 10 systems reviewed and were otherwise negative Physical Exam Vital Signs Vital Signs - 24 hr 01/07/20 10:45 01/07/20 11:30 01/07/20 12:31 Temperature 36.5 C Temperature Source Oral Pulse Rate 126 H Pulse Rate [Apical] 110 H 164 H Respiratory Rate 24 22 16 Respiratory Effort / Characteristics Non-Labored Spontaneous Blood Pressure 117/78 Blood Pressure [Right Arm] 107/60 Blood Pressure Mean 91 Blood Pressure Mean [Right Arm] 75 Pulse Oximetry 97 95 Oxygen Delivery Method Oxymask Oxymask Oxymask Oxygen Flow Rate 3 4 Fraction of Inspired Oxygen 2 SaO2/FiO2 Ratio 4750 Sepsis Recent Fever Within 48 Hours No Sepsis Action Taken by Nursing No Action Required GENERAL: Mildly ill in appearance. Moderate distress. EYE EXAM: Normal conjunctiva. PERRL, no anisocoria and EOM's grossly intact w/o pain. OROPHARYNX: Dry mucus membranes. Edentulous. NECK: Supple, no nuchal rigidity, no adenopathy, non-tender. no signs of meni ngismus. LUNGS: Clear to auscultation. Normal chest wall mechanics. Wheezes throughout. Shallow breathing. HEART: NSR, no MRG. ABDOMEN: Abdomen soft, non-tender, normo-active bowel sounds, no masses, no rebound or guarding. BACK: No CVA TTP. SKIN: Small areas of bruising over lower abdomen w/o pain or bleeding. Skin peeling over chest and lower extremities. Blanching and non confluent macular rash. No blisters or bullae. UPPER EXTREMITIES: Upper extremities are grossly normal. LOWER EXTREMITIES: No calf pain. 1-2+ pedal edema bilaterally. NEURO EXAM: A&O x3, cranial nerves II-XII grossly intact, normal speech, moves all 4 extremities on command w/o issue. Generalized weakness in all 4 ex tremities. No focal deficit. Course Course 1048: The patient was evaluated in room B7, and a complete history and physical examination were performed. 1125: The patient is 97% on 3 L oxygen. We will continue to titrate the patient down. 1142: I looked at the patient's cardiology consult from Dr. Martin. The patient is not on anticoagulation therapy because he is on aspirin/Plavix. He was taken off amiodarone because of worsening SOB. 1216: I discussed the patient's case with Dr. Chen [facility] Hospitalist. He will evaluate the patient for further management. Administered Medications Discontinued Medications Albuterol (Duoneb) 12 ml INH ONE STA Stop: 01/07/20 10:56 Last Admin: 01/07/20 11:26 Dose: 12 ml Documented by: [id number] Magnesium Sulfate/Dextrose (Magnesium Sulfate / D5w) 1 gm in 100 mls @ 100 mls/hr IV ONE ONE Stop: 01/07/20 11:54 Last Infusion: 01/07/20 12:29 Dose: 0 mls/hr Documented by: [id number] Admin: 01/07/20 11:21 Dose: 100 mls/hr Documented by: [id number] Sodium Chloride (Nss 1000ml) 500 mls @ 999 mls/hr IV .Q31M ONE Stop: 01/07/20 12:47 Last Infusion: 01/07/20 12:57 Dose: 0 mls/hr Documented by: [id number] Admin: 01/07/20 12:23 Dose: 999 mls/hr Documented by: [id number] Methylprednisolone (Solumedrol) 60 mg IV NOW STA Stop: 01/07/20 10:56 Last Admin: 01/07/20 11:51 Dose: Not Given Documented by: [id number] Medical Decision Making Differential Diagnosis Differential diagnoses includes but is not limited to pneumonia, bronchitis, COPD/Asthma exacerbation, pneumothorax, pulmonary embolism, congestive heart failure, acute coronary syndrome Medical Records Attestation: I reviewed the patient's medical records. Home Medications Current Medication List: was personally reviewed by me Laboratory Data Attestation: I reviewed the patient's lab results. Result diagrams: 01/07/20 10:40 01/07/20 10:40 Lab Results 01/07/20 01/07/20 01/07/20 Range/Units 10:40 10:40 10:40 WBC 6.78 (4.8-10.8) K/uL RBC 3.31 L (4.7-6.1) M/uL Hgb 10.6 L (14.0-18.0) g/dL Hct 33.6 L (42-52) % MCV 101.5 H (80-100) fL MCH 32.0 (25-34) pg MCHC 31.5 L (32-36) g/dL RDW Std Deviation 50.6 H (36.4-46.3) fL RDW Coeff of Barry 13.8 (11.5-14.5) % Plt Count 178 (130-400) K/uL MPV 10.9 H (7.4-10.4) fL Immature Gran % (Auto) 1.5 % Neut % (Auto) 67.5 % Lymph % (Auto) 21.8 % [place] % (Auto) 7.4 % Eos % (Auto) 1.5 % Baso % (Auto) 0.3 % Immature Gran # (Auto) 0.10 H (0.00-0.02) K/uL Neut # (Auto) 4.58 (1.4-6.5) K/uL Lymph # (Auto) 1.48 (1.2-3.4) K/uL [place] # (Auto) 0.50 (0.11-0.59) K/uL Eos # (Auto) 0.10 (0-0.5) K/uL Baso # (Auto) 0.02 (0-0.2) K/uL PT 12.6 H (9.0-12.0) Seconds INR 1.2 H (0.9-1.1) APTT 26.1 (21.0-31.0) Seconds PTT Ratio 0.9 VBG pH (7.36-7.41) VBG pCO2 (38-50) mmHg VBG pO2 mmHg VBG HCO3 mmol/L VBG O2 Saturation % VBG Base Excess mEq/L Barometric Pressure mm/Hg Sodium 139 (136-145) mmol/L Potassium 3.5 (3.5-5.1) mmol/L Chloride 100 (98-107) mmol/L Carbon Dioxide 34 H (21-32) mmol/L Anion Gap 5.0 (3-11) BUN 11 (7-18) mg/dl Creatinine 0.52 L (0.6-1.4) mg/dl Est Cr Clr Drug Dosing Not Reportable Est GFR ( Amer) 114.3 Est GFR (Non-Af Amer) 98.6 BUN/Creatinine Ratio 20.7 H (10-20) Glucose 82 (70-99) mg/dl Calcium 8.0 L (8.5-10.1) mg/dl Magnesium 1.0 L (1.8-2.4) mg/dl Total Bilirubin 0.5 (0.2-1) mg/dl AST 28 (15-37) U/L ALT 30 (12-78) U/L Alkaline Phosphatase 69 (45-117) U/L Troponin I < 0.015 (0-0.045) ng/ml NT-Pro-B Natriuret Pep 1635 (0-1800) pg/ml Total Protein 5.6 L (6.4-8.2) gm/dl Albumin 2.8 L (3.4-5.0) gm/dl Globulin 2.8 (2.5-4.0) gm/dl Albumin/Globulin Ratio 1.0 (0.9-2) Influenza Type A (PCR) (Neg) Influenza Type B (PCR) (Neg) 01/07/20 01/07/20 Range/Units 11:11 11:20 WBC (4.8-10.8) K/uL RBC (4.7-6.1) M/uL Hgb (14.0-18.0) g/dL Hct (42-52) % MCV (80-100) fL MCH (25-34) pg MCHC (32-36) g/dL RDW Std Deviation (36.4-46.3) fL RDW Coeff of Barry (11.5-14.5) % Plt Count (130-400) K/uL MPV (7.4-10.4) fL Immature Gran % (Auto) % Neut % (Auto) % Lymph % (Auto) % [place] % (Auto) % Eos % (Auto) % Baso % (Auto) % Immature Gran # (Auto) (0.00-0.02) K/uL Neut # (Auto) (1.4-6.5) K/uL Lymph # (Auto) (1.2-3.4) K/uL [place] # (Auto) (0.11-0.59) K/uL Eos # (Auto) (0-0.5) K/uL Baso # (Auto) (0-0.2) K/uL PT (9.0-12.0) Seconds INR (0.9-1.1) APTT (21.0-31.0) Seconds PTT Ratio VBG pH 7.37 (7.36-7.41) VBG pCO2 64 H (38-50) mmHg VBG pO2 33 mmHg VBG HCO3 37 mmol/L VBG O2 Saturation < 60.0 % VBG Base Excess 9.5 mEq/L Barometric Pressure 731.5 mm/Hg Sodium (136-145) mmol/L Potassium (3.5-5.1) mmol/L Chloride (98-107) mmol/L Carbon Dioxide (21-32) mmol/L Anion Gap (3-11) BUN (7-18) mg/dl Creatinine (0.6-1.4) mg/dl Est Cr Clr Drug Dosing Est GFR ( Amer) Est GFR (Non-Af Amer) BUN/Creatinine Ratio (10-20) Glucose (70-99) mg/dl Calcium (8.5-10.1) mg/dl Magnesium (1.8-2.4) mg/dl Total Bilirubin (0.2-1) mg/dl AST (15-37) U/L ALT (12-78) U/L Alkaline Phosphatase (45-117) U/L Troponin I (0-0.045) ng/ml NT-Pro-B Natriuret Pep (0-1800) pg/ml Total Protein (6.4-8.2) gm/dl Albumin (3.4-5.0) gm/dl Globulin (2.5-4.0) gm/dl Albumin/Globulin Ratio (0.9-2) Influenza Type A (PCR) Neg for Influ A (Neg) Influenza Type B (PCR) Neg for Influ B (Neg) Imaging Data Radiologist's Impression: Radiology results as stated below per my review and the radiologist's interpretation: XR chest 1V portable CLINICAL HISTORY: Dyspnea dyspnea COMPARISON STUDY: 12/02/2019 FINDINGS: Unchanged pleural thickening and parenchymal scarring of the right upper lung. Components of emphysematous change persists. There is slight increase in parenchymal markings of the right lung base. Left lung remains clear. IMPRESSION: 1. Potential early infiltrative process right lung base. 2. Chronic emphysematous/pleural and parenchymal scarring right apex. ACT 112: Negative or not required by law. The above report was generated using voice recognition software. It may contain grammatical, syntax or spelling errors. Electronically signed by: Silvio Pace M.D. 01/07/2020 11:20 AM ECG Data Attestation: I personally reviewed and interpreted this ECG as follows: Indication: + SOB/dyspnea Rate (beats per minute): 115 Rhythm: + atrial fibrillation (with RVR) ECG Intervals/blocks: + Right Bundle branch block ECG [place]: + Left axis deviation ECG ST segments: no ST depression and no ST elevation ECG Findings: + Other (Wide QRS) Comparison ECG Date: from (12/02/19) Change: the following changes noted (rate and rhythm has changed) Blood Pressure Blood Pressure Findings: Elevated blood pressure Blood Pressure Disposition: further management by hospitalist IRAJ Narrative The patient is a 84 year-old white male w/ PMHx chronic hyponatremia, hypomagnesemia, CAD, COPD, HTN who presents to the ED w/ CC of SOB beginning last night. Continuous Cardiac Monitoring: An order was placed for continuous cardiac monitoring. The monitor shows a rate of 110 with atrial fibrillation rhythm. Patient was seen and evaluated the bedside. There was notable concern for confusion as well as respiratory problems. The patient does live by himself. The patient does have A. fib with RVR. The patient does have issues with paroxysmal A. fib. I did review a cardiology consult note which stated the patient had been on amiodarone but was discontinued due to shortness of breath. The patient is currently on dual antiplatelet therapy so no additional anticoagulation at this time per previous cardiology note. The patient was initially on an oxygen mask. The patient was down titrated. The patient does have chronic CO2 retention but a relatively normal VBG. Patient I believe is somewhat dry as additional fluids were given after he was given neb treatments and magnesium. The patient did receive steroids and nebs in route. I did speak the on-call hospitalist who agreed to further evaluate treat the patient. Patient was admitted to the medicine service. Antibiotics deferred at this time given the patient has not had a productive cough with a normal white count and currently no change in oxygen requirement as he has returned to his baseline oxygen use. Impression & Plan COPD exacerbation, Paroxysmal A-fib, Hypomagnesemia, Anemia, Hypocalcemia, SOB (shortness of breath) Discharge Plan Visit Data Chief Complaint: Respiratory Distress Stated Complaint: breathing diff. ED Provider: Kennedy Ornelas Discharge Problem: COPD exacerbation, Paroxysmal A-fib, Hypomagnesemia, Anemia, Hypocalcemia, SOB (shortness of breath) Patient Disposition: Being Evaluated by Hospitalist Forms Stand Alone Forms: My [facility] Prescriptions Prescriptions: No Action hydrocodone-acetaminophen 7.5-325 mg tablet 1 tab PO Q6H PRN (Reason: Pain) RF: 0 metoprolol succinate 25 mg tablet extended release 24 hr 12.5 mg PO HS RF: 0 multivitamin Tablet 1 tab PO QAM RF: 0 fluticasone propion-salmeterol [Advair Diskus] 250-50 mcg/dose blister with device 1 puff Inhalation BID RF: 0 atorvastatin 20 mg tablet 20 mg PO QAM RF: 0 clopidogrel [Plavix] 75 mg tablet 75 mg PO QAM RF: 0 tamsulosin [Flomax] 0.4 mg capsule 0.4 mg PO QAM RF: 0 nitroglycerin [Nitrostat] 0.4 mg tablet, sublingual 0.4 mg Sublingual UD PRN (Reason: Chest Pain) RF: 0 metoprolol succinate [Toprol XL] 25 mg tablet extended release 24 hr 25 mg PO QAM RF: 0 polyethylene glycol 3350 [Miralax] 17 gram/dose powder 17 g PO DAILY PRN (Reason: Constipation) RF: 0 albuterol sulfate [Ventolin HFA] 90 mcg/actuation HFA aerosol inhaler 2 puff Inhalation Q6 PRN (Reason: Shortness Of Breath Or Wheezing) RF: 0 Combivent Respimat 20-100 mcg/actuation Mist 1 puff INHALATION QID RF: 0 aspirin [Aspir-81] 81 mg Tablet,Delayed Release (Dr/Ec) 81 mg PO QAM RF: 0 omeprazole 20 mg Capsule,Delayed Release(Dr/Ec) 20 mg PO QAM RF: 0 isosorbide mononitrate 20 mg Tablet 60 mg PO BID RF: 0 fluticasone propionate [Flonase Allergy Relief] 50 mcg/actuation [place],Suspension 1 spray INTRANASAL QAM RF: 0 trazodone 50 mg tablet 50 mg PO HS RF: 0 amlodipine 5 mg tablet 2.5 mg PO QAM RF: 0 Referrals Referrals: Reyes Pablo MD [Primary Care Provider] - Discharge Problem: Anemia Qualifiers: Anemia type: unspecified type Qualified Code(s): D64.9 - Anemia, unspecified The scribe's documentation has been prepared under my direction and personally reviewed by me in its entirety. I confirm that the note above accurately reflects all work, treatment, procedures, and medical decision making performed by me.
--- NOTE | 2020-01-07 13:21 | History & Physical Report ---
Date of Service January 07, 2020 Assessment & Plan (1) COPD exacerbation: Has COPD on home oxygen 2 L continuously Noted to have increasing shortness of breath with wheezing and cough Noted to have developing right lower lobe infiltrate Will start IV doxycycline and ceftriaxone Nebulized bronchodilator, steroid and oxygen (2) Atrial fibrillation with RVR: History of paroxysmal atrial fibrillation Not on any anticoagulation as per instructional interventionist and has been on aspirin and Plavix for CAD Rate is controlled with beta-jan as an outpatient We will continue current medications If the rate is not controlled we can add digoxin He was on amiodarone before but that was taken off due to increasing pulmonary symptoms (3) Electrolyte imbalance: Has had electrolyte imbalance before especially with chronic hyponatremia Noted to have hypomagnesemia, hypocalcemia and hypokalemia We will replace and monitor Will check phosphate level (4) Weakness: Has been almost bedbound Requires help with ADLs Lives alone with home health nurse helping (5) CAD (coronary artery disease): CAD with history of PCI in LAD and CATALINO to OS Has not been complaining any chest pain Has A. fib with RVR We will continue current medications (6) Hypertension: BP is controlled (7) HLD (hyperlipidemia): Continue statin DVT prophylaxis Subcu heparin CODE STATUS Discussed with the patient Full code as per prior records We will need to talk to POA Try to call his sister but did not get any reply History of Present Illness Chief Complaint: Increasing shortness of breath with palpitation Primary Care Provider: Reyes Pablo MD He is an 84-year-old male with significant past medical history including COPD on 2 L oxygen at home, CAD, PAF, hypertension , hyperlipidemia and poor functional capacity was brought in from home with increasing shortness of breath for the last few days. He has cough without any productive phlegm and he denies any fever and/or chills. He has wheezing and requiring more oxygen in the emergency room to maintain saturation. He denies any chest pain but did complain of palpitation. Denies any abdominal pain nausea and/or vomiting and denies any increasing swelling of the legs. He has generalized weakness and he requires help with ADLs. He was noted to have A. fib with RVR in the emergency room, chest x-ray did show possible developing right lower lobe infiltration without any increase in white count and no fever and chills. He was given nebulized bronchodilator, steroid and antibiotic and will be admitted to telemetry unit for continuation of care. Allergies Allergy/AdvReac Type Severity Reaction Status Date / Time naproxen Allergy Unknown hives Verified 01/07/20 11:16 Home Medications Home Medications Medication Instructions Recorded Confirmed Type Combivent Respimat 1 puff INHALATION QID 08/28/18 01/07/20 History albuterol sulfate [Ventolin HFA] 2 puff INHALATION Q6 PRN 08/28/18 01/07/20 History atorvastatin 20 mg PO QAM 08/28/18 01/07/20 History clopidogrel [Plavix] 75 mg PO QAM 08/28/18 01/07/20 History fluticasone propion-salmeterol 1 puff INHALATION BID 08/28/18 01/07/20 History [Advair Diskus] metoprolol succinate [Toprol XL] 25 mg PO QAM 08/28/18 01/07/20 History multivitamin 1 tab PO QAM 08/28/18 01/07/20 History nitroglycerin [Nitrostat] 0.4 mg SUBLINGUAL UD PRN 08/28/18 01/07/20 History polyethylene glycol 3350 [Miralax] 17 g PO DAILY PRN 08/28/18 01/07/20 History tamsulosin [Flomax] 0.4 mg PO QAM 08/28/18 01/07/20 History aspirin [Aspir-81] 81 mg PO QAM 10/20/18 01/07/20 History isosorbide mononitrate 60 mg PO BID 10/20/18 01/07/20 History omeprazole 20 mg PO QAM 10/20/18 01/07/20 History hydrocodone-acetaminophen 1 tab PO Q6H PRN 10/10/19 01/07/20 History metoprolol succinate 12.5 mg PO HS 10/10/19 01/07/20 History fluticasone propionate [Flonase 1 spray INTRANASAL QAM 10/31/19 01/07/20 History Allergy Relief] amlodipine 2.5 mg PO QAM 01/07/20 01/07/20 History trazodone 50 mg PO HS 01/07/20 01/07/20 History Past Med/Surg History Medical History Bifascicular block BPH (benign prostatic hyperplasia) CAD (coronary artery disease) PCI to LAD, CATALINO to OM 2015-failed PCI to heavily calcified LAD Chronic hyponatremia COPD (chronic obstructive pulmonary disease) (Acute) Hyperlipidemia Paroxysmal atrial fibrillation Renal artery stenosis Tobacco abuse (Inactive) Surgical History History of cholecystectomy History of coronary artery stent placement Family History Mother Diabetes Social History Preferred Language: Welsh Communication Ability: Effective Supervisor Cabinetmaker Required: No Beliefs That Will Affect Care: None marital status: Single Current Living Situation: Alone Other Information That Helps Us Care for You: No Feels Safe at Home: Yes Safety Concerns: Feels Safe At This Time Smoking Status: Never smoker Tobacco Type: cigarettes ; Cigarettes Per Day: 30 ; Second Hand Exposure: No ; Hx Alcohol Use: No Hx Substance Use: No Review of Systems Review of Systems: All systems reviewed & are unremarkable except as noted in HPI & below Physical Exam Physical Exam: Lying in bed with moderate shortness of breath and wheezing Constitutional: + acute distress (Shortness of breath and palpitation), + ill appearing and + thin Eyes: PERRL, conjunctivae normal, anicteric sclerae ENMT: external ear and nose normal, oropharynx normal Neck: trachea midline, no thyromegaly Respiratory: + respiratory distress (Moderate shortness of breath at rest ) and + uses accessory muscles Auscultation: + diminished lung sounds, + crackles (At the bases more on the right) and + wheezes (Mild wheezing all over) Cardiovascular: Rate/Rhythm: + tachycardic; + abnormal rate and + abnormal rhythm Heart Sounds: no murmur Extremities: + edema (Bilateral leg edema +1) Gastrointestinal (Abdomen): Inspection/Auscultation: abdomen normal to inspection and normal bowel sounds Percussion/Palpation: abdomen soft; abdomen nontender Musculoskeletal: No acute arthritis in any joint Skin: Has dry skin with scales especially in the extremities Neurologic: Alert and awake. Generally weak and lethargic. Grossly no focal weakness. Lymphatic: no cervical or axillary lymphadenopathy Results & Data Vital Signs (Past 12 Hours) Vital Signs Temp Pulse Pulse Resp BP BP Pulse Ox 01/07/20 12:31 164 H 16 107/60 95 01/07/20 11:30 110 H 22 01/07/20 10:45 36.5 C 126 H 24 117/78 97 Laboratory Results Short CBC 01/07/20 Range/Units 10:40 WBC 6.78 (4.8-10.8) K/uL Hgb 10.6 L (14.0-18.0) g/dL Hct 33.6 L (42-52) % Plt Count 178 (130-400) K/uL BMP 01/07/20 10:40 Sodium 139 Potassium 3.5 Chloride 100 Carbon Dioxide 34 H BUN 11 Creatinine 0.52 L Glucose 82 Calcium 8.0 L Cardiac Enzymes 01/07/20 Range/Units 10:40 Troponin I < 0.015 (0-0.045) ng/ml Liver Function 01/07/20 Range/Units 10:40 Total Bilirubin 0.5 (0.2-1) mg/dl AST 28 (15-37) U/L ALT 30 (12-78) U/L Alkaline Phosphatase 69 (45-117) U/L Albumin 2.8 L (3.4-5.0) gm/dl Medications Administered Current Inpatient Medications Heparin Sodium (Porcine) (Heparin Sodium (Porcine)) 5,000 units SQ Q12 ESAU Stop: 02/06/20 20:59 Potassium Chloride (K Nick / Wtr) 10 meq in 100 mls @ 100 mls/hr IV Q1H STA Stop: 01/07/20 13:48 Metoprolol Tartrate (Lopressor) 2.5 mg IV NOW STA Stop: 01/07/20 13:01 Code Status & VTE Plan VTE Prophylaxis Plan VTE Prophylaxis will be ordered: Yes
[2020-01-07] MEDS ORDERED: METOPROLOL TARTRATE 1 MG/ML VIAL IV ONE (13:25)
[2020-01-07] MEDS ORDERED: POLYETHYLENE (MIRALAX) 17 GM PACK PO PRN (14:56)
[2020-01-07] MEDS ORDERED: ALBUTEROL HFA 8 GM INHALER INH PRN (14:56)
[2020-01-07] MEDS ORDERED: NITROGLYCERIN SL 0.4 MG/TAB TAB SL PRN (14:56)
[2020-01-07] MEDS ORDERED: METOPROLOL TARTRATE 1 MG/ML VIAL IV PRN (15:12)
[2020-01-07] MEDS: cefTRIAXone SODIUM 2,000 MG in DEXTROSE 5% 50 ML IV SCH (15:27)
[2020-01-07] MEDS: methylPREDNISolone 40 MG in SYRINGE 0 ML IV SCH ×2 (15:27→21:06)
--- NOTE | 2020-01-07 15:29 | Electrocardiogram Report ---
Test Reason : Blood Pressure : / mmHG Vent. Rate : 115 BPM Atrial Rate : 141 BPM P-R Int : 000 ms QRS Dur : 130 ms QT Int : 348 ms P-R-T Axes : 000 -76 054 degrees QTc Int : 481 ms Atrial fibrillation with rapid ventricular response Left axis deviation Right bundle branch block Abnormal ECG When compared with ECG of 07-JAN-2020 10:48, (unconfirmed) No significant change was found Confirmed by Eloy Padron ([id number]) on 01/07/2020 3:28:47 PM Referred By: ER Confirmed By:Eloy Padron
[2020-01-07] MEDS: POTASSIUM CHLORIDE / WTR 10 MEQ/100 ML PLCT IV SCH ×2 (16:14→17:25)
[2020-01-07] MEDS ORDERED: DIGOXIN 125 MCG in SYRINGE 9.5 ML IV ONE ×2 (16:30→21:30)
[2020-01-07] MEDS: IPRATROPIUM BROMIDE/ALBUTEROL respimat INH INH SCH ×2 (16:46→20:01)
[2020-01-07] MEDS: FLUTICASONE/VILANTEROL 100/25MCG 14 PUFFS/INHALER INH SCH (16:47)
[2020-01-07] MEDS: ASPIRIN 81 MG ECTAB PO SCH (17:05)
[2020-01-07] MEDS: CLOPIDOGREL BISULFATE 75 MG TAB PO SCH (17:05)
[2020-01-07] MEDS: HEPARIN SOD 5,000 UNIT/0.5 ML VIAL SQ SCH (20:02)
[2020-01-07] MEDS: ISOSORBIDE MONO EXTENDED REL 60 MG TABCR PO SCH (20:02)
[2020-01-07] MEDS: METOPROLOL SUCC 25MG EXT REL TAB PO SCH (20:03)
[2020-01-07] MEDS: DOXYCYCLINE HYCLATE 100 MG in DEXTROSE 5% 100 ML IV SCH (20:09)
[2020-01-07] MEDS: TRAZODONE HCL 50 MG TAB PO SCH (20:09)
[2020-01-07] MEDS ORDERED: SODIUM CHLORIDE 0.9% 500 ML IV SCH (21:15)
[2020-01-07] MEDS ORDERED: POTASSIUM CHLORIDE 20 MEQ/15 ML UDC PO STA (21:16)
[2020-01-08] MEDS ORDERED: SODIUM CHLORIDE 0.9% 1000ML 1,000 ML IV SCH (00:45)
[2020-01-08] MEDS ORDERED: XOPENEX/ATROVENT 0.63mg/0.5MG NEB COMBO NEB PRN (01:27)
[2020-01-08] MEDS: LEVALBUTEROL HCL 0.63 MG/3 ML NEB NEB PRN (01:37)
[2020-01-08] MEDS ORDERED: MoRPHine SULFATE 2 MG/ML CARP IV STA (02:03)
[2020-01-08] MEDS ORDERED: MoRPHine SULFATE 4 MG/ML 1 ML CARP\\VIAL IV STA (02:08)
[2020-01-08] MEDS: methylPREDNISolone 40 MG in SYRINGE 0 ML IV SCH ×3 (06:01→20:44)
[2020-01-08 08:06] LABS: Hemoglobin 10.2 g/dL (14.0-18.0); Immature Granulocytes # (auto) 0.05 K/uL (0.00-0.02); Lymphocytes # (auto) 0.42 K/uL (1.2-3.4); Lymphocytes % (auto) 8.4 %; Mean Corpuscular Hemoglobin 32.2 pg (25-34); Mean Corpuscular Hgb Conc 31.9 g/dL (32-36); Mean Corpuscular Volume 100.9 fL (80-100); Mean Platelet Volume 10.4 fL (7.4-10.4); Monocytes # (auto) 0.29 K/uL (0.11-0.59); Monocytes % (auto) 5.8 %; Neutrophils # (auto) 4.22 K/uL (1.4-6.5); Neutrophils % (auto) 84.8 %; Platelet Count 173 K/uL (130-400); RDW Coefficient of Variation 13.9 % (11.5-14.5); RDW Standard Deviation 50.4 fL (36.4-46.3); Red Blood Count 3.17 M/uL (4.7-6.1); White Blood Count 4.98 K/uL (4.8-10.8)
[2020-01-08] MEDS: IPRATROPIUM BROMIDE/ALBUTEROL respimat INH INH SCH ×4 (08:09→20:44)
[2020-01-08] MEDS: FLUTICASONE/VILANTEROL 100/25MCG 14 PUFFS/INHALER INH SCH (08:09)
[2020-01-08] MEDS: ASPIRIN 81 MG ECTAB PO SCH (08:10)
[2020-01-08] MEDS: CLOPIDOGREL BISULFATE 75 MG TAB PO SCH (08:10)
[2020-01-08] MEDS: FLUTICASONE PROPIONATE NA SPR 16 GM BTL SCH (08:11)
[2020-01-08] MEDS: ISOSORBIDE MONO EXTENDED REL 60 MG TABCR PO SCH ×2 (08:11→20:44)
[2020-01-08] MEDS: AMLODIPINE BESYLATE 5 MG TAB PO SCH (08:11)
[2020-01-08] MEDS: ATORVASTATIN 20 MG TAB PO SCH (08:11)
[2020-01-08] MEDS: TAMSULOSIN HCL 0.4 MG CAP PO SCH (08:11)
[2020-01-08] MEDS: PANTOprazole 40 MG TAB PO SCH (08:12)
[2020-01-08] MEDS: MULTIVITAMIN TAB PO SCH (08:12)
[2020-01-08] MEDS: METOPROLOL SUCC 25MG EXT REL TAB PO SCH ×2 (08:12→20:45)
[2020-01-08] MEDS: DOXYCYCLINE HYCLATE 100 MG in DEXTROSE 5% 100 ML IV SCH ×2 (08:29→20:45)
[2020-01-08] MEDS: HEPARIN SOD 5,000 UNIT/0.5 ML VIAL SQ SCH ×2 (08:30→20:44)
[2020-01-08 08:42] LABS: BUN Creatinine Ratio 25.3 (10-20); Calcium 8.2 mg/dl (8.5-10.1); Creatinine Clr Calc Pharmacy 85.8 ml/min; Est GFR (Non-African American) 92.4; Magnesium 1.5 mg/dl (1.8-2.4); Phosphorus 3.2 mg/dl (2.5-4.9); Potassium 4.8 mmol/L (3.5-5.1)
[2020-01-08] MEDS: MAGNESIUM SULFATE / D5W 1 GM/100 ML BAG IV SCH ×3 (10:47→13:02)
[2020-01-08] MEDS: cefTRIAXone SODIUM 2,000 MG in DEXTROSE 5% 50 ML IV SCH (16:13)
--- NOTE | 2020-01-08 19:36 | Hospitalist Progress Note ---
Date of Service January 08, 2020 Assessment & Plan (1) COPD exacerbation: Chronically on 2 L oxygen therapy and is at his baseline. Very poor air movement on auscultation. Continue antibiotics for right lung pneumonia seen on x-ray. Continue steroids, oxygen supplementation and nebulized bronchodilators. (2) Pneumonia: Continue Rocephin and doxycycline. Patient is improved today. (3) Paroxysmal A-fib: Known history of paroxysmal atrial fibrillation not on any anticoagulation per his human services program specialist. He remains on aspirin and Plavix for CAD with a history of stent. Rate controlled with beta-jan. Continue current medications. Of note he was on amiodarone in the past but taken off due to increasing pulmonary symptoms. (4) Electrolyte imbalance: hypomagnesemia persists. Replace and repeat in am. (5) Weakness: Has been almost bedbound Requires help with ADLs Lives alone with home health nurse helping PT/OT and will discuss his plan with niece who is main fishing vessel deckhand. (6) CAD (coronary artery disease): CAD with history of PCI. Appears stable, continue current medical management including baby aspirin, Toprol-XL 25 mg every morning, 12.5 mg nightly, Lipitor, Plavix. Continue Imdur for presumed chronic stable angina although has not reported any chest pain. (7) Hypertension: At goal continue current medications. (8) Anemia: Will review records for baseline. Currently not in need of a blood transfusion and no active bleeding ongoing. (9) DVT prophylaxis: Heparin DNR/DNI Dispo-telemetry monitoring to continue for now. Pending PT/OT assessments. Aziza Berg DO [facility] Hospitalist Admission and Anticipated Discharge Date Admission Date: January 07, 2020 Anticipated date of discharge: 01/12/20 Subjective 84-year-old man admitted for shortness of breath. He is somewhat agitated with my examining him and asking questions today. He reports his niece is very involved in his care. He has some lower extremity swelling which he reports he was not aware of. He does report some improvement in breathing since admission overall review of systems is limited but negative. Review of Systems Review of Systems: All systems reviewed & are unremarkable except as noted in Subjective Physical Exam Physical Exam: CONSTITUTIONAL: WNWD, vitals as above, generally well- appearing EYES: normal conjunctivae, no scleral icterus ENT: external ear and nose normal, MMM RESPIRATORY: Very decreased breath sounds posteriorly but appears clear to auscultation bilaterally without crackles or rales or wheezes. Normal respiratory effort. Air movement is more evident on the anterior lung [place] and is clear. CARDIOVASCULAR: irregular rate and rhythm, S1 and 2 heard, 2+ peripheral edema GASTROINTESTINAL: soft, nontender, nondistended MUSCULOSKELETAL: moves all extremities equally, able to sit up in bed in dependently SKIN: warm and dry NEUROLOGIC: CN 2-12 grossly intact, normal cognition, no gross focal deficits. PSYCHIATRIC: alert and cooperative with exam. Somewhat agitated with examination and questioning. Results & Data ([facility]) Vital Signs (Past 12 Hours) Vital Signs Temp Pulse Pulse Resp BP Pulse Ox Pulse Ox 01/08/20 19:24 36.4 C L 73 20 91/59 L 95 01/08/20 17:22 101 H 01/08/20 17:06 96 01/08/20 16:23 94 01/08/20 15:06 94 01/08/20 15:05 36.4 C L 92 H 20 109/76 92 01/08/20 11:24 36.8 C 104 H 28 H 115/81 93 01/08/20 08:07 95 01/08/20 07:43 102 H Laboratory Results Short CBC 01/08/20 Range/Units 07:49 WBC 4.98 (4.8-10.8) K/uL Hgb 10.2 L (14.0-18.0) g/dL Hct 32.0 L (42-52) % Plt Count 173 (130-400) K/uL BMP 01/08/20 07:49 Sodium 138 Potassium 4.8 D Chloride 101 Carbon Dioxide 33 H BUN 15 Creatinine 0.61 Glucose 108 H Calcium 8.2 L Medications Administered Current Inpatient Medications Albuterol (Combivent Respimat) 1 puffs INH QID ESAU Stop: 02/06/20 15:44 Last Admin: 01/08/20 16:15 Dose: 1 puffs Documented by: Albuterol (Ventolin Hfa) 2 puffs INH Q6 PRN PRN Reason: Shortness Of Breath Or Wheezing Stop: 02/06/20 14:55 Amlodipine Besylate (Norvasc) 2.5 mg PO QAM ESAU Stop: 02/07/20 08:59 Last Admin: 01/08/20 08:11 Dose: 2.5 mg Documented by: Aspirin (Ecotrin Ectab) 81 mg PO [facility] Stop: 02/06/20 15:59 Last Admin: 01/08/20 08:10 Dose: 81 mg Documented by: Atorvastatin Calcium (Lipitor) [facility] Stop: 02/07/20 08:59 Last Admin: 01/08/20 08:11 Dose: 20 mg Documented by: Clopidogrel Bisulfate (Plavix) 75 mg PO [facility] Stop: 02/06/20 15:59 Last Admin: 01/08/20 08:10 Dose: 75 mg Documented by: Fluticasone Propionate (Flonase) 1 sprays NA [facility] Stop: 02/07/20 08:59 Last Admin: 01/08/20 08:11 Dose: 1 sprays Documented by: Fluticasone/Vilanterol (Breo Ellipta 100/25 Mcg Inh) 1 puffs INH DAILY [facility]; Protocol Stop: 02/06/20 15:59 Last Admin: 01/08/20 08:09 Dose: 1 puffs Documented by: Heparin Sodium (Porcine) (Heparin Sodium (Porcine)) 5,000 units SQ Q12 [facility] Stop: 02/06/20 20:59 Last Admin: 01/08/20 08:30 Dose: 5,000 units Documented by: Ceftriaxone Sodium 2,000 mg/ (Dextrose) 70 mls @ 100 mls/hr IV Q24H [facility]; Protocol Stop: 01/14/20 15:59 Last Infusion: 01/08/20 17:00 Dose: Infused Documented by: Doxycycline Hyclate 100 mg/ (Dextrose) 110 mls @ 50 mls/hr IV BID [facility] Stop: 01/14/20 20:59 Last Infusion: 01/08/20 10:47 Dose: Infused Documented by: Methylprednisolone 40 mg/ (Syringe) 0.64 mls @ 1.5 mls/min IV Q8 [facility] Stop: 02/06/20 14:59 Last Admin: 01/08/20 13:04 Dose: 1.5 mls/min Documented by: Ipratropium [place] (Atrovent 0.02% 0.5mg/2.5ml) 0.5 mg INH Q4H PRN PRN Reason: sob/wheezing Stop: 02/07/20 01:29 Isosorbide Mononitrate (Imdur Extended Rel) 60 mg PO BID [facility] Stop: 02/06/20 20:59 Last Admin: 01/08/20 08:11 Dose: 60 mg Documented by: Levalbuterol HCl (Xopenex 0.63 Mg/3 Ml Neb) 0.63 mg NEB Q4H PRN PRN Reason: sob/wheezing Stop: 02/07/20 01:29 Last Admin: 01/08/20 01:37 Dose: 0.63 mg Documented by: Metoprolol Succinate (Toprol Xl) 25 mg PO [facility] Stop: 02/07/20 08:59 Last Admin: 01/08/20 08:12 Dose: 25 mg Documented by: Metoprolol Succinate (Toprol Xl) 12.5 mg PO [facility] Stop: 02/06/20 20:59 Last Admin: 01/07/20 20:03 Dose: 12.5 mg Documented by: Metoprolol Tartrate (Lopressor) 5 mg IV Q6 PRN PRN Reason: Tachycardia Stop: 02/06/20 17:59 Multivitamins (Multivitamin Tab) 1 tab PO [facility] Stop: 02/07/20 08:59 Last Admin: 01/08/20 08:12 Dose: 1 tab Documented by: Nitroglycerin (Nitrostat) 0.4 mg SL UD PRN PRN Reason: Chest Pain Stop: 02/06/20 14:55 Pantoprazole Sodium (Protonix) 40 mg PO [facility] Stop: 02/07/20 08:59 Last Admin: 01/08/20 08:12 Dose: 40 mg Documented by: Polyethylene Glycol (Miralax Powder Packet) 17 gm PO DAILY PRN PRN Reason: Constipation Stop: 02/06/20 14:55 Tamsulosin HCl (Flomax) 0.4 mg PO [facility] Stop: 02/07/20 08:59 Last Admin: 01/08/20 08:11 Dose: 0.4 mg Documented by: Trazodone HCl (Desyrel) 50 mg PO [facility] Stop: 02/06/20 20:59 Last Admin: 01/07/20 20:09 Dose: 50 mg Documented by:
[2020-01-08] MEDS: TRAZODONE HCL 50 MG TAB PO SCH (20:44)
[2020-01-09] MEDS: methylPREDNISolone 40 MG in SYRINGE 0 ML IV SCH ×3 (06:02→22:00)
[2020-01-09] MEDS: TAMSULOSIN HCL 0.4 MG CAP PO SCH (08:23)
[2020-01-09] MEDS: PANTOprazole 40 MG TAB PO SCH (08:23)
[2020-01-09] MEDS: METOPROLOL SUCC 25MG EXT REL TAB PO SCH ×2 (08:23→22:01)
[2020-01-09] MEDS: MULTIVITAMIN TAB PO SCH (08:23)
[2020-01-09] MEDS: ASPIRIN 81 MG ECTAB PO SCH (08:23)
[2020-01-09] MEDS: ATORVASTATIN 20 MG TAB PO SCH (08:23)
[2020-01-09] MEDS: ISOSORBIDE MONO EXTENDED REL 60 MG TABCR PO SCH ×2 (08:23→22:00)
[2020-01-09] MEDS: CLOPIDOGREL BISULFATE 75 MG TAB PO SCH (08:24)
[2020-01-09] MEDS: HEPARIN SOD 5,000 UNIT/0.5 ML VIAL SQ SCH ×2 (08:24→22:00)
[2020-01-09] MEDS: AMLODIPINE BESYLATE 5 MG TAB PO SCH (08:24)
[2020-01-09] MEDS: FLUTICASONE PROPIONATE NA SPR 16 GM BTL SCH (08:25)
[2020-01-09] MEDS: FLUTICASONE/VILANTEROL 100/25MCG 14 PUFFS/INHALER INH SCH (08:25)
[2020-01-09] MEDS: IPRATROPIUM BROMIDE/ALBUTEROL respimat INH INH SCH ×4 (08:25→22:00)
[2020-01-09] MEDS: DOXYCYCLINE HYCLATE 100 MG in DEXTROSE 5% 100 ML IV SCH ×2 (08:30→22:04)
[2020-01-09 09:27] LABS: Hematocrit (blood only) 33.4 % (42-52); Hemoglobin 10.6 g/dL (14.0-18.0); Mean Corpuscular Hemoglobin 32.3 pg (25-34); Mean Corpuscular Hgb Conc 31.7 g/dL (32-36); Mean Corpuscular Volume 101.8 fL (80-100); Mean Platelet Volume 10.3 fL (7.4-10.4); Nucleated RBC # (auto) 0.03 K/uL (0-0); Nucleated RBC % (auto) 0.4 %; Platelet Count 179 K/uL (130-400); RDW Standard Deviation 51.6 fL (36.4-46.3); Red Blood Count 3.28 M/uL (4.7-6.1); White Blood Count 8.94 K/uL (4.8-10.8)
[2020-01-09 10:04] LABS: BUN Creatinine Ratio 31.8 (10-20); Calcium 8.4 mg/dl (8.5-10.1); Creatinine Clr Calc Pharmacy 84.1 ml/min; Est GFR (Non-African American) 92.4; Magnesium 2.2 mg/dl (1.8-2.4); Potassium 4.4 mmol/L (3.5-5.1)
[2020-01-09] MEDS: cefTRIAXone SODIUM 2,000 MG in DEXTROSE 5% 50 ML IV SCH (15:24)
--- NOTE | 2020-01-09 16:53 | Hospitalist Progress Note ---
Date of Service January 09, 2020 Assessment & Plan (1) COPD exacerbation: Chronically on 2 L oxygen therapy. Very poor air movement on auscultation. Continue antibiotics for possible developing right lung pneumonia seen on x- ray. Continue steroids, oxygen supplementation and nebulized bronchodilators. (2) Pneumonia: Continue Rocephin and doxycycline. Patient is improved today. No blood cultures to monitor. (3) Electrolyte imbalance: hypomagnesemia is resolved. (4) Paroxysmal A-fib: Known history of paroxysmal atrial fibrillation not on any anticoagulation per his wet end supervisor. He remains on aspirin and Plavix for CAD with a history of stent. Rate controlled with beta-jan. Continue current medications. Of note he was on amiodarone in the past but taken off due to increasing pulmonary symptoms. (5) Weakness: significant change in functional status. Plan to reach out to family to discuss mcc plan moving forward. PT/OT consulted. (6) CAD (coronary artery disease): CAD with history of PCI. Appears stable, continue current medical management including baby aspirin, Toprol-XL 25 mg every morning, 12.5 mg nightly, Lipitor, Plavix. Continue Imdur for presumed chronic stable angina although has not reported any chest pain. (7) Hypertension: At goal continue current medications. (8) Anemia: Around his baseline. No indication for transfusion at this time. Cont monitoring. (9) DVT prophylaxis: Heparin DNR/DNI Dispo-telemetry monitoring to continue for now. Pending PT/OT assessments. Aziza Berg DO [facility] Hospitalist Admission and Anticipated Discharge Date Admission Date: January 07, 2020 Anticipated date of discharge: 01/12/20 Subjective Doing well, denies SOB, chest pain or other issues today. Afebrile overnight. Wants to go home. Review of Systems Review of Systems: All systems reviewed & are unremarkable except as noted in Subjective Physical Exam Physical Exam: CONSTITUTIONAL: WNWD, vitals as above, generally well- appearing EYES: normal conjunctivae, no scleral icterus ENT: external ear and nose normal, MMM RESPIRATORY: Very decreased breath sounds posteriorly, no apparent wheezing. Normal respiratory effort. Supplemental oxygen in place. CARDIOVASCULAR: irregular rate and rhythm, S1 and 2 heard, 2+ peripheral edema GASTROINTESTINAL: soft, nontender, nondistended MUSCULOSKELETAL: moves all extremities equally, able to sit up in bed independently SKIN: warm and dry NEUROLOGIC: CN 2-12 grossly intact, normal cognition, no gross focal deficits. PSYCHIATRIC: alert and cooperative with exam. Results & Data ([facility]) Vital Signs (Past 12 Hours) Vital Signs Temp Pulse Pulse Resp BP BP Pulse Ox 01/09/20 16:00 92 H 01/09/20 15:48 36.5 C 76 16 130/79 97 01/09/20 11:27 36.7 C 81 22 117/65 99 01/09/20 08:00 36.4 C L 92 H 87 22 116/77 95 01/09/20 05:50 36.3 C L 88 18 125/84 97 Laboratory Results Short CBC 01/09/20 Range/Units 09:13 WBC 8.94 (4.8-10.8) K/uL Hgb 10.6 L (14.0-18.0) g/dL Hct 33.4 L (42-52) % Plt Count 179 (130-400) K/uL BMP 01/09/20 09:13 Sodium 136 Potassium 4.4 Chloride 100 Carbon Dioxide 34 H BUN 20 H Creatinine 0.61 Glucose 177 H Calcium 8.4 L Medications Administered Current Inpatient Medications Albuterol (Combivent Respimat) 1 puffs INH QID [facility] Stop: 02/06/20 15:44 Last Admin: 01/09/20 22:00 Dose: 1 puffs Documented by: Albuterol (Ventolin Hfa) 2 puffs INH Q6 PRN PRN Reason: Shortness Of Breath Or Wheezing Stop: 02/06/20 14:55 Amlodipine Besylate (Norvasc) 2.5 mg PO [facility] Stop: 02/07/20 08:59 Last Admin: 01/09/20 08:24 Dose: 2.5 mg Documented by: Aspirin (Ecotrin Ectab) 81 mg PO [facility] Stop: 02/06/20 15:59 Last Admin: 01/09/20 08:23 Dose: 81 mg Documented by: Atorvastatin Calcium ([facility]itor) [facility] Stop: 02/07/20 08:59 Last Admin: 01/09/20 08:23 Dose: 20 mg Documented by: Clopidogrel [facility]ate (Plavix) [facility] Stop: 02/06/20 15:59 Last Admin: 01/09/20 08:24 Dose: 75 mg Documented by: Fluticasone Propionate (Flonase) 1 sprays NA QAM [facility] Stop: 02/07/20 08:59 Last Admin: 01/09/20 08:25 Dose: 1 sprays Documented by: Fluticasone/Vilanterol (Breo Ellipta 100/25 Mcg Inh) 1 puffs INH DAILY [facility]; Protocol Stop: 02/06/20 15:59 Last Admin: 01/09/20 08:25 Dose: 1 puffs Documented by: Heparin Sodium (Porcine) (Heparin Sodium (Porcine)) 5,000 units SQ Q12 E[facility] Stop: 02/06/20 20:59 Last Admin: 01/09/20 22:00 Dose: 5,000 units Documented by: Ceftriaxone Sodium 2,000 mg/ (Dextrose) 70 mls @ 100 mls/hr IV Q24H [facility]; Protocol Stop: 01/14/20 15:59 Last Infusion: 01/09/20 16:06 Dose: Infused Documented by: Doxycycline Hyclate 100 mg/ (Dextrose) 110 mls @ 50 mls/hr IV BID [facility] Stop: 01/14/20 20:59 Last Admin: 01/09/20 22:04 Dose: 50 mls/hr Documented by: Methylprednisolone 40 mg/ (Syringe) 0.64 mls @ 1.5 mls/min IV Q8 [facility] Stop: 02/06/20 14:59 Last Admin: 01/09/20 22:00 Dose: 1.5 mls/min Documented by: Ipratropium [place] (Atrovent 0.02% 0.5mg/2.5ml) 0.5 mg INH Q4H PRN PRN Reason: sob/wheezing Stop: 02/07/20 01:29 Last Admin: 01/09/20 18:18 Dose: 0.5 mg Documented by: Isosorbide Mononitrate (Imdur Extended Rel) 60 mg PO BID [facility] Stop: 02/06/20 20:59 Last Admin: 01/09/20 22:00 Dose: 60 mg Documented by: Levalbuterol HCl (Xopenex 0.63 Mg/3 Ml Neb) 0.63 mg NEB Q4H PRN PRN Reason: sob/wheezing Stop: 02/07/20 01:29 Last Admin: 01/09/20 18:18 Dose: 0.63 mg Documented by: Metoprolol Succinate (Toprol Xl) 25 mg PO [facility] Stop: 02/07/20 08:59 Last Admin: 01/09/20 08:23 Dose: 25 mg Documented by: Metoprolol Succinate (Toprol Xl) 12.5 mg PO [facility] Stop: 02/06/20 20:59 Last Admin: 01/09/20 22:01 Dose: 12.5 mg Documented by: Multivitamins (Multivitamin Tab) 1 tab PO [facility] Stop: 02/07/20 08:59 Last Admin: 01/09/20 08:23 Dose: 1 tab Documented by: Nitroglycerin (Nitrostat) 0.4 mg SL UD PRN PRN Reason: Chest Pain Stop: 02/06/20 14:55 Pantoprazole Sodium (Protonix) 40 mg PO [facility] Stop: 02/07/20 08:59 Last Admin: 01/09/20 08:23 Dose: 40 mg Documented by: Polyethylene Glycol (Miralax Powder Packet) 17 gm PO DAILY PRN PRN Reason: Constipation Stop: 02/06/20 14:55 Tamsulosin HCl (Flomax) 0.4 mg PO [facility] Stop: 02/07/20 08:59 Last Admin: 01/09/20 08:23 Dose: 0.4 mg Documented by: Trazodone HCl (Desyrel) 50 mg PO [facility] Stop: 02/06/20 20:59 Last Admin: 01/09/20 22:04 Dose: 50 mg Documented by:
[2020-01-09] MEDS: IPRATROPIUM BROMIDE NEB SOLN 0.02% 2.5 ML VIAL INH PRN ×2 (18:18→22:57)
[2020-01-09] MEDS: LEVALBUTEROL HCL 0.63 MG/3 ML NEB NEB PRN ×2 (18:18→22:57)
[2020-01-09] MEDS: TRAZODONE HCL 50 MG TAB PO SCH (22:04)
[2020-01-10] MEDS: methylPREDNISolone 40 MG in SYRINGE 0 ML IV SCH (05:55)
[2020-01-10 07:07] LABS: Hematocrit (blood only) 34.4 % (42-52); Hemoglobin 10.8 g/dL (14.0-18.0); Mean Corpuscular Hgb Conc 31.4 g/dL (32-36); Mean Corpuscular Volume 101.8 fL (80-100); Mean Platelet Volume 10.6 fL (7.4-10.4); Platelet Count 167 K/uL (130-400); RDW Coefficient of Variation 13.9 % (11.5-14.5); RDW Standard Deviation 51.1 fL (36.4-46.3); Red Blood Count 3.38 M/uL (4.7-6.1); White Blood Count 7.77 K/uL (4.8-10.8)
[2020-01-10 07:42] LABS: BUN Creatinine Ratio 41.3 (10-20); Calcium 8.6 mg/dl (8.5-10.1); Creatinine Clr Calc Pharmacy 121.7 ml/min; Est GFR (African American) 123.6; Est GFR (Non-African American) 106.6; Potassium 4.6 mmol/L (3.5-5.1)
--- NOTE | 2020-01-10 08:26 | Pulmonary Consultation ---
Date of Consultation January 10, 2020 Assessment & Plan (1) COPD exacerbation: Patient appears to be chronically hypercapnic and severely compromised from a respiratory standpoint. His performance status is extremely poor. He is not a great historian. Ideally, he should be on a noninvasive mode of ventilation such as a trilogy ventilator when sleeping. However, given his comorbidities and his slow decline, I do think that a more palliative approach may be appropriate in this patient. I am consulting our palliative care colleagues for further discussion of palliation of symptoms and hospice. In the meantime, I do not think it would be unreasonable to switch his home inhalers to you Yupeli which is a long-acting muscarinic antagonist from his Combivent. At this point, I am uncertain how he is able to coordinate inhalers and how effectively he uses them. I think we could switch his Solu-Medrol over to 40 mg prednisone for 5 days. Procalcitonin has been ordered and is pending. Procalcitonin is negative, would recommend discontinuing the ceftriaxone and continuing the doxycycline for 5 days. Pulmonary will sign off. Please call with questions. Thank you for the consult. Follow-up in the outpatient clinic. (2) SOB (shortness of breath): (3) CAD (coronary artery disease): (4) Dependence on supplemental oxygen: History of Present Illness Reason for Consultation: COPD exacerbation Requesting Physician: Dr. Berg Attending Physician: Aziza Berg, History of Present Illness 84-year-old male with a past medical history of severe COPD on chronic home oxygen, coronary artery disease, hypertension, hyperlipidemia, who presents to the hospital due to shortness of breath. Patient is a very poor historian and very dyspneic when speaking. He apparently was admitted to the hospital in A. fib RVR. Chest x-ray showed a very mild infiltrate in the right lower lobe. He was started on antibiotics and methylprednisone 40 mg every 6. Currently saturating around 88% on 3-1/2 L of nasal cannula. He has been seen by Dr. Holm and Louie Barrios previously. I am unable to fully actual values from his prior PFTs but the interpretations are all read as being severe obstruction. Patient denies any chest pain currently. No cough currently. He notes that he is very short of breath at all times. He seems agitated that people do not give him time to think or respond to questions. Prior ABG on 12/02/2019 demonstrated compensated hypercapnic respiratory failure with a pH of 7.37, PCO2 of 66 and PO2 of 119. VBG performed this hospital admission was 7.37/60 . Allergies Allergy/AdvReac Type Severity Reaction Status Date / Time naproxen Allergy Unknown hives Verified 01/07/20 11:16 Home Medications Home Medications Medication Instructions Recorded Confirmed Type Combivent Respimat 1 puff INHALATION QID 08/28/18 01/07/20 History albuterol sulfate [Ventolin HFA] 2 puff INHALATION Q6 PRN 08/28/18 01/07/20 History atorvastatin 20 mg PO QAM 08/28/18 01/07/20 History clopidogrel [Plavix] 75 mg PO QAM 08/28/18 01/07/20 History fluticasone propion-salmeterol 1 puff INHALATION BID 08/28/18 01/07/20 History [Advair Diskus] metoprolol succinate [Toprol XL] 25 mg PO QAM 08/28/18 01/07/20 History multivitamin 1 tab PO QAM 08/28/18 01/07/20 History nitroglycerin [Nitrostat] 0.4 mg SUBLINGUAL UD PRN 08/28/18 01/07/20 History polyethylene glycol 3350 [Miralax] 17 g PO DAILY PRN 08/28/18 01/07/20 History tamsulosin [Flomax] 0.4 mg PO QAM 08/28/18 01/07/20 History aspirin [Aspir-81] 81 mg PO QAM 10/20/18 01/07/20 History isosorbide mononitrate 60 mg PO BID 10/20/18 01/07/20 History omeprazole 20 mg PO QAM 10/20/18 01/07/20 History hydrocodone-acetaminophen 1 tab PO Q6H PRN 10/10/19 01/07/20 History metoprolol succinate 12.5 mg PO HS 10/10/19 01/07/20 History fluticasone propionate [Flonase 1 spray INTRANASAL QAM 10/31/19 01/07/20 History Allergy Relief] amlodipine 2.5 mg PO QAM 01/07/20 01/07/20 History trazodone 50 mg PO HS 01/07/20 01/07/20 History Patient History Medical History Bifascicular block BPH (benign prostatic hyperplasia) CAD (coronary artery disease) PCI to LAD, CATALINO to OM 2015-failed PCI to heavily calcified LAD Chronic hyponatremia COPD (chronic obstructive pulmonary disease) (Acute) Hyperlipidemia Paroxysmal atrial fibrillation Renal artery stenosis Tobacco abuse (Inactive) Surgical History History of cholecystectomy History of coronary artery stent placement Family History Mother Diabetes Social History Preferred Language: Ukrainian Communication Ability: Effective Cooper Apprentice Required: No Beliefs That Will Affect Care: None marital status: Single Current Living Situation: Alone Other Information That Helps Us Care for You: No Feels Safe at Home: Yes Safety Concerns: Feels Safe At This Time Smoking Status: Never smoker Tobacco Type: cigarettes ; Cigarettes Per Day: 30 ; Second Hand Exposure: No ; Hx Alcohol Use: No Hx Substance Use: No Review of Systems Review of Systems: All systems reviewed & are unremarkable except as noted in HPI & below Physical Exam Constitutional: Patient laying in bed on nasal cannula. Appears dyspneic at rest. No other significant distress. Eating his breakfast. Eyes: PERRL, conjunctivae normal, anicteric sclerae ENMT: external ear and nose normal, oropharynx normal Neck: normal visual inspection Respiratory: Diminished bilaterally. Tachypneic. Cardiovascular: RRR, no murmur, no edema Gastrointestinal (Abdomen): normal bowel sounds, soft, nontender, no hepatosplenomegaly Musculoskeletal: no cyanosis or clubbing, extremities motor strength 5/5 Neurologic: PERRL, EOMI, accommodation nl, no face palsy, no dysarthria Psychiatric: A+Ox3, euthymic affect Results & Data ([facility]) Vital Signs (Past 12 Hours) Vital Signs Temp Pulse Pulse Resp BP Pulse Ox 01/10/20 07:00 97.7 F 74 22 133/66 99 01/10/20 04:48 97.3 F L 83 20 109/66 99 01/09/20 23:50 97.3 F L 85 20 106/70 98 01/09/20 23:00 94 H 01/09/20 22:57 81 20 100 PFTs, chest imaging and labs reviewed PG Care Time/CCT Total # of Minutes Spent Total Time Spent with Patient: Total time spent is greater than 50% in coordination of care (as documented) at patient's floor/unit and/or counseling patient: Coding Level of Care Code 38185 Initial Inpt Care Lvl 3 Diagnoses COPD exacerbation J44.1 SOB (shortness of breath) R06.02 CAD (coronary artery disease) I25.10 Dependence on supplemental oxygen Z99.81
[2020-01-10] MEDS: IPRATROPIUM BROMIDE NEB SOLN 0.02% 2.5 ML VIAL INH PRN (08:50)
[2020-01-10] MEDS: LEVALBUTEROL HCL 0.63 MG/3 ML NEB NEB PRN (08:50)
[2020-01-10] MEDS ORDERED: COUGH DROP (SUGAR FREE) LOZ 24 LOZ/1 BOX BUCCAL ONE (08:51)
[2020-01-10] MEDS: ISOSORBIDE MONO EXTENDED REL 60 MG TABCR PO SCH ×2 (09:30→20:43)
[2020-01-10] MEDS: TAMSULOSIN HCL 0.4 MG CAP PO SCH (09:30)
[2020-01-10] MEDS: ATORVASTATIN 20 MG TAB PO SCH (09:30)
[2020-01-10] MEDS: MULTIVITAMIN TAB PO SCH (09:30)
[2020-01-10] MEDS: PANTOprazole 40 MG TAB PO SCH (09:30)
[2020-01-10] MEDS: FLUTICASONE/VILANTEROL 100/25MCG 14 PUFFS/INHALER INH SCH (09:30)
[2020-01-10] MEDS: METOPROLOL SUCC 25MG EXT REL TAB PO SCH ×2 (09:30→20:43)
[2020-01-10] MEDS: CLOPIDOGREL BISULFATE 75 MG TAB PO SCH (09:30)
[2020-01-10] MEDS: AMLODIPINE BESYLATE 5 MG TAB PO SCH (09:31)
[2020-01-10] MEDS: ASPIRIN 81 MG ECTAB PO SCH (09:31)
[2020-01-10] MEDS: FLUTICASONE PROPIONATE NA SPR 16 GM BTL SCH (09:31)
[2020-01-10] MEDS: IPRATROPIUM BROMIDE/ALBUTEROL respimat INH INH SCH ×4 (09:31→20:43)
[2020-01-10] MEDS: HEPARIN SOD 5,000 UNIT/0.5 ML VIAL SQ SCH ×2 (09:32→20:44)
[2020-01-10] MEDS: DOXYCYCLINE HYCLATE 100 MG in DEXTROSE 5% 100 ML IV SCH (09:44)
[2020-01-10] MEDS: predniSONE 20 MG TAB PO SCH (12:59)
--- NOTE | 2020-01-10 16:16 | Hospitalist Progress Note ---
Date of Service January 10, 2020 Assessment & Plan (1) COPD exacerbation: Chronically on 2 L oxygen therapy at home, now on 3-4 LPM. Very poor air movement on auscultation. Seen by pulm, ordered procalcitonin which was negative. Pneumonia diagnosis questionable and patient not fevering or il appearing, just winded. Stopping Rocephin and cont doxy for COPD exacerbation. Solumedrol switched to prednisone to be continued for 5 days. Cont oxygen supplementation and nebulized bronchodilators. (2) Pneumonia: Diagnosis is less clear. With negative procalcitonin and some improvement clinically today, will stop Rocephin as above. 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 He remains on aspirin and Plavix for CAD with a history of stent. Rate controlled with beta-jan. Continue current medications. Of note he was on amiodarone in the past but taken off due to increasing pulmonary symptoms. (4) Weakness: Lives alone with a significant decline is physical abilities over the past month. Last month in the hospital PT notes reported he was ambulating independently with a walker. Niece (main gerentological physiotherapist) confirms a significant decline. I spoke with her by phone this evening and she is in agreement that he need to go to a facility as a transition to home. She is currently working with O to obtain a waiver to get him an increased amount of services in the home. He does have MOWs but is too weak to even cook the food at home prior to coming into the hospital, she states. PT/OT with likely transition to SNF. (5) CAD (coronary artery disease): CAD with history of PCI. Appears stable, continue current medical management including baby aspirin, Toprol-XL 25 mg every morning, 12.5 mg nightly, Lipitor, Plavix. Continue Imdur for presumed chronic stable angina although has not reported any chest pain. (6) Hypertension: At goal continue current medications. (7) Anemia: around baseline from recent hospitalization. Likely multifactorial including frequent blood draws and worsening comorbidities with overall decline in health. No transfusion needed at this time. Cont monitoring. (8) DVT prophylaxis: Heparin DNR/DNI Dispo-telemetry monitoring to continue for now. Plan for SNF at time of discharge. Palliative consulted by pulm which is appropriate to help identify more clearly the patient's overall wishes moving forward. He is not a good historian and appears to have very poor insight into his disease process. Aziza Berg DO [facility] Hospitalist Admission and Anticipated Discharge Date Admission Date: January 07, 2020 Anticipated date of discharge: 01/14/20 Subjective Feels OK today per his report. Denies SOB or chest pain. Eating well. Wants to go home. Seems upset again today about some tension in his family or "in the air." Review of Systems Review of Systems: All systems reviewed & are unremarkable except as noted in Subjective Physical Exam Physical Exam: CONSTITUTIONAL: WNWD, vitals as above, generally well- appearing EYES: normal conjunctivae, no scleral icterus ENT: external ear and nose normal, MMM RESPIRATORY: Very decreased breath sounds posteriorly but appears clear to auscultation bilaterally without crackles or rales or wheezes. Normal respiratory effort. Supplemental oxygen in place. CARDIOVASCULAR: irregular rate and rhythm, S1 and 2 heard, 2+ peripheral edema GASTROINTESTINAL: soft, nontender, nondistended MUSCULOSKELETAL: moves all extremities equally, able to sit up in bed independently SKIN: warm and dry NEUROLOGIC: CN 2-12 grossly intact, normal cognition, no gross focal deficits. PSYCHIATRIC: alert and cooperative with exam. Results & Data ([facility]) Vital Signs (Past 12 Hours) Vital Signs Temp Pulse Resp BP Pulse Ox 01/10/20 15:49 36.5 C 53 L 26 H 114/78 98 01/10/20 11:00 36.6 C 96 H 22 121/83 99 01/10/20 08:50 80 18 88 L 01/10/20 07:00 36.5 C 74 22 133/66 99 01/10/20 04:48 36.3 C L 83 20 109/66 99 Laboratory Results Short CBC 01/10/20 Range/Units 06:34 WBC 7.77 (4.8-10.8) K/uL Hgb 10.8 L (14.0-18.0) g/dL Hct 34.4 L (42-52) % Plt Count 167 (130-400) K/uL BMP 01/10/20 06:34 Sodium 139 Potassium 4.6 Chloride 103 Carbon Dioxide 34 H BUN 18 Creatinine 0.43 L Glucose 107 H Calcium 8.6 Medications Administered Current Inpatient Medications Albuterol (Combivent Respimat) 1 puffs INH QID [facility] Stop: 02/06/20 15:44 Last Admin: 01/10/20 12:59 Dose: 1 puffs Documented by: Albuterol (Ventolin Hfa) 2 puffs INH Q6 PRN PRN Reason: Shortness Of Breath Or Wheezing Stop: 02/06/20 14:55 Amlodipine Besylate (Norvasc) [facility] Stop: 02/07/20 08:59 Last Admin: 01/10/20 09:31 Dose: 2.5 mg Documented by: Aspirin (Ecotrin Ectab) 81 mg PO [facility] Stop: 02/06/20 15:59 Last Admin: 01/10/20 09:31 Dose: 81 mg Documented by: Atorvastatin Calcium (Lipitor) 20 [facility] Stop: 02/07/20 08:59 Last Admin: 01/10/20 09:30 Dose: 20 mg Documented by: Clopidogrel Bisulfate (Plavix) 75 mg PO [facility] Stop: 02/06/20 15:59 Last Admin: 01/10/20 09:30 Dose: 75 mg Documented by: Doxycycline Hyclate (Vibramycin) 100 mg PO BID [facility] Stop: 01/14/20 20:59 Fluticasone Propionate (Flonase) 1 sprays NA [facility] Stop: 02/07/20 08:59 Last Admin: 01/10/20 09:31 Dose: 1 sprays Documented by: Fluticasone/Vilanterol (Breo Ellipta 100/25 Mcg Inh) 1 puffs INH DAILY [facility]; Protocol Stop: 02/06/20 15:59 Last Admin: 01/10/20 09:30 Dose: 1 puffs Documented by: Heparin Sodium (Porcine) (Heparin Sodium (Porcine)) 5,000 units SQ Q12 [facility] Stop: 02/06/20 20:59 Last Admin: 01/10/20 09:32 Dose: 5,000 units Documented by: Ipratropium [place] (Atrovent 0.02% 0.5mg/2.5ml) 0.5 mg INH Q4H PRN PRN Reason: sob/wheezing Stop: 02/07/20 01:29 Last Admin: 01/10/20 08:50 Dose: 0.5 mg Documented by: Isosorbide Mononitrate (Imdur Extended Rel) 60 mg PO BID [facility] Stop: 02/06/20 20:59 Last Admin: 01/10/20 09:30 Dose: 60 mg Documented by: Levalbuterol HCl (Xopenex 0.63 Mg/3 Ml Neb) 0.63 mg NEB Q4H PRN PRN Reason: sob/wheezing Stop: 02/07/20 01:29 Last Admin: 01/10/20 08:50 Dose: 0.63 mg Documented by: Metoprolol Succinate (Toprol Xl) 25 mg [facility] Stop: 02/07/20 08:59 Last Admin: 01/10/20 09:30 Dose: 25 mg Documented by: Metoprolol Succinate (Toprol Xl) 12.5 mg PO [facility] Stop: 02/06/20 20:59 Last Admin: 01/09/20 22:01 Dose: 12.5 mg Documented by: Multivitamins (Multivitamin Tab) 1 tab PO [facility] Stop: 02/07/20 08:59 Last Admin: 01/10/20 09:30 Dose: 1 tab Documented by: Nitroglycerin (Nitrostat) 0.4 mg SL UD PRN PRN Reason: Chest Pain Stop: 02/06/20 14:55 Pantoprazole Sodium (Protonix) 40 mg PO [facility] Stop: 02/07/20 08:59 Last Admin: 01/10/20 09:30 Dose: 40 mg Documented by: Polyethylene Glycol (Miralax Powder Packet) 17 gm PO DAILY PRN PRN Reason: Constipation Stop: 02/06/20 14:55 Prednisone (Prednisone) 40 mg PO DAILY [facility] Stop: 02/09/20 09:29 Last Admin: 01/10/20 12:59 Dose: 40 mg Documented by: Tamsulosin HCl (Flomax) 0.4 mg [facility] Stop: 02/07/20 08:59 Last Admin: 01/10/20 09:30 Dose: 0.4 mg Documented by: Trazodone HCl (Desyrel) 50 mg PO [facility] Stop: 02/06/20 20:59 Last Admin: 01/09/20 22:04 Dose: 50 mg Documented by:
[2020-01-10] MEDS: DOXYCYCLINE HYCLATE 100 MG CAP PO SCH (20:44)
[2020-01-10] MEDS: TRAZODONE HCL 50 MG TAB PO SCH (20:50)
[2020-01-11] MEDS: LEVALBUTEROL HCL 0.63 MG/3 ML NEB NEB PRN ×2 (05:41→20:43)
[2020-01-11] MEDS: IPRATROPIUM BROMIDE NEB SOLN 0.02% 2.5 ML VIAL INH PRN ×2 (05:41→20:42)
[2020-01-11] MEDS: FLUTICASONE/VILANTEROL 100/25MCG 14 PUFFS/INHALER INH SCH (08:11)
[2020-01-11] MEDS: IPRATROPIUM BROMIDE/ALBUTEROL respimat INH INH SCH ×4 (08:11→21:32)
[2020-01-11] MEDS: METOPROLOL SUCC 25MG EXT REL TAB PO SCH ×2 (08:12→21:32)
[2020-01-11] MEDS: DOXYCYCLINE HYCLATE 100 MG CAP PO SCH ×2 (08:12→21:34)
[2020-01-11] MEDS: ASPIRIN 81 MG ECTAB PO SCH (08:12)
[2020-01-11] MEDS: ISOSORBIDE MONO EXTENDED REL 60 MG TABCR PO SCH ×2 (08:12→21:33)
[2020-01-11] MEDS: HEPARIN SOD 5,000 UNIT/0.5 ML VIAL SQ SCH ×2 (08:12→21:33)
[2020-01-11] MEDS: ATORVASTATIN 20 MG TAB PO SCH (08:12)
[2020-01-11] MEDS: predniSONE 20 MG TAB PO SCH (08:12)
[2020-01-11] MEDS: CLOPIDOGREL BISULFATE 75 MG TAB PO SCH (08:13)
[2020-01-11] MEDS: TAMSULOSIN HCL 0.4 MG CAP PO SCH (08:13)
[2020-01-11] MEDS: AMLODIPINE BESYLATE 5 MG TAB PO SCH (08:13)
[2020-01-11] MEDS: MULTIVITAMIN TAB PO SCH (08:13)
[2020-01-11] MEDS: PANTOprazole 40 MG TAB PO SCH (08:13)
[2020-01-11] MEDS: FLUTICASONE PROPIONATE NA SPR 16 GM BTL SCH (08:13)
--- NOTE | 2020-01-11 14:24 | Hospitalist Progress Note ---
Date of Service January 11, 2020 Assessment & Plan (1) COPD exacerbation: Chronically on 2 L oxygen therapy. Very poor air movement on auscultation. Procalcitonin was negative so rocephin was stopped. Appreciate pulm recommendations there. Cont doxycycline for COPD exacerbation. Continue cortney roids, oxygen supplementation and nebulized bronchodilators. (2) Pneumonia: Doubt pneumonia as a casue of symptoms. Rocephin was stopped. Cont with treatment for COPD exacerbation. 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 He remains on aspirin and Plavix for CAD with a history of stent. Rate controlled with beta-jan. Continue current medications. Of note he was on amiodarone in the past but taken off due to increasing pulmonary symptoms. (4) Weakness: significant change in functional status. Family and patient both understanding of likely need to go to SNF as a transition home. PT/OT consulted. (5) CAD (coronary artery disease): CAD with history of PCI. Appears stable, continue current medical management including baby aspirin, Toprol-XL 25 mg every morning, 12.5 mg nightly, Lipitor, Plavix. Continue Imdur for presumed chronic stable angina although has not reported any chest pain. (6) Hypertension: At goal continue current medications. (7) Anemia: Around his baseline. No indication for transfusion at this time. Cont monitoring. (8) DVT prophylaxis: Heparin DNR/DNI Dispo-telemetry monitoring to continue for now. Plan for SNF at time of discharge. Palliative input appreciated. Aziza Berg DO [facility] Hospitalist Admission and Anticipated Discharge Date Admission Date: January 07, 2020 Anticipated date of discharge: 01/14/20 Subjective Was told by nurse that he was confused but on my assessment he is clear and oriented. We had a chat about "rehab" and what he is most concerned about is that someone will push him physically past his abilities. However, he is open to this as a possibility after we disucssed the reasoning behind sending him to a facility was to support ADLs. He otherwise denies symptoms and remains stable clinically, still requiring higher amounts on oxygen than his baseline (now on 4L, home was 2L) Review of Systems Review of Systems: All systems reviewed & are unremarkable except as noted in Subjective Physical Exam Physical Exam: CONSTITUTIONAL: WNWD, vitals as above, generally well- appearing EYES: normal conjunctivae, no scleral icterus ENT: external ear and nose normal, MMM RESPIRATORY: Very decreased breath sounds posteriorly, no apparent wheezing. Normal respiratory effort. Supplemental oxygen in place. CARDIOVASCULAR: irregular rate and rhythm, S1 and 2 heard, 1+ peripheral edema GASTROINTESTINAL: soft, nontender, nondistended MUSCULOSKELETAL: moves all extremities equally, able to sit up in bed independently SKIN: warm and dry NEUROLOGIC: CN 2-12 grossly intact, normal cognition, no gross focal deficits. PSYCHIATRIC: alert and cooperative with exam. Results & Data ([facility]) Vital Signs (Past 12 Hours) Vital Signs Temp Pulse Resp BP BP Pulse Ox 01/11/20 10:20 36.4 C L 89 20 116/80 99 01/11/20 07:00 36.4 C L 83 18 107/68 100 01/11/20 05:41 84 16 93 01/11/20 04:39 36.5 C 86 24 104/73 96 Medications Administered Current Inpatient Medications Albuterol (Combivent Respimat) 1 puffs INH QID [facility] Stop: 02/06/20 15:44 Last Admin: 01/11/20 13:22 Dose: 1 puffs Documented by: Albuterol (Ventolin Hfa) 2 puffs INH Q6 PRN PRN Reason: Shortness Of Breath Or Wheezing Stop: 02/06/20 14:55 Amlodipine [facility] ([facility]asc) [facility] Stop: 02/07/20 08:59 Last Admin: 01/11/20 08:13 Dose: 2.5 mg Documented by: Aspirin (Ecotrin Ectab) [facility] Stop: 02/06/20 15:59 Last Admin: 01/11/20 08:12 Dose: 81 mg Documented by: Atorvastatin Calcium (Lipitor) 20 mg PO QAM [facility] Stop: 02/07/20 08:59 Last Admin: 01/11/20 08:12 Dose: 20 mg Documented by: Clopidogrel Bisulfate (Plavix) 75 mg PO QAM [facility] Stop: 02/06/20 15:59 Last Admin: 01/11/20 08:13 Dose: 75 mg Documented by: Doxycycline Hyclate (Vibramycin) 100 mg PO BID [facility] Stop: 01/14/20 20:59 Last Admin: 01/11/20 08:12 Dose: 100 mg Documented by: Fluticasone Propionate (Flonase) 1 sprays NA QAM [facility] Stop: 02/07/20 08:59 Last Admin: 01/11/20 08:13 Dose: 1 sprays Documented by: Fluticasone/Vilanterol (Breo Ellipta 100/25 Mcg Inh) 1 puffs INH DAILY [facility]; Protocol Stop: 02/06/20 15:59 Last Admin: 01/11/20 08:11 Dose: 1 puffs Documented by: Heparin Sodium (Porcine) (Heparin Sodium (Porcine)) 5,000 units SQ Q12 [facility] Stop: 02/06/20 20:59 Last Admin: 01/11/20 08:12 Dose: 5,000 units Documented by: Ipratropium [place] (Atrovent 0.02% 0.5mg/2.5ml) 0.5 mg INH Q4H PRN PRN Reason: sob/wheezing Stop: 02/07/20 01:29 Last Admin: 01/11/20 05:41 Dose: 0.5 mg Documented by: Isosorbide Mononitrate (Imdur Extended Rel) 60 mg PO BID [facility] Stop: 02/06/20 20:59 Last Admin: 01/11/20 08:12 Dose: 60 mg Documented by: Levalbuterol HCl (Xopenex 0.63 Mg/3 Ml Neb) 0.63 mg NEB Q4H PRN PRN Reason: sob/wheezing Stop: 02/07/20 01:29 Last Admin: 01/11/20 05:41 Dose: 0.63 mg Documented by: Metoprolol Succinate (Toprol Xl) [facility] Stop: 02/07/20 08:59 Last Admin: 01/11/20 08:12 Dose: 25 mg Documented by: Metoprolol Succinate (Toprol Xl) 12.5 mg PO HS [facility] Stop: 02/06/20 20:59 Last Admin: 01/10/20 20:43 Dose: 12.5 mg Documented by: Multivitamins (Multivitamin Tab) [facility] Stop: 02/07/20 08:59 Last Admin: 01/11/20 08:13 Dose: 1 tab Documented by: Nitroglycerin (Nitrostat) 0.4 mg SL UD PRN PRN Reason: Chest Pain Stop: 02/06/20 14:55 Pantoprazole Sodium (Protonix) 40 mg PO QAM [facility] Stop: 02/07/20 08:59 Last Admin: 01/11/20 08:13 Dose: 40 mg Documented by: Polyethylene Glycol (Miralax Powder Packet) 17 gm PO DAILY PRN PRN Reason: Constipation Stop: 02/06/20 14:55 Prednisone (Prednisone) 40 mg PO DAILY [facility] Stop: 02/09/20 09:29 Last Admin: 01/11/20 08:12 Dose: 40 mg Documented by: Tamsulosin HCl (Flomax) 0.4 mg PO QAM [facility] Stop: 02/07/20 08:59 Last Admin: 01/11/20 08:13 Dose: 0.4 mg Documented by: Trazodone HCl (Desyrel) [address] [facility] Stop: 02/06/20 20:59 Last Admin: 01/10/20 20:50 Dose: 50 mg Documented by:
[2020-01-11] MEDS: TRAZODONE HCL 50 MG TAB PO SCH (21:38)
[2020-01-12] MEDS: LEVALBUTEROL HCL 0.63 MG/3 ML NEB NEB PRN ×2 (05:46→21:19)
[2020-01-12] MEDS: IPRATROPIUM BROMIDE NEB SOLN 0.02% 2.5 ML VIAL INH PRN ×2 (05:48→21:19)
[2020-01-12 05:58] LABS: Hematocrit (blood only) 35.8 % (42-52); Hemoglobin 11.1 g/dL (14.0-18.0); Mean Corpuscular Hemoglobin 32.1 pg (25-34); Mean Corpuscular Volume 103.5 fL (80-100); Mean Platelet Volume 10.4 fL (7.4-10.4); Platelet Count 152 K/uL (130-400); RDW Standard Deviation 51.7 fL (36.4-46.3); Red Blood Count 3.46 M/uL (4.7-6.1); White Blood Count 8.97 K/uL (4.8-10.8)
[2020-01-12 06:26] LABS: BUN Creatinine Ratio 56.1 (10-20); Calcium 8.6 mg/dl (8.5-10.1); Creatinine Clr Calc Pharmacy 125.5 ml/min; Est GFR (Non-African American) 108.7; Potassium 4.3 mmol/L (3.5-5.1)
[2020-01-12] MEDS: DOXYCYCLINE HYCLATE 100 MG CAP PO SCH ×2 (10:17→22:10)
[2020-01-12] MEDS: PANTOprazole 40 MG TAB PO SCH (10:17)
[2020-01-12] MEDS: TAMSULOSIN HCL 0.4 MG CAP PO SCH (10:17)
[2020-01-12] MEDS: IPRATROPIUM BROMIDE/ALBUTEROL respimat INH INH SCH ×4 (10:17→22:09)
[2020-01-12] MEDS: CLOPIDOGREL BISULFATE 75 MG TAB PO SCH (10:17)
[2020-01-12] MEDS: ASPIRIN 81 MG ECTAB PO SCH (10:18)
[2020-01-12] MEDS: predniSONE 20 MG TAB PO SCH (10:18)
[2020-01-12] MEDS: METOPROLOL SUCC 25MG EXT REL TAB PO SCH ×2 (10:18→22:10)
[2020-01-12] MEDS: MULTIVITAMIN TAB PO SCH (10:18)
[2020-01-12] MEDS: ISOSORBIDE MONO EXTENDED REL 60 MG TABCR PO SCH ×2 (10:18→22:10)
[2020-01-12] MEDS: AMLODIPINE BESYLATE 5 MG TAB PO SCH (10:18)
[2020-01-12] MEDS: HEPARIN SOD 5,000 UNIT/0.5 ML VIAL SQ SCH ×2 (10:19→22:11)
[2020-01-12] MEDS: ATORVASTATIN 20 MG TAB PO SCH (10:19)
[2020-01-12] MEDS: FLUTICASONE/VILANTEROL 100/25MCG 14 PUFFS/INHALER INH SCH (10:19)
[2020-01-12] MEDS: FLUTICASONE PROPIONATE NA SPR 16 GM BTL SCH (10:19)
--- NOTE | 2020-01-12 17:49 | Hospitalist Progress Note ---
Date of Service January 12, 2020 Assessment & Plan (1) COPD exacerbation: Chronically on 2 L oxygen therapy, now requiring 4L. Very poor air movement on auscultation. Procalcitonin was negative so rocephin was stopped. Appreciate pulm recommendations there. Cont doxycycline for COPD exacerbation. Continue steroids, oxygen supplementation and nebulized bronchodilators. 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 He remains on aspirin and Plavix for CAD with a history of stent. Rate controlled with beta-jan. Continue current medications. Of note he was on amiodarone in the past but taken off due to increasing pulmonary symptoms. (3) Weakness: significant change in functional status from last month. Improved from . Family and patient both understanding of likely need to go to SNF as a transition home. PT/OT consulted. (4) CAD (coronary artery disease): CAD with history of PCI. Appears stable, continue current medical management including baby aspirin, Toprol-XL 25 mg every morning, 12.5 mg nightly, Lipitor, Plavix. Continue Imdur for presumed chronic stable angina although has not reported any chest pain. (5) Hypertension: At goal continue current medications. (6) Anemia: Around his baseline. No indication for transfusion at this time. Cont monitoring. (7) DVT prophylaxis: Heparin DNR/DNI Dispo-telemetry monitoring to continue for now with increased oxygen requirement--may be a new baseline for him as he has been here for several days. ? Plan for SNF at time of discharge. Palliative input appreciated. Caridad is his niece and the person making medical decisions for him. Aziza Berg [facility] and Anticipated Discharge Date Admission Date: January 07, 2020 Anticipated date of discharge: 01/14/20 Subjective Doing well today Again no reports of SOB although he is still very deconditioned physically and he is on 4L NC Eating well and open to going to SNF but reiterates to me that he doesn't want excessive rehab efforts to be pushed onto him because he is afraid of what he cannot do. I reassured him that everyone's goal was different and the reason to go to a SNF now would be to have help wtih ADLs...the rehab was an afterthought, although it is still important. Review of Systems Review of Systems: All systems reviewed & are unremarkable except as noted in Subjective Physical Exam Physical Exam: CONSTITUTIONAL: WNWD, vitals as above, generally well-appeari ng EYES: normal conjunctivae, no scleral icterus ENT: external ear and nose normal, MMM RESPIRATORY: decreased breath sounds posteriorly, no apparent wheezing. Normal respiratory effort. Supplemental oxygen in place. CARDIOVASCULAR: irregular rate and rhythm, S1 and 2 heard, no peripheral edema GASTROINTESTINAL: soft, nontender, nondistended MUSCULOSKELETAL: moves all extremities equally, able to sit up in bed independently SKIN: warm and dry NEUROLOGIC: CN 2-12 grossly intact, normal cognition, no gross focal deficits. PSYCHIATRIC: alert and cooperative with exam. Results & Data ([facility]) Vital Signs (Past 12 Hours) Vital Signs Temp Pulse Pulse Resp BP BP Pulse Ox 01/12/20 15:08 36.7 C 88 18 124/80 100 01/12/20 14:08 99 01/12/20 11:43 36.6 C 95 H 28 H 114/80 97 01/12/20 08:00 109 H 01/12/20 07:18 36.6 C 80 22 115/81 100 Laboratory Results Short CBC 01/12/20 Range/Units 05:42 WBC 8.97 (4.8-10.8) K/uL Hgb 11.1 L (14.0-18.0) g/dL Hct 35.8 L (42-52) % Plt Count 152 (130-400) K/uL BMP 01/12/20 05:42 Sodium 142 Potassium 4.3 Chloride 104 Carbon Dioxide 37 H BUN 23 H Creatinine 0.41 L Glucose 81 Calcium 8.6 Medications Administered Current Inpatient Medications Albuterol (Combivent Respimat) 1 puffs INH QID [facility] Stop: 02/06/20 15:44 Last Admin: 01/12/20 17:32 Dose: 1 puffs Documented by: Albuterol (Ventolin Hfa) 2 puffs INH Q6 PRN PRN Reason: Shortness Of Breath Or Wheezing Stop: 02/06/20 14:55 Amlodipine Besylate (Norvasc) 2.[address] [facility] Stop: 02/07/20 08:59 Last Admin: 01/12/20 10:18 Dose: 2.5 mg Documented by: Aspirin (Ecotrin Ectab) [address] [facility] Stop: 02/06/20 15:59 Last Admin: 01/12/20 10:18 Dose: 81 mg Documented by: Atorvastatin Calcium (Lipitor) [address] [facility] Stop: 02/07/20 08:59 Last Admin: 01/12/20 10:19 Dose: 20 mg Documented by: Clopidogrel Bisulfate (Plavix) [address] [facility] Stop: 02/06/20 15:59 Last Admin: 01/12/20 10:17 Dose: 75 mg Documented by: Doxycycline Hyclate (Vibramycin) 100 mg PO BID [facility] Stop: 01/14/20 20:59 Last Admin: 01/12/20 10:17 Dose: 100 mg Documented by: Fluticasone Propionate (Flonase) [address] [facility] Stop: 02/07/20 08:59 Last Admin: 01/12/20 10:19 Dose: 1 sprays Documented by: Fluticasone/Vilanterol (Breo Ellipta 100/25 Mcg Inh) 1 puffs INH DAILY [facility]; Protocol Stop: 02/06/20 15:59 Last Admin: 01/12/20 10:19 Dose: 1 puffs Documented by: Heparin Sodium (Porcine) (Heparin Sodium (Porcine)) 5,000 units SQ Q12 [facility] Stop: 02/06/20 20:59 Last Admin: 01/12/20 10:19 Dose: 5,000 units Documented by: Ipratropium [place]oy (Atrovent 0.02% 0.5mg/2.5ml) 0.5 mg INH Q4H PRN PRN Reason: sob/wheezing Stop: 02/07/20 01:29 Last Admin: 01/12/20 05:48 Dose: 0.5 mg Documented by: Isosorbide Mononitrate (Imdur Extended Rel) 60 mg PO BID [facility] Stop: 02/06/20 20:59 Last Admin: 01/12/20 10:18 Dose: 60 mg Documented by: Levalbuterol HCl (Xopenex 0.63 Mg/3 Ml Neb) 0.63 mg NEB Q4H PRN PRN Reason: sob/wheezing Stop: 02/07/20 01:29 Last Admin: 01/12/20 05:46 Dose: 0.63 mg Documented by: Metoprolol Succinate (Toprol Xl) [address] [facility] Stop: 02/07/20 08:59 Last Admin: 01/12/20 10:18 Dose: 25 mg Documented by: Metoprolol Succinate (Toprol Xl) 12.5 mg PO [facility] Stop: 02/06/20 20:59 Last Admin: 01/11/20 21:32 Dose: 12.5 mg Documented by: Multivitamins ([facility]itamin Tab) [facility] Stop: 02/07/20 08:59 Last Admin: 01/12/20 10:18 Dose: 1 tab Documented by: Nitroglycerin (Nitrostat) 0.4 mg SL UD PRN PRN Reason: Chest Pain Stop: 02/06/20 14:55 Pantoprazole Sodium (Protonix) [address] [facility] Stop: 02/07/20 08:59 Last Admin: 01/12/20 10:17 Dose: 40 mg Documented by: Polyethylene Glycol (Miralax Powder Packet) 17 gm PO DAILY PRN PRN Reason: Constipation Stop: 02/06/20 14:55 Prednisone (Prednisone) 40 mg PO DAILY [facility] Stop: 02/09/20 09:29 Last Admin: 01/12/20 10:18 Dose: 40 mg Documented by: Tamsulosin HCl (Flomax) 0.[address] [facility] Stop: 02/07/20 08:59 Last Admin: 01/12/20 10:17 Dose: 0.4 mg Documented by: Trazodone HCl (Desyrel) 50 mg PO [facility] Stop: 02/06/20 20:59 Last Admin: 01/11/20 21:38 Dose: 50 mg Documented by:
[2020-01-12] MEDS: TRAZODONE HCL 50 MG TAB PO SCH (22:09)
[2020-01-13] MEDS: LEVALBUTEROL HCL 0.63 MG/3 ML NEB NEB PRN (01:14)
[2020-01-13] MEDS: IPRATROPIUM BROMIDE NEB SOLN 0.02% 2.5 ML VIAL INH PRN (01:14)
[2020-01-13] MEDS: ACETAMINOPHEN 325 MG TAB PO PRN (06:16)
[2020-01-13] MEDS: FLUTICASONE/VILANTEROL 100/25MCG 14 PUFFS/INHALER INH SCH (08:49)
[2020-01-13] MEDS: IPRATROPIUM BROMIDE/ALBUTEROL respimat INH INH SCH ×4 (08:49→21:06)
[2020-01-13] MEDS: DOXYCYCLINE HYCLATE 100 MG CAP PO SCH ×2 (08:51→21:07)
[2020-01-13] MEDS: AMLODIPINE BESYLATE 5 MG TAB PO SCH (08:51)
[2020-01-13] MEDS: PANTOprazole 40 MG TAB PO SCH (08:51)
[2020-01-13] MEDS: ISOSORBIDE MONO EXTENDED REL 60 MG TABCR PO SCH ×2 (08:52→21:09)
[2020-01-13] MEDS: CLOPIDOGREL BISULFATE 75 MG TAB PO SCH (08:52)
[2020-01-13] MEDS: ASPIRIN 81 MG ECTAB PO SCH (08:52)
[2020-01-13] MEDS: MULTIVITAMIN TAB PO SCH (08:52)
[2020-01-13] MEDS: predniSONE 20 MG TAB PO SCH (08:52)
[2020-01-13] MEDS: ATORVASTATIN 20 MG TAB PO SCH (08:52)
[2020-01-13] MEDS: TAMSULOSIN HCL 0.4 MG CAP PO SCH (08:52)
[2020-01-13] MEDS: HEPARIN SOD 5,000 UNIT/0.5 ML VIAL SQ SCH ×2 (08:52→21:08)
[2020-01-13] MEDS: FLUTICASONE PROPIONATE NA SPR 16 GM BTL SCH (08:52)
[2020-01-13] MEDS: METOPROLOL SUCC 25MG EXT REL TAB PO SCH ×2 (08:52→21:09)
--- NOTE | 2020-01-13 11:11 | Palliative Care Consultation ---
Date of Consultation January 13, 2020 Assessment & Plan (1) Goals of care, counseling/discussion: -84 year old male patient with PMH COPD on 2 L oxygen at home, CAD, PAF, hypertension, hyperlipidemia and other, with increasing shortness of breath. He was found to have a developing right lower lobe infiltrate on CXR, but no elevated WBC, fever, or other signs of infection. He was started on abx empirically, but they were since discontinued as no signs of infectious process. Patient was also noted to be in afib with rvr on admission. Director Of Environmental Services was consulted-- they feel this is an exacerbation due to advancing/end-stage COPD. Patient should ideally be on a cpap or trilogy machine at home, but patient declines this. Patient has also been having increased weakness at home where he lives alone in an apartment. Per family, he is unsafe to be home alone at this point. Given patient's advanced illness and poor functional status, palliative care is consulted to discuss goals of care. -met with patient in room 233. He is awake, alert and oriented x4. However, he is a poor historian mostly because he gets so angry during conversation. Patient is frustrated about being in the hospital, he states that he has "told the same story to 10 different people and no one is doing anything." -I attempted to discuss his advancing illness, goals of care, etc. Patient said he just wants to be out of the hospital and told me to discuss everything with his niece Caridad. Patient states that Caridad is his POA and can make any and all decisions on his behalf. -I called Caridad today ([phone]), and spoke at length. Caridad is fully aware of her uncle's condition and the fact that he has worsening/end-stage COPD. She states that she was here over the weekend and had some difficult conversations with patient. -In regards to discharge planning: patient and niece aware that he needs 24/7 care and plan to transition him to SNF. He will likely go under his skilled benefit initially, then transition to long-term care. -We discussed goals of care. Caridad states that she and patient discussed this weekend about eventually transitioning to comfort measures and even hospice care in the future. She states that for now, we will continue current care and see how patient does. They would also like to see how he does at SNF. We talked about transitioning to hospice care once he is there, and when it would be appropriate to do so. She verbalizes understanding. -Plan to continue current treatment plan. Prognosis is guarded to poor. Plan for SNF placement-- clinical case manager aware and will call Caridad today to make referrals. -Please contact us with any further palliative care needs. We will follow p eripherally. (2) Pneumonia: (3) Atrial fibrillation with RVR: (4) COPD exacerbation: Supervising Physician Co-Signing Physician Notes Chart reviewed, patient seen and examined Collaborated with BRIAN Washington No family at bedside during exam PE: No acute distress, patient comfortable on O2 at 4 L HEENT: EOMI Respirations: Unlabored, diminished at bases CV: Regular rate, no edema Abdomen: Not distended Agree with above note, assessment and plan as per BRIAN Washington-we will continue to follow and assist family with medical decision making. History of Present Illness Attending Physician: Mikael Chen MD History of Present Illness This 84 year old male patient with PMH COPD on 2 L oxygen at home, CAD, PAF, hypertension, hyperlipidemia and other, with increasing shortness of breath. He was found to have a developing right lower lobe infiltrate on CXR, but no elevated WBC, fever, or other signs of infection. He was started on abx empirically, but they were since discontinued as no signs of infectious process. Patient was also noted to be in afib with rvr on admission. Director Of Environmental Services was consulted-- they feel this is an exacerbation due to advancing/end-stage COPD. Patient should ideally be on a cpap or trilogy machine at home, but patient declines this. Patient has also been having increased weakness at home where he lives alone in an apartment. Per family, he is unsafe to be home alone at this point. Given patient's advanced illness and poor functional status, palliative care is consulted to discuss goals of care. Thank you kindly for this consult. Palliative care team will follow as needed. Allergies Allergy/AdvReac Type Severity Reaction Status Date / Time naproxen Allergy Unknown hives Verified 01/07/20 11:16 Home Medications Home Medications Medication Instructions Recorded Confirmed Type Combivent Respimat 1 puff INHALATION QID 08/28/18 01/07/20 History albuterol sulfate [Ventolin HFA] 2 puff INHALATION Q6 PRN 08/28/18 01/07/20 History atorvastatin 20 mg PO QAM 08/28/18 01/07/20 History clopidogrel [Plavix] 75 mg PO QAM 08/28/18 01/07/20 History fluticasone propion-salmeterol 1 puff INHALATION BID 08/28/18 01/07/20 History [Advair Diskus] metoprolol succinate [Toprol XL] 25 mg PO QAM 08/28/18 01/07/20 History multivitamin 1 tab PO QAM 08/28/18 01/07/20 History nitroglycerin [Nitrostat] 0.4 mg SUBLINGUAL UD PRN 08/28/18 01/07/20 History polyethylene glycol 3350 [Miralax] 17 g PO DAILY PRN 08/28/18 01/07/20 History tamsulosin [Flomax] 0.4 mg PO QAM 08/28/18 01/07/20 History aspirin [Aspir-81] 81 mg PO QAM 10/20/18 01/07/20 History isosorbide mononitrate 60 mg PO BID 10/20/18 01/07/20 History omeprazole 20 mg PO QAM 10/20/18 01/07/20 History hydrocodone-acetaminophen 1 tab PO Q6H PRN 10/10/19 01/07/20 History metoprolol succinate 12.5 mg PO HS 10/10/19 01/07/20 History fluticasone propionate [Flonase 1 spray INTRANASAL QAM 10/31/19 01/07/20 History Allergy Relief] amlodipine 2.5 mg PO QAM 01/07/20 01/07/20 History trazodone 50 mg PO HS 01/07/20 01/07/20 History Patient History Medical History Bifascicular block BPH (benign prostatic hyperplasia) CAD (coronary artery disease) PCI to LAD, CATALINO to OM 2014-failed PCI to heavily calcified LAD Chronic hyponatremia COPD (chronic obstructive pulmonary disease) (Acute) Hyperlipidemia Paroxysmal atrial fibrillation Renal artery stenosis Tobacco abuse (Inactive) Surgical History History of cholecystectomy History of coronary artery stent placement Family History Mother Diabetes Social History Preferred Language: Greenlandic Communication Ability: Effective 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 Beliefs That Will Affect Care: None marital status: Single Current Living Situation: Alone Other Information That Helps Us Care for You: No Feels Safe at Home: Yes Safety Concerns: Feels Safe At This Time Smoking Status: Never smoker Tobacco Type: cigarettes ; Cigarettes Per Day: 30 ; Second Hand Exposure: No ; Hx Alcohol Use: No Hx Substance Use: No Review of Systems Review of Systems: +SOB no pain further ROS not obtained due to patient's irritation Physical Exam Constitutional: + thin and + frail appearing; no acute distress ENMT: external ear and nose normal, oropharynx normal Respiratory: + labored breathing and + tachypneic Auscultation: + diminished lung sounds Cardiovascular: Rate/Rhythm: + tachycardic Extremities: no edema Neurologic: moves all extremities and awake; not confused Psychiatric: Orientation: alert and oriented x 3 Affect: + irritable affect and + angry affect Results & Data Vital Signs (Past 12 Hours) Vital Signs Temp Pulse Pulse Resp BP Pulse Ox 01/13/20 07:34 115 H 01/13/20 07:08 36.5 C 78 20 116/79 99 01/13/20 03:44 36.7 C 89 18 120/76 100 01/13/20 01:14 74 16 100 01/13/20 00:00 113 H 01/12/20 23:29 36.7 C 87 18 123/86 99 PG Care Time/CCT Total # of Minutes Spent Total Time Spent with Patient: Total time spent is greater than 50% in coordination of care (as documented) at patient's floor/unit and/or counseling patient: 50 minutes. Coding Level of Care Code 33201 Inpt Consult Level 2 Diagnoses Goals of care, counseling/discussion Z71.89 Pneumonia J18.9 Atrial fibrillation with RVR I48.91 COPD exacerbation J44.1 Time Spent (min) 50
--- NOTE | 2020-01-13 15:27 | Hospitalist Progress Note ---
Date of Service January 13, 2020 Assessment & Plan (1) COPD exacerbation: Chronically on 2 L oxygen therapy, now requiring 4L on admission. Very poor air movement on auscultation. Rocephin was started but that has been discontinued Appreciate pulm recommendations there. Cont doxycycline for COPD exacerbation. Continue steroids, oxygen supplementation and nebulized bronchodilators. 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 He remains on aspirin and Plavix for CAD with a history of stent. Rate controlled with beta-jan. Continue current medications. Of note he was on amiodarone in the past but taken off due to increasing pulmonary symptoms. Medically stable (3) Weakness: Significant change in functional status from last month. Family and patient both understanding of likely need to go to SNF as a transition home. PT/OT consulted. Agreed to go to SNF and awaiting placement (4) CAD (coronary artery disease): CAD with history of PCI. Appears stable, continue current medical management including baby aspirin, Toprol-XL 25 mg every morning, 12.5 mg nightly, Lipitor, Plavix. Continue Imdur for presumed chronic stable angina although has not reported any chest pain. (5) Hypertension: At goal continue current medications. (6) Anemia: Around his baseline. No indication for transfusion at this time. Cont monitoring. (7) DVT prophylaxis: Heparin DNR/DNI Dispo-telemetry monitoring to continue for now with increased oxygen requirement--may be a new baseline for him as he has been here for several days. ? Plan for SNF at time of discharge. Palliative input appreciated. Caridad is his niece and the person making medical decisions for him. Admission and Anticipated Discharge Date Admission Date: January 07, 2020 Anticipated date of discharge: 01/14/20 Subjective The patient is seen and examined by me in the telemetry unit He has been feeling a lot better today He is minimally short of breath at rest and denies any other symptoms He is ready to be discharged from the hospital Review of Systems Review of Systems: All systems reviewed and are unremarkable except as noted below Respiratory: + cough and + dyspnea (Minimal at rest) Physical Exam Physical Exam: In bed comfortably Constitutional: + acute distress (Minimal shortness of breath at rest), + ill appearing and + thin Eyes: PERRL, conjunctivae normal, anicteric sclerae ENMT: external ear and nose normal, oropharynx normal Neck: trachea midline, no thyromegaly Respiratory: normal respiratory effort, lungs clear to auscultation Cardiovascular: Rate/Rhythm: regular rate and regular rhythm Heart Sounds: no murmur Gastrointestinal (Abdomen): Inspection/Auscultation: abdomen normal to inspection and normal bowel sounds Percussion/Palpation: abdomen soft; abdomen nontender Musculoskeletal: No acute arthritis in any joints Lymphatic: no cervical or axillary lymphadenopathy Results & Data ([facility]) Vital Signs (Past 12 Hours) Vital Signs Temp Pulse Pulse Resp BP Pulse Ox 01/13/20 11:03 36.5 C 88 22 112/66 100 01/13/20 07:34 115 H 01/13/20 07:08 36.5 C 78 20 116/79 99 01/13/20 03:44 36.7 C 89 18 120/76 100 Medications Administered Current Inpatient Medications Acetaminophen (Tylenol) 650 mg PO Q6H PRN PRN Reason: Fever Stop: 02/12/20 06:06 Last Admin: 01/13/20 06:16 Dose: 650 mg Documented by: Albuterol (Combivent Respimat) 1 puffs INH QID [facility] Stop: 02/06/20 15:44 Last Admin: 01/13/20 12:02 Dose: 1 puffs Documented by: Albuterol (Ventolin Hfa) 2 puffs INH Q6 PRN PRN Reason: Shortness Of Breath Or Wheezing Stop: 02/06/20 14:55 Amlodipine Besylate (Norvasc) 2.5 mg PO [facility] Stop: 02/07/20 08:59 Last Admin: 01/13/20 08:51 Dose: 2.5 mg Documented by: Aspirin (Ecotrin Ectab) 81 mg PO [facility] Stop: 02/06/20 15:59 Last Admin: 01/13/20 08:52 Dose: 81 mg Documented by: [facility]vastatin Cal[facility] ([facility]) [facility]: 02/07/20 08:59 Last Admin: 01/13/20 08:52 Dose: 20 mg Documented by: Clopidogrel Bisulfate (Plavix) 75 mg PO [facility] Stop: 02/06/20 15:59 Last Admin: 01/13/20 08:52 Dose: 75 mg Documented by: Doxycycline Hyclate (Vibramycin) 100 mg PO BID [facility] Stop: 01/14/20 20:59 Last Admin: 01/13/20 08:51 Dose: 100 mg Documented by: Fluticasone Propionate (Flonase) 1 sprays NA QAM [facility] Stop: 02/07/20 08:59 Last Admin: 01/13/20 08:52 Dose: 1 sprays Documented by: Fluticasone/Vilanterol (Breo Ellipta 100/25 Mcg Inh) 1 puffs INH DAILY [facility]; Protocol Stop: 02/06/20 15:59 Last Admin: 01/13/20 08:49 Dose: 1 puffs Documented by: Heparin Sodium (Porcine) (Heparin Sodium (Porcine)) 5,000 units SQ Q12 [facility] Stop: 02/06/20 20:59 Last Admin: 01/13/20 08:52 Dose: 5,000 units Documented by: Ipratropium [place]co (Atrovent 0.02% 0.5mg/2.5ml) 0.5 mg INH Q4H PRN PRN Reason: sob/wheezing Stop: 02/07/20 01:29 Last Admin: 01/13/20 01:14 Dose: 0.5 mg Documented by: Isosorbide Mononitrate (Imdur Extended Rel) 60 mg PO BID [facility] Stop: 02/06/20 20:59 Last Admin: 01/13/20 08:52 Dose: 60 mg Documented by: Levalbuterol HCl (Xopenex 0.63 Mg/3 Ml Neb) 0.63 mg NEB Q4H PRN PRN Reason: sob/wheezing Stop: 02/07/20 01:29 Last Admin: 01/13/20 01:14 Dose: 0.63 mg Documented by: Metoprolol Succinate (Toprol Xl) [facility] [place] 02/07/20 08:59 Last Admin: 01/13/20 08:52 Dose: 25 mg Documented by: Metoprolol Succinate (Toprol Xl) 12.5 mg PO [facility] Stop: 02/06/20 20:59 Last Admin: 01/12/20 22:10 Dose: 12.5 mg Documented by: Multivitamins (Multivitamin Tab) 1 [facility] [place]: 02/07/20 08:59 Last Admin: 01/13/20 08:52 Dose: 1 tab Documented by: Nitroglycerin (Nitrostat) 0.4 mg SL UD PRN PRN Reason: Chest Pain Stop: 02/06/20 14:55 Pantoprazole Sodium (Protonix) 40 mg PO QAM [facility] Stop: 02/07/20 08:59 Last Admin: 01/13/20 08:51 Dose: 40 mg Documented by: Polyethylene Glycol (Miralax Powder Packet) 17 gm PO DAILY PRN PRN Reason: Constipation Stop: 02/06/20 14:55 Prednisone (Prednisone) 40 mg PO DAILY [facility] Stop: 02/09/20 09:29 Last Admin: 01/13/20 08:52 Dose: 40 mg Documented by: Tamsulosin HCl (Flomax) 0.4 mg [facility] [place]: 02/07/20 08:59 Last Admin: 01/13/20 08:52 Dose: 0.4 mg Documented by: Trazodone HCl (Desyrel) 50 mg PO [facility] Stop: 02/06/20 20:59 Last Admin: 01/12/20 22:09 Dose: 50 mg Documented by:
[2020-01-13] MEDS: TRAZODONE HCL 50 MG TAB PO SCH (21:14)
[2020-01-14] MEDS: IPRATROPIUM BROMIDE NEB SOLN 0.02% 2.5 ML VIAL INH PRN ×2 (03:10→13:51)
[2020-01-14] MEDS: LEVALBUTEROL HCL 0.63 MG/3 ML NEB NEB PRN ×2 (03:10→13:51)
[2020-01-14] MEDS: ACETAMINOPHEN 325 MG TAB PO PRN ×2 (03:27→21:01)
[2020-01-14 07:22] LABS: Eosinophils # (auto) 0.03 K/uL (0-0.5); Eosinophils % (auto) 0.3 %; Hematocrit (blood only) 37.3 % (42-52); Hemoglobin 11.5 g/dL (14.0-18.0); Immature Granulocytes # (auto) 0.08 K/uL (0.00-0.02); Immature Granulocytes % (auto) 0.8 %; Lymphocytes # (auto) 0.69 K/uL (1.2-3.4); Lymphocytes % (auto) 6.6 %; Mean Corpuscular Hemoglobin 32.2 pg (25-34); Mean Corpuscular Hgb Conc 30.8 g/dL (32-36); Mean Corpuscular Volume 104.5 fL (80-100); Mean Platelet Volume 10.9 fL (7.4-10.4); Monocytes # (auto) 0.73 K/uL (0.11-0.59); Monocytes % (auto) 6.9 %; Neutrophils # (auto) 8.99 K/uL (1.4-6.5); Neutrophils % (auto) 85.4 %; Nucleated RBC # (auto) 0.05 K/uL (0-0); Nucleated RBC % (auto) 0.5 %; Platelet Count 158 K/uL (130-400); RDW Coefficient of Variation 13.7 % (11.5-14.5); Red Blood Count 3.57 M/uL (4.7-6.1); White Blood Count 10.52 K/uL (4.8-10.8)
[2020-01-14 07:54] LABS: BUN Creatinine Ratio 35.9 (10-20); Calcium 8.8 mg/dl (8.5-10.1); Creatinine Clr Calc Pharmacy 93.4 ml/min; Est GFR (African American) 111.7; Est GFR (Non-African American) 96.4; Magnesium 1.9 mg/dl (1.8-2.4); Potassium 3.7 mmol/L (3.5-5.1)
[2020-01-14 07:55] LABS: Phosphorus 2.8 mg/dl (2.5-4.9)
[2020-01-14] MEDS: FLUTICASONE/VILANTEROL 100/25MCG 14 PUFFS/INHALER INH SCH (08:10)
[2020-01-14] MEDS: IPRATROPIUM BROMIDE/ALBUTEROL respimat INH INH SCH ×4 (08:11→20:49)
[2020-01-14] MEDS: ATORVASTATIN 20 MG TAB PO SCH (08:13)
[2020-01-14] MEDS: predniSONE 20 MG TAB PO SCH (08:13)
[2020-01-14] MEDS: METOPROLOL SUCC 25MG EXT REL TAB PO SCH ×2 (08:13→20:50)
[2020-01-14] MEDS: CLOPIDOGREL BISULFATE 75 MG TAB PO SCH (08:13)
[2020-01-14] MEDS: PANTOprazole 40 MG TAB PO SCH (08:14)
[2020-01-14] MEDS: TAMSULOSIN HCL 0.4 MG CAP PO SCH (08:14)
[2020-01-14] MEDS: ISOSORBIDE MONO EXTENDED REL 60 MG TABCR PO SCH ×2 (08:14→20:50)
[2020-01-14] MEDS: MULTIVITAMIN TAB PO SCH (08:14)
[2020-01-14] MEDS: DOXYCYCLINE HYCLATE 100 MG CAP PO SCH (08:14)
[2020-01-14] MEDS: ASPIRIN 81 MG ECTAB PO SCH (08:14)
[2020-01-14] MEDS: FLUTICASONE PROPIONATE NA SPR 16 GM BTL SCH (08:15)
[2020-01-14] MEDS: HEPARIN SOD 5,000 UNIT/0.5 ML VIAL SQ SCH ×2 (08:16→20:50)
--- NOTE | 2020-01-14 13:38 | Hospitalist Progress Note ---
Date of Service January 14, 2020 Assessment & Plan (1) COPD exacerbation: Chronically on 2 L oxygen therapy, now requiring 4L on admission. Very poor air movement on auscultation. Rocephin was started but that has been discontinued Appreciate pulm recommendations there. Cont doxycycline for COPD exacerbation. Continue steroids, oxygen supplementation and nebulized bronchodilators. Clinically a lot better Remains stable to be discharged to a facility Palliative care consultation Appreciate input and recommendation Family is agreeable to the recommendation Likely transfer to hospice care and/or comfort care from SNF (2) Paroxysmal A-fib: Known history of paroxysmal atrial fibrillation not on any anticoagulation per his intake specialist. He remains on aspirin and Plavix for CAD with a history of stent. Rate controlled with beta-jan. Continue current medications. Of note he was on amiodarone in the past but taken off due to increasing pulmonary symptoms. Rate remained controlled and denies any significant symptoms (3) Weakness: Significant change in functional status from last month. Family and patient both understanding of likely need to go to SNF as a transition home. PT/OT consulted. Agreed to go to SNF and awaiting placement (4) CAD (coronary artery disease): CAD with history of PCI. Appears stable, continue current medical management including baby aspirin, Toprol-XL 25 mg every morning, 12.5 mg nightly, Lipitor, Plavix. Continue Imdur for presumed chronic stable angina although has not reported any chest pain. (5) Hypertension: At goal continue current medications. (6) Anemia: Around his baseline. No indication for transfusion at this time. Cont monitoring. (7) DVT prophylaxis: Heparin DNR/DNI Dispo-telemetry monitoring to continue for now with increased oxygen requirement--may be a new baseline for him as he has been here for several days. ? Plan for SNF at time of discharge. Palliative input appreciated. Caridad is his niece and the person making medical decisions for him. Medically stable to be discharged to a facility Admission and Anticipated Discharge Date Admission Date: January 07, 2020 Anticipated date of discharge: 01/14/20 Subjective The patient is seen and examined by me in the telemetry unit He has been feeling a lot better today He is minimally short of breath at rest and denies any other symptoms He is ready to be discharged from the hospital 01/14/2020 The patient was seen and examined in telemetry unit Remains stable without any significant symptoms Denies any pain Review of Systems Review of Systems: All systems reviewed and are unremarkable except as noted below Respiratory: + cough and + dyspnea (Minimal at rest) Physical Exam Physical Exam: Lying in bed comfortably Constitutional: + acute distress (Minimal shortness of breath at rest), + ill appearing and + thin Eyes: PERRL, conjunctivae normal, anicteric sclerae ENMT: external ear and nose normal, oropharynx normal Neck: trachea midline, no thyromegaly Respiratory: + respiratory distress (Moderate shortness of breath at rest ) and + uses accessory muscles Auscultation: + diminished lung sounds, + crackles (At the bases more on the right) and + wheezes (Mild wheezing all over) Cardiovascular: Rate/Rhythm: regular rate, regular rhythm and + tachycardic Heart Sounds: no murmur Extremities: + edema (Bilateral leg edema +1) Gastrointestinal (Abdomen): Inspection/Auscultation: abdomen normal to ins pection and normal bowel sounds Percussion/Palpation: abdomen soft; abdomen nontender Musculoskeletal: No acute arthritis in any joint Lymphatic: no cervical or axillary lymphadenopathy Results & Data ([facility]) Vital Signs (Past 12 Hours) Vital Signs Temp Pulse Resp BP Pulse Ox 01/14/20 11:39 36.4 C L 76 18 122/83 99 01/14/20 07:54 36.3 C L 98 H 17 118/79 99 01/14/20 03:13 92 H 18 95 01/14/20 02:57 36.3 C L 84 20 121/85 98 Laboratory Results Short CBC 01/14/20 Range/Units 07:01 WBC 10.52 (4.8-10.8) K/uL Hgb 11.5 L (14.0-18.0) g/dL Hct 37.3 L (42-52) % Plt Count 158 (130-400) K/uL BMP 01/14/20 07:01 Sodium 140 Potassium 3.7 Chloride 100 Carbon Dioxide 40 H BUN 20 H Creatinine 0.55 L Glucose 83 Calcium 8.8 Medications Administered Current Inpatient Medications Acetaminophen (Tylenol) 650 mg PO Q6H PRN PRN Reason: Fever Stop: 02/12/20 06:06 Last Admin: 01/14/20 03:27 Dose: 650 mg Documented by: Albuterol (Combivent Respimat) 1 puffs INH QID [facility] Stop: 02/06/20 15:44 Last Admin: 01/14/20 08:11 Dose: 1 puffs Documented by: Albuterol (Ventolin Hfa) 2 puffs INH Q6 PRN PRN Reason: Shortness Of Breath Or Wheezing Stop: 02/06/20 14:55 Amlodipine Besylate (Norvasc) 2.5 mg PO [facility] Stop: 02/07/20 08:59 Last Admin: 01/13/20 08:51 Dose: 2.5 mg Documented by: Aspirin (Ecotrin Ectab) 81 mg PO [facility] Stop: 02/06/20 15:59 Last Admin: 01/14/20 08:14 Dose: 81 mg Documented by: Atorvastatin Calcium (Lipitor) 20 mg PO [facility] Stop: 02/07/20 08:59 Last Admin: 01/14/20 08:13 Dose: 20 mg Documented by: Clopidogrel Bisulfate (Plavix) 75 mg PO [facility] Stop: 02/06/20 15:59 Last Admin: 01/14/20 08:13 Dose: 75 mg Documented by: Doxycycline Hyclate (Vibramycin) 100 mg PO BID [facility] Stop: 01/14/20 20:59 Last Admin: 01/14/20 08:14 Dose: 100 mg Documented by: Fluticasone Propionate (Flonase) [facility] [facility] [place]: 02/07/20 08:59 Last Admin: 01/14/20 08:15 Dose: 1 sprays Documented by: Fluticasone/Vilanterol (Breo Ellipta 100/25 Mcg Inh) 1 puffs INH DAILY [facility]; Protocol Stop: 02/06/20 15:59 Last Admin: 01/14/20 08:10 Dose: 1 puffs Documented by: Heparin Sodium (Porcine) (Heparin Sodium (Porcine)) 5,000 units SQ Q12 [facility] Stop: 02/06/20 20:59 Last Admin: 01/14/20 08:16 Dose: 5,000 units Documented by: Ipratropium [place] (Atrovent 0.02% 0.5mg/2.5ml) 0.5 mg INH Q4H PRN PRN Reason: sob/wheezing Stop: 02/07/20 01:29 Last Admin: 01/14/20 03:10 Dose: 0.5 mg Documented by: Isosorbide Mononitrate (Imdur Extended Rel) 60 mg PO BID [facility] Stop: 02/06/20 20:59 Last Admin: 01/14/20 08:14 Dose: 60 mg Documented by: Levalbuterol HCl (Xopenex 0.63 Mg/3 Ml Neb) 0.63 mg NEB Q4H PRN PRN Reason: sob/wheezing Stop: 02/07/20 01:29 Last Admin: 01/14/20 03:10 Dose: 0.63 mg Documented by: Metoprolol Succinate (Toprol Xl) [facility] [place] [facility] [place]: 02/07/20 08:59 Last Admin: 01/14/20 08:13 Dose: 25 mg Documented by: Metoprolol Succinate (Toprol Xl) 12.5 mg PO [facility] Stop: 02/06/20 20:59 Last Admin: 01/13/20 21:09 Dose: 12.5 mg Documented by: Multivitamins (Multivitamin Tab) 1 tab PO [facility] Stop: 02/07/20 08:59 Last Admin: 01/14/20 08:14 Dose: 1 tab Documented by: Nitroglycerin (Nitrostat) 0.4 mg SL UD PRN PRN Reason: Chest Pain Stop: 02/06/20 14:55 Pantoprazole Sodium (Protonix) 40 mg PO [facility] Stop: 02/07/20 08:59 Last Admin: 01/14/20 08:14 Dose: 40 mg Documented by: Polyethylene Glycol (Miralax Powder Packet) 17 gm PO DAILY PRN PRN Reason: Constipation Stop: 02/06/20 14:55 Prednisone (Prednisone) 40 mg PO DAILY [facility] Stop: 02/09/20 09:29 Last Admin: 01/14/20 08:13 Dose: 40 mg Documented by: Tamsulosin HCl (Flomax) 0.4 mg PO [facility] Stop: 02/07/20 08:59 Last Admin: 01/14/20 08:14 Dose: 0.4 mg Documented by: Trazodone HCl (Desyrel) 50 mg PO [facility] Stop: 02/06/20 20:59 Last Admin: 01/13/20 21:14 Dose: 50 mg Documented by:
[2020-01-14] MEDS: AMLODIPINE BESYLATE 5 MG TAB PO SCH (15:46)
[2020-01-14] MEDS: TRAZODONE HCL 50 MG TAB PO SCH (20:49)
[2020-01-15] MEDS: FLUTICASONE/VILANTEROL 100/25MCG 14 PUFFS/INHALER INH SCH (07:39)
[2020-01-15] MEDS: FLUTICASONE PROPIONATE NA SPR 16 GM BTL SCH (07:39)
[2020-01-15] MEDS: IPRATROPIUM BROMIDE/ALBUTEROL respimat INH INH SCH ×2 (07:39→12:08)
[2020-01-15] MEDS: ASPIRIN 81 MG ECTAB PO SCH (07:40)
[2020-01-15] MEDS: ISOSORBIDE MONO EXTENDED REL 60 MG TABCR PO SCH (07:40)
[2020-01-15] MEDS: ATORVASTATIN 20 MG TAB PO SCH (07:40)
[2020-01-15] MEDS: AMLODIPINE BESYLATE 5 MG TAB PO SCH (07:40)
[2020-01-15] MEDS: CLOPIDOGREL BISULFATE 75 MG TAB PO SCH (07:41)
[2020-01-15] MEDS: METOPROLOL SUCC 25MG EXT REL TAB PO SCH (07:41)
[2020-01-15] MEDS: MULTIVITAMIN TAB PO SCH (07:41)
[2020-01-15] MEDS: predniSONE 20 MG TAB PO SCH (07:41)
[2020-01-15] MEDS: PANTOprazole 40 MG TAB PO SCH (07:42)
[2020-01-15] MEDS: HEPARIN SOD 5,000 UNIT/0.5 ML VIAL SQ SCH (07:42)
[2020-01-15] MEDS: TAMSULOSIN HCL 0.4 MG CAP PO SCH (07:42)
--- NOTE | 2020-01-15 13:19 | Hospitalist Progress Note ---
Date of Service January 15, 2020 Assessment & Plan (1) COPD exacerbation: Chronically on 2 L oxygen therapy, now requiring 4L on admission. Very poor air movement on auscultation. Rocephin was started but that has been discontinued Appreciate pulm recommendations there. Cont doxycycline for COPD exacerbation. Continue steroids, oxygen supplementation and nebulized bronchodilators. 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 He remains on aspirin and Plavix for CAD with a history of stent. Rate controlled with beta-jan. Continue current medications. Of note he was on amiodarone in the past but taken off due to increasing pulmonary symptoms. Rate remained controlled and denies any significant symptoms (3) Weakness: Significant change in functional status from last month. Family and patient both understanding of likely need to go to SNF as a transition home. PT/OT consulted. Agreed to go to SNF and awaiting placement Remains weak and lethargic (4) CAD (coronary artery disease): CAD with history of PCI. Appears stable, continue current medical management including baby aspirin, Toprol-XL 25 mg every morning, 12.5 mg nightly, Lipitor, Plavix. Continue Imdur for presumed chronic stable angina although has not reported any chest pain. (5) Hypertension: At goal continue current medications. (6) Anemia: Around his baseline. No indication for transfusion at this time. Cont monitoring. Remains stable (7) DVT prophylaxis: Heparin DNR/DNI Dispo-telemetry monitoring to continue for now with increased oxygen requirement--may be a new baseline for him as he has been here for several days. ? Plan for SNF at time of discharge. Palliative input appreciated. Caridad is his niece and the person making medical decisions for him. Discharge to [facility] this afternoon Will discuss with the POA Admission and Anticipated Discharge Date Admission Date: January 07, 2020 Anticipated date of discharge: 01/14/20 Subjective The patient is seen and examined by me in the telemetry unit He has been feeling a lot better today He is minimally short of breath at rest and denies any other symptoms He is ready to be discharged from the hospital 01/14/2020 The patient was seen and examined in telemetry unit Remains stable without any significant symptoms Denies any pain 01/15/2020 The patient is seen and examined in telemetry unit He has been stable though remains very weak and lethargic Denies any significant symptoms Review of Systems Review of Systems: All systems reviewed and are unremarkable except as noted below Respiratory: + cough and + dyspnea (Minimal at rest) Physical Exam Physical Exam: Lying in bed comfortably Constitutional: + acute distress (Minimal shortness of breath at rest), + ill appearing and + thin Eyes: PERRL, conjunctivae normal, anicteric sclerae ENMT: external ear and nose normal, oropharynx normal Neck: trachea midline, no thyromegaly Respiratory: normal respiratory effort, lungs clear to auscultation + respiratory distress (Moderate shortness of breath at rest ) and + uses accessory muscles Auscultation: + diminished lung sounds, + crackles (At the bases more on the right) and + wheezes (Mild wheezing all over) Cardiovascular: Rate/Rhythm: regular rate, regular rhythm and + tachycardic Heart Sounds: no murmur Extremities: + edema (Bilateral leg edema +1) Gastrointestinal (Abdomen): Inspection/Auscultation: abdomen normal to inspection and normal bowel sounds Percussion/Palpation: abdomen soft; abdomen nontender Musculoskeletal: No acute arthritis involving any joints Neurologic: Remains very weak and lethargic Lymphatic: no cervical or axillary lymphadenopathy Results & Data ([facility]) Vital Signs (Past 12 Hours) Vital Signs Temp Pulse Pulse Resp BP BP Pulse Ox 01/15/20 11:53 36.3 C L 105 H 94 H 18 118/76 132/90 99 01/15/20 11:35 36.3 C L 94 H 18 118/76 99 01/15/20 08:02 36.4 C L 89 19 132/90 98 01/15/20 03:54 36.4 C L 81 17 130/71 96 Medications Administered Current Inpatient Medications Acetaminophen (Tylenol) 650 mg PO Q6H PRN PRN Reason: Fever Stop: 02/12/20 06:06 Last Admin: 01/14/20 21:01 Dose: 650 mg Documented by: Albuterol (Combivent Respimat) 1 puffs INH QID [facility] Stop: 02/06/20 15:44 Last Admin: 01/15/20 12:08 Dose: 1 puffs Documented by: Albuterol (Ventolin Hfa) 2 puffs INH Q6 PRN PRN Reason: Shortness Of Breath Or Wheezing Stop: 02/06/20 14:55 Amlodipine Besylate (Norvasc) 2.5 mg PO [facility] Stop: 02/07/20 08:59 Last Admin: 01/15/20 07:40 Dose: 2.5 mg Documented by: Aspirin (Ecotrin Ectab) 81 mg PO [facility] Stop: 02/06/20 15:59 Last Admin: 01/15/20 07:40 Dose: 81 mg Documented by: Atorvastatin Calcium (Lipitor) 20 mg PO [facility] Stop: 02/07/20 08:59 Last Admin: 01/15/20 07:40 Dose: 20 mg Documented by: Clopidogrel Bisulfate (Plavix) 75 mg PO [facility] Stop: 02/06/20 15:59 Last Admin: 01/15/20 07:41 Dose: 75 mg Documented by: Fluticasone Propionate (Flonase) 1 sprays NA [facility] Stop: 02/07/20 08:59 Last Admin: 01/15/20 07:39 Dose: 1 sprays Documented by: Fluticasone/Vilanterol (Breo Ellipta 100/25 Mcg Inh) 1 puffs INH DAILY [facility]; Protocol Stop: 02/06/20 15:59 Last Admin: 01/15/20 07:39 Dose: 1 puffs Documented by: Heparin Sodium (Porcine) (Heparin Sodium (Porcine)) 5,000 units SQ Q12 [facility] Stop: 02/06/20 20:59 Last Admin: 01/15/20 07:42 Dose: 5,000 units Documented by: Ipratropium [place] (Atrovent 0.02% 0.5mg/2.5ml) 0.5 mg INH Q4H PRN PRN Reason: sob/wheezing Stop: 02/07/20 01:29 Last Admin: 01/14/20 13:51 Dose: 0.5 mg Documented by: Isosorbide Mononitrate (Imdur Extended Rel) 60 mg PO BID [facility] Stop: 02/06/20 20:59 Last Admin: 01/15/20 07:40 Dose: 60 mg Documented by: Levalbuterol HCl (Xopenex 0.63 Mg/3 Ml Neb) 0.63 mg NEB Q4H PRN PRN Reason: sob/wheezing Stop: 02/07/20 01:29 Last Admin: 01/14/20 13:51 Dose: 0.63 mg Documented by: Metoprolol Succinate ([facility] Xl) [facility] [place] Stop: 02/07/20 08:59 Last Admin: 01/15/20 07:41 Dose: 25 mg Documented by: Metoprolol Succinate (Toprol Xl) 12.5 mg PO [facility] Stop: 02/06/20 20:59 Last Admin: 01/14/20 20:50 Dose: 12.5 mg Documented by: Multivitamins (Multivitamin Tab) 1 tab PO [facility] Stop: 02/07/20 08:59 Last Admin: 01/15/20 07:41 Dose: 1 tab Documented by: Nitroglycerin (Nitrostat) 0.4 mg SL UD PRN PRN Reason: Chest Pain Stop: 02/06/20 14:55 Pantoprazole Sodium (Protonix) 40 mg PO [facility] Stop: 02/07/20 08:59 Last Admin: 01/15/20 07:42 Dose: 40 mg Documented by: Polyethylene Glycol (Miralax Powder Packet) 17 gm PO DAILY PRN PRN Reason: Constipation Stop: 02/06/20 14:55 Prednisone (Prednisone) 40 mg PO DAILY [facility] Stop: 02/09/20 09:29 Last Admin: 01/15/20 07:41 Dose: 40 mg Documented by: Tamsulosin HCl (Flomax) 0.4 mg PO [facility] Stop: 02/07/20 08:59 Last Admin: 01/15/20 07:42 Dose: 0.4 mg Documented by: Trazodone HCl (Desyrel) 50 mg PO [facility] Stop: 02/06/20 20:59 Last Admin: 01/14/20 20:49 Dose: 50 mg Documented by:
--- NOTE | 2020-01-16 07:52 | Discharge Summary ---
Date of Service January 16, 2020 Admission HPI Per Admitting Provider He is an 84-year-old male with significant past medical history including COPD on 2 L oxygen at home, CAD, PAF, hypertension , hyperlipidemia and poor functional capacity was brought in from home with increasing shortness of breath for the last few days. He has cough without any productive phlegm and he denies any fever and/or chills. He has wheezing and requiring more oxygen in the emergency room to maintain saturation. He denies any chest pain but did complain of palpitation. Denies any abdominal pain nausea and/or vomiting and denies any increasing swelling of the legs. He has generalized weakness and he requires help with ADLs. He was noted to have A. fib with RVR in the emergency room, chest x-ray did show possible developing right lower lobe infiltration without any increase in white count and no fever and chills. He was given nebulized bronchodilator, steroid and antibiotic and will be admitted to telemetry unit for continuation of care. Admission Exam Per Admitting Provider Physical Exam: Lying in bed with moderate shortness of breath and wheezing Constitutional: + acute distress (Shortness of breath and palpitation), + ill appearing and + thin Eyes: PERRL, conjunctivae normal, anicteric sclerae ENMT: external ear and nose normal, oropharynx normal Neck: trachea midline, no thyromegaly Respiratory: + respiratory distress (Moderate shortness of breath at rest ) and + uses accessory muscles Auscultation: + diminished lung sounds, + crackles (At the bases more on the right) and + wheezes (Mild wheezing all over) Cardiovascular: Rate/Rhythm: + tachycardic; + abnormal rate and + abnormal rhythm Heart Sounds: no murmur Extremities: + edema (Bilateral leg edema +1) Gastrointestinal (Abdomen): Inspection/Auscultation: abdomen normal to inspection and normal bowel sounds Percussion/Palpation: abdomen soft; abdomen nontender Musculoskeletal: No acute arthritis in any joint Skin: Has dry skin with scales especially in the extremities Neurologic: Alert and awake. Generally weak and lethargic. Grossly no focal weakness. Lymphatic: no cervical or axillary lymphadenopathy Principal Diagnosis COPD exacerbation, paroxysmal A. fib, CAD, hypertension, palliative care encounter Discharge Exam Constitutional + acute distress (Minimal shortness of breath at rest), + ill appearing and + thin Eyes PERRL, conjunctivae normal, anicteric sclerae ENMT external ear and nose normal, oropharynx normal Neck trachea midline, no thyromegaly Respiratory normal respiratory effort, lungs clear to auscultation + respiratory distress (Moderate shortness of breath at rest ) and + uses accessory muscles Auscultation: + diminished lung sounds, + crackles (At the bases more on the right) and + wheezes (Mild wheezing all over) Cardiovascular Rate/Rhythm: regular rate, regular rhythm and + tachycardic Heart Sounds: no murmur Extremities: + edema (Bilateral leg edema +1) Gastrointestinal (Abdomen) Inspection/Auscultation: abdomen normal to inspection and normal bowel sounds Percussion/Palpation: abdomen soft; abdomen nontender Lymphatic no cervical or axillary lymphadenopathy Discharge Data Allergies Allergy/AdvReac Type Severity Reaction Status Date / Time naproxen Allergy Unknown hives Verified 01/07/20 11:16 Consultations 01/07/20 12:10 ED Decision to Admit Stat 01/09/20 16:52 Consult Pulmonology Routine 01/10/20 08:25 Consult Palliative Care Routine 01/15/20 11:56 Burn CD for patient Stat Hospital Course (1) COPD exacerbation: Chronically on 2 L oxygen therapy, now requiring 4L on admission. Very poor air movement on auscultation. Rocephin was started but that has been discontinued Appreciate pulm recommendations there. Cont doxycycline for COPD exacerbation. Continue steroids, oxygen supplementation and nebulized bronchodilators. Remains stable and denies any significant symptoms except weakness Will be discharged to 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 He remains on aspirin and Plavix for CAD with a history of stent. Rate controlled with beta-jan. Continue current medications. Of note he was on amiodarone in the past but taken off due to increasing pulmonary symptoms. Rate remained controlled and denies any significant symptoms (3) Weakness: Significant change in functional status from last month. Family and patient both understanding of likely need to go to SNF as a transition home. PT/OT consulted. Agreed to go to SNF and awaiting placement Remains weak and lethargic (4) CAD (coronary artery disease): CAD with history of PCI. Appears stable, continue current medical management including baby aspirin, Toprol-XL 25 mg every morning, 12.5 mg nightly, Lipitor, Plavix. Continue Imdur for presumed chronic stable angina although has not reported any chest pain. (5) Hypertension: At goal continue current medications. (6) Anemia: Around his baseline. No indication for transfusion at this time. Cont monitoring. Remains stable (7) DVT prophylaxis: Heparin DNR/DNI Dispo-telemetry monitoring to continue for now with increased oxygen requirement--may be a new baseline for him as he has been here for several days. ? Plan for SNF at time of discharge. Palliative input appreciated. Caridad is his niece and the person making medical decisions for him. Discharge to [facility] this afternoon Will discuss with the POA Total Time Total Time Spent Total Time Spent (In Minutes): 35 minutes Total Time Includes: Examination of the Patient, Discharge Planning, Medication Reconciliation and Communication With Other Providers Discharge Plan Discharge Items Patient Disposition: Transfer [facility] Reason For Visit: CCOPD EXACERBATION,AF WITH RVR Discharge Diagnosis: COPD exacerbation, paroxysmal A. fib, CAD, hypertension, palliative care encounter Condition on Discharge: Fair Activity: Resume your previous activity Non-emergency contact: Primary Care Provider Call non-emergency contact if: you have any medication questions and your symptoms worsen Follow-up/Referrals: Reyes Pablo MD [Primary Care Provider] - (Follow-up care will be provided in [facility]) Diet: Heart Healthy Addtl Attending Provider Instructions: Please take precaution to avoid falls Continue oxygen as prescribed continuously to maintain saturation more than 89% Pending Studies at Discharge: No Stand-Alone Forms: My [facility] Skilled Items Patient informed of condition?: Yes DNR: Yes Discharge Level of Care: Skilled Communicable Disease: No Discharge Prognosis: Stable Lines: None Urinary Catheter: No Medications and DC Order Prescriptions: New prednisone 10 mg tablet 10 mg PO UD Qty: 30 RF: 0 Continued hydrocodone-acetaminophen 7.5-325 mg tablet 1 tab PO Q6H PRN (Reason: Pain) RF: 0 metoprolol succinate 25 mg tablet extended release 24 hr 12.5 mg PO HS RF: 0 multivitamin Tablet 1 tab PO QAM RF: 0 fluticasone propion-salmeterol [Advair Diskus] 250-50 mcg/dose blister with device 1 puff Inhalation BID RF: 0 atorvastatin 20 mg tablet 20 mg PO QAM RF: 0 clopidogrel [Plavix] 75 mg tablet 75 mg PO QAM RF: 0 tamsulosin [Flomax] 0.4 mg capsule 0.4 mg PO QAM RF: 0 nitroglycerin [Nitrostat] 0.4 mg tablet, sublingual 0.4 mg Sublingual UD PRN (Reason: Chest Pain) RF: 0 metoprolol succinate [Toprol XL] 25 mg tablet extended release 24 hr 25 mg PO QAM RF: 0 polyethylene glycol 3350 [Miralax] 17 gram/dose powder 17 g PO DAILY PRN (Reason: Constipation) RF: 0 albuterol sulfate [Ventolin HFA] 90 mcg/actuation HFA aerosol inhaler 2 puff Inhalation Q6 PRN (Reason: Shortness Of Breath Or Wheezing) RF: 0 Combivent Respimat 20-100 mcg/actuation Mist 1 puff INHALATION QID RF: 0 aspirin [Aspir-81] 81 mg Tablet,Delayed Release (Dr/Ec) 81 mg PO QAM RF: 0 omeprazole 20 mg Capsule,Delayed Release(Dr/Ec) 20 mg PO QAM RF: 0 isosorbide mononitrate 20 mg Tablet 60 mg PO BID RF: 0 fluticasone propionate [Flonase Allergy Relief] 50 mcg/actuation [place],Suspension 1 spray INTRANASAL QAM RF: 0 trazodone 50 mg tablet 50 mg PO HS RF: 0 amlodipine 5 mg tablet 2.5 mg PO QAM RF: 0 Discharge Orders: Discharge Order (Routine); Ordered 01/15/20 Ordered By: Mikael Chen Admission Data Admit Date/Time: 01/07/20 12:58 Attending Provider: Mikael Chen Admit Provider: Mikael Chen Primary Care Provider: Reyes Pablo Other Providers: Mikael Chen ; David Clark ; Racheal Cagle Sabrina M. ; [facility] Other Interventions: Discharge Summary Assessment (RN) Last Done: 01/15/20 11:53 DC Date/Time DO NOT enter until pt leaves facility: 01/15/20 15:58
--- NOTE | 2020-01-16 07:55 | Discharge Summary ---
Date of Service January 16, 2020 Admission HPI Per Admitting Provider He is an 84-year-old male with significant past medical history including COPD on 2 L oxygen at home, CAD, PAF, hypertension , hyperlipidemia and poor functional capacity was brought in from home with increasing shortness of breath for the last few days. He has cough without any productive phlegm and he denies any fever and/or chills. He has wheezing and requiring more oxygen in the emergency room to maintain saturation. He denies any chest pain but did complain of palpitation. Denies any abdominal pain nausea and/or vomiting and denies any increasing swelling of the legs. He has generalized weakness and he requires help with ADLs. He was noted to have A. fib with RVR in the emergency room, chest x-ray did show possible developing right lower lobe infiltration without any increase in white count and no fever and chills. He was given nebulized bronchodilator, steroid and antibiotic and will be admitted to telemetry unit for continuation of care. Principal Diagnosis COPD exacerbation, paroxysmal A. fib, CAD, hypertension, palliative care encounter Discharge Exam Constitutional + acute distress (Minimal shortness of breath at rest), + ill appearing and + thin Eyes PERRL, conjunctivae normal, anicteric sclerae ENMT external ear and nose normal, oropharynx normal Neck trachea midline, no thyromegaly Respiratory normal respiratory effort, lungs clear to auscultation + respiratory distress (Moderate shortness of breath at rest ) and + uses accessory muscles Auscultation: + diminished lung sounds, + crackles (At the bases more on the right) and + wheezes (Mild wheezing all over) Cardiovascular Rate/Rhythm: regular rate, regular rhythm and + tachycardic Heart Sounds: no murmur Extremities: + edema (Bilateral leg edema +1) Gastrointestinal (Abdomen) Inspection/Auscultation: abdomen normal to inspection and normal bowel sounds Percussion/Palpation: abdomen soft; abdomen nontender Lymphatic no cervical or axillary lymphadenopathy Discharge Data Allergies Allergy/AdvReac Type Severity Reaction Status Date / Time naproxen Allergy Unknown hives Verified 01/07/20 11:16 Consultations 01/07/20 12:10 ED Decision to Admit Stat 01/09/20 16:52 Consult Pulmonology Routine 01/10/20 08:25 Consult Palliative Care Routine 01/15/20 11:56 Burn CD for patient Stat Hospital Course (1) COPD exacerbation: Chronically on 2 L oxygen therapy, now requiring 4L on admission. Very poor air movement on auscultation. Rocephin was started but that has been discontinued Appreciate pulm recommendations there. Cont doxycycline for COPD exacerbation. Continue steroids, oxygen supplementation and nebulized bronchodilators. Remains stable and denies any significant symptoms except weakness Will be discharged to [facility] this afternoon Palliative care consultation Appreciate input and recommendation Family is agreeable to the recommendation Likely transfer to hospice care and/or comfort care from SNF (2) Paroxysmal A-fib: Known history of paroxysmal atrial fibrillation not on any anticoagulation per his therapist. He remains on aspirin and Plavix for CAD with a history of stent. Rate controlled with beta-jan. Continue current medications. Of note he was on amiodarone in the past but taken off due to increasing pulmonary symptoms. Rate remained controlled and denies any significant symptoms (3) Weakness: Significant change in functional status from last month. Family and patient both understanding of likely need to go to SNF as a transition home. PT/OT consulted. Agreed to go to SNF and awaiting placement Remains weak and lethargic (4) CAD (coronary artery disease): CAD with history of PCI. Appears stable, continue current medical management including baby aspirin, Toprol-XL 25 mg every morning, 12.5 mg nightly, Lipitor, Plavix. Continue Imdur for presumed chronic stable angina although has not reported any chest pain. (5) Hypertension: At goal continue current medications. (6) Anemia: Around his baseline. No indication for transfusion at this time. Cont monitoring. Remains stable (7) DVT prophylaxis: Heparin DNR/DNI Dispo-telemetry monitoring to continue for now with increased oxygen requirement--may be a new baseline for him as he has been here for several days. ? Plan for SNF at time of discharge. Palliative input appreciated. Caridad is his niece and the person making medical decisions for him. Discharge to [facility] this afternoon Will discuss with the POA Total Time Total Time Spent Total Time Spent (In Minutes): 35 minutes Total Time Includes: Examination of the Patient, Discharge Planning, Medication Reconciliation and Communication With Other Providers Discharge Plan Discharge Items Patient Disposition: Transfer [facility] Reason For Visit: CCOPD EXACERBATION,AF WITH RVR Discharge Diagnosis: COPD exacerbation, paroxysmal A. fib, CAD, hypertension, palliative care encounter Condition on Discharge: Fair Activity: Resume your previous activity Non-emergency contact: Primary Care Provider Call non-emergency contact if: you have any medication questions and your symptoms worsen Follow-up/Referrals: Reyes Pablo MD [Primary Care Provider] - (Follow-up care will be provided in [facility]) Diet: Heart Healthy Addtl Attending Provider Instructions: Please take precaution to avoid falls Continue oxygen as prescribed continuously to maintain saturation more than 89% Pending Studies at Discharge: No Stand-Alone Forms: My [facility] Skilled Items Patient informed of condition?: Yes DNR: Yes Discharge Level of Care: Skilled Communicable Disease: No Discharge Prognosis: Stable Lines: None Urinary Catheter: No Medications and DC Order Prescriptions: New prednisone 10 mg tablet 10 mg PO UD Qty: 30 RF: 0 Continued hydrocodone-acetaminophen 7.5-325 mg tablet 1 tab PO Q6H PRN (Reason: Pain) RF: 0 metoprolol succinate 25 mg tablet extended release 24 hr 12.5 mg PO HS RF: 0 multivitamin Tablet 1 tab PO QAM RF: 0 fluticasone propion-salmeterol [Advair Diskus] 250-50 mcg/dose blister with device 1 puff Inhalation BID RF: 0 atorvastatin 20 mg tablet 20 mg PO QAM RF: 0 clopidogrel [Plavix] 75 mg tablet 75 mg PO QAM RF: 0 tamsulosin [Flomax] 0.4 mg capsule 0.4 mg PO QAM RF: 0 nitroglycerin [Nitrostat] 0.4 mg tablet, sublingual 0.4 mg Sublingual UD PRN (Reason: Chest Pain) RF: 0 metoprolol succinate [Toprol XL] 25 mg tablet extended release 24 hr 25 mg PO QAM RF: 0 polyethylene glycol 3350 [Miralax] 17 gram/dose powder 17 g PO DAILY PRN (Reason: Constipation) RF: 0 albuterol sulfate [Ventolin HFA] 90 mcg/actuation HFA aerosol inhaler 2 puff Inhalation Q6 PRN (Reason: Shortness Of Breath Or Wheezing) RF: 0 Combivent Respimat 20-100 mcg/actuation Mist 1 puff INHALATION QID RF: 0 aspirin [Aspir-81] 81 mg Tablet,Delayed Release (Dr/Ec) 81 mg PO QAM RF: 0 omeprazole 20 mg Capsule,Delayed Release(Dr/Ec) 20 mg PO QAM RF: 0 isosorbide mononitrate 20 mg Tablet 60 mg PO BID RF: 0 fluticasone propionate [Flonase Allergy Relief] 50 mcg/actuation [place],Suspension 1 spray INTRANASAL QAM RF: 0 trazodone 50 mg tablet 50 mg PO HS RF: 0 amlodipine 5 mg tablet 2.5 mg PO QAM RF: 0 Discharge Orders: Discharge Order (Routine); Ordered 01/15/20 Ordered By: Mikael Chen Admission Data Admit Date/Time: 01/07/20 12:58 Attending Provider: Mikael Chen Admit Provider: Mikael Chen Primary Care Provider: Reyes Pablo Other Providers: Mikael Chen ; David Clark ; Racheal Cagle ; Aziza Berg ; [facility] Other Interventions: Discharge Summary Assessment (RN) Last Done: 01/15/20 11:53 DC Date/Time DO NOT enter until pt leaves facility: 01/15/20 15:58
== END 2020-01-15 15:58 | DRG 194 ==
LOC: ED 10:36 → 2S 12:58 → SUATTDRO 12:58 → 2S 14:26